=== PATIENT | male | born 1950 | race Caucasian/White ===

== ENCOUNTER 2018-08-24 10:39 | Emergency (ER) | payer MEDICARE, OTHER ==
[~2018-08-24] VITALS: Ht 167.6 cm; Wt 154.2 kg
[2018-08-24 11:14] LABS: BASOPHILS % (AUTO) 1 % (0-10); EOSINOPHILS % (AUTO) 5 % (0-10); HEMATOCRIT 42 % (40-54); HEMOGLOBIN 13.5 G/DL (13.3-17.7); LYMPHOCYTES % (AUTO) 20 % (12-44); MEAN CORPUSCULAR HEMOGLOBIN 27 PG (25-34); MEAN CORPUSCULAR HGB CONC 33 G/DL (32-36); MEAN CORPUSCULAR VOLUME 83 FL (80-99); MEAN PLATELET VOLUME 9.3 FL (7.4-10.4); MONOCYTES % (AUTO) 10 % (0-12); NEUTROPHILS % (AUTO) 64 % (42-75); PLATELET COUNT 176 10^3/uL (130-400); RED CELL DISTRIBUTION WIDTH 15.3 % (10.0-14.5); WHITE BLOOD COUNT 8.7 10^3/uL (4.3-11.0)
[2018-08-24 11:15] LABS: EOSINOPHILS # (AUTO) 0.4 10^3/uL (0.0-0.3); LYMPHOCYTES # (AUTO) 1.7 X 10^3 (1.0-4.0); MONOCYTES # (AUTO) 0.9 X 10^3 (0.0-1.0); NEUTROPHILS # (AUTO) 5.5 X 10^3 (1.8-7.8)
[2018-08-24] MEDS ORDERED: PROCHLORPERAZINE 10 MG/2ML INJ (COMPAZINE) IV ONE (11:15)
[2018-08-24] MEDS ORDERED: ONDANSETRON 4 MG/2 ML (SDV) Z0FRAN IVP ONE ×2 (11:15→12:45)
[2018-08-24] MEDS ORDERED: NS IV 1000 ML 1,000 ML IV SCH (11:15)
[2018-08-24] MEDS ORDERED: TRAM50TA2 (11:20)
[2018-08-24] MEDS ORDERED: FINA5TAB6 (11:20)
[2018-08-24] MEDS ORDERED: POTA20TA8 (11:20)
[2018-08-24] MEDS ORDERED: HYDR-3812 (11:20)
[2018-08-24] MEDS ORDERED: TAMS0.4C98 (11:20)
[2018-08-24] MEDS ORDERED: ALPR0.5T7 (11:20)
[2018-08-24] MEDS ORDERED: CARV3.122 (11:20)
[2018-08-24] MEDS ORDERED: LISI-552 (11:20)
[2018-08-24] MEDS ORDERED: ALLO300T2 (11:20)
[2018-08-24] MEDS ORDERED: MECLIZINE 25 MG (ANTIVERT) TAB PO ONE (11:30)
[2018-08-24 11:38] LABS: ALANINE AMINOTRANSFERASE 17 U/L (0-55); ALBUMIN 4.1 GM/DL (3.2-4.5); ALKALINE PHOSPHATASE 109 U/L (40-136); BILIRUBIN,TOTAL 0.6 MG/DL (0.1-1.0); BUN/CREATININE RATIO 19; CARBON DIOXIDE 20 MMOL/L (21-32); CHLORIDE 103 MMOL/L (98-107); CREATININE SERUM 0.85 MG/DL (0.60-1.30); GFR ESTIMATED > 60; GLUCOSE 116 MG/DL (70-105); POTASSIUM 4.1 MMOL/L (3.6-5.0); SODIUM 139 MMOL/L (135-145); TOTAL PROTEIN 7.6 GM/DL (6.4-8.2)
[2018-08-24 11:39] LABS: LIPASE 15 U/L (8-78)
--- NOTE | 2018-08-24 11:57 | NUR ---
PT RESTING WITH HIS EYES CLOSED. STATES HE IS FEELING BETTER.
--- NOTE | 2018-08-24 12:25 | NUR ---
PT UP TO BATHROOM. STATES HE STILL FEELS A LITTLE DIZZY BUT IS MUCH BETTER. AMBULATED TO BATHROOM WITHOUT DIFFICULTY.
--- NOTE | 2018-08-24 12:35 | NUR ---
DR NOTIFIED PT WAS FEELING BETTER.
[2018-08-24] MEDS ORDERED: MECL-106 PO (12:41)
[2018-08-24] MEDS ORDERED: ONDA4TAB11 PO (12:41)
--- NOTE | 2018-08-24 12:41 | ED Syncope ---
General Chief Complaint: Dizziness/Syncope Stated Complaint: VOMITING & NAUSEA; DIZZY Nursing Triage Note: TO ROOM VIA WC. STATES WHILE AT WORK TODAY AT 0930 HE BECAME DIZZY AND SICK TO HIS STOMACH. STATES THIS HAPPENED LAST WED ALSO BUT IT WENT AWAY. Source of Information: Patient History of Present Illness Date Seen by Provider: Aug 24, 2018 Time Seen by Provider: 10:45 Initial Comments 68-year-old male who presents with intermittent dizziness over the past week. Symptoms are abrupt onset and associated with room spinning, loss of pounds nausea vomiting. Today episode started while work. Symptoms are sweats position change and head movement and are relieved with rest. Denies headache, chest pain , shortness of breath, focal extremity weakness or loss of sensation. No recent respiratory tract illnesses. Denies neck pain, tinnitus or hearing loss. Patient took nausea medication at home last week with first episode and symptoms resolved. No other acute symptoms or complaints. Timing/Prior Episodes: Recent History Symptoms Prior to Episode: Lightheadedness, Pain Precipitating Factors: Other Loss of Consciousness: No Loss of Consciousness Current Symptoms: Dizziness Allergies and Home Medications Allergies Coded Allergies: No Known Drug Allergies (Unverified , 08/24/18) Patient Home Medication List Home Medication List Reviewed: Yes Review of Systems Constitutional: no symptoms reported EENTM: no symptoms reported Respiratory: no symptoms reported Cardiovascular: no symptoms reported Gastrointestinal: nausea, vomiting Genitourinary: no symptoms reported Musculoskeletal: no symptoms reported Skin: no symptoms reported Psychiatric/Neurological: No Symptoms Reported Past Tktlyfu-Csgvjs-Lfuani Hx Patient Social History Alcohol Use: Denies Use Recreational Drug Use: No Smoking Status: Never a Smoker Recent Foreign Travel: No Contact w/Someone Who Travel: No Recent Infectious Disease Expo: No Recent Hopitalizations: No Past Medical History Surgeries: Yes Appendectomy Respiratory: No Cardiac: Yes Hypertension Neurological: No Genitourinary: Yes Kidney Stones Gastrointestinal: No Musculoskeletal: Yes Arthritis Endocrine: No HEENT: No Cancer: No Psychosocial: Yes Anxiety Integumentary: No Physical Exam Vital Signs Vital Signs - First Documented 08/24/18 10:48 Temp 96.3 Pulse 65 Resp 21 B/P (MAP) 180/82 (114) Pulse Ox 96 O2 Delivery Room Air Capillary Refill : Less Than 3 Seconds Height, Weight, BMI Height: 5'6.00" Weight: 340lbs. oz. 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 Norm as Tested Cranial Nerves: Normal Hearing, Normal Speech, PERRL, Facial Droop, Facial Paresthesias Coordination/Gait: Abnormal Gait Focused Exam Sepsis Stage: Ruled Out Progress/Results/Core Measures Results/Orders Lab Results Laboratory Tests Test 08/24/18 10:55 Range/Units White Blood Count 8.7 4.3-11.0 10^3/uL Red Blood Count 5.00 4.35-5.85 10^6/uL Hemoglobin 13.5 13.3-17.7 G/DL Hematocrit 42 40-54 % Mean Corpuscular Volume 83 80-99 FL Mean Corpuscular Hemoglobin 27 25-34 PG Mean Corpuscular Hemoglobin Concent 33 32-36 G/DL Red Cell Distribution Width 15.3 H 10.0-14.5 % Platelet Count 176 130-400 10^3/uL Mean Platelet Volume 9.3 7.4-10.4 FL Neutrophils (%) (Auto) 64 42-75 % Lymphocytes (%) (Auto) 20 12-44 % Monocytes (%) (Auto) 10 0-12 % Eosinophils (%) (Auto) 5 0-10 % Basophils (%) (Auto) 1 0-10 % Neutrophils # (Auto) 5.5 1.8-7.8 X 10^3 Lymphocytes # (Auto) 1.7 1.0-4.0 X 10^3 Monocytes # (Auto) 0.9 0.0-1.0 X 10^3 Eosinophils # (Auto) 0.4 H 0.0-0.3 10^3/uL Basophils # (Auto) 0.0 0.0-0.1 10^3/uL Sodium Level 139 135-145 MMOL/L Potassium Level 4.1 3.6-5.0 MMOL/L Chloride Level 103 98-107 MMOL/L Carbon Dioxide Level 20 L 21-32 MMOL/L Anion Gap 16 H 5-14 MMOL/L Blood Urea Nitrogen 16 7-18 MG/DL Creatinine 0.85 0.60-1.30 MG/DL Estimat Glomerular Filtration Rate > 60 BUN/Creatinine Ratio 19 Glucose Level 116 H 70-105 MG/DL Calcium Level 9.0 8.5-10.1 MG/DL Corrected Calcium 8.9 8.5-10.1 MG/DL Total Bilirubin 0.6 0.1-1.0 MG/DL Aspartate Amino Transf (AST/SGOT) 18 5-34 U/L Alanine Aminotransferase (ALT/SGPT) 17 0-55 U/L Alkaline Phosphatase 109 40-136 U/L Troponin T 14 <=15 NG/L Total Protein 7.6 6.4-8.2 GM/DL Albumin 4.1 3.2-4.5 GM/DL Lipase 15 8-78 U/L My Orders Orders - LESTER SHIRLEY DO Cbc With Automated Diff (08/24/18 11:03) Comprehensive Metabolic Panel (08/24/18 11:03) Lipase (08/24/18 11:03) Troponin T (08/24/18 11:03) Ondansetron Injection (Zofran Injectio (08/24/18 11:15) Ns Iv 1000 Ml (Sodium Chloride 0.9%) (08/24/18 11:15) Prochlorperazine Injection (Compazine In (08/24/18 11:15) Meclizine Tablet (Antivert Tablet) (08/24/18 11:30) Ekg Tracing (08/24/18 12:34) Medications Given in ED Current Medications Medications Dose Ordered Sig/Joseph Route Start Time Stop Time Status Last Admin Dose Admin Meclizine HCl 25 mg ONCE ONCE PO 08/24/18 11:30 08/24/18 11:31 DC 08/24/18 11:28 25 MG Ondansetron HCl 4 mg ONCE ONCE IVP 08/24/18 11:15 08/24/18 11:16 DC 08/24/18 11:10 4 MG Prochlorperazine Edisylate 10 mg ONCE ONCE IV 08/24/18 11:15 08/24/18 11:16 DC 08/24/18 11:10 10 MG Vital Signs/I&O 08/24/18 10:48 Temp 96.3 Pulse 65 Resp 21 B/P (MAP) 180/82 (114) Pulse Ox 96 O2 Delivery Room Air Blood Pressure Mean: 114 Departure Communication (Admissions) Acute vertigo exacerbated by position change. No focal neurologic deficits. Fluids, antiemetics and meclizine given with near complete resolution of symptoms and emergency department. Patient is able to walk by himself with steady gait her to discharge. Recommend continued supportive care with PCP follow-up. Temperature instructions reviewed. Impression Primary Impression: Vertigo Disposition: HOME, SELF-CARE Condition: Improved Departure-Patient Inst. Decision time for Depature: 12:39 Referrals: CHRISTIANO VALENCIA MD (PCP/Family) Primary Care Physician Patient Instructions: Vertigo (a Type of Dizziness) (DC) Add. Discharge Instructions: Please take meclizine 3 times daily as needed for dizziness and nausea medication as directed. Avoid sudden position changes or head movement as this may cause vertigo episodes to return. Follow-up with your PCP in 2-3 days for reevaluation. Return immediately if new or worsening symptoms. All discharge instructions reviewed with patient and/or family. Voiced understanding. Scripts Ondansetron (Ondansetron Odt) 4 Mg Tab.rapdis 4 MG PO Q6H PRN for NAUSEA/VOMITING, #10 TAB Prov: LESTER SHIRLEY DO 08/24/18 Meclizine HCl (Meclizine HCl) 25 Mg Tablet 50 MG PO TID, #20 TAB Prov: LESTER SHIRLEY DO 08/24/18 LESTER SHIRLEY DO Aug 24, 2018 12:41
--- NOTE | 2018-08-24 12:45 | NUR ---
UPON GOING OVER DISCHARGE INSTRUCTIONS WITH PT, PT STATES HE IS NAUSEATED AND IS WEAK. DR TRAVIS ET WILL ORDER MEDICATIONS.
--- NOTE | 2018-08-24 12:55 | NUR ---
RX CALLED INTO [facility] PER REQUEST OF PT.
[2018-08-24 13:05] VITALS: BP 154/72
== END 2018-08-24 13:05 | disposition home or self-care (01) ==
LOC: ER FS 10:44
DX: R42 Dizziness and giddiness (principal); F41.9 Anxiety disorder, unspecified; I10 Essential (primary) hypertension; Z90.49 Acquired absence of other specified parts of digestive tract; Z87.442 Personal history of urinary calculi
CPT/HCPCS: 36415; 80053; 83690; 84484; 85025; 93005

== ENCOUNTER → 2019-06-21 | Outpatient (CLI) | payer MEDICARE ==
[~2019-06-21] MED LIST: ALLO300T2; ALPR0.5T7; CARV3.122; FINA5TAB6; HYDR-3812; LISI-552; MECL-106 PO; ONDA4TAB11 PO; POTA20TA8; TMSL.4C; TRM50T
[2019-06-21 10:16] LABS: BUN/CREATININE RATIO 24; CALCIUM 8.9 MG/DL (8.5-10.1); CARBON DIOXIDE 26 MMOL/L (21-32); CHLORIDE 102 MMOL/L (98-107); CREATININE SERUM 0.98 MG/DL (0.60-1.30); GFR ESTIMATED > 60; GLUCOSE 111 MG/DL (70-105); POTASSIUM 4.2 MMOL/L (3.6-5.0); SODIUM 140 MMOL/L (135-145)
== END ==
LOC: LAB FS 08:52
PROVIDERS: ATTEND Urology
DX: N40.1 Benign prostatic hyperplasia with lower urinary tract symptoms (principal); R39.9 Unspecified symptoms and signs involving the genitourinary system
CPT/HCPCS: 36415; 80048; 84153; 84403

== ENCOUNTER → 2019-09-07 | Outpatient (CLI) | payer MEDICARE ==
[~2019-09-07] MED LIST changes: +ACHD5005; -HYDR-3812; -MECL-106 PO; +MECL-149 PO
[2019-09-07 09:20] LABS: BUN/CREATININE RATIO 18; CARBON DIOXIDE 27 MMOL/L (21-32); CHLORIDE 102 MMOL/L (98-107); CREATININE SERUM 0.96 MG/DL (0.60-1.30); GFR ESTIMATED > 60; POTASSIUM 4.3 MMOL/L (3.6-5.0); SODIUM 140 MMOL/L (135-145)
[2019-09-07 09:21] LABS: ALANINE AMINOTRANSFERASE 13 U/L (0-55); ALBUMIN 4.1 GM/DL (3.2-4.5); ALKALINE PHOSPHATASE 108 U/L (40-136); BILIRUBIN,TOTAL 0.6 MG/DL (0.1-1.0); CALCIUM 9.1 MG/DL (8.5-10.1); GLUCOSE 105 MG/DL (70-105); TOTAL PROTEIN 7.8 GM/DL (6.4-8.2)
[2019-09-07 15:38] LABS: CHOLESTEROL 166 MG/DL (< 200); HDL CHOLESTEROL 44 MG/DL (40-60); TRIGLYCERIDES 100 MG/DL (<150); VLDL CHOLESTEROL 20 MG/DL (5-40)
== END ==
LOC: LAB FS 08:46
PROVIDERS: ATTEND Family Medicine
DX: E11.9 Type 2 diabetes mellitus without complications (principal)
CPT/HCPCS: 36415; 80053; 80061; 83036

== ENCOUNTER → 2019-10-26 | Outpatient (CLI) | payer MEDICARE ==
--- NOTE | 2019-10-26 10:30 | Diagnostic Imaging Report ---
PROCEDURE: CT head without contrast. TECHNIQUE: Multiple contiguous axial images were obtained through the brain without the use of intravenous contrast. Auto Exposure Controls were utilized during the CT exam to meet ALARA standards for radiation dose reduction. INDICATION: Dizziness. No prior studies are available for comparison. Ventricles and sulci are appropriate for the patient's age. No sulcal effacement or midline shift is identified. No acute intra-axial or extra-axial hemorrhage is detected. Cisterns are patent. Visualized paranasal sinuses are clear. IMPRESSION: No acute intracranial process is detected. Dictated by: Dictated on workstation # [id number]
--- NOTE | 2019-10-26 12:21 | Diagnostic Imaging Report ---
PROCEDURE: US carotid duplex, bilateral. TECHNIQUE: Multiple real-time grayscale images were obtained over the carotid arteries in various projections, bilaterally. Additional spectral analysis and color Doppler duplex images were also obtained. INDICATION: Dizziness. COMPARISON: None available. FINDINGS: Minimal scattered plaque is noted within the bilateral carotid arterial systems. Peak systolic velocities throughout the bilateral carotid arterial systems are within normal limits. Additionally, the bilateral internal carotid artery to common carotid artery ratios are within normal limits. Antegrade flow within the bilateral vertebral arteries. IMPRESSION: No evidence of hemodynamically significant stenosis. Parameters based on the consensus panel Ortega-Scale and Doppler ultrasound criteria published April 2003, Radiology, Volume 229. DOPPLER (peak systolic velocity M/S Right Left CCA .57 .76 ICA Proximal .48 .77 ICA Mid .48 .63 ICA Distal .45 .75 RATIO .8 1.0 ECA .81 .86 VERT .51 .37 Dictated by: Dictated on workstation # [id number]
== END ==
LOC: CARD 09:30
PROVIDERS: ATTEND Family Medicine
DX: R42 Dizziness and giddiness (principal)
CPT/HCPCS: 70450; 93306; 93880

== ENCOUNTER 2019-11-07 12:16 | Emergency (ER) | payer MEDICARE ==
[~2019-11-07] VITALS: Ht 162.5 cm; Wt 168.1 kg
[2019-11-07 12:35] VITALS: BP_SYST 183; BP_SYST 191; BP_SYST 196; BP_DIAS 105; BP_DIAS 85; BP_DIAS 86
--- NOTE | 2019-11-07 12:37 | ED Cardiac General ---
History of Present Illness General Chief Complaint: Cardiac/General Problems Stated Complaint: HYPERTENSION History of Present Illness Date Seen by Provider: Nov 07, 2019 Time Seen by Provider: 12:25 Initial Comments This patient is 69-year-old male presents to the emergency department complaining of chronic dizziness and hypertension. Patient has long history of dizziness and had a CT scan and carotid Dopplers and echocardiogram they're all nonconclusive. Patient does take of motion sickness medicine which I'm assuming is meclizine but the patient was not sure to help with dizziness. Patient states he does know dizziness upon arrival to the emergency department today. Patient states he was sent to the emergency department by primary care due to high blood pressures around 200 systolic. Patient apparently takes Coreg and lisinopril 20 mg for hypertension. We'll do medical evaluation treatment is needed. Timing/Duration: intermittent Severity: moderate Activities at Onset: none Prior CP/Workup: echocardiography Allergies and Home Medications Allergies Coded Allergies: No Known Drug Allergies (Unverified , 08/24/18) Home Medications Meclizine HCl 25 Mg Tablet, 50 MG PO TID Prescribed by: LESTER SHIRLEY on 08/24/18 1241 Ondansetron 4 Mg Tab.rapdis, 4 MG PO Q6H PRN for NAUSEA/VOMITING Prescribed by: LESTER SHIRLEY on 08/24/18 1241 Patient Home Medication List Home Medication List Reviewed: Yes Review of Systems Review of Systems Constitutional: No no symptoms reported; see HPI; No chills, No diaphoresis; dizziness; No fever, No malaise, No weakness, No weight gain, No weight loss, No other EENTM: No No Symptoms Reported, No See HPI, No Blurred Vision, No Double Vision, No Eye Pain, No Eye Tearing, No Ear Drainage, No Ear Pain, No Mouth Pain, No Mouth Swelling, No Nose Congestion, No Nose Pain, No Throat Pain, No Throat Swelling, No Other Respiratory: Denies No Symptoms Reported, Denies See HPI, Denies Cough, Denies Orthopnea, Denies Shortness of Air, Denies SOA With Exertion, Denies SOA at Rest, Denies Stridor, Denies Wheezing, Denies Other Cardiovascular: Denies No Symptoms Reported, Denies See HPI, Denies Chest Pain, Denies Edema, Denies Irregular Heart Rate, Denies Lightheadedness, Denies Palpitations, Denies Syncope, Denies Other Gastrointestinal: Denies No Symptoms Reported, Denies See HPI, Denies Abdomen Distended, Denies Abdominal Pain, Denies Blood Streaked Stools, Denies Const ipated, Denies Diarrhea, Denies Difficulty Swallowing, Denies Nausea, Denies Poor Appetite, Denies Poor Fluid Intake, Denies Rectal Bleeding, Denies Vomiting, Denies Other Genitourinary: Denies No Symptoms Reported, Denies See HPI, Denies Burning, Denies Discharge, Denies Drainage, Denies Frequency, Denies Flank Pain, Denies Hematuria, Denies Incontinence, Denies Pain, Denies Urgency, Denies Other Musculoskeletal: No no symptoms reported, No see HPI, No back pain, No gout, No joint pain, No joint swelling, No muscle pain, No muscle stiffness, No muscle cramps, No muscle twitching, No muscle weakness, No neck pain, No other Skin: No no symptoms reported, No see HPI, No change in color, No change in hair/nails, No dryness, No hx of skin cancer, No lesions, No lumps, No pruritus, No rash, No other All Other Systems Reviewed Negative Unless Noted: Yes Past Nqrknjq-Dpibsw-Blwbzr Hx Patient Social History Recent Foreign Travel: No Contact w/Someone Who Travel: No Recent Hopitalizations: No Past Medical History Surgeries: Yes Appendectomy Respiratory: No Cardiac: Yes Hypertension Neurological: No Genitourinary: Yes Kidney Stones Gastrointestinal: No Musculoskeletal: Yes Arthritis Endocrine: No HEENT: No Cancer: No Psychosocial: Yes Anxiety Integumentary: No Physical Exam Vital Signs Vital Signs - First Documented 11/07/19 12:22 Temp 36.7 Pulse 77 Resp 19 B/P (MAP) 196/101 (132) Pulse Ox 96 O2 Delivery Room Air Capillary Refill : Height, Weight, BMI Height: 5'6.00" Weight: 340lbs. oz. 154.846011jl; BMI Method:Stated General Appearance: No Apparent Distress, WD/WN HEENT: PERRL/EOMI, TMs Normal, Normal ENT Inspection, Pharynx Normal Neck: Full Range of Motion, Normal Inspection, Non Tender Respiratory: Chest Non Tender, Lungs Clear, Normal Breath Sounds, No Accessory Muscle Use, No Respiratory Distress Cardiovascular: Regular Rate, Rhythm, No Edema, No Gallop, No JVD, No Murmur, Normal Peripheral Pulses Gastrointestinal: Normal Bowel Sounds, No Organomegaly, No Pulsatile Mass, Non Tender Neurologic/Psychiatric: Alert, Oriented x3, No Motor/Sensory Deficits, Normal Mood/Affect Skin: Normal Color, Warm/Dry Progress/Results/Core Measures Results/Orders Lab Results Laboratory Tests Test 11/07/19 12:43 11/07/19 12:50 Range/Units Urine Color YELLOW Urine Clarity CLEAR Urine pH 7.5 5-9 Urine Specific Ethan 1.015 L 1.016-1.022 Urine Protein NEGATIVE NEGATIVE Urine Glucose (UA) NEGATIVE NEGATIVE Urine Ketones NEGATIVE NEGATIVE Urine Nitrite NEGATIVE NEGATIVE Urine Bilirubin NEGATIVE NEGATIVE Urine Urobilinogen 0.2 < = 1.0 MG/DL Urine Leukocyte Esterase NEGATIVE NEGATIVE Urine RBC (Auto) NEGATIVE NEGATIVE Urine RBC NONE /HPF Urine WBC 0-2 /HPF Urine Squamous Epithelial Cells 0-2 /HPF Urine Crystals NONE /LPF Urine Bacteria NEGATIVE /HPF Urine Casts NONE /LPF Urine Mucus NEGATIVE /LPF Urine Culture Indicated NO White Blood Count 10.0 4.3-11.0 10^3/uL Red Blood Count 4.97 4.35-5.85 10^6/uL Hemoglobin 13.3 13.3-17.7 G/DL Hematocrit 41 40-54 % Mean Corpuscular Volume 83 80-99 FL Mean Corpuscular Hemoglobin 27 25-34 PG Mean Corpuscular Hemoglobin Concent 32 32-36 G/DL Red Cell Distribution Width 15.8 H 10.0-14.5 % Platelet Count 158 130-400 10^3/uL Mean Platelet Volume 9.6 7.4-10.4 FL Neutrophils (%) (Auto) 70 42-75 % Lymphocytes (%) (Auto) 19 12-44 % Monocytes (%) (Auto) 7 0-12 % Eosinophils (%) (Auto) 3 0-10 % Basophils (%) (Auto) 1 0-10 % Neutrophils # (Auto) 7.0 1.8-7.8 X 10^3 Lymphocytes # (Auto) 1.9 1.0-4.0 X 10^3 Monocytes # (Auto) 0.7 0.0-1.0 X 10^3 Eosinophils # (Auto) 0.3 0.0-0.3 10^3/uL Basophils # (Auto) 0.1 0.0-0.1 10^3/uL Sodium Level 141 135-145 MMOL/L Potassium Level 4.1 3.6-5.0 MMOL/L Chloride Level 103 98-107 MMOL/L Carbon Dioxide Level 27 21-32 MMOL/L Anion Gap 11 5-14 MMOL/L Blood Urea Nitrogen 20 H 7-18 MG/DL Creatinine 0.96 0.60-1.30 MG/DL Estimat Glomerular Filtration Rate > 60 BUN/Creatinine Ratio 21 Glucose Level 117 H 70-105 MG/DL Calcium Level 9.3 8.5-10.1 MG/DL Corrected Calcium 9.4 8.5-10.1 MG/DL Total Bilirubin 0.5 0.1-1.0 MG/DL Aspartate Amino Transf (AST/SGOT) 16 5-34 U/L Alanine Aminotransferase (ALT/SGPT) 12 0-55 U/L Alkaline Phosphatase 100 40-136 U/L Troponin I < 0.30 <0.30 NG/ML Pro-B-Type Natriuretic Peptide 472.6 H <75.0 PG/ML Total Protein 7.2 6.4-8.2 GM/DL Albumin 3.9 3.2-4.5 GM/DL My Orders Orders - JAMES GILLIS MD Ed Iv/Invasive Line Start (11/07/19 12:32) Orthostatic Vital Signs (Adult (11/07/19 12:32) Cbc With Automated Diff (11/07/19 12:32) Comprehensive Metabolic Panel (11/07/19 12:32) Ekg Tracing (11/07/19 12:32) Urinalysis (11/07/19 12:32) Probnp Fs (11/07/19 12:32) Troponin I Fs (11/07/19 12:32) Chest 1 View Ap/Pa Only (11/07/19 12:32) Hydralazine Injection (Apresoline Inject (11/07/19 12:45) Medications Given in ED Current Medications Medications Dose Ordered Sig/Joseph Route Start Time Stop Time Status Last Admin Dose Admin Hydralazine HCl 10 mg ONCE ONCE IV 11/07/19 12:45 11/07/19 12:46 DC 11/07/19 12:54 10 MG Vital Signs/I&O 11/07/19 11/07/19 12:22 12:35 Temp 36.7 Pulse 77 71 71 75 Resp 19 B/P (MAP) 196/101 (132) 183/85 (117) 196/105 (135) 191/86 (121) Pulse Ox 96 O2 Delivery Room Air Progress Progress Note : Time: 13:44 Progress Note This patient is doing much improved after hydralazine. Patient still complains of no dizziness in the emergency department this is a chronic issue. Patient's blood pressure is 141/66 after hydralazine. Discussed length with patient about options. We will write the patient prescription for Norvasc 10 mg daily patient is to keep a blood pressure log and follow-up with his primary care physician to monitor blood pressures. Patient be discharged home Initial ECG Impression Date: Nov 07, 2019 Initial ECG Impression Time: 12:58 Initial ECG Rate: 66 Initial ECG Rhythm: Normal Sinus Initial ECG Impression: Nonspecific Changes Comment Sinus rhythm with a heart rate is 66 left anterior vesicular block and nonspecific EKG changes. Departure Impression Primary Impression: Hypertension Additional Impression: Dizziness Disposition: 01 HOME, SELF-CARE Condition: Stable Departure-Patient Inst. Decision time for Depature: 13:46 Referrals: CHRISTIANO AVLENCIA MD (PCP/Family) Primary Care Physician Patient Instructions: High Blood Pressure (DC) Add. Discharge Instructions: We will write the patient prescription for Norvasc 10 mg daily patient is to keep a blood pressure log and follow-up with his primary care physician to monitor blood pressures. Patient be discharged home All discharge instructions reviewed with patient and/or family. Voiced understanding. Scripts Amlodipine Besylate (Amlodipine Besylate) 10 Mg Tablet 10 MG PO DAILY for 30 Days, #30 TAB 0 Refills Prov: JAMSE GILLIS MD 11/07/19 JAMES GILLIS MD Nov 07, 2019 12:37
[2019-11-07] MEDS ORDERED: hydrALAZINE (APESOLINE) 20 MG/ML VIAL IV ONE (12:45)
--- NOTE | 2019-11-07 12:48 | Diagnostic Imaging Report ---
INDICATION: High blood pressure. TIME OF EXAM: 12:39 p.m. The heart size is normal. The pulmonary vascularity is unremarkable. The lungs are clear. No infiltrate, effusion or pneumothorax is detected. IMPRESSION: No acute cardiopulmonary process is detected. Dictated by: Dictated on workstation # [id number]
[2019-11-07 13:00] LABS: HEMATOCRIT 41 % (40-54); HEMOGLOBIN 13.3 G/DL (13.3-17.7); MEAN CORPUSCULAR HEMOGLOBIN 27 PG (25-34); MEAN CORPUSCULAR HGB CONC 32 G/DL (32-36); MEAN CORPUSCULAR VOLUME 83 FL (80-99)
[2019-11-07 13:01] LABS: BASOPHILS # (AUTO) 0.1 10^3/uL (0.0-0.1); BASOPHILS % (AUTO) 1 % (0-10); EOSINOPHILS # (AUTO) 0.3 10^3/uL (0.0-0.3); EOSINOPHILS % (AUTO) 3 % (0-10); LYMPHOCYTES # (AUTO) 1.9 X 10^3 (1.0-4.0); LYMPHOCYTES % (AUTO) 19 % (12-44); MEAN PLATELET VOLUME 9.6 FL (7.4-10.4); MONOCYTES # (AUTO) 0.7 X 10^3 (0.0-1.0); MONOCYTES % (AUTO) 7 % (0-12); NEUTROPHILS % (AUTO) 70 % (42-75); PLATELET COUNT 158 10^3/uL (130-400); RED CELL DISTRIBUTION WIDTH 15.8 % (10.0-14.5)
[2019-11-07 13:02] LABS: BACTERIA,URINE NEGATIVE /HPF; BILIRUBIN,URINE NEGATIVE (NEGATIVE); CLARITY,URINE CLEAR; COLOR,URINE YELLOW; GLUCOSE, URINE (UA) NEGATIVE (NEGATIVE); KETONES,URINE NEGATIVE (NEGATIVE); LEUKOCYTE ESTERASE ,URINE NEGATIVE (NEGATIVE); NITRITE,URINE NEGATIVE (NEGATIVE); PH,URINE 7.5 (5-9); PROTEIN,URINE NEGATIVE (NEGATIVE); SQUAMOUS EPITHELIAL CELL,UR 0-2 /HPF; WBC,URINE 0-2 /HPF
[2019-11-07 13:35] LABS: ALANINE AMINOTRANSFERASE 12 U/L (0-55); ALKALINE PHOSPHATASE 100 U/L (40-136); BILIRUBIN,TOTAL 0.5 MG/DL (0.1-1.0); BUN/CREATININE RATIO 21; CALCIUM 9.3 MG/DL (8.5-10.1); CARBON DIOXIDE 27 MMOL/L (21-32); CHLORIDE 103 MMOL/L (98-107); CREATININE SERUM 0.96 MG/DL (0.60-1.30); GFR ESTIMATED > 60; GLUCOSE 117 MG/DL (70-105); POTASSIUM 4.1 MMOL/L (3.6-5.0); SODIUM 141 MMOL/L (135-145); TOTAL PROTEIN 7.2 GM/DL (6.4-8.2)
[2019-11-07 13:36] LABS: ALBUMIN 3.9 GM/DL (3.2-4.5)
[2019-11-07] MEDS ORDERED: AMLO10TA7 PO (13:46)
[2019-11-07 14:10] VITALS: BP 152/57
--- OUTSIDE RECORDS SUMMARY | 2019-11-07 15:17 | XMS REPORT | Continuity of Care Document ---
Author Organization Unknown Address Unknown Phone Unavailable Allergies Active Description Code Type Severity Reaction Onset Reported/Identified Relationship to Patient Clinical Status Yes No Known Drug Allergies [id number] Drug Allergy Unknown N/A 08/24/2018 Medications There is no data. Problems Date Dx Coded Attending Type Code Diagnosis Diagnosed By 08/24/2018 LESTER SHIRLEY DO, Ot F41.9 ANXIETY DISORDER, UNSPECIFIED 08/24/2018 LESTER SHIRLEY DO Ot I10 ESSENTIAL (PRIMARY) HYPERTENSION 08/24/2018 LESTER SHIRLEY DO Ot R42 DIZZINESS AND GIDDINESS 08/24/2018 LESTER SHIRLEY DO Ot Z87.442 PERSONAL HISTORY OF URINARY CALCULI 08/24/2018 LESTER SHIRLEY DO Ot Z90.49 ACQUIRED ABSENCE OF OTHER SPECIFIED PART 08/30/2018 LESTER SHIRLEY DO, Ot F41.9 ANXIETY DISORDER, UNSPECIFIED 08/30/2018 LESTER SHIRLEY DO Ot I10 ESSENTIAL (PRIMARY) HYPERTENSION 08/30/2018 LESTER SHIRLEY DO Ot R42 DIZZINESS AND GIDDINESS 08/30/2018 LESTER SHIRLEY DO, Ot Z87.442 PERSONAL HISTORY OF URINARY CALCULI 08/30/2018 LESTER SHIRLEY DO, Ot Z90.49 ACQUIRED ABSENCE OF OTHER SPECIFIED PART 06/23/2019 MEMO BERRIOS MD Ot N40.1 BENIGN PROSTATIC HYPERPLASIA WITH LOWER 06/23/2019 MEMO BERRIOS MD Ot R39.9 UNSP SYMPTOMS AND SIGNS INVOLVING THE GE 09/07/2019 MEMO BERRIOS MD Ot N40.1 BENIGN PROSTATIC HYPERPLASIA WITH LOWER 09/07/2019 MEMO BERRIOS MD Ot R39.9 UNSP SYMPTOMS AND SIGNS INVOLVING THE GE 09/10/2019 CHRISTIANO VALENCIA MD Ot E11 .9 TYPE 2 DIABETES MELLITUS WITHOUT COMPLIC 09/10/2019 CHRISTIANO VALENCIA MD Ot E11 .9 TYPE 2 DIABETES MELLITUS WITHOUT COMPLIC 10/25/2019 CHRISTIANO VALENCIA MD Ot R42 DIZZINESS AND GIDDINESS 10/26/2019 CHRISTIANO VALENCIA MD Ot R42 DIZZINESS AND GIDDINESS 10/31/2019 ERIK MIRANDA, CHRISTIANO Napier Ot R42 DIZZINESS AND GIDDINESS Procedures There is no data. Results Test Result Range Complete blood count (CBC) with automate d white blood cell (WBC) differential - 08/24/18 10:55 Blood leukocytes automated count (number/volume) 8.7 10*3/uL 4.3-11.0 Blood erythrocytes automated count (number/volume) 5.00 10*6/uL 4.35-5.85 Venous blood hemoglobin measurement (mass/volume) 13.5 g/dL 13.3-17.7 Blood hematocrit (volume fraction) 42 % 40-54 Automated erythrocyte mean corpuscular volume 83 [ foz_us] 80-99 Automated erythrocyte mean corpuscular h emoglobin (mass per erythrocyte) 27 pg 25-34 Automated erythrocyte mean corpuscular h emoglobin concentration measurement (mass/volume) 33 g/dL 32-36 Automated erythrocyte distribution width ratio 15. 3 % 10.0- 14.5 Automated blood platelet count (count/volume) 176 10*3/uL 130-400 Automated blood platelet mean volume measurement 9.3 [foz_us] 7.4-10.4 Automated blood neutrophils/100 leukocytes 64 % 42-75 Automated blood lymphocytes/100 leukocytes 20 % 12-44 Blood monocytes/100 leukocytes 10 % 0-12 Automated blood eosinophils/100 leukocytes 5 % 0-10 Automated blood basophils/100 leukocytes 1 % 0-10 Blood neutrophils automated count (number/volume) 5.5 10*3 1.8-7.8 Blood lymphocytes automated count (number/volume) 1.7 10*3 1.0-4.0 Blood monocytes automated count (number/volume) 0. 9 10*3 0.0-1.0 Automated eosinophil count 0.4 10*3/uL 0 .0-0.3 Automated blood basophil count (count/volume) 0.0 10*3/uL 0.0-0.1 Comprehensive metabolic panel - 08/24/18 10:55 Serum or plasma sodium measurement (moles/volume) 139 mmol/L 135-145 Serum or plasma potassium measurement (moles/volume) 4.1 mmol/L 3.6-5.0 Serum or plasma chloride measurement (moles/volume) 103 mmol/L 98-107 Carbon dioxide 20 mmol/L 21-32 Serum or plasma anion gap determination (moles/volume) 16 mmol/L 5-14 Serum or plasma urea nitrogen measurement (mass/volume ) 16 mg/dL 7-18 Serum or plasma creatinine measurement (mass/volume) 0.85 mg/dL 0.60-1.30 Serum or plasma urea nitrogen/creatinine mass ratio 19 NRG Serum or plasma creatinine measurement w ith calculation of estimated glomerular filtration rate > NRG Serum or plasma glucose measurement (mass/volume) 116 mg/dL 70-105 Serum or plasma calcium measurement (mass/volume) 9.0 mg/dL 8.5-10.1 Serum or plasma total bilirubin measurement (mass/volu me) 0.6 mg/dL 0.1-1.0 Serum or plasma alkaline phosphatase geri surement (enzymatic activity/volume) 109 U/L 40-136 Serum or plasma aspartate aminotransfera se measurement (enzymatic activity/volume) 18 U/L 5-34 Serum or plasma alanine aminotransferase measurement (enzymatic activity/volume) 17 U/L 0-55 Serum or plasma protein measurement (mass/volume) 7.6 g/dL 6.4-8.2 Serum or plasma albumin measurement (mass/volume) 4.1 g/dL 3.2-4.5 CALCIUM CORRECTED 8.9 mg/dL 8.5-10.1 TROPONIN T - 08/24/18 10:55 TROPONIN T 14 % <=15 Lipase - 08/24/18 10:55 Lipase 15 U/L 8-78 Whole blood basic metabolic panel - 06/06 11/23 09:20 Serum or plasma sodium measurement (moles/volume) 140 mmol/L 135-145 Serum or plasma potassium measurement (moles/volume) 4.2 mmol/L 3.6-5.0 Serum or plasma chloride measurement (moles/volume) 102 mmol/L 98-107 Carbon dioxide 26 mmol/L 21-32 Serum or plasma anion gap determination (moles/volume) 12 mmol/L 5-14 Serum or plasma urea nitrogen measurement (mass/volume ) 24 mg/dL 7-18 Serum or plasma creatinine measurement (mass/volume) 0.98 mg/dL 0.60-1.30 Serum or plasma urea nitrogen/creatinine mass ratio 24 NRG Serum or plasma creatinine measurement w ith calculation of estimated glomerular filtration rate > NRG Serum or plasma glucose measurement (mass/volume) 111 mg/dL 70-105 Serum or plasma calcium measurement (mass/volume) 8.9 mg/dL 8.5-10.1 Serum or plasma testosterone measurement (mass/volume) - 06/21/19 09:20 TESTOSTERONE TOTAL SERUM C 120.74 % 22 0.91-715.81 Prostate specific ag [mass/volume] in se rum or plasma - 06/21/19 09:20 PSA EQUIMOLAR (JENN) 1.80 % 0.00-4.0 0 Comprehensive metabolic panel - 09/07/19 08:55 Serum or plasma sodium measurement (moles/volume) 140 mmol/L 135-145 Serum or plasma potassium measurement (moles/volume) 4.3 mmol/L 3.6-5.0 Serum or plasma chloride measurement (moles/volume) 102 mmol/L 98-107 Carbon dioxide 27 mmol/L 21-32 Serum or plasma anion gap determination (moles/volume) 11 mmol/L 5-14 Serum or plasma urea nitrogen measurement (mass/volume ) 17 mg/dL 7-18 Serum or plasma creatinine measurement (mass/volume) 0.96 mg/dL 0.60-1.30 Serum or plasma urea nitrogen/creatinine mass ratio 18 NRG Serum or plasma creatinine measurement w ith calculation of estimated glomerular filtration rate > NRG Serum or plasma glucose measurement (mass/volume) 105 mg/dL 70-105 Serum or plasma calcium measurement (mass/volume) 9.1 mg/dL 8.5-10.1 Serum or plasma total bilirubin measurement (mass/volu me) 0.6 mg/dL 0.1-1.0 Serum or plasma alkaline phosphatase geri surement (enzymatic activity/volume) 108 U/L 40-136 Serum or plasma aspartate aminotransfera se measurement (enzymatic activity/volume) 16 U/L 5-34 Serum or plasma alanine aminotransferase measurement (enzymatic activity/volume) 13 U/L 0-55 Serum or plasma protein measurement (mass/volume) 7.8 g/dL 6.4-8.2 Serum or plasma albumin measurement (mass/volume) 4.1 g/dL 3.2-4.5 CALCIUM CORRECTED 9.0 mg/dL 8.5-10.1 Lipid 1996 panel - 09/07/19 08:55 Serum or plasma triglyceride measurement (mass/volume) 100 mg/dL <150 Serum or plasma cholesterol measurement (mass/volume) 166 mg/dL < 200 Serum or plasma cholesterol in HDL measurement (mass/v olume) 44 mg/dL 40-60 Cholesterol in LDL [mass/volume] in serum or plasma by direct assay 119 mg/dL 1-129 Serum or plasma cholesterol in VLDL measurement (mass/ volume) 20 mg/dL 5-40 Hemoglobin A1c measurement - 09/07/19 08 :55 Blood hemoglobin A1C measurement (mass/volume) 5.2 % 4.0-5.6 MEAN BLOOD GLUCOSE 103 % <=126 Complete urinalysis with reflex to cultu re - 11/07/19 12:43 Urine color determination YELLOW NRG Urine clarity determination CLEAR NR G Urine pH measurement by test strip 7.5 5-9 Specific gravity of urine by test strip 1.015 1.016-1.022 Urine protein assay by test strip, semi-quantitative NEGATIVE NEGATIVE Urine glucose detection by automated test strip NE GATIVE NEGATIVE Erythrocytes detection in urine sediment by light micr oscopy NEGATIVE NEGATIVE Urine ketones detection by automated test strip NE GATIVE NEGATIVE Urine nitrite detection by test strip NEGATIVE NEGATIVE Urine total bilirubin detection by test strip NEGA TIVE NEGATIVE Urine urobilinogen measurement by automated test strip (mass/volume) 0.2 mg/dL < = 1.0 Urine leukocyte esterase detection by dipstick NEG ATIVE NEGATIVE Automated urine sediment erythrocyte cou nt by microscopy (number/high power field) NONE NRG Automated urine sediment leukocyte count by microscopy (number/high power field) [HPF] NRG Bacteria detection in urine sediment by light microsco py NEGATIVE NRG Squamous epithelial cells detection in u rine sediment by light microscopy 0-2 NRG Crystals detection in urine sediment by light microsco py NONE NRG Casts detection in urine sediment by light microscopy NONE NRG Mucus detection in urine sediment by light microscopy NEGATIVE NRG Complete urinalysis with reflex to culture NO NRG Complete blood count (CBC) with automate d white blood cell (WBC) differential - 11/07/19 12:50 Blood leukocytes automated count (number/volume) 10.0 10*3/uL 4.3-11.0 Blood erythrocytes automated count (number/volume) 4.97 10*6/uL 4.35-5.85 Venous blood hemoglobin measurement (mass/volume) 13.3 g/dL 13.3-17.7 Blood hematocrit (volume fraction) 41 % 40-54 Automated erythrocyte mean corpuscular volume 83 [ foz_us] 80-99 Automated erythrocyte mean corpuscular h emoglobin (mass per erythrocyte) 27 pg 25-34 Automated erythrocyte mean corpuscular h emoglobin concentration measurement (mass/volume) 32 g/dL 32-36 Automated erythrocyte distribution width ratio 15. 8 % 10.0- 14.5 Automated blood platelet count (count/volume) 158 10*3/uL 130-400 Automated blood platelet mean volume measurement 9.6 [foz_us] 7.4-10.4 Automated blood neutrophils/100 leukocytes 70 % 42-75 Automated blood lymphocytes/100 leukocytes 19 % 12-44 Blood monocytes/100 leukocytes 7 % 0-12 Automated blood eosinophils/100 leukocytes 3 % 0-10 Automated blood basophils/100 leukocytes 1 % 0-10 Blood neutrophils automated count (number/volume) 7.0 10*3 1.8-7.8 Blood lymphocytes automated count (number/volume) 1.9 10*3 1.0-4.0 Blood monocytes automated count (number/volume) 0. 7 10*3 0.0-1.0 Automated eosinophil count 0.3 10*3/uL 0 .0-0.3 Automated blood basophil count (count/volume) 0.1 10*3/uL 0.0-0.1 Comprehensive metabolic panel - 11/07/19 12:50 Serum or plasma sodium measurement (moles/volume) 141 mmol/L 135-145 Serum or plasma potassium measurement (moles/volume) 4.1 mmol/L 3.6-5.0 Serum or plasma chloride measurement (moles/volume) 103 mmol/L 98-107 Carbon dioxide 27 mmol/L 21-32 Serum or plasma anion gap determination (moles/volume) 11 mmol/L 5-14 Serum or plasma urea nitrogen measurement (mass/volume ) 20 mg/dL 7-18 Serum or plasma creatinine measurement (mass/volume) 0.96 mg/dL 0.60-1.30 Serum or plasma urea nitrogen/creatinine mass ratio 21 NRG Serum or plasma creatinine measurement w ith calculation of estimated glomerular filtration rate > NRG Serum or plasma glucose measurement (mass/volume) 117 mg/dL 70-105 Serum or plasma calcium measurement (mass/volume) 9.3 mg/dL 8.5-10.1 Serum or plasma total bilirubin measurement (mass/volu me) 0.5 mg/dL 0.1-1.0 Serum or plasma alkaline phosphatase geri surement (enzymatic activity/volume) 100 U/L 40-136 Serum or plasma aspartate aminotransfera se measurement (enzymatic activity/volume) 16 U/L 5-34 Serum or plasma alanine aminotransferase measurement (enzymatic activity/volume) 12 U/L 0-55 Serum or plasma protein measurement (mass/volume) 7.2 g/dL 6.4-8.2 Serum or plasma albumin measurement (mass/volume) 3.9 g/dL 3.2-4.5 CALCIUM CORRECTED 9.4 mg/dL 8.5-10.1 TROPONIN I FS - 11/07/19 12:50 TROPONIN I FS < 0.30 <0.30 PROBNP - 11/07/19 12:50 PROBNP FS 472.6 pg/mL <75.0 Encounters ACCT No. Visit Date/Time Discharge Status Pt. Type Provider Facility Loc./Unit Complaint [id number] 11/07/2019 12:18:00 14:10:00 DIS Emergency ELIS MIRANDA, JAMES Stone [facility] ER FS HYPERTENSION [id number] 10/26/2019 09:30:00 23:59:59 CLS Outpatient CHRISTIANO VALENCIA MD [facility] CARD DIZZY SPELLS [id number] 09/07/2019 08:46:00 23:59:59 CLS Outpatient CHRISTIANO VALENCIA MD [facility] LAB FS A1C CMP LIPID [id number] 06/21/2019 08:52:00 23:59:59 CLS Outpatient MEMO BERRIOS MD [facility] LAB FS N40.1 [id number] 08/24/2018 10:44:00 13:05:00 DIS Emergency LESTER SHIRLEY DO [facility] ER FS VOMITING NAUSEA; DIZZ Y
== END 2019-11-07 14:10 | disposition home or self-care (01) ==
LOC: EDUNIT# 12:16 → ER FS 12:18
DX: I10 Essential (primary) hypertension (principal); R42 Dizziness and giddiness
CPT/HCPCS: 36415; 71045; 80053; 81000; 83880; 84484; 85025; 93005

== ENCOUNTER → 2020-07-18 | Outpatient (CLI) | payer MEDICARE ==
[~2020-07-18] MED LIST changes: +AMLO-251 PO; -LISI-552; +LISI20TA26
[2020-07-18 11:52] LABS: POTASSIUM 4.3 MMOL/L (3.6-5.0); SODIUM 141 MMOL/L (135-145)
[2020-07-18 11:53] LABS: BUN/CREATININE RATIO 17; CALCIUM 9.2 MG/DL (8.5-10.1); CARBON DIOXIDE 27 MMOL/L (21-32); CHLORIDE 104 MMOL/L (98-107); CREATININE SERUM 1.03 MG/DL (0.60-1.30); GFR ESTIMATED > 60; GLUCOSE 100 MG/DL (70-105)
== END ==
LOC: LAB FS 10:58
PROVIDERS: ATTEND Urology
DX: N40.0 Benign prostatic hyperplasia without lower urinary tract symptoms (principal)
CPT/HCPCS: 36415; 80048; 84153; 84403

== ENCOUNTER → 2021-01-02 | Outpatient (CLI) | payer MEDICARE ==
[2021-01-02 12:31] LABS: POTASSIUM 4.7 MMOL/L (3.6-5.0)
[2021-01-02 12:32] LABS: ALBUMIN 3.9 GM/DL (3.2-4.5); BILIRUBIN,TOTAL 0.5 MG/DL (0.1-1.0); CALCIUM 8.9 MG/DL (8.5-10.1); CREATININE SERUM 0.86 MG/DL (0.60-1.30); TOTAL PROTEIN 7.4 GM/DL (6.4-8.2)
== END ==
LOC: LAB FS 09:42
PROVIDERS: ATTEND Family Medicine
DX: I10 Essential (primary) hypertension (principal)
CPT/HCPCS: 36415; 80053; 80061

== ENCOUNTER 2021-04-26 12:53 | Inpatient (IN) | payer MEDICARE ==
[~2021-04-26] VITALS: Ht 162 cm; Wt 174.6 kg
[~2021-04-26 12:53] MED LIST changes: -ALLO300T2; +ALLO300T2 PO; -ALPR0.5T7; +ALPR0.5T7 PO; -FINA5TAB6; +FINA5TAB6 PO; -LISI20TA26; +LISI20TA26 PO; +POTA-169; -POTA20TA8
[2021-04-26] MEDS ORDERED: RT-ALBUTEROL/IPRATROPIUM 3 ML (DUONEB) VIAL INH ONE (13:15)
[2021-04-26 13:17] LABS: WHITE BLOOD COUNT 16.8 10^3/uL (4.3-11.0)
[2021-04-26 13:18] LABS: BASOPHILS # (AUTO) 0.1 10^3/uL (0.0-0.1); BASOPHILS % (AUTO) 0 % (0-10); EOSINOPHILS # (AUTO) 0.2 10^3/uL (0.0-0.3); EOSINOPHILS % (AUTO) 1 % (0-10); HEMATOCRIT 42 % (40-54); LYMPHOCYTES # (AUTO) 2.1 X 10^3 (1.0-4.0); LYMPHOCYTES % (AUTO) 13 % (12-44); MEAN CORPUSCULAR HEMOGLOBIN 27 pg (25-34); MEAN CORPUSCULAR HGB CONC 31 g/dL (32-36); MEAN CORPUSCULAR VOLUME 88 fL (80-99); MEAN PLATELET VOLUME 8.7 fL (9.0-12.2); MONOCYTES # (AUTO) 1.4 X 10^3 (0.0-1.0); MONOCYTES % (AUTO) 9 % (0-12); NEUTROPHILS # (AUTO) 12.6 X 10^3 (1.8-7.8); NEUTROPHILS % (AUTO) 75 % (42-75); PLATELET COUNT 245 10^3/uL (130-400)
--- NOTE | 2021-04-26 13:18 | ED Respiratory ---
General Chief Complaint: Respiratory Problems Stated Complaint: COUGH; GEN WEAKNESS Source: patient Exam Limitations: no limitations History of Present Illness Date Seen by Provider: Apr 26, 2021 Time Seen by Provider: 12:59 Initial Comments 70-year-old male with past medical history of hypertension, hyperlipidemia, morbid obesity coming in from home due to cough and shortness of breath. He says he started having some congestion and cough 3 days ago. He is p rogressively been more short of breath and now has difficulty walking without having to stop to take several deep breaths. His is sick with the same thing he says. He does endorse having COVID over a year ago and has not been vaccinated. He denies any fever, chest pain, abdominal pain, nausea, vomiting, diarrhea, rash, focal weakness or numbness, or any other concerns. Allergies and Home Medications Allergies Coded Allergies: No Known Drug Allergies (Unverified , 08/24/18) Patient Home Medication List Home Medication List Reviewed: Yes Allopurinol (Allopurinol) 300 Mg Tablet, (Reported) Entered as Reported by: ANDRZEJ BENTLEY on 08/24/18 1120 Alprazolam (Alprazolam) 0.5 Mg Tablet, (Reported) Entered as Reported by: ANDRZEJ BENTLEY on 08/24/18 1120 Amlodipine Besylate (Amlodipine Besylate) 10 Mg Tablet, 10 MG PO DAILY Prescribed by: JAMES GILLIS on 11/07/19 1346 Carvedilol (Carvedilol) 3.125 Mg Tablet, (Reported) Entered as Reported by: ANDRZEJ BENTLEY on 08/24/18 1120 Finasteride (Finasteride) 5 Mg Tablet, (Reported) Entered as Reported by: ANDRZEJ BENTLEY on 08/24/18 1120 Hydrocodone Bit/Acetaminophen (Lortab 5 Mg Tablet) 1 Each Tablet, (Reported) Entered as Reported by: ANDRZEJ BENTLEY on 08/24/18 1120 Lisinopril (Lisinopril) 20 Mg Tablet, (Reported) Entered as Reported by: ANDRZEJ BENTLEY on 08/24/18 1120 Meclizine HCl (Meclizine HCl) 25 Mg Tablet, 50 MG PO TID Prescribed by: LESTER SHIRLEY on 08/24/18 1241 Ondansetron (Ondansetron Odt) 4 Mg Tab.rapdis, 4 MG PO Q6H PRN for NAUSEA/VOMITING Prescribed by: LESTER SHIRLEY on 08/24/18 1241 Potassium Chloride (Klor-Con M20) 20 Meq Tab.er.prt, (Reported) Entered as Reported by: ANDRZEJ BENTLEY on 08/24/18 1120 Tamsulosin HCl (Flomax) 0.4 Mg Cap, (Reported) Entered as Reported by: ANDRZEJ BENTLEY on 08/24/18 1120 Tramadol HCl (Tramadol HCl) 50 Mg Tablet, (Reported) Entered as Reported by: ANDRZEJ BENTLEY on 08/24/18 1120 Review of Systems Review of Systems Constitutional: No chills, No fever EENTM: No blurred vision Respiratory: cough, short of breath Cardiovascular: No chest pain Gastrointestinal: No abdominal pain, No nausea, No vomiting Genitourinary: no symptoms reported Musculoskeletal: no symptoms reported Skin: no symptoms reported Psychiatric/Neurological: No Symptoms Reported Hematologic/Lymphatic: No Symptoms Reported Immunological/Allergic: no symptoms reported All Other Systems Reviewed Negative Unless Noted: Yes Past Gdbbyap-Ggqlva-Cjedmo Hx Patient Social History Tobacco Use?: No Use of E-Cig and/or Vaping dev: No Substance use?: No Alcohol Use?: No Pt feels they are or have been: No Seasonal Allergies Seasonal Allergies: No Past Medical History Surgeries: Yes Appendectomy Respiratory: Yes Sleep Apnea Cardiac: Yes Hypertension Neurological: No Genitourinary: Yes Benign Prostatic Hyperpl, Kidney Stones Gastrointestinal: No Musculoskeletal: Yes Arthritis, Gout Endocrine: No HEENT: No Cancer: No Psychosocial: Yes Anxiety Integumentary: No Blood Disorders: No Physical Exam Vital Signs - First Documented 04/26/21 13:00 Temp 36.8 Pulse 116 Resp 21 B/P (MAP) 153/88 (109) Pulse Ox 94 O2 Delivery Nasal Cannula O2 Flow Rate 6.00 Capillary Refill : Height: 5'6.00" Weight: 340lbs. oz. 154.653083xx; 63.00 BMI Method:Stated General Appearance: WD/WN, no apparent distress Eyes: Bilateral Eye Normal Inspection, Bilateral Eye PERRL HEENT: PERRL/EOMI, normal ENT inspection, pharynx normal Neck: non-tender, full range of motion, supple, normal inspection Respiratory: chest non-tender, no accessory muscle use, crackles, wheezing Cardiovascular: no murmur, tachycardia, irregularly irregular Gastrointestinal: normal bowel sounds, non tender, soft; No guarding, No rebound Extremities: normal range of motion, non-tender, no calf tenderness, normal capillary refill, pedal edema Neurologic/Psychiatric: no motor/sensory deficits, alert, normal mood/affect Skin: normal color, warm/dry Lymphatic: no adenopathy Progress/Results/Core Measures Suspected Sepsis SIRS Temperature: Pulse: Respiratory Rate: Laboratory Tests 04/26/21 13:00: White Blood Count 16.8H Blood Pressure / Mean: Laboratory Tests 04/26/21 13:00: Creatinine 0.89, INR Comment 1.1, Platelet Count 245, Total Bilirubin 1.1H Results/Orders Lab Results Laboratory Tests Test 04/26/21 13:00 Range/Units White Blood Count 16.8 H 4.3-11.0 10^3/uL Red Blood Count 4.80 4.30-5.52 10^6/uL Hemoglobin 13.0 L 13.3-17.7 g/dL Hematocrit 42 40-54 % Mean Corpuscular Volume 88 80-99 fL Mean Corpuscular Hemoglobin 27 25-34 pg Mean Corpuscular Hemoglobin Concent 31 L 32-36 g/dL Red Cell Distribution Width 15.9 H 10.0-14.5 % Platelet Count 245 130-400 10^3/uL Mean Platelet Volume 8.7 L 9.0-12.2 fL Immature Granulocyte % (Auto) 2 % Neutrophils (%) (Auto) 75 42-75 % Lymphocytes (%) (Auto) 13 12-44 % Monocytes (%) (Auto) 9 0-12 % Eosinophils (%) (Auto) 1 0-10 % Basophils (%) (Auto) 0 0-10 % Neutrophils # (Auto) 12.6 H 1.8-7.8 X 10^3 Lymphocytes # (Auto) 2.1 1.0-4.0 X 10^3 Monocytes # (Auto) 1.4 H 0.0-1.0 X 10^3 Eosinophils # (Auto) 0.2 0.0-0.3 10^3/uL Basophils # (Auto) 0.1 0.0-0.1 10^3/uL Immature Granulocyte # (Auto) 0.3 H 0.0-0.1 10^3/uL Neutrophils % (Manual) 73 % Lymphocytes % (Manual) 17 % Monocytes % (Manual) 10 % Toxic Granulation 1+ Polychromasia SLIGHT Basophilic Stippling SLIGHT Prothrombin Time 14.3 12.2-14.7 SEC INR Comment 1.1 0.8-1.4 Activated Partial Thromboplast Time 30 24-35 SEC D-Dimer 1.07 H 0.00-0.49 UG/ML Sodium Level 138 135-145 MMOL/L Potassium Level 4.4 3.6-5.0 MMOL/L Chloride Level 99 98-107 MMOL/L Carbon Dioxide Level 30 21-32 MMOL/L Anion Gap 9 5-14 MMOL/L Blood Urea Nitrogen 19 H 7-18 MG/DL Creatinine 0.89 0.60-1.30 MG/DL Estimat Glomerular Filtration Rate 84 BUN/Creatinine Ratio 21 Glucose Level 107 H 70-105 MG/DL Calcium Level 8.9 8.5-10.1 MG/DL Corrected Calcium 9.1 8.5-10.1 MG/DL Magnesium Level 2.2 1.6-2.4 MG/DL Total Bilirubin 1.1 H 0.1-1.0 MG/DL Aspartate Amino Transf (AST/SGOT) 17 5-34 U/L Alanine Aminotransferase (ALT/SGPT) 15 0-55 U/L Alkaline Phosphatase 117 40-136 U/L Troponin I < 0.30 <0.30 NG/ML C-Reactive Protein 15.22 H <0.50 MG/DL Pro-B-Type Natriuretic Peptide 2264.0 H <75.0 PG/ML Total Protein 7.5 6.4-8.2 GM/DL Albumin 3.7 3.2-4.5 GM/DL Influenza Type A Antigen NEGATIVE NEGATIVE Influenza Type B Antigen NEGATIVE NEGATIVE My Orders Orders - MAGDALENA CASANOVA MD Chest 1 View Ap/Pa Only (04/26/21 13:13) Arterial Blood Gas (04/26/21 13:13) Cbc With Automated Diff (04/26/21 13:13) Comprehensive Metabolic Panel (04/26/21 13:13) Fibrin Degradation Products (04/26/21 13:13) Magnesium (04/26/21 13:13) Protime With Inr (04/26/21 13:13) Partial Thromboplastin Time (04/26/21 13:13) Probnp Fs (04/26/21 13:13) Crp Fs (04/26/21 13:13) Troponin I Fs (04/26/21 13:13) Influenza A & B Antigens (04/26/21 13:13) Ekg Tracing (04/26/21 13:13) O2 (04/26/21 13:13) Monitor-Rhythm Ecg Trace Only (04/26/21 13:13) Covid 19 Inhouse Test (04/26/21 13:13) Albuterol/Ipra Inhalation Soln (Duoneb I (04/26/21 13:15) Furosemide Injection (Lasix Injection) (04/26/21 13:30) Manual Differential (04/26/21 13:00) Dexamethasone Injection (Decadron Injec (04/26/21 14:00) Medications Given in ED Current Medications Medications Dose Ordered Sig/Joseph Route Start Time Stop Time Status Last Admin Dose Admin Albuterol/ Ipratropium 3 ml ONCE ONCE INH 04/26/21 13:15 04/26/21 13:16 DC 04/26/21 13:26 3 ML Dexamethasone Sodium Phosphate 10 mg ONCE ONCE IV 04/26/21 14:00 04/26/21 14:01 DC 04/26/21 14:05 10 MG Furosemide 40 mg ONCE ONCE IVP 04/26/21 13:30 04/26/21 13:31 DC 04/26/21 13:26 40 MG Vital Signs/I&O 04/26/21 04/26/21 13:00 13:02 Temp 36.8 Pulse 116 Resp 21 B/P (MAP) 153/88 (109) Pulse Ox 94 93 O2 Delivery Nasal Cannula Nasal Cannula O2 Flow Rate 6.00 6.00 Capillary Refill : Progress Note : Progress Note 70-year-old male with above history coming in feeling short of breath with cough for the past 3 days. His oxygen saturation was in the 70s on presentation with the monitor on his finger and around 80% with a monitor on his forehead. He was placed on 6 L with improvement to 93%. He is in A. fib with RVR with a rate between 110 to mid 120s. The majority of the time he is around 110. Blood pressure is actually hypertensive around 150s over 80s. He does have crackles and some wheezing on exam. He does have lower extremity edema as well. He does appear to at least be partially volume overloaded, but it is difficult to assess as he has significant adiposity. We will give him a DuoNeb as well as a trial of Lasix to see if we can improve his oxygenation. An IV was placed and basic labs were obtained including cardiac biomarkers, ABG, and inflammatory markers. COVID test and flu testing sent. Flu test is negative, Covid test pending, white blood cell count elevated, CRP elevated at 15, D-dimer slightly elevated at 1, but my suspicion with him likely having Covid as this is just related to that. BNP is elevated greater than 2000, troponin negative. Creatinine is within normal limits. Chest x-ray ordered and interpreted by me showing bilateral pulmonary infiltrates that to me are more concerning for an infection such as Covid. Pulmonary edema could also have a similar appearance. I contacted the hospitalist on-call, Dr. Nogueira, and the patient will be admitted to the intensive care unit as an inpatient for further evaluation and management. Just prior to leaving via ambulance to [place] his heart rate went from 110 to consistently around 150s afib with RVR. Blood pressure remains normal. This continued to be transient, and was higher when he was more active such as when going to the commode. Lowered appropriately when resting in bed. Will hold off on rate control at this time as this is likely physiologic compensation. ECG Initial ECG Impression Date: Apr 26, 2021 Initial ECG Impression Time: 13:03 Initial ECG Rate: 119 Initial ECG Rhythm: A Fib/Flutter Comment Narrow QRS, left axis deviation, no significant ST changes, T wave flattening in aVL, compared to prior EKG over a year ago he is now in afib Diagnostic Imaging Diagonstic Imaging: Xray Plain Films/CT/US/NM/MRI: chest Comments [facility]. [place], [place] NAME: ADAMA STARK [facility] REC#: [id number] PT STATUS: REG ER : 1950 PHYSICIAN: MAGDALENA CASANOVA MD ADMIT DATE: 04/26/21/ER FS Signed Date of Exam:04/26/21 CHEST 1 VIEW AP/PA ONLY INDICATION: Shortness of breath. COMPARISON: Comparison is made with a previous study from November 07, 2019. FINDINGS: There is enlargement of the cardiac silhouette, which appears similar to the prior examination and is likely accentuated by AP technique. The central pulmonary arteries also appear prominent which may reflect background pulmonary arterial hypertension. When compared to the prior examination, there do, however, appear to be some new subtle opacities within the mid and lower right lung as well as in a retrocardiac location on the left that suggest the possibility of developing infiltrates and pneumonia. IMPRESSION: 1. Subtle pulmonary opacities within the right lung and at the left lung base may reflect a developing pneumonia. 2. No significant change in enlarged cardiac silhouette and prominent pulmonary arteries. Dictated by: Dictated on workstation # [id number] Dict: 04/26/21 1333 Trans: 04/26/21 1354 [id number] Interpreted by: AURELIO PIMENTEL MD Electronically signed by: AURELIO PIMENTEL MD 04/26/21 1354 Critical Care Note Critical Care Start Time: 13:00 Stop Time: 13:40 Total Time (minutes) 40 Progress The patient is in acute respiratory failure and worsening. He is in A. fib with RVR and is at significant risk for hemodynamic compromise. All time spent that is being billed for critical care was at the bedside with the patient separate from any additional procedures as well as talking with different clinicians about the patient's case. Departure Impression Primary Impression: Respiratory failure Qualified Codes: J96.01 - Acute respiratory failure with hypoxia Additional Impressions: Atrial fibrillation with RVR Person under investigation for COVID-19 Disposition: 30 STILL A PATIENT Condition: Critical Admissions Decision to Admit Reason: Admit from ER (General) Decision to Admit/Date: Apr 26, 2021 Time/Decision to Admit Time: 13:50 Transfer Method of Transfer: EMS Departure-Patient Inst. Referrals: CHRISTIANO VALENCIA MD (PCP/Family) Primary Care Physician MAGDALENA CASANOVA MD Apr 26, 2021 13:18
[2021-04-26 13:24] LABS: INR 1.1 (0.8-1.4); PROTHROMBIN TIME PATIENT 14.3 SEC (12.2-14.7)
[2021-04-26] MEDS ORDERED: FUROSEMIDE 40 MG/4 ML INJ (LASIX) IVP ONE (13:30)
[2021-04-26 13:37] LABS: BUN/CREATININE RATIO 21; CALCIUM 8.9 MG/DL (8.5-10.1); CARBON DIOXIDE 30 MMOL/L (21-32); CHLORIDE 99 MMOL/L (98-107); CREATININE SERUM 0.89 MG/DL (0.60-1.30); GFR ESTIMATED 84; GLUCOSE 107 MG/DL (70-105); POTASSIUM 4.4 MMOL/L (3.6-5.0); SODIUM 138 MMOL/L (135-145)
[2021-04-26 13:38] LABS: ALANINE AMINOTRANSFERASE 15 U/L (0-55); ALBUMIN 3.7 GM/DL (3.2-4.5); ALKALINE PHOSPHATASE 117 U/L (40-136); BILIRUBIN,TOTAL 1.1 MG/DL (0.1-1.0); TOTAL PROTEIN 7.5 GM/DL (6.4-8.2)
[2021-04-26 13:39] LABS: FIBRIN DEGRADATION PRODUCTS 1.07 UG/ML (0.00-0.49)
--- NOTE | 2021-04-26 13:40 | Diagnostic Imaging Report ---
INDICATION: Shortness of breath. COMPARISON: Comparison is made with a previous study from November 07, 2019. FINDINGS: There is enlargement of the cardiac silhouette, which appears similar to the prior examination and is likely accentuated by AP technique. The central pulmonary arteries also appear prominent which may reflect background pulmonary arterial hypertension. When compared to the prior examination, there do, however, appear to be some new subtle opacities within the mid and lower right lung as well as in a retrocardiac location on the left that suggest the possibility of developing infiltrates and pneumonia. IMPRESSION: 1. Subtle pulmonary opacities within the right lung and at the left lung base may reflect a developing pneumonia. 2. No significant change in enlarged cardiac silhouette and prominent pulmonary arteries. Dictated by: Dictated on workstation # [id number]
[2021-04-26 13:44] LABS: LYMPHOCYTES % (MANUAL) 17 %; MONOCYTES % (MANUAL) 10 %; NEUTROPHILS % (MANUAL) 73 %
[2021-04-26 13:45] LABS: POLYCHROMASIA SLIGHT; TOXIC GRANULATION/VACUOLAZATIO 1+
[2021-04-26 13:52] LABS: MAGNESIUM 2.2 MG/DL (1.6-2.4)
[2021-04-26 14:20] VITALS: BP 143/85
[2021-04-26] MEDS ORDERED: LIDOCAINE UROJET 2% GEL 10 ML PKG ONE (15:19)
[2021-04-26] MEDS ORDERED: ONDANSETRON 4 MG/5 ML ORAL SOLN (ZOFRAN) 5 ML PO PRN (15:45)
[2021-04-26] MEDS ORDERED: ENOXAPARIN 40 MG/0.4 ML (LOVENOX) SYR SC SCH (15:45)
[2021-04-26] MEDS ORDERED: ONDANSETRON 4 MG/2 ML (SDV) Z0FRAN IV PRN ×2 (15:45→20:00)
[2021-04-26] MEDS ORDERED: guaiFENesin SYRUP 100 MG/5 ML 10 ML (ROBITUSSIN SF) PO PRN (15:45)
[2021-04-26] MEDS ORDERED: ACETAMINOPHEN 325 MG TABLET PO PRN (15:45)
[2021-04-26] MEDS ORDERED: ACETAMINOPHEN 650 MG SUPP (TYLENOL) PR PRN (15:45)
[2021-04-26] MEDS ORDERED: RT-ALBUTEROL HFA 8.5 GM INHALER IH PRN (16:00)
[2021-04-26] MEDS ORDERED: CATHETER FLUSH 10 ML SYR IV PRN (16:00)
--- NOTE | 2021-04-26 16:06 | Tele-ICU Consult ---
History of Present Illness History of Present Illness Date Seen by Provider: Apr 26, 2021 Time Seen by Provider: 15:05 Date of Admission This virtual visit was conducted using real time audio/video. Thank you for asking us to see this patient for respiratory insufficiency due to B infilts with Negative flu and Covis serologies. Also has afib with RVR. Recent events: Low sats in ER. PMH: morbid obesity, htn, hl, gout, BPH, NGOZI. SH: smoking history N FH: Non-contributory. ROS: as in HPI PE: Appears comfortable. Obese.VSS. HR 98 afib. O2 96% sat on 6 LPM NC. HEENT: No obvious masses, adenopathy or JVD. Chest: clear to auscultation. CV: Irreg HR S1 S2 No murmur or added sounds. Abd: Non-tender. Bowel sounds Y. : Unremarkable. Jiang N. [place] MASSEUSE/psychiatric: Grossly intact. No obvious focal findings. Extremities: 1+ edema. Capillary refill < 3 seconds. Skin: unremarkable. Results: Elevated WCC16.8, D-Dimer 1.07, BNP 2264, CRP 15.22. Decreased Hb 13.0. CXR B infiltrates with LLL air bronchograms: . Available chart/ vitals / labs / images reviewed. Video assessment done using teleICU camera, rest of exam as per RN. A/P: Respiratory insufficiency: Continue present management with O2, PRN BDs. find out if on nocturnal NIV for NGOZI. Monitor for increasing oxygenation needs and/or need for intubation. Critical Care: critically ill patient. Cont. Lovenox, PRN Lasix and KCl. Discussed with TERRY Lay. Asked RN to reach out to eICU if any questions or concerns later. Time spent with patient/coordination of care with other health professionals (mins): 35 Allergies and Home Medications Allergies Coded Allergies: No Known Drug Allergies (Unverified , 08/24/18) Home Medications Amlodipine Besylate 10 Mg Tablet, 10 MG PO DAILY Prescribed by: JAMES GILLIS on 11/07/19 1346 Meclizine HCl 25 Mg Tablet, 50 MG PO TID Prescribed by: LESTER SHIRLEY on 08/24/18 1241 Ondansetron 4 Mg Tab.rapdis, 4 MG PO Q6H PRN for NAUSEA/VOMITING Prescribed by: LESTER SHIRLEY on 08/24/18 1241 Past Medical/Social/Family Hx Patient Social History Tobacco Use?: No Use of E-Cig and/or Vaping dev: No Substance use?: No Alcohol Use?: No Pt stated abuse/neglect: No Current Status Advance Directives: No Communicates: Verbally Primary Language: Libyan Preferred Spoken Language: Libyan Is interpretation needed?: No Review of Systems Constitutional: see HPI EENTM: see HPI Respiratory: see HPI Cardiovascular: see HPI Gastrointestinal: see HPI Genitourinary: see HPI Musculoskeletal: see HPI Skin: see HPI Psychiatric/Neurological: See HPI (see free text.) All Other Systems Reviewed Negative Unless Noted: Yes Sepsis Event Evaluation Height, Weight, BMI Height: 5'6.00" Weight: 340lbs. oz. 154.135127he; 66.00 BMI Method:Stated Exam Exam Patient acknowledged, consented, and participated in this virtual visit which was conducted using real time audio/video Vital Signs Date Time Temp Pulse Resp B/P (MAP) Pulse Ox O2 Delivery O2 Flow Rate FiO2 04/26/21 14:20 36.2 135 22 143/85 95 Nasal Cannula 5.00 04/26/21 13:02 93 Nasal Cannula 6.00 04/26/21 13:00 36.8 116 21 153/88 (109) 94 Nasal Cannula 6.00 Height & Weight Height: 5'6.00" Weight: 340lbs. oz. 154.904440og; 66.00 BMI Method:Stated General Appearance: No Apparent Distress (see free text) Capillary Refill: Less Than 3 Seconds Peripheral Pulses: 1+ Dorsalis Pedis (R), 1+ Left Dors-Pedis (L) Gastrointestinal: normal bowel sounds, non tender, soft; No guarding, No rebound Results Lab Laboratory Tests 04/26/21 13:00 Assessment/Plan Assessment/Plan See free text. Critical Care: Critically Ill Patient JEY CARLSON MD Apr 26, 2021 16:06
[2021-04-26] MEDS ORDERED: meTOproloL SUCCINATE 50 MG (TOPROL XL) TAB PO NR (17:00)
[2021-04-26] MEDS ORDERED: ENOXAPARIN 60 MG/0.6 ML (LOVENOX) SYR SC SCH (17:00)
[2021-04-26] MEDS: inSUlin ASPART (NovoLOG) 1 UNIT/0.01 ML (CHARGE PER UNIT) SC SCH ×2 (17:17→21:47)
[2021-04-26] MEDS: KCL 20 MEQ TAB (K-DUR) PO SCH (17:17)
[2021-04-26] MEDS ORDERED: meTOprolol 5 MG/5 ML (LOPRESSOR) VIAL ONE ×2 (17:52→17:55)
[2021-04-26] MEDS ORDERED: RT-ALBUTEROL SULF 2.5 MG/3 ML PRE-MIX VIAL INH PRN (18:00)
--- NOTE | 2021-04-26 19:47 | History & Physical-Hospitalist ---
History of Present Illness HPI/Chief Complaint Byron Lin is a 70 year old male with PMH HTN, BPH, gout, super super obesity, who presented to the [facility] with cold symptoms. He reports having congestion and runny nose. He has had a cough with sputum production. He has felt short of breath. He denies fevers and chills. He denies abdominal pain, nausea, vomiting, and diarrhea. He has leg swelling and uses compression stockings. He denies orthopnea. He denies chest pain. He denies any history of coronary artery disease or heart failure. He has no history of atrial fibrillation. Source: patient Exam Limitations: no limitations Date Seen 04/26/21 Time Seen by a Provider: 18:00 Attending Physician Danna Chun MD PCP Ellen Sotelo MD Referring Physician Date of Admission Apr 26, 2021 at 15:04 Home Medications & Allergies Home Medications Reviewed patient Home Medication Reconciliation performed by pharmacy medication reconciliations machine tool technician instructor and/or nursing. Patients Allergies have been reviewed. Allergies Allergies Coded Allergies No Known Drug Allergies (Unverified08/24/18) Past Zubrbzk-Advbpg-Zhgdmk Hx Patient Social History Tobacco Use?: No Use of E-Cig and/or Vaping dev: No Substance use?: No Alcohol Use?: No Pt feels they are or have been: No Seasonal Allergies Seasonal Allergies: No Current Status Advance Directives: No Communicates: Verbally Primary Language: Peruvian Preferred Spoken Language: Peruvian Is interpretation needed?: No Sensory deficits: Hearing impairment Implanted or Applied Medical D: None Past Medical History Surgeries: Appendectomy Sleep Apnea Hypertension Benign Prostatic Hyperpl, Kidney Stones Arthritis, Gout Anxiety Blood Disorders: No Family Medical History No Pertinent Family Hx Review of Systems Constitutional: no symptoms reported EENTM: nose congestion Respiratory: cough, phlegm, short of breath Cardiovascular: no symptoms reported Gastrointestinal: no symptoms reported Genitourinary: no symptoms reported Musculoskeletal: no symptoms reported Skin: no symptoms reported Psychiatric/Neurological: No Symptoms Reported Physical Exam Physical Exam Vital Signs Vital Signs - First Documented 04/26/21 13:00 Temp 36.8 Pulse 116 Resp 21 B/P (MAP) 153/88 (109) Pulse Ox 94 O2 Delivery Nasal Cannula O2 Flow Rate 6.00 Capillary Refill : Less Than 3 Seconds Height, Weight, BMI Height: 5'6.00" Weight: 340lbs. oz. 154.556028rd; 66.30 BMI Method:Stated General Appearance: No Apparent Distress, Chronically ill, Obese HEENT: PERRL/EOMI, Pharynx Normal Neck: Normal Inspection, Supple Respiratory: Lungs Clear, Normal Breath Sounds, No Respiratory Distress Cardiovascular: No Murmur, Irregularly Irregular, Tachycardia Gastrointestinal: Normal Bowel Sounds, Non Tender, Soft, Distended Extremity: Non Tender, Pedal Edema, Swelling, Other (venous stasis dermatitis) Neurologic/Psychiatric: Alert, Oriented x3, No Motor/Sensory Deficits, Normal Mood/Affect Skin: Warm/Dry, Diaphoresis, Other (venous stasis dermatitis) Lymphatic: No Adenopathy Results Results/Procedures Labs Laboratory Tests 04/26/21 13:00 Patient resulted labs reviewed. Imaging: Reviewed Imaging Report Assessment/Plan Admission Diagnosis Sepsis due to pneumonia Admission Status: Inpatient Order (span 2 midnights) Reason for Inpatient Admission: IV antibiotics for PNA Heart failure New onset AFib Assessment and Plan Sepsis due to pneumonia SIRS+ with leukocytosis and tachycardia CXR concerning for pneumonia COVID and flu negative Procal within normal limits Started on Rocephin and Azithromycin New onset AFib with RVR New onset CHF Acute respiratory failure with hypoxia CXR with pulmonary edema BNP elevated Exam consistent with hypervolemia Started on IV Lasix Echo ordered Cardiology consulted Given dose of Metoprolol Continue Coreg Started on therapetic Lovenox HTN Continue Amlodipine Continue Coreg Given dose of Metoprolol Increase Lisinopril IV Hydralazine as needed BPH Gout Anxiety Continue home meds Super super obesity Clinically significant, no acute management needs DVT prophylaxis: already receiving therapeutic anticoagulation Diagnosis/Problems Diagnosis/Problems (1) Sepsis due to pneumonia Status: Acute (2) Atrial fibrillation with RVR Status: Acute (3) New onset atrial fibrillation Status: Acute (4) New onset of congestive heart failure Status: Acute (5) Fluid overload Status: Acute (6) Acute respiratory failure with hypoxia Status: Acute (7) HTN (hypertension) Status: Acute (8) BPH (benign prostatic hyperplasia) Status: Chronic (9) Anxiety Status: Chronic (10) Gout Status: Chronic (11) Super-super obese Status: Chronic DANNA CHUN MD Apr 26, 2021 19:47
[2021-04-26] MEDS ORDERED: BISACODYL 10 MG SUPP (DULCOLAX) PR PRN (20:00)
[2021-04-26] MEDS ORDERED: diphenhydrAMINE 25 MG TAB (BENADRYL) PO PRN (20:00)
[2021-04-26] MEDS ORDERED: hydrALAZINE (APESOLINE) 20 MG/ML VIAL IV PRN (20:00)
[2021-04-26] MEDS ORDERED: ANTACID SUSP 30 ML UDC (MYLANTA) PO PRN (20:00)
[2021-04-26] MEDS ORDERED: ALPRAZolam 0.5 MG (XANAX) TAB PO PRN (20:00)
[2021-04-26] MEDS ORDERED: MELATONIN 3 MG TABLET PO PRN (20:00)
[2021-04-26] MEDS ORDERED: polyethylene glycoL POWDER 17 GM (MIRALAX) PACK PO PRN (20:00)
[2021-04-26] MEDS ORDERED: MECLIZINE 25 MG (ANTIVERT) TAB PO PRN (20:00)
[2021-04-26] MEDS ORDERED: ONDANSETRON 4 MG (ZOFRAN) ORAL DISSOLVE TAB PO PRN (20:00)
[2021-04-26] MEDS ORDERED: AZITHROMYCIN INJECTION 500 MG in NS (IVPB) 250 ML IV ONE (20:30)
[2021-04-26] MEDS: cefTRIAXone 2,000 MG in NS (IVPB) 50 ML IV SCH (21:32)
[2021-04-26] MEDS: SENNOSIDES 8.6 MG (SENOKOT) TAB PO SCH (21:33)
[2021-04-26] MEDS: DOCUSATE SODIUM 100 MG (COLACE) CAP PO SCH (21:33)
[2021-04-26] MEDS: CATHETER FLUSH 10 ML SYR IV SCH (21:48)
[2021-04-27] MEDS ORDERED: ENOXAPARIN 100 MG/1 ML (LOVENOX) SYR SC SCH (01:00)
[2021-04-27 05:18] LABS: BASOPHILS # (AUTO) 0.1 10^3/uL (0.0-0.1); BASOPHILS % (AUTO) 0 % (0-10); EOSINOPHILS % (AUTO) 0 % (0-10); HEMATOCRIT 44 % (40-54); HEMOGLOBIN 12.7 g/dL (13.3-17.7); LYMPHOCYTES # (AUTO) 1.2 10^3/uL (1.0-4.0); LYMPHOCYTES % (AUTO) 8 % (12-44); MEAN CORPUSCULAR HEMOGLOBIN 26 pg (25-34); MEAN CORPUSCULAR HGB CONC 29 g/dL (32-36); MEAN CORPUSCULAR VOLUME 91 fL (80-99); MEAN PLATELET VOLUME 9.3 fL (9.0-12.2); MONOCYTES # (AUTO) 0.7 10^3/uL (0.0-1.0); MONOCYTES % (AUTO) 4 % (0-12); NEUTROPHILS % (AUTO) 83 % (42-75); PLATELET COUNT 231 10^3/uL (130-400); WHITE BLOOD COUNT 15.6 10^3/uL (4.3-11.0)
[2021-04-27] MEDS: CATHETER FLUSH 10 ML SYR IV SCH ×3 (05:24→21:24)
[2021-04-27 05:37] LABS: ALBUMIN 3.5 GM/DL (3.2-4.5)
[2021-04-27 05:38] LABS: POTASSIUM 5.5 MMOL/L (3.6-5.0)
[2021-04-27 05:39] LABS: CALCIUM 8.6 MG/DL (8.5-10.1)
[2021-04-27 05:40] LABS: TOTAL PROTEIN 7.4 GM/DL (6.4-8.2)
[2021-04-27 05:42] LABS: BILIRUBIN,TOTAL 0.7 MG/DL (0.1-1.0)
[2021-04-27 05:43] LABS: PHOSPHORUS 3.6 MG/DL (2.3-4.7)
[2021-04-27 05:44] LABS: CREATININE SERUM 0.98 MG/DL (0.60-1.30)
[2021-04-27 05:47] LABS: MAGNESIUM 2.4 MG/DL (1.6-2.4)
[2021-04-27] MEDS: MAGNESIUM 1 GM/100 ML IVPB 100 ML IV SCH (06:23)
[2021-04-27] MEDS: KCL 20 MEQ TAB (K-DUR) PO SCH ×2 (06:23→18:38)
[2021-04-27] MEDS: POTASSIUM CL 10MEQ/50ML IVPB 50 ML IV SCH (06:23)
[2021-04-27] MEDS: inSUlin ASPART (NovoLOG) 1 UNIT/0.01 ML (CHARGE PER UNIT) SC SCH ×4 (06:23→21:24)
--- NOTE | 2021-04-27 08:49 | Consultation-Cardiology ---
HPI-Cardiology Cardiology Consultation: Date of Consultation 04/27/2021 Date of Admission 04/26/2021 Attending Physician Niecy Cano DO Admitting Physician Ellen Sotelo MD Consulting Physician DAAMA QUEEN JR, MD HPI: Time Seen by a Provider: 08:47 Chief Complaint: Reason for consultation: Atrial fibrillation. I saw Adama in the intensive care unit at [facility] in [place], [place] this morning. He has no known history of coronary artery disease but does have hypertension. For the past 48 hours he has had a cough productive of yellowish sputum. This made him feel somewhat short of breath. He denies fever or chills. Yesterday the cough was getting worse so he went to the emergency room at [facility]. He was felt to have pneumonia and possibly heart failure and was transferred to our hospital for further evaluation. He was also found to have atrial fibrillation and a cardiology consultation was requested. He denies any palpitations. He denies any previous history of atrial fibrillation. He denies chest pain, paroxysmal nocturnal dyspnea, orthopnea, lightheadedness, or syncope. He has chronic lower extremity edema. He uses compression stockings daily. He has not been vaccinated. Certain portions of this document may have been dictated utilizing voice recognition technology. Inherent to this technology, typographical and grammatical errors may exist. As much as I am diligent to identify and correct these mistakes, some errors may remain in the document. Review of Systems-Cardiology Review of Systems Other comments Review of 10 organ systems is as per the history of present illness, otherwise negative. All Other Systems Reviewed Negative Unless Noted: Yes LFF-[id number]-Kussds Hx Patient Social History Marrital Status: Smoking Status: Former Smoker 2nd Hand Smoke Exposure: No Have you traveled recently?: No Alcohol Use?: No Pt feels they are or have been: No Past Medical History PMH As described under Assessment. Family Medical History Family Medical History: The patient does not know of any family history of premature coronary artery disease in first-degree relatives. Allergies and Home Medications Allergies Coded Allergies: No Known Drug Allergies (Unverified , 08/24/18) Patient Home Medication List Home Medication List Reviewed: Yes Allopurinol (Allopurinol) 300 Mg Tablet, 300 MG PO DAILY, (Reported) Entered as Reported by: ANDRZEJ BENTLEY on 08/24/18 1120 Last Action: Reviewed Alprazolam (Alprazolam) 0.5 Mg Tablet, 0.5 MG PO TID PRN for ANXIETY, (Reported) Entered as Reported by: ANDRZEJ BENTLEY on 08/24/181119 Last Action: Reviewed Amlodipine Besylate (Amlodipine Besylate) 10 Mg Tablet, 10 MG PO HS, (Reported) Entered as Reported by: GUERDA TAI on 04/27/211053 Last Action: Reviewed Carvedilol (Carvedilol) 12.5 Mg Tablet, 12.5 MG PO BID, (Reported) Entered as Reported by: GUERDA TAI on 04/27/211053 Last Action: Reviewed Finasteride (Finasteride) 5 Mg Tablet, 5 MG PO DAILY, (Reported) Entered as Reported by: ANDRZEJ BENTLEY on 08/24/181119 Last Action: Reviewed Furosemide (Furosemide) 40 Mg Tablet, 40 MG PO BID, (Reported) Entered as Reported by: GUERDA TAI on 04/27/211053 Last Action: Reviewed Lisinopril (Lisinopril) 20 Mg Tablet, 20 MG PO BID, (Reported) Entered as Reported by: ANDRZEJ BENTLEY on 08/24/181119 Last Action: Reviewed Meclizine HCl (Meclizine HCl) 25 Mg Tablet, 25 MG PO TID PRN for DIZZINESS, (Reported) Entered as Reported by: GUERDA TAI on 04/27/211053 Last Action: Reviewed Potassium Chloride (Potassium Chloride) 20 Meq Tab.er.prt, 20 MEQ PO BID, (Reported) Entered as Reported by: GUERDA TAI on 04/27/211053 Last Action: Reviewed Tamsulosin HCl (Flomax) 0.4 Mg Cap, 0.8 MG PO HS, (Reported) Entered as Reported by: GUERDA TAI on 04/27/211053 Last Action: Reviewed Tramadol HCl (Tramadol HCl) 50 Mg Tablet, 100 MG PO TID PRN for PAIN-MODERATE (5-7), (Reported) Entered as Reported by: GUERDA TAI on 04/27/211053 Last Action: Reviewed Discontinued Medications Amlodipine Besylate (Amlodipine Besylate) 10 Mg Tablet, 10 MG PO DAILY Discontinued Reason: Duplicate Order Prescribed by: JAMES GILLIS on 11/07/19 1346 Last Action: Discontinued Carvedilol (Carvedilol) 3.125 Mg Tablet, (Reported) Discontinued Reason: No Longer Taking Entered as Reported by: NADRZEJ BENTLEY on 08/24/181119 Last Action: Discontinued Hydrocodone Bit/Acetaminophen (Lortab 5 Mg Tablet) 1 Each Tablet, (Reported) Discontinued Reason: No Longer Taking Entered as Reported by: ANDRZEJ BENTLEY on 08/24/181119 Last Action: Discontinued Meclizine HCl (Meclizine HCl) 25 Mg Tablet, 50 MG PO TID Discontinued Reason: No Longer Taking Prescribed by: LESTER SHIRLEY on 08/24/18 124 Last Action: Discontinued Ondansetron (Ondansetron Odt) 4 Mg Tab.rapdis, 4 MG PO Q6H PRN for NAUSEA/VOMITING Discontinued Reason: No Longer Taking Prescribed by: LESTER SHIRLEY on 08/24/18 124 Last Action: Discontinued Potassium Chloride (Klor-Con M20) 20 Meq Tab.er.prt, (Reported) Discontinued Reason: No Longer Taking Entered as Reported by: ANDRZEJ BENTLEY on 08/24/181119 Last Action: Discontinued Tamsulosin HCl (Flomax) 0.4 Mg Cap, (Reported) Discontinued Reason: No Longer Taking Entered as Reported by: ANDRZEJ BENTLEY on 08/24/181119 Last Action: Discontinued Tramadol HCl (Tramadol HCl) 50 Mg Tablet, (Reported) Discontinued Reason: No Longer Taking Entered as Reported by: ANDRZEJ BENTLEY on 08/24/181119 Last Action: Discontinued Exam Vital Signs Vital Signs Date Time Temp Pulse Resp B/P (MAP) Pulse Ox O2 Delivery O2 Flow Rate FiO2 04/27/21 12:15 Nasal Cannula 2.00 04/27/21 12:00 90 20 137/82 95 04/27/21 11:25 36.0 Physical Exam General: Alert. No acute distress. Well nourished and appears stated age. He is morbidly obese. Eye: Extraocular movements are intact. Conjunctivae are clear. There are no xanthelasma. HENT: Normocephalic. Atraumatic. Carotid pulsations 2/2 without bruits. Neck: Jugular venous pressure does not appear elevated. No thyromegaly appreciated. Respiratory: Lungs are clear to auscultation but decreased at the bases bilaterally. Respirations are non-labored. Breath sounds are equal. Symmetrical chest wall expansion. Cardiovascular: Normal rate. Irregular rhythm. No murmur. No gallop. Point of maximal impulse is not appear displaced. Good pulses equal in all extremities. 2+ bilateral pretibial edema with chronic venous stasis and evidence of old healed ulcers. Gastrointestinal: Soft. Normal bowel sounds. Skin: Skin turgor is normal. There is no pallor. Musculoskeletal: No kyphosis or scoliosis appreciated. Neurologic: Alert and oriented to person, place, time. Cranial nerves 3-12 appear grossly intact. The patient has good motor tone strength in the upper and lower extremities bilaterally. Psychiatric: Cooperative. Appropriate mood & affect. Labs Laboratory Tests Test 04/26/21 17:16 04/26/21 18:19 04/26/21 21:46 04/27/21 04:35 Range/Units Glucometer 111 H 148 H 70-110 MG/DL Lactic Acid Level 0.77 0.50-2.00 MMOL/L Procalcitonin 0.11 H <0.10 NG/ML White Blood Count 15.6 H 4.3-11.0 10^3/uL Red Blood Count 4.83 4.30-5.52 10^6/uL Hemoglobin 12.7 L 13.3-17.7 g/dL Hematocrit 44 40-54 % Mean Corpuscular Volume 91 80-99 fL Mean Corpuscular Hemoglobin 26 25-34 pg Mean Corpuscular Hemoglobin Concent 29 L 32-36 g/dL Red Cell Distribution Width 15.5 H 10.0-14.5 % Platelet Count 231 130-400 10^3/uL Mean Platelet Volume 9.3 9.0-12.2 fL Immature Granulocyte % (Auto) 4 % Neutrophils (%) (Auto) 83 H 42-75 % Lymphocytes (%) (Auto) 8 L 12-44 % Monocytes (%) (Auto) 4 0-12 % Eosinophils (%) (Auto) 0 0-10 % Basophils (%) (Auto) 0 0-10 % Neutrophils # (Auto) 13.0 H 1.8-7.8 10^3/uL Lymphocytes # (Auto) 1.2 1.0-4.0 10^3/uL Monocytes # (Auto) 0.7 0.0-1.0 10^3/uL Eosinophils # (Auto) 0.0 0.0-0.3 10^3/uL Basophils # (Auto) 0.1 0.0-0.1 10^3/uL Immature Granulocyte # (Auto) 0.7 H 0.0-0.1 10^3/uL Sodium Level 138 135-145 MMOL/L Potassium Level 5.5 H 3.6-5.0 MMOL/L Chloride Level 99 98-107 MMOL/L Carbon Dioxide Level 27 21-32 MMOL/L Anion Gap 12 5-14 MMOL/L Blood Urea Nitrogen 25 H 7-18 MG/DL Creatinine 0.98 0.60-1.30 MG/DL Estimat Glomerular Filtration Rate 75 BUN/Creatinine Ratio 26 Glucose Level 122 H 70-105 MG/DL Calcium Level 8.6 8.5-10.1 MG/DL Corrected Calcium 9.0 8.5-10.1 MG/DL Phosphorus Level 3.6 2.3-4.7 MG/DL Magnesium Level 2.4 1.6-2.4 MG/DL Total Bilirubin 0.7 0.1-1.0 MG/DL Aspartate Amino Transf (AST/SGOT) 16 5-34 U/L Alanine Aminotransferase (ALT/SGPT) 12 0-55 U/L Alkaline Phosphatase 102 40-136 U/L Troponin I < 0.028 <0.028 NG/ML Total Protein 7.4 6.4-8.2 GM/DL Albumin 3.5 3.2-4.5 GM/DL Triglycerides Level 71 <150 MG/DL Cholesterol Level 133 < 200 MG/DL LDL Cholesterol Direct 83 1-129 MG/DL VLDL Cholesterol 14 5-40 MG/DL HDL Cholesterol 38 L 40-60 MG/DL Test 04/27/21 10:39 Range/Units Glucometer 196 H 70-110 MG/DL ECG Impression ECG Comment Atrial fibrillation with a ventricular rate of 101 bpm and left anterior hemiblock. Diagnosis/Problems Diagnosis/Problems (1) Paroxysmal atrial fibrillation Assessment & Plan: He has atrial fibrillation of unknown duration. I have briefly reviewed his echocardiogram but am waiting for some adjustments of the measurements before I make the final report. Nonetheless, by volume index, his left atrial size is normal but right atrium is severely dilated. This is suggestive of possible prolonged atrial fibrillation. He seems to be asymptomatic with this. I recommend starting him on oral anticoagulation. I would continue beta-prasanth for rate control which she was already taking at home. After 30 days of anticoagulation, I may consider cardioversion. As long as we can get his heart rate controlled in the hospital, there is no urgent need for cardioversion while he is here. (2) Elevated brain natriuretic peptide (BNP) level Assessment & Plan: He has an elevated BNP level as outlined above. Unclear whether or not this could represent some degree of heart failure or if the atrial fibrillation and/or possible pneumonia may be contributing to the elevated BNP level. His ejection fraction is normal on the echocardiogram without significant valvular disease. Some of the elevated BNP level could also be due to undiagnosed sleep apnea. Given his peripheral edema, it would not be unreasonable to treat him with intravenous diuretic temporarily. I am not entirely convinced he has left heart failure but this is difficult to determine clinically in somebody with his body habitus. (3) Primary hypertension Assessment & Plan: He has been taking amlodipine at home for his hypertension. This could make his chronic peripheral edema worse. I recommend stopping the amlodipine and adjusting his other medications to get his blood pressure under control. The hospitalist has already increased the patient's dose of beta- prasanth and MARÍA inhibitor and I agree with this. (4) Chronic venous stasis Assessment & Plan: Most likely related to his morbid obesity. Amlodipine could be making the edema worse. I recommend stopping this as outlined above. (5) Morbid obesity Assessment & Plan: He needs to work on weight loss for not only his general wellbeing but to help reduce the risk of complications from the atrial fib rillation and chronic venous stasis. ADAMA QUEEN JR, MD Apr 27, 2021 08:49
[2021-04-27] MEDS: ALLOPURINOL 300 MG (ZYLOPRIM) TAB PO SCH ×2 (08:59→18:37)
[2021-04-27] MEDS: AZITHROMYCIN 250 MG TAB (ZITHROMAX) PO SCH (08:59)
[2021-04-27] MEDS: FINASTERIDE (PROSCAR) 5 MG TAB PO SCH (08:59)
[2021-04-27] MEDS: lisINopril 40 MG (PRINIVIL) TABLET PO SCH (08:59)
[2021-04-27] MEDS ORDERED: amLODIPine 10 MG (NORVASC) TAB PO SCH (09:00)
[2021-04-27] MEDS: SENNOSIDES 8.6 MG (SENOKOT) TAB PO SCH ×2 (09:00→21:04)
[2021-04-27] MEDS: DOCUSATE SODIUM 100 MG (COLACE) CAP PO SCH ×2 (09:00→21:04)
[2021-04-27] MEDS: FUROSEMIDE 40 MG/4 ML INJ (LASIX) IVP SCH ×2 (09:00→18:37)
[2021-04-27 09:12] LABS: CHOLESTEROL 133 MG/DL (< 200); HDL CHOLESTEROL 38 MG/DL (40-60); TRIGLYCERIDES 71 MG/DL (<150); VLDL CHOLESTEROL 14 MG/DL (5-40)
[2021-04-27] MEDS ORDERED: AMLO-251 PO (10:54)
[2021-04-27] MEDS ORDERED: TRAM50TA3 PO (10:54)
[2021-04-27] MEDS ORDERED: FURO40TA4 PO (10:54)
[2021-04-27] MEDS ORDERED: POTA-179 PO (10:54)
[2021-04-27] MEDS ORDERED: CARV12.53 PO (10:54)
[2021-04-27] MEDS ORDERED: TMSL.4C PO (10:54)
[2021-04-27] MEDS ORDERED: MECL-149 PO (10:54)
--- NOTE | 2021-04-27 11:17 | Tele-ICU Progress Note ---
Subjective Date Seen by a Provider: Apr 27, 2021 Time Seen by a Provider: 11:17 Sepsis Event Evaluation Height, Weight, BMI Height: 5'6.00" Weight: 340lbs. oz. 154.764440si; 66.30 BMI Method:Stated Focused Exam Lactate Level 04/26/21 18:19: Lactic Acid Level 0.77 Exam Exam Patient acknowledged, consented, and participated in this virtual visit which was conducted using real time audio/video Vital Signs Date Time Temp Pulse Resp B/P (MAP) Pulse Ox O2 Delivery O2 Flow Rate FiO2 04/27/21 11:00 Nasal Cannula 3.00 04/27/21 09:05 Nasal Cannula 4.00 04/27/21 09:00 111 23 145/81 99 Nasal Cannula 6.00 04/27/21 08:45 Nasal Cannula 6.00 04/27/21 08:00 93 19 136/82 100 Nasal Cannula 6.00 04/27/21 07:25 36.5 04/27/21 07:00 125 04/27/21 07:00 90 16 141/79 91 Nasal Cannula 6.00 04/27/21 06:00 84 21 187/104 99 Nasal Cannula 6.00 04/27/21 06:00 97 Nasal Cannula 6.00 04/27/21 05:45 84 23 204/117 100 Nasal Cannula 6.00 04/27/21 05:30 90 17 196/107 100 Nasal Cannula 6.00 04/27/21 05:15 75 19 189/125 100 Nasal Cannula 6.00 04/27/21 05:00 90 17 191/128 100 Nasal Cannula 6.00 04/27/21 04:00 83 17 150/91 100 Nasal Cannula 6.00 04/27/21 04:00 97 Nasal Cannula 6.00 04/27/21 03:00 73 16 103/52 99 Nasal Cannula 6.00 04/27/21 02:00 76 21 112/54 98 Nasal Cannula 6.00 04/27/21 01:00 97 17 156/98 95 Nasal Cannula 6.00 04/27/21 01:00 97 04/27/21 00:00 89 11 131/91 95 Nasal Cannula 6.00 04/27/21 00:00 97 Nasal Cannula 6.00 04/26/21 23:00 95 19 157/95 96 Nasal Cannula 6.00 04/26/21 22:00 80 20 184/119 97 Nasal Cannula 6.00 04/26/21 21:00 78 22 159/102 96 Nasal Cannula 6.00 04/26/21 20:15 95 22 175/111 99 Nasal Cannula 6.00 04/26/21 20:00 97 Nasal Cannula 6.00 04/26/21 19:33 105 16 175/148 98 Nasal Cannula 6.00 04/26/21 19:01 101 04/26/21 18:09 86 18 225/154 97 Nasal Cannula 6.00 04/26/21 17:26 126 18 174/102 97 Nasal Cannula 6.00 04/26/21 16:00 94 Nasal Cannula 6.00 04/26/21 16:00 101 17 172/97 95 Nasal Cannula 6.00 04/26/21 15:45 90 17 165/96 95 Nasal Cannula 6.00 04/26/21 15:30 134 9 184/101 97 Nasal Cannula 6.00 04/26/21 14:20 36.2 135 22 143/85 95 Nasal Cannula 5.00 04/26/21 13:02 93 Nasal Cannula 6.00 04/26/21 13:00 36.8 116 21 153/88 (109) 94 Nasal Cannula 6.00 I & O 04/27/21 07:00 Intake Total 800 ml Output Total 1275 ml Balance -475 ml Height & Weight Height: 5'6.00" Weight: 340lbs. oz. [id number]; 66.30 BMI Method:Stated General Appearance: No Apparent Distress, Chronically ill, Obese HEENT: PERRL/EOMI, Pharynx Normal Neck: Normal Inspection, Supple Respiratory: Lungs Clear, Normal Breath Sounds, No Respiratory Distress Cardiovascular: No Murmur, Irregularly Irregular, Tachycardia Capillary Refill: Less Than 3 Seconds Peripheral Pulses: 1+ Dorsalis Pedis (R), 1+ Left Dors-Pedis (L) Gastrointestinal: normal bowel sounds, non tender, soft Extremity: Non Tender, Pedal Edema, Swelling, Other (venous stasis dermatitis) Neurologic/Psychiatric: Alert, Oriented x3, No Motor/Sensory Deficits, Normal Mood/Affect Skin: Warm/Dry, Diaphoresis, Other (venous stasis dermatitis) Lymphatic: No Adenopathy Results Lab Laboratory Tests 04/26/21 13:00 04/27/21 04:35 Assessment/Plan Assessment/Plan (Tele-ICU Physician , Progress Note ) Available chart/ vitals / labs / Images reviewed Video assessment done using teleICU camera, rest of exam as per RN Discussed with RN , EXAM PER RN Events overnight : Afebrile FiO2 - 6L I/O = Drips: Pressors: , hemodynamically stable Boat Hoist Operator: abdoulaye Hospital course: 04/26- CHF , A fib RVR A/P A fob . RVR -rate conrol as per crds lovenox full dose CHF - diuresis as per cards Hypoxia - dus to above - follow - on 6 L leukocytosis - borderline PCT , ceftricaxon. z-max started 04/26 for posible bronchitis / PNA obesity , h/o NGOZI - non compliant with CPAP Lines : (Central Line Necessity Reviewed) Jiang: + OG: Nutrition: Analgesia: Anxiety/ delirium VTE Prophylaxis: lovenox Stress Ulcer Prophylaxis: po Glycemic Control: Plans in collaboration with bedside consultants and IM MDs. Discussed with RN to reach out if any questions or concerns A total of31 minutes of critical care time was devoted to this patient today, required to treat and/or prevent further deterioration of critical care condition ( as above) . XENIA DAO MD Apr 27, 2021 11:17
--- NOTE | 2021-04-27 14:02 | Progress Note - Hospitalist ---
BYRON BARRY 04/27/21 1402: Subjective HPI/CC On Admission Date Seen by Provider: Apr 27, 2021 Time Seen by Provider: 08:51 Byron Lin is a 70 year old male with PMH HTN, BPH, gout, super super obesity, who presented to the [place] ER with cold symptoms. He reports having congestion and runny nose. He has had a cough with sputum production. He has felt short of breath. He denies fevers and chills. He denies abdominal pain, nausea, vomiting, and diarrhea. He has leg swelling and uses compression stockings. He denies orthopnea. He denies chest pain. He denies any history of coronary artery disease or heart failure. He has no history of atrial fibrillation. Subjective/Events-last exam Today when I visited the pt he was sitting up in bed and transfering to the chair at bedside. He states that he has greater difficulty breathing when lying down which is why he was moving to the chair, he also finds coughing to be more productive when sitting up. He denies and urinary or GI complaints, and states that he is feeling a little better today. Review of Systems General: No Chills, No Night Sweats, No Fatigue; Appetite HEENT: No Head Aches, No Visual Changes, No Dysphasia, No Sore Throat Pulmonary: No Dyspnea; Cough; No Pleuritic Chest Pain Cardiovascular: Orthopnea; No: Chest Pain, Palpitations, Lt Headedness Gastrointestinal: No: Nausea, Vomiting, Abdominal Pain, Diarrhea, Constipation Genitourinary: No Dysuria, No Frequency, No Incontinence Musculoskeletal: No: neck pain, shoulder pain, back pain Neurological: No: Weakness, Numbness, Confusion Focused Exam Lactate Level 04/26/21 18:19: Lactic Acid Level 0.77 Objective Exam Vital Signs Vital Signs Date Time Temp Pulse Resp B/P (MAP) Pulse Ox O2 Delivery O2 Flow Rate FiO2 04/27/21 12:15 Nasal Cannula 2.00 04/27/21 12:00 90 20 137/82 95 04/27/21 11:25 36.0 Capillary Refill : Less Than 3 Seconds General Appearance: No Apparent Distress, WD/WN, Obese HEENT: PERRL/EOMI, Pharynx Normal Neck: Full Range of Motion, Non Tender, Supple Respiratory: Chest Non Tender, No Accessory Muscle Use, No Respiratory Distress, Crackles ( Left base), Decreased Breath Sounds ( both sides), Inspiration Cardiovascular: Regular Rate, Rhythm, No Gallop, No Murmur, Normal Peripheral Pulses Gastrointestinal: Normal Bowel Sounds, No Organomegaly, No Pulsatile Mass, Non Tender, Soft Rectal: Deferred Back: No CVA Tenderness, No Vertebral Tenderness Extremity: Normal Capillary Refill, Normal Range of Motion, Calf Tenderness, Pedal Edema Neurologic/Psychiatric: Alert, Oriented x3, No Motor/Sensory Deficits, Normal Mood/Affect, branch operations coordinator II-XII Norm as Tested Reflexes: 2+ Bicep (R), 2+ Bicep (L) Skin: Normal Color, Warm/Dry Lymphatic: No Adenopathy (cervical and axillary) Results/Procedures Lab Laboratory Tests 04/27/21 04:35 Patient resulted labs reviewed. Imaging: Reviewed Imaging Report Assessment/Plan Assessment and Plan Assess & Plan/Chief Complaint Sepsis due to pneumonia - CXR concerning for pneumonia - Acute respiratory failure AFib with RVR CHF - BNP elevated HTN BPH Gout Morbid obesity Plan: abx, F/U CXR to follow PNA progression aggressing supportive therapy - high risk Cardiology consult Bariatric consult NIECY ORELLANA DO 04/28/21 0550: Subjective Subjective/Events-last exam Patient breathing better Prefer sitting in chair Has worked for the [employer] in [place] for 52 years No pain is reported BMI 67 Review of Systems General: Fatigue Pulmonary: Dyspnea Cardiovascular: Edema Objective Exam General Appearance: No Apparent Distress, WD/WN, Chronically ill, Obese Respiratory: Crackles ( Left base), Decreased Breath Sounds ( both sides) Cardiovascular: Regular Rate, Rhythm Neurologic/Psychiatric: Alert, Oriented x3 Assessment/Plan Assessment and Plan Assess & Plan/Chief Complaint Pneumonia Congestive heart failure A. fib with RVR Hypertension Gout Super morbid obesity BMI 67 Plan: Cardiology appreciated IV antibiotics Oral anticoagulation Supervisory-Addendum Brief Verification & Attestation Participated in pt care: history, MDM, physical Personally performed: exam, history, MDM, supervision of care Care discussed with: Medical Student Procedures: n/a Results interpretation: Verified all documentation Verification and Attestation of Medical Student E/M Service A medical student performed and documented this service in my presence. I reviewed and verified all information documented by the medical student and made modifications to such information, when appropriate. I personally performed the physical exam and medical decision making. Niecy Orellana, Apr 28, 2021,05:49 BYRON BARRY Apr 27, 2021 14:02 NIECY ORELLANA DO Apr 28, 2021 05:50
[2021-04-27] MEDS ORDERED: TAMSULOSIN 0.4 MG (FLOMAX) CAP PO SCH (18:00)
[2021-04-27] MEDS: ENOXAPARIN 300 MG/3 ML (LOVENOX) MULTI-DOSE VIAL SQ SCH (18:37)
[2021-04-27] MEDS: cefTRIAXone 2,000 MG in NS (IVPB) 50 ML IV SCH (21:24)
[2021-04-28 05:24] LABS: BASOPHILS # (AUTO) 0.1 10^3/uL (0.0-0.1); BASOPHILS % (AUTO) 1 % (0-10); EOSINOPHILS # (AUTO) 0.1 10^3/uL (0.0-0.3); EOSINOPHILS % (AUTO) 1 % (0-10); HEMATOCRIT 45 % (40-54); HEMOGLOBIN 13.5 g/dL (13.3-17.7); LYMPHOCYTES % (AUTO) 14 % (12-44); MEAN CORPUSCULAR HEMOGLOBIN 27 pg (25-34); MEAN CORPUSCULAR HGB CONC 30 g/dL (32-36); MEAN CORPUSCULAR VOLUME 89 fL (80-99); MEAN PLATELET VOLUME 9.4 fL (9.0-12.2); MONOCYTES # (AUTO) 1.2 10^3/uL (0.0-1.0); MONOCYTES % (AUTO) 8 % (0-12); NEUTROPHILS # (AUTO) 10.5 10^3/uL (1.8-7.8); NEUTROPHILS % (AUTO) 73 % (42-75); PLATELET COUNT 226 10^3/uL (130-400); WHITE BLOOD COUNT 14.4 10^3/uL (4.3-11.0)
[2021-04-28 05:42] LABS: ALBUMIN 3.5 GM/DL (3.2-4.5); POTASSIUM 4.6 MMOL/L (3.6-5.0)
[2021-04-28 05:43] LABS: CALCIUM 8.9 MG/DL (8.5-10.1)
[2021-04-28 05:45] LABS: TOTAL PROTEIN 7.3 GM/DL (6.4-8.2)
[2021-04-28 05:47] LABS: BILIRUBIN,TOTAL 0.7 MG/DL (0.1-1.0)
[2021-04-28 05:48] LABS: PHOSPHORUS 2.9 MG/DL (2.3-4.7)
[2021-04-28 05:49] LABS: CREATININE SERUM 0.94 MG/DL (0.60-1.30)
[2021-04-28 05:51] LABS: MAGNESIUM 2.3 MG/DL (1.6-2.4)
[2021-04-28] MEDS: MAGNESIUM 1 GM/100 ML IVPB 100 ML IV SCH (06:10)
[2021-04-28] MEDS: POTASSIUM CL 10MEQ/50ML IVPB 50 ML IV SCH (06:10)
[2021-04-28] MEDS: KCL 20 MEQ TAB (K-DUR) PO SCH ×3 (06:10→20:54)
[2021-04-28] MEDS: inSUlin ASPART (NovoLOG) 1 UNIT/0.01 ML (CHARGE PER UNIT) SC SCH (06:11)
[2021-04-28] MEDS: CATHETER FLUSH 10 ML SYR IV SCH ×3 (06:16→21:44)
[2021-04-28] MEDS: ENOXAPARIN 300 MG/3 ML (LOVENOX) MULTI-DOSE VIAL SQ SCH (06:16)
[2021-04-28] MEDS: FUROSEMIDE 40 MG/4 ML INJ (LASIX) IVP SCH ×2 (06:16→17:51)
[2021-04-28] MEDS: FINASTERIDE (PROSCAR) 5 MG TAB PO SCH (08:18)
[2021-04-28] MEDS: ALLOPURINOL 300 MG (ZYLOPRIM) TAB PO SCH (08:18)
[2021-04-28] MEDS: AZITHROMYCIN 250 MG TAB (ZITHROMAX) PO SCH (08:19)
[2021-04-28] MEDS: lisINopril 40 MG (PRINIVIL) TABLET PO SCH (08:19)
[2021-04-28] MEDS: DOCUSATE SODIUM 100 MG (COLACE) CAP PO SCH ×2 (08:19→20:55)
[2021-04-28] MEDS: SENNOSIDES 8.6 MG (SENOKOT) TAB PO SCH ×2 (08:19→20:55)
[2021-04-28] MEDS ORDERED: MECLIZINE 25 MG (ANTIVERT) TAB PO PRN (10:00)
[2021-04-28] MEDS ORDERED: ALPRAZolam 0.5 MG (XANAX) TAB PO PRN (10:00)
--- NOTE | 2021-04-28 10:10 | Cardiology Progress Note ---
Progress Note-Cardiology Events since last exam Date Seen by Provider: Apr 28, 2021 Time Seen by Provider: 10:07 Events since last exam I am following him due to atrial fibrillation of unknown duration. He was s itting up in a chair in the intensive care unit. He wants to go home because he says he cannot sleep ER. He just cannot get comfortable in bed. He states his breathing is improved. He cannot see his feet so he does not know if his edema is any different. He denies chest discomfort, palpitations, or syncope. Certain portions of this document may have been dictated utilizing voice recognition technology. Inherent to this technology, typographical and grammatical errors may exist. As much as I am diligent to identify and correct these mistakes, some errors may remain in the document. Vitals Last set of Vitals Signs Vital Signs 04/27/21 04/28/21 04/28/21 04/28/21 04/28/21 20:00 10:30 10:41 11:26 13:00 Temp 36.5 Pulse 88 Resp 29 B/P (MAP) 134/98 Pulse Ox 94 O2 Delivery Nasal Cannula O2 Flow Rate 1.50 Labs Labs Laboratory Tests 04/28/21 04:25 Exam Vital Signs Vital Signs Date Time Temp Pulse Resp B/P (MAP) Pulse Ox O2 Delivery O2 Flow Rate FiO2 04/28/21 13:00 Nasal Cannula 1.50 04/28/21 11:26 88 94 04/28/21 10:41 29 04/28/21 10:30 134/98 04/27/21 20:00 36.5 Physical Exam General: Alert. No acute distress. He is morbidly obese. Sitting up in a chair with nasal cannula oxygen. Eye: No xanthelasma. HENT: Normocephalic. Neck: Jugular venous pressure does not appear elevated. Respiratory: Lungs are clear to auscultation but decreased at the bases bilaterally. Respirations are non-labored. Breath sounds are equal. Symmetrical chest wall expansion. Cardiovascular: Normal rate. Irregular rhythm. No murmur. No gallop. 3+ bilateral pretibial edema with chronic venous stasis changes and evidence of old healed ulcers. Gastrointestinal: Soft. Normal bowel sounds. Skin: Warm. Dry. Neurologic: Alert and oriented to person, place, time. Cranial nerves 3-11 grossly intact. Psychiatric: Cooperative. Appropriate mood & affect. Labs Laboratory Tests Test 04/27/21 15:48 04/27/21 21:02 04/28/21 04:25 04/28/21 11:20 Range/Units Glucometer 152 H 98 115 H 70-110 MG/DL White Blood Count 14.4 H 4.3-11.0 10^3/uL Red Blood Count 5.06 4.30-5.52 10^6/uL Hemoglobin 13.5 13.3-17.7 g/dL Hematocrit 45 40-54 % Mean Corpuscular Volume 89 80-99 fL Mean Corpuscular Hemoglobin 27 25-34 pg Mean Corpuscular Hemoglobin Concent 30 L 32-36 g/dL Red Cell Distribution Width 15.7 H 10.0-14.5 % Platelet Count 226 130-400 10^3/uL Mean Platelet Volume 9.4 9.0-12.2 fL Immature Granulocyte % (Auto) 4 % Neutrophils (%) (Auto) 73 42-75 % Lymphocytes (%) (Auto) 14 12-44 % Monocytes (%) (Auto) 8 0-12 % Eosinophils (%) (Auto) 1 0-10 % Basophils (%) (Auto) 1 0-10 % Neutrophils # (Auto) 10.5 H 1.8-7.8 10^3/uL Lymphocytes # (Auto) 2.0 1.0-4.0 10^3/uL Monocytes # (Auto) 1.2 H 0.0-1.0 10^3/uL Eosinophils # (Auto) 0.1 0.0-0.3 10^3/uL Basophils # (Auto) 0.1 0.0-0.1 10^3/uL Immature Granulocyte # (Auto) 0.6 H 0.0-0.1 10^3/uL Sodium Level 140 135-145 MMOL/L Potassium Level 4.6 3.6-5.0 MMOL/L Chloride Level 99 98-107 MMOL/L Carbon Dioxide Level 27 21-32 MMOL/L Anion Gap 14 5-14 MMOL/L Blood Urea Nitrogen 33 H 7-18 MG/DL Creatinine 0.94 0.60-1.30 MG/DL Estimat Glomerular Filtration Rate 79 BUN/Creatinine Ratio 35 Glucose Level 95 70-105 MG/DL Calcium Level 8.9 8.5-10.1 MG/DL Corrected Calcium 9.3 8.5-10.1 MG/DL Phosphorus Level 2.9 2.3-4.7 MG/DL Magnesium Level 2.3 1.6-2.4 MG/DL Total Bilirubin 0.7 0.1-1.0 MG/DL Aspartate Amino Transf (AST/SGOT) 23 5-34 U/L Alanine Aminotransferase (ALT/SGPT) 18 0-55 U/L Alkaline Phosphatase 104 40-136 U/L Total Protein 7.3 6.4-8.2 GM/DL Albumin 3.5 3.2-4.5 GM/DL Diagnosis/Problems Diagnosis/Problems (1) Paroxysmal atrial fibrillation Assessment & Plan: He has atrial fibrillation of unknown duration. By volume index, his left atrial size is normal but right atrium is severely dilated. This is suggestive of possible prolonged atrial fibrillation. He seems to be asymptomatic with this. I recommend starting him on oral anticoagulation. I w ould continue beta-prasanth for rate control which she was already taking at home. His blood pressure was elevated this morning so I have taken the liberty of increasing the dose of carvedilol. After 30 days of anticoagulation, I may consider cardioversion. As long as we can get his heart rate controlled in the hospital, there is no urgent need for cardioversion while he is here. He was initially getting enoxaparin for anticoagulation and this was changed over to Eliquis. I would suggest changing the Eliquis over to Xarelto since patients can get this at a reduced cost through our hospital. I am also concerned about compliance with a twice daily medication in this patient. He does not really seem to understand his medical problems. (2) Elevated brain natriuretic peptide (BNP) level Assessment & Plan: He has an elevated BNP level as outlined above. Unclear whether or not this could represent some degree of heart failure or if the atrial fibrillation and/or possible pneumonia may be contributing to the elevated BNP level. His ejection fraction is normal on the echocardiogram without significant valvular disease. Some of the elevated BNP level could also be due to undiagnosed sleep apnea. Given his peripheral edema, it would not be unreasonable to continue to treat him with intravenous diuretic temporarily. I am not entirely convinced he has left heart failure but this is difficult to determine clinically in somebody with his body habitus. I have ordered a follow- up chest x-ray. (3) Primary hypertension Assessment & Plan: He has been taking amlodipine at home for his hypertension. This could make his chronic peripheral edema worse. I stopped the amlodipine. I have been adjusting his other medications to get his blood pressure under control. The hospitalist has already increased the patient's dose of beta- prasanth and MARÍA inhibitor and I agree with this. As above, I will further increase the dose of carvedilol this morning due to elevated blood pressures. (4) Chronic venous stasis Assessment & Plan: Most likely related to his morbid obesity. Amlodipine could be making the edema worse. I have stopped the amlodipine and I would make sure he knows not to take this when he goes home. (5) Morbid obesity Assessment & Plan: He needs to work on weight loss for not only his general w ellbeing but to help reduce the risk of complications from the atrial fibrillation and chronic venous stasis. ADAMA QUEEN JR, MD Apr 28, 2021 10:10
--- NOTE | 2021-04-28 10:35 | Tele-ICU Progress Note ---
Subjective Date Seen by a Provider: Apr 28, 2021 Time Seen by a Provider: 10:35 Sepsis Event Evaluation Height, Weight, BMI Height: 5'6.00" Weight: 340lbs. oz. 154.032634tn; 66.30 BMI Method:Stated Focused Exam Lactate Level 04/26/21 18:19: Lactic Acid Level 0.77 Exam Exam Patient acknowledged, consented, and participated in this virtual visit which was conducted using real time audio/video Vital Signs Date Time Temp Pulse Resp B/P (MAP) Pulse Ox O2 Delivery O2 Flow Rate FiO2 04/28/21 08:00 131 43 153/92 93 04/28/21 07:45 153/92 Nasal Cannula 3.00 04/28/21 07:30 93 Nasal Cannula 1.50 04/28/21 07:30 112 32 153/82 92 Nasal Cannula 3.00 04/28/21 07:15 20 91 Nasal Cannula 3.00 04/28/21 07:00 79 18 170/81 92 Nasal Cannula 3.00 04/28/21 07:00 84 04/28/21 06:00 108 16 171/87 92 Nasal Cannula 3.00 04/28/21 05:00 97 23 148/97 95 Nasal Cannula 3.00 04/28/21 04:00 Nasal Cannula 3.00 04/28/21 04:00 96 21 139/74 97 Nasal Cannula 3.00 04/28/21 03:00 107 13 161/75 92 Nasal Cannula 3.00 04/28/21 02:00 94 13 147/92 96 Nasal Cannula 3.00 04/28/21 01:00 102 139/75 93 Nasal Cannula 3.00 04/28/21 01:00 102 04/28/21 00:00 99 123/67 95 Nasal Cannula 3.00 04/28/21 00:00 Nasal Cannula 3.00 04/27/21 23:00 79 16 124/75 89 Nasal Cannula 3.00 04/27/21 22:05 Nasal Cannula 3.00 04/27/21 22:00 98 23 119/81 94 Nasal Cannula 2.00 04/27/21 21:00 97 24 156/88 92 Nasal Cannula 2.00 04/27/21 20:00 97 Nasal Cannula 1.00 04/27/21 20:00 110 119/84 93 Nasal Cannula 2.00 04/27/21 20:00 36.5 04/27/21 19:00 100 04/27/21 19:00 100 28 146/86 91 Nasal Cannula 2.00 04/27/21 18:00 94 34 141/82 89 Nasal Cannula 2.00 04/27/21 17:00 93 17 148/81 94 Nasal Cannula 2.00 04/27/21 16:00 118 43 146/78 91 Nasal Cannula 2.00 04/27/21 16:00 36.6 04/27/21 15:33 Nasal Cannula 2.00 04/27/21 15:00 99 21 117/77 94 Nasal Cannula 2.00 04/27/21 14:00 86 22 130/78 93 Nasal Cannula 2.00 04/27/21 13:00 103 04/27/21 13:00 114 38 129/87 92 Nasal Cannula 2.00 04/27/21 12:15 Nasal Cannula 2.00 04/27/21 12:00 90 20 137/82 95 Nasal Cannula 3.00 04/27/21 11:55 Nasal Cannula 2.00 04/27/21 11:25 36.0 04/27/21 11:00 87 16 134/82 95 Nasal Cannula 3.00 04/27/21 11:00 Nasal Cannula 3.00 I & O 04/28/21 07:00 Intake Total 2100 ml Output Total 3100 ml Balance -1000 ml Height & Weight Height: 5'6.00" Weight: 340lbs. oz. 154.568164gz; 66.30 BMI Method:Stated General Appearance: No Apparent Distress, WD/WN, Chronically ill, Obese HEENT: PERRL/EOMI, Pharynx Normal Neck: Full Range of Motion, Non Tender, Supple Respiratory: Crackles ( Left base), Decreased Breath Sounds ( both sides) Cardiovascular: Regular Rate, Rhythm Capillary Refill: Less Than 3 Seconds Peripheral Pulses: 1+ Dorsalis Pedis (R), 1+ Left Dors-Pedis (L) Gastrointestinal: normal bowel sounds, non tender, soft Extremity: Normal Capillary Refill, Normal Range of Motion, Calf Tenderness, Pedal Edema Neurologic/Psychiatric: Alert, Oriented x3 Skin: Normal Color, Warm/Dry Lymphatic: No Adenopathy (cervical and axillary) Results Lab Laboratory Tests 04/26/21 13:00 04/27/21 04:35 04/28/21 04:25 Assessment/Plan Assessment/Plan (Tele-ICU Physician , Progress Note ) Available chart/ vitals / labs / Images reviewed Video assessment done using teleICU camera, rest of exam as per RN Discussed with RN , EXAM PER RN Events overnight : Afebrile FiO2 - 3L I/O = neg 700 Drips: Pressors: , hemodynamically stable Trolley Car Operator: abdoulaye Hospital course: 04/26- CHF , A fib RVR A/P A fib . RVR -rate conrol as per crds lovenox full dose - > to eliquis today CHF - diuresis as per [facility] - ECHO 04/27 - EF 55% Pulm HTN RVSP - 57 mmHg bu ECHO ( in VO state) - also untreated NGOZI Hypoxia - dus to above - follow - on 1 L leukocytosis - borderline PCT , ceftricaxon. z-max started 04/26 for posible bronchitis / PNA obesity , h/o NGOZI - non compliant with CPAP Lines : (Central Line Necessity Reviewed) Jiang: + OG: Nutrition: Analgesia: Anxiety/ delirium VTE Prophylaxis: lovenox Stress Ulcer Prophylaxis: po Glycemic Control: Plans in collaboration with bedside consultants and IM MDs. Discussed with RN to reach out if any questions or concerns A total of31 minutes of critical care time was devoted to this patient today, required to treat and/or prevent further deterioration of critical care condition ( as above) . XENIA DAO MD Apr 28, 2021 10:35
--- NOTE | 2021-04-28 10:59 | Physical Therapy Evaluation ---
PT Evaluation-General Medical Diagnosis Admission Date Apr 26, 2021 at 15:04 Medical Diagnosis: respiratory failure/hypoxia Onset Date: Apr 26, 2021 Therapy Diagnosis Therapy Diagnosis: debility Height/Weight Height (Feet): 5 Height (Inches): 6.00 Weight (Pounds): 340 Precautions Precautions/Isolations: Fall Prevention, Standard Precautions Referral Physician: Rachael Reason for Referral: Evaluation/Treatment Medical History Pertinent Medical History: HTN Additional Medical History morbid obesity Current History ER secondary to SOA Reviewed History: Yes Social History Home: Single Level Current Living Status: Spouse Entry Into Home: Level Entry Prior Prior Level of Function SCALE: Activities may be completed with or without assistive devices. 3-Wspvrigbtq-rtuszzp completes the activity by him/herself with no assistance from a helper. 5-Set-up or Clean-up Assistance-helper sets up or cleans up; patient completes activity. [place] assists only prior to or following the activity. 4-Supervision or Touching Assistance-helper provides verbal cues and/or touching/steadying and/or contact guard assistance as patient completes activity. Assistance may be provided throughout the activity or intermittently. 3-Partial/Moderate Assistance-helper does LESS THAN HALF the effort. [place] lifts, holds or supports trunk or limbs, but provides less than half the effort. 2-Substantial/Maximal Assistance-helper does MORE THAN HALF the effort. [place] lifts or holds trunk or limbs and provides more than half the effort. 1-Ybixfkcaj-xdngmc does ALL the effort. Patient does none of the effort to complete the activity. Or, the assistance of 2 or more helpers is required for the patient to complete the activity. If activity was not attempted, code reason: 7-Patient Refused. 9-Not Applicable-not attempted and the patient did not perform the activity before the current illness, exacerbation or injury. 10-Not Attempted due to Environmental Limitations-(lack of equipment, weather restraints, etc.). 88-Not Attempted due to Medical Conditions or Safety Concerns. Bed Mobility: 6 Transfers (B,C,W/C): 6 Gait: 6 Indoor Mobility (Ambulation): Independent Prior Devices Use: None PT Evaluation-Current Subjective Patient states,"Just get this catheter out and let me go home." Agrees to PT. Objective Patient Orientation: Normal For Age Attachments: Oxygen, Jiang Catheter ROM/Strength ROM Lower Extremities bilateral LE WFL Strength Lower Extremities 4/5 grossly bilateral LE Integumentary/Posture Bladder Incontinence: Jiang Cath Posture trunk flexed posture Neuromuscular (Tone, Coordination, Reflexes) grossly intact Sensory Vision: Functional Hearing: Impaired Transfers Sit to Lying (QC): 6 Lying to Sitting/Side of Bed(Q: 6 Sit to Stand (QC): 4 Chair/Jts-bb-Kdxco Xfer(QC): 4 Gait Mode of Locomotion: Walk Anticipated Mode of Locomotion: Walk Walk 10 feet (QC): 4 (SBA) Distance: 10' x 2 Gait Assistive Device: FWW Comments/Gait Description WBOS due to obesity Balance Sitting Static: Normal Sitting Dynamic: Normal Standing Static: Normal Standing Dynamic: Normal Treatment Noted decrease SAO2 to 83% on O2 with quick recovery to 96% Assessment/Needs 70 y.o. male, will benefit from skilled PT to address functional mobility to improve pulmonary function to return to home with spouse safely. Rehab Potential: Fair PT Senior Living Goals Senior Living Goals PT Senior Living Goals Time Frame: May 09, 2021 Roll Left & Right (QC): 6 Sit to Lying (QC): 6 Lying-Sitting on Side/Bed(QC): 6 Sit to Stand (QC): 6 Chair/Gpw-kj-Vomwp Xfer(QC): 6 Toilet Transfer (QC): 6 Walk 10 feet (QC): 6 Walk 50ft with 2 Turns (QC): 6 PT Plan Problem List Problem List: Activity Tolerance Treatment/Plan Treatment Plan: Continue Plan of Care Treatment Plan: Bed Mobility, Education, Functional Activity Luis Antonio, Functional Strength, Gait, Safety, Therapeutic Exercise, Transfers Treatment Duration: May 09, 2021 Frequency: 6 times per week Estimated Hrs Per Day: .25 hour per day Patient and/or Family Agrees t: Yes Time/GCodes Time In: 1030 Time Out: 1043 Total Billed Treatment Time: 13 Total Billed Treatment 1 visit EVModC 13 min CIPRIANO REYNOSO PT Apr 28, 2021 10:59
--- NOTE | 2021-04-28 11:25 | Progress Note - Hospitalist ---
BYRON BARRY 04/28/21 1125: Subjective HPI/CC On Admission Date Seen by Provider: Apr 28, 2021 Time Seen by Provider: 08:23 Byron Lin is a 70 year old male with PMH HTN, BPH, gout, super super obesity, who presented to the [facility] with cold symptoms. He reports having congestion and runny nose. He has had a cough with sputum production. He has felt short of breath. He denies fevers and chills. He denies abdominal pain, nausea, vomiting, and diarrhea. He has leg swelling and uses compression stockings. He denies orthopnea. He denies chest pain. He denies any history of coronary artery disease or heart failure. He has no history of atrial fibrillation. Subjective/Events-last exam Today when I visited the pt he is resting comfortably in the bedside chair. He states that he is breathing without difficulty, but continues to have a sputum productive cough. (no blood) He complains that he has not been able to sleep due to constant noise and interruptions from staff. Also his catheter and monitoring leads limit his movement which he finds disagreeable. Pt asked about going home today so that he can rest, however he was informed that his clinical condition is such that at least one more day in the hospital would be best for him. Pt agrees to this plan and will be moved to 4th floor and urinary catheter will be removed and pt will be placed on tele to facilitate him to walk and/or rest at his choosing. Review of Systems General: No Chills, No Night Sweats; Fatigue, Appetite HEENT: No Head Aches, No Visual Changes, No Dysphasia, No Sore Throat Pulmonary: No Dyspnea; Cough; No Pleuritic Chest Pain Cardiovascular: Orthopnea, Edema; No: Chest Pain, Palpitations, Lt Headedness Gastrointestinal: No: Nausea, Vomiting, Abdominal Pain, Diarrhea, Constipation Genitourinary: No Dysuria, No Frequency, No Incontinence Musculoskeletal: No: neck pain, shoulder pain, back pain Neurological: No: Weakness, Numbness, Change in speech, Confusion Focused Exam Lactate Level 04/26/21 18:19: Lactic Acid Level 0.77 Objective Exam Vital Signs Vital Signs Date Time Temp Pulse Resp B/P (MAP) Pulse Ox O2 Delivery O2 Flow Rate FiO2 04/28/21 08:00 131 43 153/92 93 04/28/21 08:00 Nasal Cannula 3.00 04/27/21 20:00 36.5 Capillary Refill : Less Than 3 Seconds General Appearance: No Apparent Distress, WD/WN, Obese HEENT: PERRL/EOMI, Pharynx Normal Neck: Full Range of Motion, Non Tender, Supple Respiratory: Chest Non Tender, No Accessory Muscle Use, No Respiratory Distress, Decreased Breath Sounds (bases of both sides) Cardiovascular: Regular Rate, Rhythm, No Gallop, No Murmur, Normal Peripheral Pulses Gastrointestinal: Normal Bowel Sounds, No Organomegaly, No Pulsatile Mass, Non Tender, Soft Rectal: Deferred Back: No CVA Tenderness, No Vertebral Tenderness Extremity: Normal Capillary Refill, Normal Range of Motion, Calf Tenderness, Pedal Edema Neurologic/Psychiatric: Alert, Oriented x3, No Motor/Sensory Deficits, Normal Mood/Affect, director toxicology II-XII Norm as Tested Reflexes: 2+ Bicep (R), 2+ Bicep (L) Skin: Normal Color, Warm/Dry Lymphatic: No Adenopathy (cervical and axillary) Results/Procedures Lab Laboratory Tests 04/28/21 04:25 Patient resulted labs reviewed. Imaging: Reviewed Imaging Report Assessment/Plan Assessment and Plan Assess & Plan/Chief Complaint Sepsis due to pneumonia - CXR concerning for pneumonia - Acute respiratory failure AFib with RVR CHF - BNP elevated HTN BPH Gout Morbid obesity Plan: abx, F/U CXR to follow PNA progression aggressing supportive therapy - high risk Cardiology consult Bariatric consult 04/28/2021 Move to [facility], [place] urinary cath, telemetry abx, F/U CXR to follow PNA progression ICS Cardiology will also follow NIECY ORELLANA DO 04/29/21 0522: Subjective Subjective/Events-last exam Patient doing much better Asking to go home but I do not feel his acute issues are resolved yet Reluctant but agrees to go to fourth floor We will discontinue all lines as he is requesting PT and OT will be ordered Discontinue the catheter Check meds and labs Review of Systems General: Fatigue Pulmonary: Dyspnea Objective Exam General Appearance: No Apparent Distress, WD/WN, Chronically ill, Obese Respiratory: Crackles, Decreased Breath Sounds (bases of both sides), Wheezing Cardiovascular: Regular Rate, Rhythm Neurologic/Psychiatric: Alert, Oriented x3, No Motor/Sensory Deficits, Normal Mood/Affect Assessment/Plan Assessment and Plan Assess & Plan/Chief Complaint Transfer to [facility] floor Supportive care PT OT Discontinue catheter Supervisory-Addendum Brief Verification & Attestation Participated in pt care: history, MDM, physical Personally performed: exam, history, MDM, supervision of care Care discussed with: Medical Student Procedures: n/a Results interpretation: Verified all documentation Verification and Attestation of Medical Student E/M Service A medical student performed and documented this service in my presence. I reviewed and verified all information documented by the medical student and made modifications to such information, when appropriate. I personally performed the physical exam and medical decision making. Niecy Orellana Apr 29, 2021,05:21 BYRON BARRY Apr 28, 2021 11:25 NIECY ORELLANA DO Apr 29, 2021 05:22
--- NOTE | 2021-04-28 13:58 | Occupational Therapy Eval ---
OT Evaluation-General/PLF Medical Diagnosis Admission Date Apr 26, 2021 at 15:04 Medical Diagnosis: respiratory failure/hypoxia Onset Date: Apr 26, 2021 Therapy Diagnosis Therapy Diagnosis: decreased ADL status Height/Weight Height (Feet): 5 Height (Inches): 6.00 Weight (Pounds): 340 Precautions Precautions/Isolations: Fall Prevention, Standard Precautions Referral Physician: Rachael Referral Reason: Evaluation/Treatment Medical History Pertinent Medical History: HTN Additional Medical History Sleep Apnea Hypertension Benign Prostatic Hyperpl, Kidney Stones Arthritis, Gout Anxiety Current History ED due to cold like symptoms Social History Home: Single Level Current Living Status: Spouse Entry Into Home: Level Entry ADL-Prior Level of Function SCALE: Activities may be completed with or without assistive devices. 8-Uditgniwjz-bgnxtgj completes the activity by him/herself with no assistance from a helper. 5-Set-up or Clean-up Assistance-helper sets up or cleans up; patient completes activity. [place] assists only prior to or following the activity. 4-Supervision or Touching Assistance-helper provides verbal cues and/or touching/steadying and/or contact guard assistance as patient completes activity. Assistance may be provided throughout the activity or intermittently. 3-Partial/Moderate Assistance-helper does LESS THAN HALF the effort. [place] lifts, holds or supports trunk or limbs, but provides less than half the effort. 2-Substantial/Maximal Assistance-helper does MORE THAN HALF the effort. [place] lifts or holds trunk or limbs and provides more than half the effort. 0-Trtxymktl-xwqauu does ALL the effort. Patient does none of the effort to complete the activity. Or, the assistance of 2 or more helpers is required for the patient to complete the activity. If activity was not attempted, code reason: 7-Patient Refused. 9-Not Applicable-not attempted and the patient did not perform the activity before the current illness, exacerbation or injury. 10-Not Attempted due to Environmental Limitations-(lack of equipment, weather restraints, etc.). 88-Not Attempted due to Medical Conditions or Safety Concerns. ADL PLOF Comments Pt reports being independent with ADLs and functional mobility at OF. Upon further discussion, pt revealed he needs assistance with footwear, cooking and cleaning. Pt has AE for managing hygiene post BM, and he holds onto furniture and other objects as he walks. Self Care: Needed Some Help Functional Cognition: Independent OT Current Status Subjective Pt up in recliner, agreeable to OT Tx. Pt states he feels ready to discharge home. Mental Status/Objective Patient Orientation: Person, Place, Situation Attachments: Oxygen Current Upper Extremity ROM WFL, BUE shoulder flexion to approx 160 degrees Upper Extremity Coordination WFL Upper Extremity Sensation WFL Upper Extremity Strength grossly 3+/5 ADL-Treatment Eating (QC): 6 (IND with lunch.) Oral Hygiene (QC): 7 On/Off Footwear (QC): 9 Toileting Hygiene (QC): 7 Other Treatments Pt up in recliner, agreeable to OT Tx. OT educated pt on purpose and benefit of OT, he verbalized understanding. Pt then provided information about PLOF and home set up. Pt declined oral care and toileting at this time. He did not at tempt footwear as he has assistance with this at [facility]. In order to increase BUE Strength and activity tolerance as well as increase pulmonary function, pt completed the following BUE exercises, x10 reps each: shoulder flexion, elbow flexion, and front punch. Pt took rest breaks as needed between exercises. Pt's lunch arrived, he was able to eat independently, cutting up meatloaf with a fork. Post tx, pt up in recliner, call light in reach and all needs met, eating lunch. Education OT Patient Education: Correct positioning, Energy conservation, Exercise program, Modified ADL techniques, Progress toward Goal/Update tx plan, Purpose of tx/functional activities, Rehab process Teaching Recipient: Patient Teaching Methods: Discussion Response to Teaching: Verbalize Understanding OT Haulage Boss Goals Haulage Boss Goals Time Frame: May 08, 2021 Eating (QC): 6 Oral Hygiene (QC): 6 Toileting Hygiene (QC): 3 Shower/Bathe Self (QC): 4 Upper Body Dressing (QC): 5 Lower Body Dressing (QC): 4 Additional Goals: 1-Demonstrate ADL Tasks, 2-Verbalize Understanding, 3- ImproveStrength/Luis Antonio 1=Demonstrate adherence to instructed precautions during ADL tasks. 2=Patient will verbalize/demonstrate understanding of assistive devices/modifications for ADL. 3=Patient will improve strength/tolerance for activity to enable patient to perform ADL's. OT Education/Plan Problem List/Assessment Assessment: Decreased Activ Tolerance, Decreased UE Strength, Impaired Funct Balance, Impaired I ADL's, Impaired Self-Care Skills Discharge Recommendations Plan/Recommendations: Continue POC Treatment Plan/Plan of Care Patient would benefit from OT for education, treatment and training to promote independence in ADL's, mobility, safety and/or upper extremity function for ADL's. Plan of Care: ADL Retraining, Functional Mobility, UE Funct Exercise/Act Treatment Duration: May 08, 2021 Frequency: 3 times per week (3-5 times per week) Rehab Potential: Fair Time/GCodes Start Time: 13:34 Stop Time: 13:46 Total Time Billed (hr/min): 12 Billed Treatment Time 1, REINA VYAS OT Apr 28, 2021 13:58
--- NOTE | 2021-04-28 15:13 | Diagnostic Imaging Report ---
INDICATION: Shortness of air. COMPARISON: 04/26/2021. FINDINGS: Frontal and lateral views of the chest demonstrate stable mild enlargement of the cardiac silhouette. Pulmonary vasculature is borderline prominent as well. The lungs are clear. There are no signs of infiltrate, pleural effusions or pneumothoraces. The visualized osseous structures show no acute abnormalities. IMPRESSION: 1. Borderline enlargement of the cardiac silhouette and probable mild pulmonary vascular congestion. Dictated by: Dictated on workstation # [id number]
[2021-04-28] MEDS ORDERED: RIVAROXABAN 20 MG TABLET (XARELTO) PO SCH (17:00)
[2021-04-28] MEDS: lisINopril 20 MG (PRINIVIL) TABLET PO SCH (20:54)
[2021-04-28] MEDS ORDERED: APIXABAN 5 MG (ELIQUIS) TABLET PO SCH (21:00)
[2021-04-28] MEDS ORDERED: amLODIPine 10 MG (NORVASC) TAB PO SCH (21:00)
[2021-04-28] MEDS ORDERED: TAMSULOSIN 0.4 MG (FLOMAX) CAP PO SCH (21:00)
[2021-04-28] MEDS: cefTRIAXone 2,000 MG in NS (IVPB) 50 ML IV SCH (21:45)
[2021-04-29] MEDS: CATHETER FLUSH 10 ML SYR IV SCH (06:50)
[2021-04-29] MEDS: FUROSEMIDE 40 MG/4 ML INJ (LASIX) IVP SCH (06:50)
[2021-04-29 07:00] LABS: BASOPHILS # (AUTO) 0.1 10^3/uL (0.0-0.1); BASOPHILS % (AUTO) 0 % (0-10); EOSINOPHILS # (AUTO) 0.2 10^3/uL (0.0-0.3); EOSINOPHILS % (AUTO) 2 % (0-10); HEMATOCRIT 39 % (40-54); HEMOGLOBIN 12.1 g/dL (13.3-17.7); LYMPHOCYTES # (AUTO) 1.8 10^3/uL (1.0-4.0); LYMPHOCYTES % (AUTO) 16 % (12-44); MEAN CORPUSCULAR HEMOGLOBIN 27 pg (25-34); MEAN CORPUSCULAR HGB CONC 31 g/dL (32-36); MEAN CORPUSCULAR VOLUME 87 fL (80-99); MEAN PLATELET VOLUME 8.6 fL (9.0-12.2); MONOCYTES # (AUTO) 1.2 10^3/uL (0.0-1.0); MONOCYTES % (AUTO) 11 % (0-12); NEUTROPHILS # (AUTO) 7.8 10^3/uL (1.8-7.8); NEUTROPHILS % (AUTO) 67 % (42-75); PLATELET COUNT 204 10^3/uL (130-400); WHITE BLOOD COUNT 11.6 10^3/uL (4.3-11.0)
[2021-04-29 07:08] LABS: ALBUMIN 3.1 GM/DL (3.2-4.5)
[2021-04-29 07:09] LABS: POTASSIUM 4.3 MMOL/L (3.6-5.0)
[2021-04-29 07:10] LABS: CALCIUM 8.5 MG/DL (8.5-10.1)
[2021-04-29 07:11] LABS: TOTAL PROTEIN 6.4 GM/DL (6.4-8.2)
[2021-04-29 07:13] LABS: BILIRUBIN,TOTAL 0.6 MG/DL (0.1-1.0)
[2021-04-29 07:15] LABS: CREATININE SERUM 0.74 MG/DL (0.60-1.30)
[2021-04-29] MEDS: KCL 20 MEQ TAB (K-DUR) PO SCH (08:49)
[2021-04-29] MEDS: lisINopril 20 MG (PRINIVIL) TABLET PO SCH (08:50)
[2021-04-29] MEDS: AZITHROMYCIN 250 MG TAB (ZITHROMAX) PO SCH (08:50)
[2021-04-29] MEDS ORDERED: FINASTERIDE (PROSCAR) 5 MG TAB PO SCH (09:00)
[2021-04-29] MEDS ORDERED: ALLOPURINOL 300 MG (ZYLOPRIM) TAB PO SCH (09:00)
--- NOTE | 2021-04-29 10:19 | Occupational Ther Daily Note ---
OT Current Status-Daily Note Subjective Pt alert, sitting at EOB when OT entered. Pt agreed to therapy. No c/o pain reported at this time. Mental Status/Objective Patient Orientation: Person, Place, Time, Situation Attachments: IV, Oxygen ADL-Treatment Therapy Code Descriptions/Definitions Functional [place] Measure: 0=Not Assessed/NA 4=Minimal Assistance 1=Total Assistance 5=Supervision or Setup 2=Maximal Assistance 6=Modified [place] 3=Moderate Assistance 7=Complete IndependenceSCALE: Activities may be completed with or without assistive devices. 3-Lceqnskxsj-vrjvwrv completes the activity by him/herself with no assistance from a helper. 5-Set-up or Clean-up Assistance-helper sets up or cleans up; patient completes activity. [place] assists only prior to or following the activity. 4-Supervision or Touching Assistance-helper provides verbal cues and/or touching/steadying and/or contact guard assistance as patient completes activity. Assistance may be provided throughout the activity or intermittently. 3-Partial/Moderate Assistance-helper does LESS THAN HALF the effort. [place] lifts, holds or supports trunk or limbs, but provides less than half the effort. 2-Substantial/Maximal Assistance-helper does MORE THAN HALF the effort. [place] lifts or holds trunk or limbs and provides more than half the effort. 5-Qjezhqffs-jsqwji does ALL the effort. Patient does none of the effort to complete the activity. Or, the assistance of 2 or more helpers is required for the patient to complete the activity. If activity was not attempted, code reason: 7-Patient Refused. 9-Not Applicable-not attempted and the patient did not perform the activity before the current illness, exacerbation or injury. 10-Not Attempted due to Environmental Limitations-(lack of equipment, weather restraints, etc.). 88-Not Attempted due to Medical Conditions or Safety Concerns. Other Treatment Skilled instruction provided of green theraband exercises. Pt completed x2 sets of 10 reps of BUE green theraband exercises while seated at EOB to increase BUE strength for improved independence with ADLs and activity tolerance. Pt tolerated exercises well and required resting break in between set due to fatigue. Pt required demonstration of exercises for functional completion. After session, pt sitting at EOB. Call light in reach and all needs met. Education OT Patient Education: Energy conservation, Exercise program, Home exercise program Teaching Recipient: Patient Teaching Methods: Demonstration, Handout, Discussion Response to Teaching: Verbalize Understanding, Return Demonstration OT [facility] Goals [facility] Goals Time Frame: May 08, 2021 Eating (QC): 6 Oral Hygiene (QC): 6 Toileting Hygiene (QC): 3 Shower/Bathe Self (QC): 4 Upper Body Dressing (QC): 5 Lower Body Dressing (QC): 4 Additional Goals: 1-Demonstrate ADL Tasks, 2-Verbalize Understanding, 3- ImproveStrength/Luis Antonio 1=Demonstrate adherence to instructed precautions during ADL tasks. 2=Patient will verbalize/demonstrate understanding of assistive devices/modifications for ADL. 3=Patient will improve strength/tolerance for activity to enable patient to perform ADL's. OT Education/Plan Problem List/Assessment Assessment: Decreased Activ Tolerance, Decreased UE Strength, Impaired I ADL's, Impaired Self-Care Skills Discharge Recommendations Plan/Recommendations: Continue POC Treatment Plan/Plan of Care Patient would benefit from OT for education, treatment and training to promote independence in ADL's, mobility, safety and/or upper extremity function for ADL's. Plan of Care: ADL Retraining, Functional Mobility, UE Funct Exercise/Act Treatment Duration: May 08, 2021 Frequency: 3 times per week (3-5 times per week) Rehab Potential: Fair Time/GCodes Start Time: 09:46 Stop Time: 09:57 Total Time Billed (hr/min): 11 Billed Treatment Time 1 visit- EX 1 (11 mins) PANCHO ACOSTA Apr 29, 2021 10:19
--- NOTE | 2021-04-29 10:24 | Physical Therapy Daily Note ---
PT Daily Note-Current Subjective Pt sitting EOB upon arrival and agrees to PT. Says he is "ready to get out of here". Reports he isn't having any pain. Mental Status Patient Orientation: Person, Place, Time, Situation Attachments: Oxygen Transfers SCALE: Activities may be completed with or without assistive devices. 8-Gusyhbxxwk-wqifzjz completes the activity by him/herself with no assistance from a helper. 5-Set-up or Clean-up Assistance-helper sets up or cleans up; patient completes activity. [place] assists only prior to or following the activity. 4-Supervision or Touching Assistance-helper provides verbal cues and/or touching/steadying and/or contact guard assistance as patient completes activity. Assistance may be provided throughout the activity or intermittently. 3-Partial/Moderate Assistance-helper does LESS THAN HALF the effort. [place] lifts, holds or supports trunk or limbs, but provides less than half the effort. 2-Substantial/Maximal Assistance-helper does MORE THAN HALF the effort. [place] lifts or holds trunk or limbs and provides more than half the effort. 5-Fmmhbgrrk-osuqyl does ALL the effort. Patient does none of the effort to complete the activity. Or, the assistance of 2 or more helpers is required for the patient to complete the activity. If activity was not attempted, code reason: 7-Patient Refused. 9-Not Applicable-not attempted and the patient did not perform the activity before the current illness, exacerbation or injury. 10-Not Attempted due to Environmental Limitations-(lack of equipment, weather restraints, etc.). 88-Not Attempted due to Medical Conditions or Safety Concerns. Sit to Stand (QC): 4 Gait Training Does the Patient Walk?: Yes Distance: 100' Walk 10 feet (QC): 4 Walk 50 ft with 2 Turns(QC): 4 Gait Persons Needed: 1 Gait Assistive Device: FWW Flexed posture Exercises Standing: Sit to Stand Standing Reps: 2 Treatments Pt sitting EOB upon arrival and agrees to PT. Pt then performs sit to stand w/ CGA/SBA. Then ambulates out into [place] and then ambulates back to room and sits EOB. Pt requires SBA/CGA during ambulation. Pt sitting EOB upon departure of PT all needs met and call light nearby. Nursing present. Assessment Current Status: Good Progress Pt ambulates w/ flexed posture and requires SBA/CGA during ambulation. Requires skilled verbal cues about hand placement during TFs. PT Custodial Goals Streetcar Repairer Helper Goals PT Streetcar Repairer Helper Goals Time Frame: May 09, 2021 Roll Left & Right (QC): 6 Sit to Lying (QC): 6 Lying-Sitting on Side/Bed(QC): 6 Sit to Stand (QC): 6 Chair/Npa-ip-Qwdro Xfer(QC): 6 Toilet Transfer (QC): 6 Walk 10 feet (QC): 6 Walk 50ft with 2 Turns (QC): 6 PT Plan Problem List Problem List: Activity Tolerance, Functional Strength Treatment/Plan Treatment Plan: Continue Plan of Care Treatment Plan: Bed Mobility, Education, Functional Activity Luis Antonio, Functional Strength, Gait, Safety, Therapeutic Exercise, Transfers Treatment Duration: May 09, 2021 Frequency: 6 times per week Estimated Hrs Per Day: .25 hour per day Patient and/or Family Agrees t: Yes Safety Risks/Education Patient Education: Transfer Techniques Teaching Recipient: Patient Teaching Methods: Discussion Response to Teaching: Return Demonstration Time/GCodes Time In: 837 Time Out: 850 Total Billed Treatment Time: 13 Total Billed Treatment 1 visit, GT (13') NORBEROT LIANG SERVICE MECHANIC Apr 29, 2021 10:24
[2021-04-29] MEDS: SENNOSIDES 8.6 MG (SENOKOT) TAB PO SCH (10:37)
[2021-04-29] MEDS ORDERED: CEFD300C3 PO (10:38)
[2021-04-29] MEDS ORDERED: CARV12.53 PO (10:38)
[2021-04-29] MEDS: DOCUSATE SODIUM 100 MG (COLACE) CAP PO SCH (10:38)
[2021-04-29] MEDS ORDERED: RIVA20TA2 PO ×2 (10:38→13:58)
--- NOTE | 2021-04-29 10:39 | Discharge Summary ---
Discharge Summary Hospital Course Was the Problem List Reviewed?: Yes Problems/Dx: (1) Paroxysmal atrial fibrillation (2) Elevated brain natriuretic peptide (BNP) level (3) Primary hypertension (4) Chronic venous stasis (5) Morbid obesity Hospital Course Date of Admission: Apr 26, 2021 at 15:04 Admission Diagnosis : Family Physician/Provider: Ellen Sotelo MD Date of Discharge: 04/29/21 Discharge Diagnosis: Acute hypoxic respiratory failure, atrial fibrillation with rapid ventricular response new onset, super morbid obesity BMI 66 Hospital Course: 04/26/2021 - Adama Lin is a 70 year old male with PMH HTN, BPH, gout, super super obesity, who presented to the [facility] with cold symptoms. He reports having congestion and runny nose. He has had a cough with sputum production. He has felt short of breath. He denies fevers and chills. He denies abdominal pain, nausea, vomiting, and diarrhea. He has leg swelling and uses compression stockings. He denies orthopnea. He denies chest pain. He denies any history of coronary artery disease or heart failure. He has no history of atrial fibrillation. CXR is suggestive of PNA. Pt was admitted to ICU floor for intensive care, abx and cardiac consult. He was found to have atrial fibrillation and a cardiology consultation was requested. 04/27/2021 - Pt has greater difficulty breathing when lying down so he moved to the chair, he also finds coughing to be more productive when sitting up. Denies and urinary or GI complaints, and states that he is feeling a little better today. Cardiology -> has no known history of coronary artery disease but does have hyp ertension. He has atrial fibrillation of unknown duration. By volume index, his left atrial size is normal but right atrium is severely dilated. This is suggestive of possible prolonged atrial fibrillation. He seems to be asymptomatic with this. I recommend starting him on oral anticoagulation. I would continue beta-prasanth for rate control which she was already taking at home. His blood pressure was elevated this morning so I have taken the liberty of increasing the dose of carvedilol. After 30 days of anticoagulation, I may consider cardioversion. As long as we can get his heart rate controlled in the hospital, there is no urgent need for cardioversion while he is here. He was initially getting enoxaparin for anticoagulation and this was changed over to Eliquis. I would suggest changing the Eliquis over to Xarelto since patients can get this at a reduced cost through our hospital. I am also concerned about compliance with a twice daily medication in this patient. He does not really seem to understand his medical problems. 04/28/2021 Pt continues to improve, moved to medical floor for continued recovery and rest. 04/29/2021 Pt continues to do much better. Breathing is unlabored but remains on 2L O2, breath sounds also improved. Pt is ambulating to the bathroom. Will DC today following eval for home O2 with continued abx and zarelto. Pt will follow-up with cardiology in 30 days. ADAMA BARRY Labs and Pending Lab Test: Laboratory Tests 04/28/21 11:20: Glucometer 115H 04/28/21 16:53: Glucometer 158H 04/28/21 20:03: Glucometer 191H 04/29/21 05:30: Glucometer 110 04/29/21 06:44: White Blood Count 11.6H, Red Blood Count 4.49, Hemoglobin 12.1L, Hematocrit 39L, Mean Corpuscular Volume 87, Mean Corpuscular Hemoglobin 27, Mean Corpuscular Hemoglobin Concent 31L, Red Cell Distribution Width 15.5H, Platelet Count 204, Mean Platelet Volume 8.6L, Immature Granulocyte % (Auto) 4, Neutrophils (%) (Auto) 67, Lymphocytes (%) (Auto) 16, Monocytes (%) (Auto) 11, Eosinophils (%) (Auto) 2, Basophils (%) (Auto) 0, Neutrophils # (Auto) 7.8, Lymphocytes # (Auto) 1.8, Monocytes # (Auto) 1.2H, Eosinophils # (Auto) 0.2, Basophils # (Auto) 0.1, Immature Granulocyte # (Auto) 0.5H, Sodium Level 138, Potassium Level 4.3, Chloride Level 100, Carbon Dioxide Level 30, Anion Gap 8, Blood Urea Nitrogen 26H, Creatinine 0.74, Estimat Glomerular Filtration Rate 104, BUN/Creatinine Ratio 35, Glucose Level 110H, Calcium Level 8.5, Corrected Calcium 9.2, Total Bilirubin 0.6, Aspartate Amino Transf (AST/SGOT) 19, Alanine Aminotransferase (ALT/SGPT) 16, Alkaline Phosphatase 82, Total Protein 6.4, Albumin 3.1L 04/29/21 10:20: Glucometer 142H Microbiology 04/27/21 Gram Stain - Final, Resulted 04/27/21 Sputum Culture - Preliminary, Resulted Usual upper respiratory adam Home Meds Active Cefdinir 300 Mg Capsule 300 Mg PO BID Carvedilol 12.5 Mg Tablet 25 Mg PO BID Xarelto Tablet (Rivaroxaban) 20 Mg Tablet 20 Mg PO DAILY@1700 Reported Furosemide 40 Mg Tablet 40 Mg PO BID Flomax (Tamsulosin HCl) 0.4 Mg Cap 0.8 Mg PO HS TAKES 2 (0.4MG) CAPS Tramadol HCl 50 Mg Tablet 100 Mg PO TID PRN TAKES 2 (50MG) TABS Carvedilol 12.5 Mg Tablet 12.5 Mg PO BID Amlodipine Besylate 10 Mg Tablet 10 Mg PO HS Potassium Chloride 20 Meq Tab.er.prt 20 Meq PO BID Meclizine HCl 25 Mg Tablet 25 Mg PO TID PRN Lisinopril 20 Mg Tablet 20 Mg PO BID Finasteride 5 Mg Tablet 5 Mg PO DAILY Alprazolam 0.5 Mg Tablet 0.5 Mg PO TID PRN Allopurinol 300 Mg Tablet 300 Mg PO DAILY Assessment/Pt Instructions PCP in 1 week Discharge Planning: <30 minutes discharge planning Discharge Instructions Discharge Diet: No Restrictions Activity as Tolerated: Yes Discharge Physical Examination Vital Signs Vital Signs Date Time Temp Pulse Resp B/P (MAP) Pulse Ox O2 Delivery O2 Flow Rate FiO2 04/29/21 09:00 Nasal Cannula 04/29/21 07:15 35.5 90 20 148/86 92 1.00 General Appearance: No Apparent Distress, WD/WN, Chronically ill, Obese Respiratory: Lungs Clear, Normal Breath Sounds Cardiovascular: Irregularly Irregular Allergies: Coded Allergies: No Known Drug Allergies (Unverified , 08/24/18) Discharge Summary Date of Admission Apr 26, 2021 at 15:04 Date of Discharge Discharge Date: Apr 29, 2021 Admission Diagnosis Sepsis due to pneumonia Discharge Diagnosis Transfer to fourth floor Supportive care PT OT Discontinue catheter (1) Paroxysmal atrial fibrillation Assessment & Plan: He has atrial fibrillation of unknown duration. By volume index, his left atrial size is normal but right atrium is severely dilated. This is suggestive of possible prolonged atrial fibrillation. He seems to be asymptomatic with this. I recommend starting him on oral anticoagulation. I would continue beta-prasanth for rate control which she was already taking at home. His blood pressure was elevated this morning so I have taken the liberty of increasing the dose of carvedilol. After 30 days of anticoagulation, I may consider cardioversion. As long as we can get his heart rate controlled in the hospital, there is no urgent need for cardioversion while he is here. He was initially getting enoxaparin for anticoagulation and this was changed over to Eliquis. I would suggest changing the Eliquis over to Xarelto since patients can get this at a reduced cost through our hospital. I am also concerned about compliance with a twice daily medication in this patient. He does not really seem to understand his medical problems. (2) Elevated brain natriuretic peptide (BNP) level Assessment & Plan: He has an elevated BNP level as outlined above. Unclear whether or not this could represent some degree of heart failure or if the atrial fibrillation and/or possible pneumonia may be contributing to the elevated BNP level. His ejection fraction is normal on the echocardiogram without significant valvular disease. Some of the elevated BNP level could also be due to undiagnosed sleep apnea. Given his peripheral edema, it would not be unreasonable to continue to treat him with intravenous diuretic temporarily. I am not entirely convinced he has left heart failure but this is difficult to determine clinically in somebody with his body habitus. I have ordered a follow- up chest x-ray. (3) Primary hypertension Assessment & Plan: He has been taking amlodipine at home for his hypertension. This could make his chronic peripheral edema worse. I stopped the amlodipine. I have been adjusting his other medications to get his blood pressure under control. The hospitalist has already increased the patient's dose of beta- prasanth and MARÍA inhibitor and I agree with this. As above, I will further increase the dose of carvedilol this morning due to elevated blood pressures. (4) Chronic venous stasis Assessment & Plan: Most likely related to his morbid obesity. Amlodipine could be making the edema worse. I have stopped the amlodipine and I would make sure he knows not to take this when he goes home. (5) Morbid obesity Assessment & Plan: He needs to work on weight loss for not only his general wellbeing but to help reduce the risk of complications from the atrial fibrillation and chronic venous stasis. LONNY ORELLANA DO Apr 29, 2021 10:39
--- NOTE | 2021-04-29 11:30 | Progress Note ---
ADAMA BARRY 04/29/21 1130: Progress Note 04/26/2021 - Adama Lin is a 70 year old male with PMH HTN, BPH, gout, super super obesity, who presented to the [place] [facility] with cold symptoms. He reports having congestion and runny nose. He has had a cough with sputum production. He has felt short of breath. He denies fevers and chills. He denies abdominal pain, nausea, vomiting, and diarrhea. He has leg swelling and uses compression stockings. He denies orthopnea. He denies chest pain. He denies any history of coronary artery disease or heart failure. He has no history of atrial fibrillation. CXR is suggestive of PNA. Pt was admitted to ICU floor for intensive care, abx and cardiac consult. He was found to have atrial fibrillation and a cardiology consultation was requested. 04/27/2021 - Pt has greater difficulty breathing when lying down so he moved to the chair, he also finds coughing to be more productive when sitting up. Denies and urinary or GI complaints, and states that he is feeling a little better today. Cardiology -> has no known history of coronary artery disease but does have hy pertension. He has atrial fibrillation of unknown duration. By volume index, his left atrial size is normal but right atrium is severely dilated. This is suggestive of possible prolonged atrial fibrillation. He seems to be asymptomatic with this. I recommend starting him on oral anticoagulation. I would continue beta-prasanth for rate control which she was already taking at [facility]. His blood pressure was elevated this morning so I have taken the liberty of increasing the dose of carvedilol. After 30 days of anticoagulation, I may consider cardioversion. As long as we can get his heart rate controlled in the hospital, there is no urgent need for cardioversion while he is here. He was initially getting enoxaparin for anticoagulation and this was changed over to Eliquis. I would suggest changing the Eliquis over to Xarelto since patients can get this at a reduced cost through our hospital. I am also concerned about compliance with a twice daily medication in this patient. He does not really seem to understand his medical problems. 04/28/2021 Pt continues to improve, moved to medical floor for continued recovery and rest. 04/29/2021 Pt continues to do much better. Breathing is unlabored but remains on 2L O2, breath sounds also improved. Pt is ambulating to the bathroom. Will DC today following eval for home O2 with continued abx and zarelto. Pt will follow-up with cardiology in 30 days. NIECY ORELLANA DO 04/30/21 0608: Supervisory-Addendum Brief Verification & Attestation Participated in pt care: history, MDM, physical Personally performed: exam, history, MDM, supervision of care Care discussed with: Medical Student Procedures: n/a Results interpretation: Verified all documentation Verification and Attestation of Medical Student E/M Service A medical student performed and documented this service in my presence. I reviewed and verified all information documented by the medical student and made modifications to such information, when appropriate. I personally performed the physical exam and medical decision making. Niecy Orellana, Apr 30, 2021,06:08 ADAMA BARRY Apr 29, 2021 11:30 NIECY ORELLANA DO Apr 30, 2021 06:08
== END 2021-04-29 14:50 | disposition home or self-care (01) | DRG 871 ==
LOC: EDUNIT# 12:53 → ER FS 12:55 → ICU 15:04 → 4TH 04-28 11:50
PROVIDERS: ADMIT Internal Medicine; ATTEND Internal Medicine
DX: A41.9 Sepsis, unspecified organism (principal); J18.9 Pneumonia, unspecified organism; J96.01 Acute respiratory failure with hypoxia; Z68.44 Body mass index [BMI] 60.0-69.9, adult; E66.01 Morbid (severe) obesity due to excess calories; I48.0 Paroxysmal atrial fibrillation; N40.0 Benign prostatic hyperplasia without lower urinary tract symptoms; I11.0 Hypertensive heart disease with heart failure; Z20.822 Contact with and (suspected) exposure to COVID-19; I87.8 Other specified disorders of veins; M10.9 Gout, unspecified; I27.20 Pulmonary hypertension, unspecified; D72.829 Elevated white blood cell count, unspecified; Z91.19 Patient's noncompliance with other medical treatment and regimen; M19.90 Unspecified osteoarthritis, unspecified site; F41.9 Anxiety disorder, unspecified
CPT/HCPCS: 36415; 71045; 71046; 80053; 80061; 82947; 83036; 83605; 83735; 83880; 84100; 84145; 84484; 85007; 85025; 85027; 85379; 85610; 85730; 86141; 87070; 87205; 87636; 87804; 93005; 93041; 93306; 94760; 94761; 99291

== ENCOUNTER → 2021-06-03 | Outpatient (CLI) | payer MEDICARE ==
[~2021-06-03] MED LIST changes: +CARV12.53 PO; +CEFD300C3 PO; +FURO40TA4 PO; +POTA-179 PO; +RIVA20TA2 PO; +TMSL.4C PO; +TRAM50TA3 PO
--- NOTE | 2021-06-03 16:22 | Diagnostic Imaging Report ---
EXAMINATION: Chest 2 view. HISTORY: Acute cough. COMPARISON: 04/28/2021. FINDINGS: Stable enlargement of the cardiac silhouette. Mild interstitial opacities in the lung bases. Prominence of the pulmonary vessels. No pleural effusion or pneumothorax. Degenerative changes of the thoracic spine. Osseous structures are otherwise intact. IMPRESSION: Cardiomegaly with mild pulmonary edema or atypical infection. Dictated by: Dictated on workstation # [id number]
[2021-06-03 16:26] LABS: HEMATOCRIT 39 % (40-54); HEMOGLOBIN 11.6 g/dL (13.3-17.7); MEAN CORPUSCULAR HEMOGLOBIN 26 pg (25-34); MEAN CORPUSCULAR HGB CONC 30 g/dL (32-36); MEAN CORPUSCULAR VOLUME 89 fL (80-99); MEAN PLATELET VOLUME 9.5 fL (9.0-12.2); PLATELET COUNT 144 10^3/uL (130-400); WHITE BLOOD COUNT 9.9 10^3/uL (4.3-11.0)
[2021-06-03 16:27] LABS: BASOPHILS % (AUTO) 0 % (0-10); EOSINOPHILS # (AUTO) 0.4 10^3/uL (0.0-0.3); EOSINOPHILS % (AUTO) 4 % (0-10); LYMPHOCYTES # (AUTO) 1.9 X 10^3 (1.0-4.0); LYMPHOCYTES % (AUTO) 19 % (12-44); MONOCYTES # (AUTO) 0.8 X 10^3 (0.0-1.0); MONOCYTES % (AUTO) 8 % (0-12); NEUTROPHILS # (AUTO) 6.7 X 10^3 (1.8-7.8); NEUTROPHILS % (AUTO) 68 % (42-75)
[2021-06-03 16:37] LABS: BILIRUBIN,TOTAL 0.6 MG/DL (0.1-1.0); CALCIUM 8.8 MG/DL (8.5-10.1); CREATININE SERUM 0.98 MG/DL (0.60-1.30)
[2021-06-03 16:38] LABS: TOTAL PROTEIN 7.3 GM/DL (6.4-8.2)
== END ==
LOC: LAB FS 15:42
PROVIDERS: ATTEND Family Medicine
DX: R06.09 Other forms of dyspnea (principal); R05.1 Acute cough
CPT/HCPCS: 36415; 71046; 80053; 85025

== ENCOUNTER → 2021-06-04 | Outpatient (CLI) | payer MEDICARE | LOC: LABNPT 15:16 | PROVIDERS: ATTEND Internal Medicine Cardiovascular Disease | DX: R05.1 Acute cough (principal); I10 Essential (primary) hypertension; R06.00 Dyspnea, unspecified; R42 Dizziness and giddiness; E66.01 Morbid (severe) obesity due to excess calories; Z20.822 Contact with and (suspected) exposure to COVID-19 | CPT/HCPCS: 87636 ==

== ENCOUNTER → 2021-08-27 | Outpatient (CLI) | payer MEDICARE ==
[2021-08-27 11:06] LABS: BASOPHILS # (AUTO) 0.1 10^3/uL (0.0-0.1); BASOPHILS % (AUTO) 1 % (0-10); EOSINOPHILS # (AUTO) 0.5 10^3/uL (0.0-0.3); EOSINOPHILS % (AUTO) 5 % (0-10); HEMATOCRIT 38 % (40-54); LYMPHOCYTES # (AUTO) 2.3 10^3/uL (1.0-4.0); LYMPHOCYTES % (AUTO) 21 % (12-44); MEAN CORPUSCULAR HEMOGLOBIN 27 pg (25-34); MEAN CORPUSCULAR HGB CONC 32 g/dL (32-36); MEAN CORPUSCULAR VOLUME 84 fL (80-99); MEAN PLATELET VOLUME 9.1 fL (9.0-12.2); MONOCYTES % (AUTO) 9 % (0-12); NEUTROPHILS % (AUTO) 64 % (42-75); PLATELET COUNT 186 10^3/uL (130-400)
[2021-08-27 11:54] LABS: POTASSIUM 4.4 MMOL/L (3.6-5.0)
[2021-08-27 11:55] LABS: BILIRUBIN,TOTAL 0.6 MG/DL (0.1-1.0); CREATININE SERUM 0.93 MG/DL (0.60-1.30)
[2021-08-27 11:56] LABS: TOTAL PROTEIN 7.4 GM/DL (6.4-8.2)
== END ==
LOC: LAB FS 10:29
PROVIDERS: ATTEND Family Medicine
DX: Z51.81 Encounter for therapeutic drug level monitoring (principal)
CPT/HCPCS: 36415; 80053; 85025

== ENCOUNTER → 2021-09-23 | Outpatient (CLI) | payer MEDICARE ==
[2021-09-23 14:07] LABS: POTASSIUM 3.8 MMOL/L (3.6-5.0)
[2021-09-23 14:08] LABS: CALCIUM 9.6 MG/DL (8.5-10.1); CREATININE SERUM 1.12 MG/DL (0.60-1.30)
== END ==
LOC: LAB FS 13:22
PROVIDERS: ATTEND Urology
DX: N40.1 Benign prostatic hyperplasia with lower urinary tract symptoms (principal); E29.1 Testicular hypofunction
CPT/HCPCS: 36415; 80048; 84153; 84403

== ENCOUNTER → 2021-09-23 | Outpatient (CLI) | payer MEDICARE ==
--- NOTE | 2021-09-23 17:00 | Diagnostic Imaging Report ---
INDICATION: Bilateral knee pain. Time of Exam: 1:48 PM Left knee shows severe medial compartmental degenerative change with complete loss of the joint space. A moderate patellofemoral degenerative change on the left is also noted. No fracture, dislocation or effusion is seen. Right knee demonstrates similar findings with complete loss of the medial joint space and marginal osteophyte formation. There is moderate patellofemoral degenerative change. No effusion or fracture seen. IMPRESSION: Severe medial and moderate patellofemoral compartmental degenerative change bilaterally. No acute bony abnormality is detected. Dictated by: Dictated on workstation # [id number]
== END ==
LOC: RAD FS 13:27
PROVIDERS: ATTEND Orthopaedic Surgery
DX: M17.0 Bilateral primary osteoarthritis of knee (principal)

== ENCOUNTER → 2021-09-24 | Outpatient (CLI) | payer MEDICARE | LOC: ORTHO 16:38 | PROVIDERS: ATTEND Orthopaedic Surgery | DX: M17.0 Bilateral primary osteoarthritis of knee (principal) ==

== ENCOUNTER → 2021-10-22 | Outpatient (CLI) | payer MEDICARE | LOC: ORTHO 16:08 | PROVIDERS: ATTEND Orthopaedic Surgery | DX: M17.0 Bilateral primary osteoarthritis of knee (principal); I10 Essential (primary) hypertension; E66.01 Morbid (severe) obesity due to excess calories; I48.20 Chronic atrial fibrillation, unspecified; F41.1 Generalized anxiety disorder ==

== ENCOUNTER → 2021-10-23 | Outpatient (CLI) | payer MEDICARE ==
[2021-10-23 10:50] LABS: POTASSIUM 4.3 MMOL/L (3.6-5.0)
[2021-10-23 10:51] LABS: CREATININE SERUM 1.4 MG/DL (0.60-1.30)
== END ==
LOC: LAB FS 09:39
PROVIDERS: ATTEND Family Medicine
DX: I48.20 Chronic atrial fibrillation, unspecified (principal); I10 Essential (primary) hypertension; F41.1 Generalized anxiety disorder
CPT/HCPCS: 36415; 80048

== ENCOUNTER → 2021-11-27 | Outpatient (CLI) | payer MEDICARE ==
[2021-11-27 09:25] LABS: CALCIUM 9.2 MG/DL (8.5-10.1); CREATININE SERUM 1.5 MG/DL (0.60-1.30)
== END ==
LOC: LAB FS 08:44
PROVIDERS: ATTEND Family Medicine
DX: I48.91 Unspecified atrial fibrillation (principal); H81.10 Benign paroxysmal vertigo, unspecified ear; I10 Essential (primary) hypertension; R60.0 Localized edema
CPT/HCPCS: 36415; 80048

== ENCOUNTER → 2021-12-10 | Outpatient (CLI) | payer MEDICARE | LOC: CARDFS 11:48 | PROVIDERS: ATTEND Family Medicine | DX: I51.7 Cardiomegaly (principal); I48.0 Paroxysmal atrial fibrillation | CPT/HCPCS: 93306 ==

== ENCOUNTER 2021-12-29 13:32 | Inpatient (IN) | payer MEDICARE ==
[~2021-12-29] VITALS: Ht 160 cm; Wt 191.0 kg
[2021-12-29 13:56] LABS: BASOPHILS # (AUTO) 0.1 10^3/uL (0.0-0.1); BASOPHILS % (AUTO) 1 % (0-10); EOSINOPHILS # (AUTO) 0.5 10^3/uL (0.0-0.3); EOSINOPHILS % (AUTO) 3 % (0-10); HEMATOCRIT 31 % (40-54); HEMOGLOBIN 9.6 g/dL (13.3-17.7); LYMPHOCYTES # (AUTO) 2.2 10^3/uL (1.0-4.0); LYMPHOCYTES % (AUTO) 15 % (12-44); MEAN CORPUSCULAR HEMOGLOBIN 28 pg (25-34); MEAN CORPUSCULAR HGB CONC 31 g/dL (32-36); MEAN CORPUSCULAR VOLUME 91 fL (80-99); MEAN PLATELET VOLUME 9.3 fL (9.0-12.2); MONOCYTES # (AUTO) 0.9 10^3/uL (0.0-1.0); MONOCYTES % (AUTO) 6 % (0-12); NEUTROPHILS # (AUTO) 10.2 10^3/uL (1.8-7.8); NEUTROPHILS % (AUTO) 71 % (42-75); PLATELET COUNT 174 10^3/uL (130-400); WHITE BLOOD COUNT 14.4 10^3/uL (4.3-11.0)
--- NOTE | 2021-12-29 13:57 | ED Dyspnea ---
General Chief Complaint: Respiratory Problems Stated Complaint: LOW O2; EDEMA NIVIA LWR EXT/ABD Source of Information: Patient, Old Records History of Present Illness Date Seen by Provider: Dec 29, 2021 Time Seen by Provider: 13:35 Initial Comments 71-year-old male presenting with complaints of increasing shortness of breath and weight gain over the last month. He states that since Tuesday he has had worsening swelling and breathing difficulties. He was not evaluated at work on Tuesday or Tuesday due to being short of breath and not able to walk more than a few steps without being winded. He made an appointment to see his primary care provider, Dr. Valencia, today and when he went to the clinic they told him that his oxygen saturation was low and he needed to go to the emergency department. He drove to the emergency department with his and states he has increased swelling to his legs. He reports that this is happened to him previously and he decided to be admitted to get fluid off of his legs and lungs. He has recently had an echocardiogram done on December 12. This had shown estimated EF of 55 to 60% with grade 2 diastolic dysfunction. He denies having fever, cough, ill contacts, chills. He has difficulty holding his urine and is on medications from Dr. Kruger to try and help with this. He does take 2 "water pills" daily but still has been getting increased swelling. Timing/Duration: Other (over a month but worse in last 4 days) Severity: Severe Prior Episodes/Possible Cause: Chronic Episodes Modifying Factors: Worse With Lying Down; Improves With Oxygen Associated Symptoms: Edema Allergies and Home Medications Allergies Coded Allergies: No Known Drug Allergies (Unverified , 08/24/18) Patient Home Medication List Home Medication List Reviewed: Yes Allopurinol (Allopurinol) 300 Mg Tablet, 300 MG PO DAILY, (Reported) Entered as Reported by: ANDRZEJ BENTLEY on 08/24/18 1120 Alprazolam (Alprazolam) 0.5 Mg Tablet, 0.5 MG PO TID PRN for ANXIETY, (Reported) Entered as Reported by: ANDRZEJ BENTLEY on 08/24/18 1120 Amlodipine Besylate (Amlodipine Besylate) 10 Mg Tablet, 10 MG PO HS, (Reported) Entered as Reported by: GUERDA TAI on 04/27/21 1054 Carvedilol (Carvedilol) 12.5 Mg Tablet, 25 MG PO BID Prescribed by: LONNY ORELLANA on 04/29/21 1038 Cefdinir (Cefdinir) 300 Mg Capsule, 300 MG PO BID Prescribed by: LONNY ORELLANA on 04/29/21 1038 Finasteride (Finasteride) 5 Mg Tablet, 5 MG PO DAILY, (Reported) Entered as Reported by: ANDRZEJ BENTLEY on 08/24/18 1120 Furosemide (Furosemide) 40 Mg Tablet, 40 MG PO BID, (Reported) Entered as Reported by: GUERDA TAI on 04/27/21 1054 Lisinopril (Lisinopril) 20 Mg Tablet, 20 MG PO BID, (Reported) Entered as Reported by: ANDRZEJ BENTLEY on 08/24/18 1120 Meclizine HCl (Meclizine HCl) 25 Mg Tablet, 25 MG PO TID PRN for DIZZINESS, (Reported) Entered as Reported by: GUERDA TAI on 04/27/21 1054 Potassium Chloride (Potassium Chloride) 20 Meq Tab.er.prt, 20 MEQ PO BID, (Reported) Entered as Reported by: GUERDA TAI on 04/27/21 1054 Rivaroxaban (Xarelto Tablet) 20 Mg Tablet, 20 MG PO DAILY@1700 Prescribed by: ADAMA TORO JR, MD on 04/29/21 1358 Tamsulosin HCl (Flomax) 0.4 Mg Cap, 0.8 MG PO HS, (Reported) Entered as Reported by: GUERDA TAI on 04/27/21 1054 Tramadol HCl (Tramadol HCl) 50 Mg Tablet, 100 MG PO TID PRN for PAIN-MODERATE (5-7), (Reported) Entered as Reported by: GUERDA TAI on 04/27/21 1054 Review of Systems Review of Systems Constitutional: No chills, No diaphoresis, No fever EENTM: no symptoms reported Respiratory: No cough; dyspnea on exertion; No phlegm; short of breath; No stridor, No wheezing Cardiovascular: No chest pain; edema Gastrointestinal: No abdominal pain, No nausea, No vomiting Genitourinary: frequency Musculoskeletal: no symptoms reported Skin: change in color (redness with scaling to BLE that is chronic) Psychiatric/Neurological: No Symptoms Reported Endocrine: No Symptoms Reported Hematologic/Lymphatic: Denies Blood Clots Past Boegvtx-Zffpnl-Vvzrnf Hx Seasonal Allergies Seasonal Allergies: No Past Medical History Surgeries: Yes Appendectomy Respiratory: Yes Sleep Apnea Cardiac: Yes Hypertension Neurological: No Genitourinary: Yes Benign Prostatic Hyperpl, Kidney Stones Gastrointestinal: No Musculoskeletal: Yes Arthritis, Gout Endocrine: No HEENT: No Cancer: No Psychosocial: Yes Anxiety Integumentary: No Blood Disorders: No Family Medical History No Pertinent Family Hx Physical Exam Vital Signs Vital Signs - First Documented 12/29/21 12/29/21 13:35 13:43 Temp 37.2 Pulse 87 Resp 24 B/P (MAP) 191/75 (113) Pulse Ox 96 O2 Delivery Nasal Cannula O2 Flow Rate 2.00 Capillary Refill : Height, Weight, BMI Height: 5'6.00" Weight: 340lbs. oz. 154.177609qj; 66.30 BMI Method:Stated General Appearance: Mild Distress (increased work of breathing, speaking in complete sentences), Obese HEENT: PERRL/EOMI, Pharynx Normal Neck: Full Range of Motion, Normal Inspection, Non Tender, Supple Respiratory: Chest Non Tender, Accessory Muscle Use, Decreased Breath Sounds, Respiratory Distress (increased work of breathing) Cardiovascular: Regular Rate, Rhythm, Normal Peripheral Pulses Gastrointestinal: Normal Bowel Sounds, No Pulsatile Mass, Non Tender, Soft Rectal: Deferred Extremity: Pedal Edema (3+ pitting edema to BLE with edema up to level of waist and abdomen that is still 1 + at that level), Other (wearing compression stockings bilaterally) Neurologic/Psychiatric: Alert, Oriented x3 Skin: Warm/Dry Progress/Results/Core Measures Results/Orders Lab Results Laboratory Tests Test 12/29/21 13:48 12/29/21 13:54 12/29/21 14:31 Range/Units White Blood Count 14.4 H 4.3-11.0 10^3/uL Red Blood Count 3.43 L 4.30-5.52 10^6/uL Hemoglobin 9.6 L 13.3-17.7 g/dL Hematocrit 31 L 40-54 % Mean Corpuscular Volume 91 80-99 fL Mean Corpuscular Hemoglobin 28 25-34 pg Mean Corpuscular Hemoglobin Concent 31 L 32-36 g/dL Red Cell Distribution Width 17.7 H 10.0-14.5 % Platelet Count 174 130-400 10^3/uL Mean Platelet Volume 9.3 9.0-12.2 fL Immature Granulocyte % (Auto) 4 % Neutrophils (%) (Auto) 71 42-75 % Lymphocytes (%) (Auto) 15 12-44 % Monocytes (%) (Auto) 6 0-12 % Eosinophils (%) (Auto) 3 0-10 % Basophils (%) (Auto) 1 0-10 % Neutrophils # (Auto) 10.2 H 1.8-7.8 10^3/uL Lymphocytes # (Auto) 2.2 1.0-4.0 10^3/uL Monocytes # (Auto) 0.9 0.0-1.0 10^3/uL Eosinophils # (Auto) 0.5 H 0.0-0.3 10^3/uL Basophils # (Auto) 0.1 0.0-0.1 10^3/uL Immature Granulocyte # (Auto) 0.6 H 0.0-0.1 10^3/uL Neutrophils % (Manual) 66 % Lymphocytes % (Manual) 16 % Monocytes % (Manual) 6 % Eosinophils % (Manual) 3 % Basophils % (Manual) 0 % Band Neutrophils 6 % Atypical Lymphocytes 3 % Platelet Estimate NORMAL Hypochromasia 1+ Microcytosis 1+ Macrocytosis 1+ Prothrombin Time 12.9 12.2-14.7 SEC INR Comment 0.9 0.8-1.4 Activated Partial Thromboplast Time 27 24-35 SEC Sodium Level 137 135-145 MMOL/L Potassium Level 4.3 3.6-5.0 MMOL/L Chloride Level 95 L 98-107 MMOL/L Carbon Dioxide Level 34 H 21-32 MMOL/L Anion Gap 8 5-14 MMOL/L Blood Urea Nitrogen 35 H 7-18 MG/DL Creatinine 1.81 H 0.60-1.30 MG/DL Estimat Glomerular Filtration Rate 39 BUN/Creatinine Ratio 19 Glucose Level 98 70-105 MG/DL Calcium Level 9.3 8.5-10.1 MG/DL Corrected Calcium 9.1 8.5-10.1 MG/DL Magnesium Level 2.5 H 1.6-2.4 MG/DL Total Bilirubin 0.6 0.1-1.0 MG/DL Aspartate Amino Transf (AST/SGOT) 15 5-34 U/L Alanine Aminotransferase (ALT/SGPT) 13 0-55 U/L Alkaline Phosphatase 110 40-136 U/L Troponin I < 0.30 <0.30 NG/ML Pro-B-Type Natriuretic Peptide 1301.0 H <125.0 PG/ML Total Protein 7.5 6.4-8.2 GM/DL Albumin 4.2 3.2-4.5 GM/DL Influenza Type A (RT-PCR) Not Detected Not Detecte Influenza Type B (RT-PCR) Not Detected Not Detecte SARS-CoV-2 RNA (RT-PCR) Not Detected Not Detecte Urine Color YELLOW Urine Clarity CLEAR Urine pH 7.0 5-9 Urine Specific Peterson 1.010 L 1.016-1.022 Urine Protein NEGATIVE NEGATIVE Urine Glucose (UA) NEGATIVE NEGATIVE Urine Ketones NEGATIVE NEGATIVE Urine Nitrite NEGATIVE NEGATIVE Urine Bilirubin NEGATIVE NEGATIVE Urine Urobilinogen 0.2 < = 1.0 MG/DL Urine Leukocyte Esterase NEGATIVE NEGATIVE Urine RBC (Auto) NEGATIVE NEGATIVE Urine RBC NONE /HPF Urine WBC NONE /HPF Urine Squamous Epithelial Cells RARE /HPF Urine Crystals NONE /LPF Urine Bacteria NEGATIVE /HPF Urine Casts NONE /LPF Urine Mucus NEGATIVE /LPF Urine Culture Indicated NO My Orders Orders - STEPHON LAN MD Cbc With Automated Diff (12/29/21 13:40) Magnesium (12/29/21 13:40) Chest 1 View Ap/Pa Only (12/29/21 13:40) Ekg Tracing (12/29/21 13:40) Comprehensive Metabolic Panel (12/29/21 13:40) Protime With Inr (12/29/21 13:40) Partial Thromboplastin Time (12/29/21 13:40) O2 (12/29/21 13:40) Monitor-Rhythm Ecg Trace Only (12/29/21 13:40) Ed Iv/Invasive Line Start (12/29/21 13:40) Troponin I Fs (12/29/21 13:40) Probnp Fs (12/29/21 13:40) Covid 19 Inhouse Test (12/29/21 13:40) Influenza A And B By Pcr (12/29/21 13:40) Furosemide Injection (Lasix Injection) (12/29/21 14:03) Furosemide Injection (Lasix Injection) (12/29/21 14:15) Manual Differential (12/29/21 13:48) Ua Culture If Indicated (12/29/21 14:34) Ed Admission (Communication) (12/29/21 14:41) Vital Signs/I&O 12/29/21 12/29/21 12/29/21 12/29/21 13:35 13:43 13:43 15:23 Temp 37.2 35.2 Pulse 87 73 Resp 24 18 B/P (MAP) 191/75 (113) 140/51 Pulse Ox 96 86 97 O2 Delivery Nasal Cannula Nasal Cannula Room Air Nasal Cannula O2 Flow Rate 2.00 2.00 2.00 12/29/21 12/29/21 16:30 16:38 Temp 36.8 Pulse 67 Resp 12 B/P (MAP) 139/71 (93) Pulse Ox 93 93 O2 Delivery High Flow N/C High Flow N/C O2 Flow Rate 4.00 4.00 Progress Progress Note #1: Progress Note When he initially got to the room and listening down his O2 sat came up to 92% as he was sitting resting on the bed. With change in position he did desat to 87 to 88% on room air. We will check electrocardiogram, chest x-ray, labs including cardiac enzymes. Administer Lasix 80 mg IV just start trying to help with diuresis. Placed on supplemental oxygen to help keep sats above 91% Progress Note #2: Progress Note CXR was poor inspiration and limited also by body habitus but no definite infiltrate. Possible effusion right base. Pt appears more comfortable on supplemental oxygen and saturation is up to 96% on 2 Lpm. Awaiting lab results. Progress Note #3: Progress Note He has elevated WBC of 14.4 with anemia of Hgb 9.6. Previously he had Hgb 11-12. He denies black tarry stools or blood in stool. He has Chemistry showing stable electrolytes and mild increase to his BUN and Cr. Usually his Cr is 1.4-1.5 but today he is 1.8. Troponin is <0.3 and ProBNP is 1301. Covid and Flu are negative. 1439 d/w Dr. Beltran for hospitalist service and she accepted pt for Cardiac step down unit. Will continue with diuresis and supplemental oxygen. She requested I notify Dr. Toro with cardiology of the consult on patient as well. 1443 d/w Dr. Toro to let him know of consult for admit with hypoxia and heart failure and fluid overload. Initial ECG Impression Date: Dec 29, 2021 Initial ECG Impression Time: 13:58 Initial ECG Rate: 72 Initial ECG Rhythm: Normal Sinus Comment Normal sinus rhythm with heart rate of 72 bpm. TN interval 193 ms. Moderate intraventricular conduction delay. No acute ST elevation. QT interval 382 ms with a QTc interval of 407 ms. Overall appears similar to prior tracings in the system. Diagnostic Imaging Diagonstic Imaging: Xray Plain Films/CT/US/NM/MRI: chest Comments NAME: ADAMA STARK [facility] REC#: [id number] PT STATUS: REG ER : 1950 PHYSICIAN: STEPHON LAN MD ADMIT DATE: 12/29/21/ER FS Draft Date of Exam:12/29/21 CHEST 1 VIEW AP/PA ONLY Indication: Hypoxia and dyspnea Portable AP view of chest is obtained with comparison made study of 04/26/2021 Study is limited by portable technique, patient body habitus and suboptimal inspiration. There is probable mild perihilar atelectasis. There may be blunting of right costophrenic sulcus although this is not fully included. No pneumothorax is seen. IMPRESSION: Limited study with probable mild perihilar atelectasis and possible mild right pleural fluid and/or thickening. Dictated on workstation # [id number] Dict: 12/29/21 1401 Trans: 12/29/21 1405 [facility] [id number] Interpreted by: PIOTR ESPARZA MD Electronically signed by: Reviewed: Reviewed by Me Departure Communication (Admissions) Time/Spoke to Admitting Phy: 14:39 d/w Dr. Beltran and she will admit pt to Cardiac stepdown unit for diuresis and will consult Dr. Toro with cardiology. She will placed Queued orders for the patient. Time/Spoke to Consulting Phy: 14:43 d/w Dr. Toro to let him know about consult of pt being admitted for heart failure and fluid overload with hypoxia. Impression Primary Impression: Hypoxia Additional Impressions: Fluid overload Qualified Codes: E87.70 - Fluid overload, unspecified Diastolic heart failure of unknown etiology Disposition: 30 STILL A PATIENT Condition: Stable Admissions Decision to Admit Reason: Admit from ER (General) Decision to Admit/Date: Dec 29, 2021 Time/Decision to Admit Time: 14:39 Departure-Patient Inst. Referrals: CHRISTIANO VALENCIA MD (PCP) Primary Care Physician STEPHON LAN MD Dec 29, 2021 13:57
[2021-12-29] MEDS ORDERED: FUROSEMIDE 40 MG/4 ML INJ (LASIX) IVP STA (14:03)
--- NOTE | 2021-12-29 14:05 | Diagnostic Imaging Report ---
Indication: Hypoxia and dyspnea Portable AP view of chest is obtained with comparison made study of 04/26/2021 Study is limited by portable technique, patient body habitus and suboptimal inspiration. There is probable mild perihilar atelectasis. There may be blunting of right costophrenic sulcus although this is not fully included. No pneumothorax is seen. IMPRESSION: Limited study with probable mild perihilar atelectasis and possible mild right pleural fluid and/or thickening. Dictated by: Dictated on workstation # [id number]
[2021-12-29] MEDS ORDERED: FUROSEMIDE 40 MG/4 ML INJ (LASIX) ONE (14:15)
[2021-12-29 14:30] LABS: INR 0.9 (0.8-1.4); PROTHROMBIN TIME PATIENT 12.9 SEC (12.2-14.7)
[2021-12-29 14:33] LABS: ALBUMIN 4.2 GM/DL (3.2-4.5); BILIRUBIN,TOTAL 0.6 MG/DL (0.1-1.0); CALCIUM 9.3 MG/DL (8.5-10.1); CREATININE SERUM 1.81 MG/DL (0.60-1.30); MAGNESIUM 2.5 MG/DL (1.6-2.4); POTASSIUM 4.3 MMOL/L (3.6-5.0); TOTAL PROTEIN 7.5 GM/DL (6.4-8.2)
[2021-12-29 14:45] LABS: ATYPICAL LYMPHOCYTES 3 %; BAND NEUTROPHILS 6 %; BASOPHILS % (MANUAL) 0 %; EOSINOPHILS % (MANUAL) 3 %; LYMPHOCYTES % (MANUAL) 16 %; MONOCYTES % (MANUAL) 6 %; NEUTROPHILS % (MANUAL) 66 %; PLATELET ESTIMATE NORMAL
[2021-12-29 14:46] LABS: HYPOCHROMASIA 1+; MICROCYTOSIS 1+
[2021-12-29 14:54] LABS: BILIRUBIN,URINE NEGATIVE (NEGATIVE); CLARITY,URINE CLEAR; COLOR,URINE YELLOW; GLUCOSE, URINE (UA) NEGATIVE (NEGATIVE); KETONES,URINE NEGATIVE (NEGATIVE); LEUKOCYTE ESTERASE ,URINE NEGATIVE (NEGATIVE); NITRITE,URINE NEGATIVE (NEGATIVE); PROTEIN,URINE NEGATIVE (NEGATIVE)
[2021-12-29 14:59] LABS: BACTERIA,URINE NEGATIVE /HPF; SQUAMOUS EPITHELIAL CELL,UR RARE /HPF
[2021-12-29 16:38] VITALS: BP 139/71
[2021-12-29] MEDS ORDERED: PATIENT MAY USE OWN MEDS, ALL PO SCH (16:45)
[2021-12-29] MEDS ORDERED: MELATONIN 3 MG TABLET PO PRN (16:45)
[2021-12-29] MEDS ORDERED: ONDANSETRON 4 MG/2 ML (SDV) Z0FRAN IV PRN (16:45)
[2021-12-29] MEDS ORDERED: ANTACID SUSP 30 ML UDC (MYLANTA) PO PRN (16:45)
[2021-12-29 17:12] VITALS: BP 121/59
[2021-12-29 19:46] VITALS: BP 134/63
[2021-12-29] MEDS: FUROSEMIDE 40 MG/4 ML INJ (LASIX) IV SCH (19:51)
[2021-12-29 23:43] VITALS: BP 113/77
[2021-12-30] VITALS (9 sets, daily range): BP systolic 110–157; BP diastolic 58–94
[2021-12-30 05:43] LABS: HEMATOCRIT 31 % (40-54); HEMOGLOBIN 9.3 g/dL (13.3-17.7); MEAN CORPUSCULAR HEMOGLOBIN 28 pg (25-34); MEAN CORPUSCULAR HGB CONC 30 g/dL (32-36); MEAN CORPUSCULAR VOLUME 93 fL (80-99); MEAN PLATELET VOLUME 9.8 fL (9.0-12.2); PLATELET COUNT 175 10^3/uL (130-400); WHITE BLOOD COUNT 12.2 10^3/uL (4.3-11.0)
[2021-12-30 06:01] LABS: POTASSIUM 3.9 MMOL/L (3.6-5.0)
[2021-12-30 06:02] LABS: CALCIUM 9.2 MG/DL (8.5-10.1)
[2021-12-30 06:07] LABS: CREATININE SERUM 1.62 MG/DL (0.60-1.30)
[2021-12-30] MEDS: FUROSEMIDE 40 MG/4 ML INJ (LASIX) IV SCH ×2 (06:14→16:21)
--- NOTE | 2021-12-30 09:07 | History & Physical-Hospitalist ---
History of Present Illness HPI/Chief Complaint Patient is 71-year-old male with past medical history of heart failure who presented to the emergency department due to shortness of breath. He reports that he been going on for a few days but he been gaining weight over the past month. He states he was unable to get up and walk as he normally does due to being winded. He denies any orthopnea. He has had previous episodes like this where he needed diuresis so he made an appointment with his primary care physician, Dr. Sotelo. When he arrived there he was hypoxic in the 80s and referred to the emergency department. He was found to be in heart failure and was admitted here for further management. He reports compliance with his Lasix but has not been strict with his low-sodium diet. Source: patient Date Seen 12/30/21 Time Seen by a Provider: 07:50 Attending Physician Ellen Sotelo MD PCP Admitting Physician: Juan C Beltran MD Attending Physician: Juan C Beltran MD Referring Physician Date of Admission Dec 29, 2021 at 16:38 Home Medications & Allergies Home Medications Reviewed patient Home Medication Reconciliation performed by pharmacy medication reconciliations weatherization field technician and/or nursing. Patients Allergies have been reviewed. Allergies Allergies Coded Allergies No Known Drug Allergies (Unverified08/24/18) Past Wpwidtz-Vmfhdk-Onfdtw Hx Patient Social History Marrital Status: Employed/Student: retired Tobacco Use?: No Use of E-Cig and/or Vaping dev: No Substance use?: No Alcohol Use?: No Pt feels they are or have been: No Seasonal Allergies Seasonal Allergies: No Current Status Advance Directives: No Communicates: Verbally Primary Language: Greenlandic Preferred Spoken Language: Greenlandic Is interpretation needed?: No Sensory deficits: Vision impairment Implanted or Applied Medical D: None Past Medical History Surgeries: Appendectomy Sleep Apnea Hypertension Benign Prostatic Hyperpl, Kidney Stones Arthritis, Gout Anxiety Blood Disorders: No Family Medical History Reviewed Nursing Family Hx No Pertinent Family Hx No none heart of premature cardiac disease or Review of Systems Constitutional: No chills, No diaphoresis, No malaise; weakness EENTM: no symptoms reported Respiratory: cough, dyspnea on exertion, short of breath; No stridor, No wheezing Cardiovascular: No chest pain; edema; No palpitations, No syncope Gastrointestinal: no symptoms reported Genitourinary: incontinence Musculoskeletal: no symptoms reported Skin: no symptoms reported Psychiatric/Neurological: No Symptoms Reported Physical Exam Physical Exam Vital Signs Vital Signs - First Documented 12/29/21 12/29/21 13:35 13:43 Temp 37.2 Pulse 87 Resp 24 B/P (MAP) 191/75 (113) Pulse Ox 96 O2 Delivery Nasal Cannula O2 Flow Rate 2.00 Capillary Refill : Less Than 3 Seconds Height, Weight, BMI Height: 5'6.00" Weight: 340lbs. oz. 154.657701hm; 74.60 BMI Method:Stated General Appearance: No Apparent Distress, Chronically ill, Obese HEENT: PERRL/EOMI, Moist Mucous Membranes; No Scleral Icterus (L), No Scleral Icterus (R) Neck: Normal Inspection, Supple Respiratory: No Accessory Muscle Use, No Respiratory Distress, Decreased Breath Sounds (limited by body habitus) Cardiovascular: Regular Rate, Rhythm, No JVD, No Murmur Gastrointestinal: Normal Bowel Sounds, Non Tender, Soft Extremity: No Calf Tenderness, Pedal Edema, Swelling Neurologic/Psychiatric: Alert, Oriented x3, Normal Mood/Affect Skin: Normal Color, Warm/Dry Results Results/Procedures Labs Laboratory Tests 12/29/21 13:48 12/30/21 04:47 Patient resulted labs reviewed. Imaging: Reviewed Imaging Report Imaging [facility] [place] NAME: ADAMA STARK [facility] REC#: [id number] PT STATUS: REG ER : 1950 PHYSICIAN: STEPHON LAN MD ADMIT DATE: 12/29/21/ER FS Signed Date of Exam:12/29/21 CHEST 1 VIEW AP/PA ONLY Indication: Hypoxia and dyspnea Portable AP view of chest is obtained with comparison made study of 04/26/2021 Study is limited by portable technique, patient body habitus and suboptimal inspiration. There is probable mild perihilar atelectasis. There may be blunting of right costophrenic sulcus although this is not fully included. No pneumothorax is seen. IMPRESSION: Limited study with probable mild perihilar atelectasis and possible mild right pleural fluid and/or thickening. Dictated by: Dictated on workstation # [id number] Dict: 12/29/21 1401 Trans: 12/29/21 1503 [facility] [id number] Interpreted by: PIOTR ESPARZA MD Electronically signed by: PIOTR ESPARZA MD 12/29/21 1503 Assessment/Plan Admission Diagnosis CHF Exacerbation Admission Status: Inpatient Order (span 2 midnights) Reason for Inpatient Admission: see below Assessment and Plan CHF Exacerbation Acute hypoxic respiratory failure Continue Lasix Cardiology consulted, appreciate recs Echo from 12/12 shows grade 2 diastolic dysfunction Encouraged leg elevation I titrated oxygen down to 2lpm while at bedside CKD Stage 3a Creatinine up slightly from baseline but better with diuresis Trend with lasix HTN Continue home meds as BP well controlled BPH Gout Anxiety Continue home meds Super super obesity Clinically significant, no acute management needs DVT prophylaxis: already receiving therapeutic anticoagulation Diagnosis/Problems Diagnosis/Problems (1) CHF exacerbation (2) Stage 3a chronic kidney disease (3) Acute on chronic heart failure with preserved ejection fraction (HFpEF) (4) Primary hypertension (5) Morbid obesity (6) Paroxysmal atrial fibrillation (7) Gout Status: Chronic (8) Anxiety Status: Chronic (9) Super-super obese Status: Chronic JUAN C BELTRAN MD Dec 30, 2021 09:07
--- NOTE | 2021-12-30 09:19 | Consultation-Cardiology ---
HPI-Cardiology Cardiology Consultation: Date of Consultation 12/30/21 Date of Admission 12/29/21 Attending Physician Ellen Sotelo MD Admitting Physician Admitting Physician: Mikala Beltran MD Attending Physician: Mikala Beltran MD Consulting Physician ADAMA QUEEN JR, MD HPI: Time Seen by a Provider: 09:14 Chief Complaint: REASON FOR CONSULTATION: Heart failure. I had the pleasure of seeing Adama in the cardiac stepdown unit at [facility] in [place], [place] today. He is known to me from a previous hospitalization. He has a history of chronic heart failure with preserved ejection fraction with chronic peripheral edema. He had been doing reasonably well until the past week when he started having increasing dyspnea on exertion. Just walking around in his house was making him feel short of breath. Despite this, he had still been going to work at an [employer]. However, over the weekend his breathing became worse. Yesterday he went to see his primary provider and he was found to have a hypoxia and was sent to the emergency room in [place]. He was felt to be in heart failure and was transferred to our hospital for further treatment and evaluation. This morning, his breathing is better but not quite back to his baseline. Is chronic peripheral edema is unchanged. He does admit to dietary indiscretion in regards to sodium intake. He denies chest discomfort, paroxysmal nocturnal dyspnea, orthopnea, palpitations, lightheadedness, or syncope. Because of the heart failure, a cardiology consultation was requested. Certain portions of this document may have been dictated utilizing voice recognition technology. Inherent to this technology, typographical and grammatical errors may exist. As much as I am diligent to identify and correct these mistakes, some errors may remain in the document. Review of Systems-Cardiology Review of Systems Other comments Review of 10 organ systems is as per the history of present illness, otherwise negative. QYB-Yzgeuu-Trbnkf Hx Patient Social History Marrital Status: Employed/Student: retired [employer] Smoke Exposure: No Have you traveled recently?: No Alcohol Use?: No Pt feels they are or have been: No Past Medical History PMH As described under Assessment. Family Medical History Family Medical History: The patient does not know of any family history of premature coronary artery disease in first-degree relatives. Allergies and Home Medications Allergies Coded Allergies: No Known Drug Allergies (Unverified , 08/24/18) Patient Home Medication List Home Medication List Reviewed: Yes Allopurinol (Allopurinol) 300 Mg Tablet, 300 MG PO DAILY, (Reported) Entered as Reported by: ANDRZEJ BENTLEY on 08/24/181119 Last Action: Continued Alprazolam (Alprazolam) 0.5 Mg Tablet, 0.5 MG PO TID, (Reported) Entered as Reported by: ANDRZEJ BENTLEY on 08/24/181119 Last Action: Continued Amlodipine Besylate (Amlodipine Besylate) 10 Mg Tablet, 10 MG PO HS, (Reported) Entered as Reported by: GUERDA TAI on 04/27/211053 Last Action: Reviewed Carvedilol (Carvedilol) 25 Mg Tablet, 25 MG PO BID, (Reported) Entered as Reported by: GUERDA TAI on 12/30/211057 Last Action: Held Finasteride (Finasteride) 5 Mg Tablet, 5 MG PO DAILY, (Reported) Entered as Reported by: ANDRZEJ BENTLEY on 08/24/181119 Last Action: Continued Furosemide (Furosemide) 40 Mg Tablet, 40 MG PO BID, (Reported) Entered as Reported by: GUERDA TAI on 04/27/211053 Last Action: Reviewed Hydrocodone/Acetaminophen (Hydrocodone-Acetamin 5-300 mg) 5 Mg-300 Mg Tablet, 1 EA PO BID PRN for PAIN-MODERATE (5-7), (Reported) Entered as Reported by: GUERDA TAI on 12/30/211057 Last Action: Converted Ibuprofen (Ibuprofen) 200 Mg Tablet, 400-600 MG PO Q8H PRN for PAIN-MILD (1-4), (Reported) Entered as Reported by: GUERDA TAI on 12/30/211057 Last Action: Reviewed Lisinopril (Lisinopril) 20 Mg Tablet, 20 MG PO BID, (Reported) Entered as Reported by: ANDRZEJ BENTLEY on 08/24/181119 Last Action: Reviewed Meclizine HCl (Meclizine HCl) 25 Mg Tablet, 25 MG PO TID PRN for DIZZINESS, (Reported) Entered as Reported by: GUERDA TAI on 04/27/211053 Last Action: Continued Metolazone (Metolazone) 2.5 Mg Tablet, 2.5 MG PO Q48H, (Reported) Entered as Reported by: GUERDA TAI on 12/30/21 1058 Last Action: Reviewed Potassium Chloride (Potassium Chloride) 20 Meq Tab.er.prt, 20 MEQ PO BID, (Reported) Entered as Reported by: GUERDA TAI on 04/27/21 1054 Last Action: Reviewed Rivaroxaban (Xarelto) 20 Mg Tablet, 20 MG PO HS, (Reported) Entered as Reported by: GUERDA TAI on 12/30/21 105 Last Action: Reviewed Tamsulosin HCl (Flomax) 0.4 Mg Cap, 0.8 MG PO HS, (Reported) Entered as Reported by: GUERDA TAI on 04/27/21 105 Last Action: Continued Tramadol HCl (Tramadol HCl) 50 Mg Tablet, 100 MG PO TID PRN for PAIN-MODERATE (5-7), (Reported) Entered as Reported by: GUERDA TAI on 04/27/21 105 Last Action: Continued Discontinued Medications Carvedilol (Carvedilol) 12.5 Mg Tablet, 25 MG PO BID Discontinued Reason: Duplicate Order Prescribed by: LONNY ORELLANA on 04/29/21 1038 Last Action: Discontinued Cefdinir (Cefdinir) 300 Mg Capsule, 300 MG PO BID Discontinued Reason: No Longer Taking Prescribed by: LONNY ORELLANA on 04/29/21 1038 Last Action: Discontinued Rivaroxaban (Xarelto Tablet) 20 Mg Tablet, 20 MG PO DAILY@1700 Discontinued Reason: Duplicate Order Prescribed by: ADAMA QUEEN JR, MD on 04/29/21 1358 Last Action: Discontinued Exam Vital Signs Vital Signs Date Time Temp Pulse Resp B/P (MAP) Pulse Ox O2 Delivery O2 Flow Rate FiO2 12/30/21 19:49 36.1 57 20 146/84 (104) 99 High Flow N/C 4.00 Physical Exam General: Alert. No acute distress. Well nourished and appears stated age. He is wearing oxygen by nasal cannula. He is morbidly obese. Eye: Extraocular movements are intact. Conjunctivae are clear. There are no xanthelasma. HENT: Normocephalic. Atraumatic. Carotid pulsations 2/2 without bruits. Neck: Jugular venous pressure does not appear elevated. No thyromegaly appreciated. Respiratory: Lungs are clear to auscultation but decreased at the bases bilaterally. Respirations are non-labored. Breath sounds are equal. Symmetrical chest wall expansion. Cardiovascular: Normal rate. Regular rhythm. Distant S1/S2. No murmur. No gallop. Point of maximal impulse is not appear displaced. Good pulses equal in all extremities. 2+ bilateral pretibial edema with chronic venous stasis changes. Gastrointestinal: Soft. Normal bowel sounds. Skin: Skin turgor is normal. There is no pallor. Musculoskeletal: No kyphosis or scoliosis appreciated. Neurologic: Alert and oriented to person, place, time. Cranial nerves 3-12 appea r grossly intact. The patient has good motor tone strength in the upper and lower extremities bilaterally. Psychiatric: Cooperative. Appropriate mood & affect. Labs Laboratory Tests Test 12/30/21 04:47 Range/Units White Blood Count 12.2 H 4.3-11.0 10^3/uL Red Blood Count 3.30 L 4.30-5.52 10^6/uL Hemoglobin 9.3 L 13.3-17.7 g/dL Hematocrit 31 L 40-54 % Mean Corpuscular Volume 93 80-99 fL Mean Corpuscular Hemoglobin 28 25-34 pg Mean Corpuscular Hemoglobin Concent 30 L 32-36 g/dL Red Cell Distribution Width 17.5 H 10.0-14.5 % Platelet Count 175 130-400 10^3/uL Mean Platelet Volume 9.8 9.0-12.2 fL Sodium Level 140 135-145 MMOL/L Potassium Level 3.9 3.6-5.0 MMOL/L Chloride Level 96 L 98-107 MMOL/L Carbon Dioxide Level 32 21-32 MMOL/L Anion Gap 12 5-14 MMOL/L Blood Urea Nitrogen 33 H 7-18 MG/DL Creatinine 1.62 H 0.60-1.30 MG/DL Estimat Glomerular Filtration Rate 45 BUN/Creatinine Ratio 20 Glucose Level 97 70-105 MG/DL Calcium Level 9.2 8.5-10.1 MG/DL Radiology Echocardiogram from 12/10/2021 showed normal left ventricular function with an ejection fraction of 55-60% with grade 2 diastolic dysfunction. There was bi atrial dilatation. The pulmonary pressure could not be estimated. ECG Impression ECG Comment Electrocardiogram from the emergency room showed sinus rhythm with low voltage in the precordial leads and nonspecific intraventricular conduction delay. Diagnosis/Problems Diagnosis/Problems (1) Acute on chronic heart failure with preserved ejection fraction (HFpEF) Assessment & Plan: He has decompensation of his heart failure possibly due to dietary indiscretion. He reports he is not careful with his sodium intake. He has received IV Lasix but this now appears to have been discontinued. If his renal function stabilizes, I will consider adding spironolactone to his regimen. We may want to change his amlodipine to a different agent since this could be causing his peripheral edema to be worse. (2) Paroxysmal atrial fibrillation Assessment & Plan: He has been in sinus rhythm during this admission. Continue beta prasanth for rate control in the event he has recurrent atrial fibrillation and Xarelto for stroke prophylaxis. (3) Primary hypertension Assessment & Plan: Continue beta prasanth. As above, consider changing amlodipine to a different agent since this medication can cause peripheral edema. (4) Stage 3a chronic kidney disease Assessment & Plan: We need to watch his renal function closely. (5) Acute on chronic respiratory failure with hypoxemia Assessment & Plan: Most likely multifactorial due to heart failure and his morbid obesity with hypoventilation syndrome. (6) Morbid obesity Status: Chronic Assessment & Plan: He needs to work on weight loss. He has been counseled on this multiple times in the past. ADAMA QUEEN JR, MD Dec 30, 2021 09:19
[2021-12-30] MEDS ORDERED: RIVA20TA PO (10:58)
[2021-12-30] MEDS ORDERED: IBUP-2473 PO (10:58)
[2021-12-30] MEDS ORDERED: METO2.5T PO (10:58)
[2021-12-30] MEDS ORDERED: CARV25TA PO (10:58)
[2021-12-30] MEDS ORDERED: HYDR-4132 PO (10:58)
--- NOTE | 2021-12-30 11:03 | Physical Therapy Evaluation ---
PT Evaluation-General Medical Diagnosis Admission Date Dec 29, 2021 at 16:38 Medical Diagnosis: CHF exacerbation Onset Date: Dec 29, 2021 Therapy Diagnosis Therapy Diagnosis: impaired mobility Height/Weight Height (Feet): 5 Height (Inches): 6.00 Weight (Pounds): 340 Precautions Precautions/Isolations: Fall Prevention, Standard Precautions Referral Physician: Devin Reason for Referral: Evaluation/Treatment Medical History Pertinent Medical History: HTN Additional Medical History Past Medical History Surgeries: Appendectomy Sleep Apnea Hypertension Benign Prostatic Hyperpl, Kidney Stones Arthritis, Gout Anxiety Blood Disorders: No Reviewed History: Yes Social History Current Living Status: Spouse Entry Into Home: Level Entry Prior Prior Level of Function SCALE: Activities may be completed with or without assistive devices. 9-Vcdwpirsqn-ndvjono completes the activity by him/herself with no assistance from a helper. 5-Set-up or Clean-up Assistance-helper sets up or cleans up; patient completes activity. [place] assists only prior to or following the activity. 4-Supervision or Touching Assistance-helper provides verbal cues and/or to uching/steadying and/or contact guard assistance as patient completes activity. Assistance may be provided throughout the activity or intermittently. 3-Partial/Moderate Assistance-helper does LESS THAN HALF the effort. [place] lifts, holds or supports trunk or limbs, but provides less than half the effort. 2-Substantial/Maximal Assistance-helper does MORE THAN HALF the effort. [place] lifts or holds trunk or limbs and provides more than half the effort. 2-Kwajnocfw-jpabob does ALL the effort. Patient does none of the effort to complete the activity. Or, the assistance of 2 or more helpers is required for the patient to complete the activity. If activity was not attempted, code reason: 7-Patient Refused. 9-Not Applicable-not attempted and the patient did not perform the activity before the current illness, exacerbation or injury. 10-Not Attempted due to Environmental Limitations-(lack of equipment, weather restraints, etc.). 88-Not Attempted due to Medical Conditions or Safety Concerns. Bed Mobility: 6 Transfers (B,C,W/C): 6 Gait: 6 Indoor Mobility (Ambulation): Independent PT Evaluation-Current Subjective Patient in recliner pre tx, agrees to PT, has no complaints of pain. Pt/Family Goals to be independent at home Objective Patient Orientation: Person, Place, Situation Attachments: Oxygen ROM/Strength ROM Lower Extremities limited due to LE edema Strength Lower Extremities grossly 4/5 BLE, except for hip flexion 2/5 Sensory Vision: Functional Hearing: Functional Sensation Right Lower Extremit: Intact Sensation Left Lower Extremity: Intact Transfers Sit to Stand (QC): 4 Chair/Gqr-ha-Dwanj Xfer(QC): 4 SBA Gait Does the Patient Walk?: Yes Mode of Locomotion: Walk Anticipated Mode of Locomotion: Walk Walk 10 feet (QC): 4 Distance: 40' Gait Assistive Device: None Comments/Gait Description none, SBA, steady ambulation but has a lateral lean to each side due to hip weakness Balance Sitting Static: Normal Sitting Dynamic: Normal Standing Static: Good Standing Dynamic: Good Treatment BLE seated exercises x20 (AP, LAQ) Assessment/Needs Patient in recliner post tx with nurse call, phone, tray, all needs met. Patient has impaired mobility, strength, endurance. SBA for transfers and am bulation. Rehab Potential: Fair PT Malted Milk Mixer Goals Mcc Goals PT Malted Milk Mixer Goals Time Frame: Jan 06, 2022 Roll Left & Right (QC): 6 Sit to Lying (QC): 6 Lying-Sitting on Side/Bed(QC): 6 Sit to Stand (QC): 6 Chair/Hcn-sw-Bdsqp Xfer(QC): 6 Walk 10 feet (QC): 6 Walk 50ft with 2 Turns (QC): 6 Walk 150 ft (QC): 6 PT Plan Problem List Problem List: Activity Tolerance, Functional Strength, Safety, Balance, Gait, Transfer, Bed Mobility, ROM Treatment/Plan Treatment Plan: Continue Plan of Care Treatment Plan: Bed Mobility, Education, Functional Activity Luis Antonio, Functional Strength, Gait, Safety, Therapeutic Exercise, Transfers Treatment Duration: Jan 06, 2022 Frequency: 6 times per week Estimated Hrs Per Day: .25 hour per day Patient and/or Family Agrees t: Yes Safety Risks/Education Patient Education: Gait Training, Transfer Techniques, Correct Positioning, Safety Issues Teaching Recipient: Patient Teaching Methods: Demonstration, Discussion Response to Teaching: Reinforcement Needed Discharge Recommendations Plan Patient will perform bed mobility and transfer training, balance and endurance training, functional strengthening, stair training, gait training, and education, to improve functional mobility and independence at home. Therapy Discharge Recommendati: Home & Family, Post Acute PT Time/GCodes Time In: 1035 Time Out: 1045 Total Billed Treatment Time: 10 Total Billed Treatment 1 visit EVM 10' BAILEY VALDEZ PT Dec 30, 2021 11:03
[2021-12-30] MEDS ORDERED: [UNRECOGNIZED DRUG - OTHER] PO PRN (11:30)
[2021-12-30] MEDS ORDERED: HYDROCODONE PO PRN (11:30)
[2021-12-30] MEDS ORDERED: ACETAMINOPHEN PO PRN (11:30)
[2021-12-30] MEDS ORDERED: MECLIZINE 25 MG (ANTIVERT) TAB PO PRN (11:30)
--- NOTE | 2021-12-30 11:34 | Occupational Therapy Eval ---
OT Evaluation-General/PLF Medical Diagnosis Admission Date Dec 29, 2021 at 16:38 Medical Diagnosis: CHF exacerbation Onset Date: Dec 29, 2021 Therapy Diagnosis Therapy Diagnosis: reduced adl status Height/Weight Height (Feet): 5 Height (Inches): 6.00 Weight (Pounds): 340 Precautions Precautions/Isolations: Fall Prevention, Standard Precautions Referral Physician: Devin Referral Reason: Evaluation/Treatment Medical History Pertinent Medical History: Arthritis, HTN Current History Pt lives in a trailer with his and son who is handicap. Ramp entrance. He reports that he receives assistance with donning socks/shoes but he is able to complete all other adls without assist. He shares IADL responsibilities with his and does not use any AD at baseline. 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 Reviewed History: Yes Social History Home: Single Level (trailer) Current Living Status: Spouse Entry Into Home: Ramp, Level Entry ADL-Prior Level of Function SCALE: Activities may be completed with or without assistive devices. 4-Kwgcuirtkp-kpxtvid completes the activity by him/herself with no assistance from a helper. 5-Set-up or Clean-up Assistance-helper sets up or cleans up; patient completes activity. [place] assists only prior to or following the activity. 4-Supervision or Touching Assistance-helper provides verbal cues and/or touching/steadying and/or contact guard assistance as patient completes activity. Assistance may be provided throughout the activity or intermittently. 3-Partial/Moderate Assistance-helper does LESS THAN HALF the effort. [place] lifts, holds or supports trunk or limbs, but provides less than half the effort. 2-Substantial/Maximal Assistance-helper does MORE THAN HALF the effort. [place] lifts or holds trunk or limbs and provides more than half the effort. 9-Capnktsdq-ujfffk does ALL the effort. Patient does none of the effort to complete the activity. Or, the assistance of 2 or more helpers is required for the patient to complete the activity. If activity was not attempted, code reason: 7-Patient Refused. 9-Not Applicable-not attempted and the patient did not perform the activity before the current illness, exacerbation or injury. 10-Not Attempted due to Environmental Limitations-(lack of equipment, weather restraints, etc.). 88-Not Attempted due to Medical Conditions or Safety Concerns. Self Care: Needed Some Help Functional Cognition: Needed Some Help DME/Equipment: Bath Chair, Grab Bars, Tub/Shower Drive Self: Yes OT Current Status Subjective Pt denies pain, reports he is ready to go home today. Appearance Pt returned to sitting in recliner, all needs within reach. Mental Status/Objective Patient Orientation: Person, Place, Situation Attachments: IV, Oxygen, Telemetry Current Hand Dominance: Right Upper Extremity ROM WNL Upper Extremity Strength 4/5 grossly ADL-Treatment On/Off Footwear (QC): 9 Toileting Hygiene (QC): 3 Pt sitting in recliner at OT arrival. Dependent to don socks but reports this is baseline. No appropriate size (LB) clothing available at time of evaluation. He stood with SBA and ambulated to/from toilet with SBA, no AD. Waddle type gait. He was able to lower/stand from toilet with SBA and use of grab bar. He reports that he is unable to reach backside secondary to body habitus. Discussion on toilet hygiene/cleanliness and different types of adaptive equipment such as toilet aids, tongs, and bidets. Pt denies having assistance with task at home and is unable to clarify how he cleans self post task. Education OT Patient Education: Correct positioning, Energy conservation, Purpose of tx/functional activities, Safety issues, Use of adapted equipment Teaching Recipient: Patient Teaching Methods: Discussion Response to Teaching: Verbalize Understanding, Reinforcement Needed OT Longterm Goals Longterm Goals Time Frame: Jan 08, 2022 Oral Hygiene (QC): 5 Toileting Hygiene (QC): 4 Shower/Bathe Self (QC): 4 Upper Body Dressing (QC): 5 Lower Body Dressing (QC): 4 1=Demonstrate adherence to instructed precautions during ADL tasks. 2=Patient will verbalize/demonstrate understanding of assistive devices/modifications for ADL. 3=Patient will improve strength/tolerance for activity to enable patient to perform ADL's. OT Education/Plan Problem List/Assessment Assessment: Decreased Activ Tolerance, Edema, Impaired Funct Balance, Impaired I ADL's, Impaired Self-Care Skills Discharge Recommendations Plan/Recommendations: Continue POC Target Placement home health vs home with family support Treatment Plan/Plan of Care Treatment,Training & Education: Yes Patient would benefit from OT for education, treatment and training to promote independence in ADL's, mobility, safety and/or upper extremity function for ADL's. Plan of Care: ADL Retraining, Functional Mobility, Group Exercise/Act as Ind, UE Funct Exercise/Act Treatment Duration: Jan 08, 2022 Frequency: 3 times per week (3-5x/week) Estimated Hrs Per Day: .25 hour per day Agreement: Yes Rehab Potential: Fair Time/GCodes Start Time: 11:11 Stop Time: 11:23 Total Time Billed (hr/min): 12 Billed Treatment Time 1 visit Barbie Murillo OT Dec 30, 2021 11:34
[2021-12-30] MEDS: ALPRAZolam 0.5 MG (XANAX) TAB PO SCH ×2 (12:10→20:19)
[2021-12-30] MEDS ORDERED: HYDROcodone/APAP 5 MG/325 MG (LORTAB) TAB PO PRN (12:15)
[2021-12-30] MEDS ORDERED: RIVAROXABAN 20 MG TABLET (XARELTO) PO SCH (17:00)
[2021-12-30] MEDS ORDERED: DOCUSATE SODIUM 100 MG (COLACE) CAP PO PRN (18:30)
[2021-12-30] MEDS ORDERED: SENNA W/DOCUSATE (SENOKOT S) TABLET PO PRN (18:30)
[2021-12-30] MEDS ORDERED: amLODIPine 10 MG (NORVASC) TAB PO SCH (21:00)
[2021-12-30] MEDS ORDERED: TAMSULOSIN 0.4 MG (FLOMAX) CAP PO SCH (21:00)
[2021-12-31 00:55] VITALS: BP 131/63
[2021-12-31 04:14] VITALS: BP 104/65
[2021-12-31 06:05] LABS: HEMATOCRIT 30 % (40-54); HEMOGLOBIN 9.2 g/dL (13.3-17.7); MEAN CORPUSCULAR HEMOGLOBIN 28 pg (25-34); MEAN CORPUSCULAR HGB CONC 31 g/dL (32-36); MEAN CORPUSCULAR VOLUME 92 fL (80-99); MEAN PLATELET VOLUME 9.5 fL (9.0-12.2); PLATELET COUNT 169 10^3/uL (130-400)
[2021-12-31 06:13] LABS: POTASSIUM 3.9 MMOL/L (3.6-5.0)
[2021-12-31 06:18] LABS: CREATININE SERUM 1.35 MG/DL (0.60-1.30)
[2021-12-31] MEDS: FUROSEMIDE 40 MG/4 ML INJ (LASIX) IV SCH (06:46)
[2021-12-31 07:32] VITALS: BP 129/62
--- NOTE | 2021-12-31 08:02 | Occupational Ther Daily Note ---
OT Current Status-Daily Note Subjective Pt alert, sitting in recliner. Pt wants to ask physician about getting a catheter due to not being able to "hold" urine long enough to make it to the bathroom. No c/o pain. Mental Status/Objective Patient Orientation: Person, Place, Time, Situation Attachments: IV, Oxygen (3L) ADL-Treatment Independent with eating. Independent with sit to stand and ambulating to bathroom without AD, waddling gait. Independent with voiding. Pt still has not elaborated on cleansing self after BM, just states that HH is at his home for son and eludes to the fact they may assist with this. Educated pt on benefits of B UE exercises and how to breath during exercises to strengthen lungs. Pt continued to eat breakfast throughout session and did not appear interested in participating in OT session. After session, pt sitting in recliner with call light/phone in reach. All needs met in room. Therapy Code Descriptions/Definitions Functional [place] Measure: 0=Not Assessed/NA 4=Minimal Assistance 1=Total Assistance 5=Supervision or Setup 2=Maximal Assistance 6=Modified [place] 3=Moderate Assistance 7=Complete IndependenceSCALE: Activities may be completed with or without assistive devices. 8-Onftqcxrev-tdeaeyb completes the activity by him/herself with no assistance from a helper. 5-Set-up or Clean-up Assistance-helper sets up or cleans up; patient completes activity. [place] assists only prior to or following the activity. 4-Supervision or Touching Assistance-helper provides verbal cues and/or touching/steadying and/or contact guard assistance as patient completes activity. Assistance may be provided throughout the activity or intermittently. 3-Partial/Moderate Assistance-helper does LESS THAN HALF the effort. [place] lifts, holds or supports trunk or limbs, but provides less than half the effort. 2-Substantial/Maximal Assistance-helper does MORE THAN HALF the effort. [place] lifts or holds trunk or limbs and provides more than half the effort. 5-Wjshmzzfp-ysbfhx does ALL the effort. Patient does none of the effort to complete the activity. Or, the assistance of 2 or more helpers is required for the patient to complete the activity. If activity was not attempted, code reason: 7-Patient Refused. 9-Not Applicable-not attempted and the patient did not perform the activity before the current illness, exacerbation or injury. 10-Not Attempted due to Environmental Limitations-(lack of equipment, weather restraints, etc.). 88-Not Attempted due to Medical Conditions or Safety Concerns. Eating (QC): 6 Toileting Hygiene (QC): 6 (voiding) Toilet Transfer (QC): 6 OT Snf Goals Snf Goals Time Frame: Jan 08, 2022 Oral Hygiene (QC): 5 Toileting Hygiene (QC): 4 Shower/Bathe Self (QC): 4 Upper Body Dressing (QC): 5 Lower Body Dressing (QC): 4 1=Demonstrate adherence to instructed precautions during ADL tasks. 2=Patient will verbalize/demonstrate understanding of assistive devices/modifications for ADL. 3=Patient will improve strength/tolerance for activity to enable patient to perform ADL's. OT Education/Plan Problem List/Assessment Assessment: Decreased Activ Tolerance, Impaired Self-Care Skills Discharge Recommendations Plan/Recommendations: Continue POC Treatment Plan/Plan of Care Patient would benefit from OT for education, treatment and training to promote independence in ADL's, mobility, safety and/or upper extremity function for ADL's. Plan of Care: ADL Retraining, Functional Mobility, Group Exercise/Act as Ind, UE Funct Exercise/Act Treatment Duration: Jan 08, 2022 Frequency: 3 times per week (3-5x/week) Estimated Hrs Per Day: .25 hour per day Agreement: Yes Rehab Potential: Fair Time/GCodes Start Time: 07:40 Stop Time: 08:03 Total Time Billed (hr/min): 23 Billed Treatment Time 1 visit-ADL 1 (13 min) FA 1 (10 min) ZACKERY STAPLES Dec 31, 2021 08:02
[2021-12-31] MEDS: ALPRAZolam 0.5 MG (XANAX) TAB PO SCH ×2 (09:00→12:47)
[2021-12-31] MEDS ORDERED: ALLOPURINOL 300 MG (ZYLOPRIM) TAB PO SCH (09:00)
[2021-12-31] MEDS ORDERED: FINASTERIDE (PROSCAR) 5 MG TAB PO SCH (09:00)
--- NOTE | 2021-12-31 09:35 | Physical Therapy Daily Note ---
PT Daily Note-Current Subjective Patient reports he is up independently in room. Agrees to PT. Mental Status Patient Orientation: Normal For Age Attachments: Oxygen Transfers SCALE: Activities may be completed with or without assistive devices. 3-Jagswudjlc-awntelc completes the activity by him/herself with no assistance from a helper. 5-Set-up or Clean-up Assistance-helper sets up or cleans up; patient completes activity. [place] assists only prior to or following the activity. 4-Supervision or Touching Assistance-helper provides verbal cues and/or touching/steadying and/or contact guard assistance as patient completes activity. Assistance may be provided throughout the activity or intermittently. 3-Partial/Moderate Assistance-helper does LESS THAN HALF the effort. [place] lifts, holds or supports trunk or limbs, but provides less than half the effort. 2-Substantial/Maximal Assistance-helper does MORE THAN HALF the effort. [place] lifts or holds trunk or limbs and provides more than half the effort. 1-Gzokuhjyq-ehxisp does ALL the effort. Patient does none of the effort to complete the activity. Or, the assistance of 2 or more helpers is required for the patient to complete the activity. If activity was not attempted, code reason: 7-Patient Refused. 9-Not Applicable-not attempted and the patient did not perform the activity before the current illness, exacerbation or injury. 10-Not Attempted due to Environmental Limitations-(lack of equipment, weather restraints, etc.). 88-Not Attempted due to Medical Conditions or Safety Concerns. Sit to Stand (QC): 6 Gait Training Distance: 175' Walk 10 feet (QC): 6 Walk 50 ft with 2 Turns(QC): 6 Walk 150 ft (QC): 6 Gait Assistive Device: None WBOS due to super obesity Assessment Patient is currently at independent PLOF with all gross motor skills. Patient is up ad david in room. PT to dismiss patient from services at this time. PT Play Writer Goals [facility] Goals PT Play Writer Goals Time Frame: Jan 06, 2022 Roll Left & Right (QC): 6 Sit to Lying (QC): 6 Lying-Sitting on Side/Bed(QC): 6 Sit to Stand (QC): 6 Chair/Hou-kr-Jwcln Xfer(QC): 6 Walk 10 feet (QC): 6 Walk 50ft with 2 Turns (QC): 6 Walk 150 ft (QC): 6 PT Plan Treatment/Plan Treatment Plan: Continue Plan of Care Treatment Plan: Bed Mobility, Education, Functional Activity Luis Antonio, Functional Strength, Gait, Safety, Therapeutic Exercise, Transfers Treatment Duration: Jan 06, 2022 Frequency: 6 times per week Estimated Hrs Per Day: .25 hour per day Patient and/or Family Agrees t: Yes Time/GCodes Time In: 859 Time Out: 910 Total Billed Treatment Time: 11 Total Billed Treatment 1 visit FA 11 min CIPRIANO REYNOSO PT Dec 31, 2021 09:35
--- NOTE | 2021-12-31 10:39 | Discharge Summary ---
Diagnosis/Chief Complaint Date of Admission Dec 29, 2021 at 16:38 Date of Discharge Admission Diagnosis CHF Exacerbation Primary Care Ellen Sotelo MD Discharge Diagnosis (1) Acute on chronic heart failure with preserved ejection fraction (HFpEF) Assessment & Plan: He has decompensation of his heart failure possibly due to dietary indiscretion. He reports he is not careful with his sodium intake. He has received IV Lasix but this now appears to have been discontinued. If his renal function stabilizes, I will consider adding spironolactone to his regimen. We may want to change his amlodipine to a different agent since this could be causing his peripheral edema to be worse. (2) Paroxysmal atrial fibrillation Assessment & Plan: He has been in sinus rhythm during this admission. Continue beta prasanth for rate control in the event he has recurrent atrial fibrillation and Xarelto for stroke prophylaxis. (3) Primary hypertension Assessment & Plan: Continue beta prasanth. As above, consider changing amlodipine to a different agent since this medication can cause peripheral edema. (4) Stage 3a chronic kidney disease Assessment & Plan: We need to watch his renal function closely. (5) Acute on chronic respiratory failure with hypoxemia Assessment & Plan: Most likely multifactorial due to heart failure and his morbid obesity with hypoventilation syndrome. (6) Morbid obesity Status: Chronic Assessment & Plan: He needs to work on weight loss. He has been counseled on this multiple times in the past. Discharge Summary Discharge Physical Exam Allergies: Coded Allergies: No Known Drug Allergies (Unverified , 08/24/18) Vitals & I&Os Vital Signs Date Time Temp Pulse Resp B/P (MAP) Pulse Ox O2 Delivery O2 Flow Rate FiO2 12/31/21 07:32 37.0 63 20 129/62 (84) 95 High Flow N/C 3.00 Hospital Course Labs (last 24 hrs) Laboratory Tests 12/31/21 05:55: White Blood Count 12.0H, Red Blood Count 3.25L, Hemoglobin 9.2L, Hematocrit 30L, Mean Corpuscular Volume 92, Mean Corpuscular Hemoglobin 28, Mean Corpuscular Hemoglobin Concent 31L, Red Cell Distribution Width 17.2H, Platelet Count 169, Mean Platelet Volume 9.5, Sodium Level 140, Potassium Level 3.9, Chloride Level 94L, Carbon Dioxide Level 34H, Anion Gap 12, Blood Urea Nitrogen 31H, Creatinine 1.35H, Estimat Glomerular Filtration Rate 55, BUN/Creatinine Ratio 23, Glucose Level 108H, Calcium Level 9.0 Patient resulted labs reviewed. Pending Labs Laboratory Tests 12/31/21 05:55: White Blood Count 12.0, Red Blood Count 3.25, Hemoglobin 9.2, Hematocrit 30, Mean Corpuscular Volume 92, Mean Corpuscular Hemoglobin 28, Mean Corpuscular Hemoglobin Concent 31, Red Cell Distribution Width 17.2, Platelet Count 169, Mean Platelet Volume 9.5, Sodium Level 140, Potassium Level 3.9, Chloride Level 94, Carbon Dioxide Level 34, Anion Gap 12, Blood Urea Nitrogen 31, Creatinine 1.35, Estimat Glomerular Filtration Rate 55, BUN/Creatinine Ratio 23, Glucose Level 108, Calcium Level 9.0 Imaging: Reviewed Imaging Report Discharge Home Medications: Active Scripts Active Reported Ibuprofen 200 Mg Tablet 400-600 Mg PO Q8H PRN Carvedilol 25 Mg Tablet 25 Mg PO BID Metolazone 2.5 Mg Tablet 2.5 Mg PO Q48H Hydrocodone-Acetamin 5-300 mg (Hydrocodone/Acetaminophen) 5 Mg-300 Mg Tablet 1 Ea PO BID PRN Xarelto (Rivaroxaban) 20 Mg Tablet 20 Mg PO HS Furosemide 40 Mg Tablet 40 Mg PO BID Flomax (Tamsulosin HCl) 0.4 Mg Cap 0.8 Mg PO HS TAKES 2 (0.4MG) CAPS Tramadol HCl 50 Mg Tablet 100 Mg PO TID PRN TAKES 2 (50MG) TABS Amlodipine Besylate 10 Mg Tablet 10 Mg PO HS Potassium Chloride 20 Meq Tab.er.prt 20 Meq PO BID Meclizine HCl 25 Mg Tablet 25 Mg PO TID PRN Lisinopril 20 Mg Tablet 20 Mg PO BID Finasteride 5 Mg Tablet 5 Mg PO DAILY LAST FILLED 08-18-2021 #90/90 DAY SUPPLY Alprazolam 0.5 Mg Tablet 0.5 Mg PO TID Allopurinol 300 Mg Tablet 300 Mg PO DAILY Instructions to patient/family Please see electronic discharge instructions given to patient. JUAN C BULL MD Dec 31, 2021 10:39
[2021-12-31 11:30] VITALS: BP 113/56
--- NOTE | 2021-12-31 13:36 | Discharge Inst-Simple/Standard ---
Discharge Inst-Standard Patient Instructions/Follow Up Plan of Care/Instructions/FU: Please continue to take your medications as written. Please follow up with your primary care doctor to follow up this hospital stay. Activity as Tolerated: Yes Discharge Diet: Low Sodium Diet Return to The Hospital For: Chest pain, shortness of breath, fever, weakness, if you feel you are getting worse. JUAN C BULL MD Dec 31, 2021 13:36
== END 2021-12-31 16:43 | disposition home or self-care (01) | DRG 291 ==
LOC: EDUNIT# 13:32 → ER FS 13:34 → CSD 16:38 → 4TH 12-30 15:15
PROVIDERS: ADMIT Family Medicine; ATTEND Family Medicine
PROC: 5A0935A Assistance with Respiratory Ventilation, Less than 24 Consecutive Hours, High Flow/Velocity Cannula (ICD-10-PCS; principal; 2021-12-29)
DX: I13.0 Hypertensive heart and chronic kidney disease with heart failure and stage 1 through stage 4 chronic kidney disease, or unspecified chronic kidney disease (principal); I50.33 Acute on chronic diastolic (congestive) heart failure; J96.21 Acute and chronic respiratory failure with hypoxia; E66.2 Morbid (severe) obesity with alveolar hypoventilation; Z68.45 Body mass index [BMI] 70 or greater, adult; N18.31 Chronic kidney disease, stage 3a; I48.0 Paroxysmal atrial fibrillation; H54.7 Unspecified visual loss; M19.90 Unspecified osteoarthritis, unspecified site; N40.0 Benign prostatic hyperplasia without lower urinary tract symptoms; M10.9 Gout, unspecified; G47.30 Sleep apnea, unspecified; F41.9 Anxiety disorder, unspecified; Z79.899 Other long term (current) drug therapy; Z79.01 Long term (current) use of anticoagulants; Z28.310 Unvaccinated for COVID-19; Z20.822 Contact with and (suspected) exposure to COVID-19
CPT/HCPCS: 36415; 71045; 80048; 80053; 81000; 83735; 83880; 84484; 85007; 85027; 85610; 85730; 87636; 93005; 93041; 94761

== ENCOUNTER → 2022-01-21 | Outpatient (CLI) | payer MEDICARE ==
[~2022-01-21] MED LIST changes: +CARV25TA PO; +HYDR-4132 PO; +IBUP-2473 PO; +METO2.5T PO; +RIVA20TA PO
== END ==
LOC: ORTHO 15:49
PROVIDERS: ATTEND Orthopaedic Surgery
DX: M17.0 Bilateral primary osteoarthritis of knee (principal)

== ENCOUNTER → 2022-02-04 | Outpatient (CLI) | payer MEDICARE | LOC: ORTHO 13:28 | PROVIDERS: ATTEND Orthopaedic Surgery | DX: M17.0 Bilateral primary osteoarthritis of knee (principal); I10 Essential (primary) hypertension; E66.01 Morbid (severe) obesity due to excess calories ==

== ENCOUNTER → 2022-02-27 | Outpatient (CLI) | payer MEDICARE ==
[2022-02-27 12:09] LABS: BASOPHILS # (AUTO) 0.1 10^3/uL (0.0-0.1); BASOPHILS % (AUTO) 1 % (0-10); EOSINOPHILS # (AUTO) 0.6 10^3/uL (0.0-0.3); EOSINOPHILS % (AUTO) 5 % (0-10); HEMATOCRIT 32 % (40-54); HEMOGLOBIN 9.9 g/dL (13.3-17.7); LYMPHOCYTES # (AUTO) 2.4 10^3/uL (1.0-4.0); LYMPHOCYTES % (AUTO) 21 % (12-44); MEAN CORPUSCULAR HEMOGLOBIN 27 pg (25-34); MEAN CORPUSCULAR HGB CONC 31 g/dL (32-36); MEAN CORPUSCULAR VOLUME 89 fL (80-99); MONOCYTES # (AUTO) 0.8 10^3/uL (0.0-1.0); MONOCYTES % (AUTO) 7 % (0-12); NEUTROPHILS # (AUTO) 7.6 10^3/uL (1.8-7.8); NEUTROPHILS % (AUTO) 66 % (42-75); PLATELET COUNT 158 10^3/uL (130-400); WHITE BLOOD COUNT 11.6 10^3/uL (4.3-11.0)
[2022-02-27 12:26] LABS: ALBUMIN 3.7 GM/DL (3.2-4.5); BILIRUBIN,TOTAL 0.4 MG/DL (0.1-1.0); CALCIUM 8.7 MG/DL (8.5-10.1); CREATININE SERUM 1.49 MG/DL (0.60-1.30); POTASSIUM 4.3 MMOL/L (3.6-5.0); TOTAL PROTEIN 6.8 GM/DL (6.4-8.2)
[2022-02-28 11:52] LABS: CHOLESTEROL 141 MG/DL (< 200); HDL CHOLESTEROL 43 MG/DL (40-60); TRIGLYCERIDES 110 MG/DL (<150); VLDL CHOLESTEROL 22 MG/DL (5-40)
== END ==
LOC: LAB FS 11:49
PROVIDERS: ATTEND Family Medicine
DX: D64.9 Anemia, unspecified (principal); I10 Essential (primary) hypertension
CPT/HCPCS: 36415; 80053; 80061; 85025

== ENCOUNTER 2022-03-15 12:06 | Emergency (ER) | payer MEDICARE ==
[~2022-03-15] VITALS: Ht 167.7 cm; Wt 183.7 kg
--- NOTE | 2022-03-15 12:24 | ED Respiratory ---
General Chief Complaint: Respiratory Problems Stated Complaint: SOB/CONFUSION Source: patient Exam Limitations: no limitations History of Present Illness Date Seen by Provider: Mar 15, 2022 Time Seen by Provider: 12:11 Initial Comments 71-year-old male with past medical history of afib on Xarelto, CHF, and chronic hypoxic respiratory failure on home oxygen intermittently around 2 L coming in due to shortness of breath. He says he has felt this way for over a week. He says its not really worsening, and it is just that he. He does say he has been taking his Lasix and his every other day metolazone. He says on the days he takes metolazone he holds the Lasix, and he is unsure if he is supposed to do that or not. He does say he has not been urinating as much as usual. He says he drinks "a lot of fluids" and the output does not seem to match the input. Otherwise denying any chest pain, fever, cough, nausea, vomiting, diarrhea, chest pain, abdominal pain, weakness, numbness, or any other concerns. Also states he has been on an antibiotic for 2 weeks for an ear infection, amoxicillin Allergies and Home Medications Allergies Coded Allergies: No Known Drug Allergies (Unverified , 08/24/18) Patient Home Medication List Home Medication List Reviewed: Yes Allopurinol (Allopurinol) 300 Mg Tablet, 300 MG PO DAILY, (Reported) Entered as Reported by: ANDRZEJ BENTLEY on 08/24/18 1120 Alprazolam (Alprazolam) 0.5 Mg Tablet, 0.5 MG PO TID, (Reported) Entered as Reported by: ANDRZEJ BENTLEY on 08/24/18 1120 Amlodipine Besylate (Amlodipine Besylate) 10 Mg Tablet, 10 MG PO HS, (Reported) Entered as Reported by: GUERDA TAI on 04/27/21 1054 Carvedilol (Carvedilol) 25 Mg Tablet, 25 MG PO BID, (Reported) Entered as Reported by: GUERDA TAI on 12/30/21 1058 Finasteride (Finasteride) 5 Mg Tablet, 5 MG PO DAILY, (Reported) Entered as Reported by: ANDRZEJ BENTLEY on 08/24/18 1120 Furosemide (Furosemide) 40 Mg Tablet, 40 MG PO BID, (Reported) Entered as Reported by: GUERDA TAI on 04/27/21 1054 Hydrocodone/Acetaminophen (Hydrocodone-Acetamin 5-300 mg) 5 Mg-300 Mg Tablet, 1 EA PO BID PRN for PAIN-MODERATE (5-7), (Reported) Entered as Reported by: GUERDA TAI on 12/30/21 105 Ibuprofen (Ibuprofen) 200 Mg Tablet, 400-600 MG PO Q8H PRN for PAIN-MILD (1-4), (Reported) Entered as Reported by: GUERDA TAI on 12/30/21 105 Lisinopril (Lisinopril) 20 Mg Tablet, 20 MG PO BID, (Reported) Entered as Reported by: ANDRZEJ BENTLEY on 08/24/18 1120 Meclizine HCl (Meclizine HCl) 25 Mg Tablet, 25 MG PO TID PRN for DIZZINESS, (Reported) Entered as Reported by: GUERDA TAI on 04/27/21 105 Metolazone (Metolazone) 2.5 Mg Tablet, 2.5 MG PO Q48H, (Reported) Entered as Reported by: GUERDA TAI on 12/30/21 105 Potassium Chloride (Potassium Chloride) 20 Meq Tab.er.prt, 20 MEQ PO BID, (Reported) Entered as Reported by: GUERDA TAI on 04/27/21 105 Rivaroxaban (Xarelto) 20 Mg Tablet, 20 MG PO HS, (Reported) Entered as Reported by: GUERDA TAI on 12/30/21 105 Tamsulosin HCl (Flomax) 0.4 Mg Cap, 0.8 MG PO HS, (Reported) Entered as Reported by: GUERDA TAI on 04/27/21 105 Tramadol HCl (Tramadol HCl) 50 Mg Tablet, 100 MG PO TID PRN for PAIN-MODERATE (5-7), (Reported) Entered as Reported by: GUERDA TAI on 04/27/21 105 Review of Systems Review of Systems Constitutional: No fever EENTM: No blurred vision Respiratory: No cough; short of breath Cardiovascular: No chest pain Gastrointestinal: no symptoms reported Genitourinary: no symptoms reported Musculoskeletal: no symptoms reported Skin: no symptoms reported Psychiatric/Neurological: No Symptoms Reported Hematologic/Lymphatic: No Symptoms Reported Immunological/Allergic: no symptoms reported All Other Systems Reviewed Negative Unless Noted: Yes Past Amzclzc-Vzjrbj-Qtcunh Hx Patient Social History Substance use?: No Seasonal Allergies Seasonal Allergies: No Past Medical History Surgery/Hospitalization HX: APPENDIX Surgeries: Yes Appendectomy Respiratory: Yes Sleep Apnea Cardiac: Yes Hypertension Neurological: No Genitourinary: Yes Benign Prostatic Hyperpl, Kidney Stones Gastrointestinal: No Musculoskeletal: Yes Arthritis, Gout Endocrine: No HEENT: No Cancer: No Psychosocial: Yes Anxiety Integumentary: No Blood Disorders: No Family Medical History No Pertinent Family Hx No none heart of premature cardiac disease or Physical Exam Vital Signs - First Documented Capillary Refill : Height: 5'6.00" Weight: 340lbs. oz. 154.214855ag; 74.60 BMI Method:Stated General Appearance: WD/WN, no apparent distress, obese Eyes: Bilateral Eye Normal Inspection HEENT: PERRL/EOMI, normal ENT inspection, pharynx normal Neck: non-tender, full range of motion, supple, normal inspection Respiratory: chest non-tender, no respiratory distress, no accessory muscle use, crackles Cardiovascular: regular rate, rhythm, no murmur Gastrointestinal: normal bowel sounds, non tender, soft; No distended, No guarding, No rebound Extremities: normal range of motion, non-tender, no calf tenderness, normal capillary refill, pedal edema Neurologic/Psychiatric: no motor/sensory deficits, alert, normal mood/affect Skin: normal color, warm/dry Lymphatic: no adenopathy Progress/Results/Core Measures Suspected Sepsis SIRS Temperature: Pulse: Respiratory Rate: Laboratory Tests 03/15/22 12:13: White Blood Count 9.9 Blood Pressure / Mean: Laboratory Tests 03/15/22 12:13: Creatinine 1.78H, INR Comment 1.0, Platelet Count 186, Total Bilirubin 0.4 Results/Orders Lab Results Laboratory Tests Test 03/15/22 12:13 Range/Units White Blood Count 9.9 4.3-11.0 10^3/uL Red Blood Count 3.43 L 4.30-5.52 10^6/uL Hemoglobin 9.3 L 13.3-17.7 g/dL Hematocrit 29 L 40-54 % Mean Corpuscular Volume 86 80-99 fL Mean Corpuscular Hemoglobin 27 25-34 pg Mean Corpuscular Hemoglobin Concent 32 32-36 g/dL Red Cell Distribution Width 15.9 H 10.0-14.5 % Platelet Count 186 130-400 10^3/uL Mean Platelet Volume 9.5 9.0-12.2 fL Immature Granulocyte % (Auto) 2 % Neutrophils (%) (Auto) 71 42-75 % Lymphocytes (%) (Auto) 17 12-44 % Monocytes (%) (Auto) 7 0-12 % Eosinophils (%) (Auto) 3 0-10 % Basophils (%) (Auto) 0 0-10 % Neutrophils # (Auto) 7.0 1.8-7.8 10^3/uL Lymphocytes # (Auto) 1.7 1.0-4.0 10^3/uL Monocytes # (Auto) 0.7 0.0-1.0 10^3/uL Eosinophils # (Auto) 0.3 0.0-0.3 10^3/uL Basophils # (Auto) 0.0 0.0-0.1 10^3/uL Immature Granulocyte # (Auto) 0.2 H 0.0-0.1 10^3/uL Prothrombin Time 13.9 12.2-14.7 SEC INR Comment 1.0 0.8-1.4 Activated Partial Thromboplast Time 30 24-35 SEC Sodium Level 136 135-145 MMOL/L Potassium Level 4.3 3.6-5.0 MMOL/L Chloride Level 96 L 98-107 MMOL/L Carbon Dioxide Level 31 21-32 MMOL/L Anion Gap 9 5-14 MMOL/L Blood Urea Nitrogen 47 H 7-18 MG/DL Creatinine 1.78 H 0.60-1.30 MG/DL Estimat Glomerular Filtration Rate 40 BUN/Creatinine Ratio 26 Glucose Level 80 70-105 MG/DL Calcium Level 8.9 8.5-10.1 MG/DL Corrected Calcium 9.3 8.5-10.1 MG/DL Magnesium Level 2.6 H 1.6-2.4 MG/DL Total Bilirubin 0.4 0.1-1.0 MG/DL Aspartate Amino Transf (AST/SGOT) 15 5-34 U/L Alanine Aminotransferase (ALT/SGPT) 10 0-55 U/L Alkaline Phosphatase 103 40-136 U/L Troponin I < 0.30 <0.30 NG/ML Pro-B-Type Natriuretic Peptide 1387.0 H <125.0 PG/ML Total Protein 6.9 6.4-8.2 GM/DL Albumin 3.5 3.2-4.5 GM/DL My Orders Orders - MAGDALENA CASANOVA MD Cbc With Automated Diff (03/15/22 12:19) Comprehensive Metabolic Panel (03/15/22 12:19) Magnesium (03/15/22 12:19) Protime With Inr (03/15/22 12:19) Partial Thromboplastin Time (03/15/22 12:19) Probnp Fs (03/15/22 12:19) Troponin I Fs (03/15/22 12:19) Chest Pa/Lat (2 View) (03/15/22 12:19) Ekg Tracing (03/15/22 12:19) Ed Iv/Invasive Line Start (03/15/22 12:19) Furosemide Injection (Lasix Injection) (03/15/22 12:30) Furosemide Injection (Lasix Injection) (03/15/22 12:30) Medications Given in ED Current Medications Medications Dose Ordered Sig/Joseph Route Start Time Stop Time Status Last Admin Dose Admin Furosemide 80 mg ONCE ONCE IVP 03/15/22 12:30 03/15/22 12:31 DC 03/15/22 12:29 80 MG Vital Signs/I&O 03/15/22 03/15/22 12:23 12:23 Temp 37.0 Pulse 58 Resp 18 B/P (MAP) 126/49 (74) O2 Delivery Room Air Room Air Capillary Refill : Progress Note : Progress Note 71-year-old male with above history coming in due to concerns for dyspnea. ABCs were intact and vitals were stable on presentation. Physical exam with peripheral edema and crackles on exam that are all consistent with volume overload. BNP over thousand and also consistent with this. EKG with no acute i schemic changes and appears similar to prior EKG. Chest x-ray with what appears to be pulmonary vascular congestion from heart failure as well as possible infection. Patient was given IV Lasix 80 mg while in the emergency department had good output. Symptoms have already improved somewhat. I will have him double up on his Lasix for the next 3 days and follow-up as an outpatient. He is to come back if things worsen in that time. ECG Initial ECG Impression Date: Mar 15, 2022 Initial ECG Impression Time: 12:44 Initial ECG Rate: 53 Initial ECG Rhythm: S.Aydin Comment Narrow QRS, normal axis, no significant ST changes, T wave inversions in the precordial leads and inferior leads Diagnostic Imaging Diagonstic Imaging: Xray (chest) Comments NAME: [facility] REC#: [id number] PT STATUS: REG ER : 1950 PHYSICIAN: MAGDALENA CASANOVA MD ADMIT DATE: 03/15/22/ER FS Draft Date of Exam:03/15/22 CHEST PA/LAT (2 VIEW) EXAMINATION: Chest, 2 views. HISTORY: Shortness of breath. COMPARISON: 06/03/2021. FINDINGS: The heart size is mildly enlarged with prominence of the pulmonary vessels. There are diffuse interstitial opacities within the lungs. No pleural effusion or pneumothorax. Degenerative changes of the thoracic spine. Osseous structures are otherwise intact. IMPRESSION: 1. Findings suggestive of cardiomegaly and pulmonary vascular congestion. 2. Diffuse interstitial opacities within the lungs which can be seen with pulmonary edema or atypical infection. Dictated on workstation # [id number] Dict: 03/15/22 1246 Trans: 03/15/22 1247 [id number] Interpreted by: LINK SANDERS DO Electronically signed by: Departure Impression Primary Impression: Acute on chronic heart failure with preserved ejection fraction (HFpEF) Additional Impression: Shortness of breath Disposition: 01 HOME, SELF-CARE Condition: Stable Departure-Patient Inst. Decision time for Depature: 13:22 Referrals: CHRISTIANO VALENCIA MD (PCP/Family) Primary Care Physician Patient Instructions: Heart Failure ED Add. Discharge Instructions: It does appear like you have too much fluid on your lungs from heart failure. Double up your Lasix for 2 of the doses where you are taking 2 of the pills in the morning, 2 in the afternoon, and your normal 1 pill at night. Continue to take your metolazone every other day as prescribed. If you have a good amount of urine output from this and I want you to double the dose of your potassium for the next 3 days as well. He will also be on an antibiotic for what appears to be a developing infection on your chest x-ray. Follow-up with your regular doctor if things are not improving. Wear your oxygen as needed at home during the day for your symptoms. Scripts Cefdinir (Cefdinir) 300 Mg Capsule 300 MG PO BID for 7 Days, #14 CAP 0 Refills Prov: MAGDALENA CASANOVA MD 03/15/22 Work/School Note: Work Release Form Date Seen in the Emergency Department: Mar 15, 2022 Return to Work: Mar 22, 2022 Restrictions: No Restrictions MAGDALENA CASANOVA MD Mar 15, 2022 12:24
[2022-03-15] MEDS ORDERED: FUROSEMIDE 40 MG/4 ML INJ (LASIX) IVP ONE (12:30)
[2022-03-15] MEDS ORDERED: FUROSEMIDE 40 MG/4 ML INJ (LASIX) ONE (12:30)
[2022-03-15 12:44] LABS: BASOPHILS % (AUTO) 0 % (0-10); EOSINOPHILS # (AUTO) 0.3 10^3/uL (0.0-0.3); EOSINOPHILS % (AUTO) 3 % (0-10); HEMATOCRIT 29 % (40-54); HEMOGLOBIN 9.3 g/dL (13.3-17.7); LYMPHOCYTES # (AUTO) 1.7 10^3/uL (1.0-4.0); LYMPHOCYTES % (AUTO) 17 % (12-44); MEAN CORPUSCULAR HEMOGLOBIN 27 pg (25-34); MEAN CORPUSCULAR HGB CONC 32 g/dL (32-36); MEAN CORPUSCULAR VOLUME 86 fL (80-99); MEAN PLATELET VOLUME 9.5 fL (9.0-12.2); MONOCYTES # (AUTO) 0.7 10^3/uL (0.0-1.0); MONOCYTES % (AUTO) 7 % (0-12); NEUTROPHILS % (AUTO) 71 % (42-75); PLATELET COUNT 186 10^3/uL (130-400); WHITE BLOOD COUNT 9.9 10^3/uL (4.3-11.0)
--- NOTE | 2022-03-15 12:47 | Diagnostic Imaging Report ---
EXAMINATION: Chest, 2 views. HISTORY: Shortness of breath. COMPARISON: 06/03/2021. FINDINGS: The heart size is mildly enlarged with prominence of the pulmonary vessels. There are diffuse interstitial opacities within the lungs. No pleural effusion or pneumothorax. Degenerative changes of the thoracic spine. Osseous structures are otherwise intact. IMPRESSION: 1. Findings suggestive of cardiomegaly and pulmonary vascular congestion. 2. Diffuse interstitial opacities within the lungs which can be seen with pulmonary edema or atypical infection. Dictated by: Dictated on workstation # [id number]
[2022-03-15 13:02] LABS: PROTHROMBIN TIME PATIENT 13.9 SEC (12.2-14.7)
[2022-03-15 13:11] LABS: CHLORIDE 96 MMOL/L (98-107); POTASSIUM 4.3 MMOL/L (3.6-5.0); SODIUM 136 MMOL/L (135-145)
[2022-03-15 13:12] LABS: ALANINE AMINOTRANSFERASE 10 U/L (0-55); ALKALINE PHOSPHATASE 103 U/L (40-136); BILIRUBIN,TOTAL 0.4 MG/DL (0.1-1.0); BUN/CREATININE RATIO 26; CALCIUM 8.9 MG/DL (8.5-10.1); CARBON DIOXIDE 31 MMOL/L (21-32); CREATININE SERUM 1.78 MG/DL (0.60-1.30); GFR ESTIMATED 40; GLUCOSE 80 MG/DL (70-105); MAGNESIUM 2.6 MG/DL (1.6-2.4); TOTAL PROTEIN 6.9 GM/DL (6.4-8.2)
[2022-03-15 13:13] LABS: ALBUMIN 3.5 GM/DL (3.2-4.5)
[2022-03-15] MEDS ORDERED: CEFD300C3 PO (13:25)
[2022-03-15 13:31] VITALS: BP 143/77
== END 2022-03-15 13:34 | disposition home or self-care (01) ==
LOC: EDUNIT# 12:06 → ER FS 12:09
DX: I50.33 Acute on chronic diastolic (congestive) heart failure (principal); R60.0 Localized edema; I48.91 Unspecified atrial fibrillation; E66.9 Obesity, unspecified; Z68.45 Body mass index [BMI] 70 or greater, adult; Z79.01 Long term (current) use of anticoagulants
CPT/HCPCS: 36415; 71046; 80053; 83735; 83880; 84484; 85025; 85610; 85730; 93005

== ENCOUNTER 2022-06-01 10:50 | Emergency (ER) | payer MEDICARE ==
[2022-06-01] MEDS ORDERED: RT-ALBUTEROL/IPRATROPIUM 3 ML (DUONEB) VIAL INH ONE (11:00)
[2022-06-01 11:08] LABS: BASOPHILS # (AUTO) 0.1 10^3/uL (0.0-0.1); BASOPHILS % (AUTO) 0 % (0-10); EOSINOPHILS # (AUTO) 0.4 10^3/uL (0.0-0.3); EOSINOPHILS % (AUTO) 3 % (0-10); HEMATOCRIT 27 % (40-54); LYMPHOCYTES # (AUTO) 1.6 10^3/uL (1.0-4.0); LYMPHOCYTES % (AUTO) 12 % (12-44); MEAN CORPUSCULAR HEMOGLOBIN 26 pg (25-34); MEAN CORPUSCULAR HGB CONC 30 g/dL (32-36); MEAN CORPUSCULAR VOLUME 87 fL (80-99); MEAN PLATELET VOLUME 9.7 fL (9.0-12.2); MONOCYTES # (AUTO) 0.9 10^3/uL (0.0-1.0); MONOCYTES % (AUTO) 7 % (0-12); NEUTROPHILS # (AUTO) 9.6 10^3/uL (1.8-7.8); NEUTROPHILS % (AUTO) 75 % (42-75); PLATELET COUNT 169 10^3/uL (130-400); WHITE BLOOD COUNT 12.8 10^3/uL (4.3-11.0)
--- NOTE | 2022-06-01 11:08 | ED Dyspnea ---
General Stated Complaint: SOB Source of Information: Patient, EMS, Old Records History of Present Illness Date Seen by Provider: Jun 01, 2022 Time Seen by Provider: 10:50 Initial Comments 71-year-old male presenting with complaints of 4 days of increasing weakness. He has had nasal drainage and sinus drainage with sneezing. He does not feel like he is coughing any more than usual. He reports that the swelling in his legs is better than usual. He continues to take diuretics for heart failure. He was having no complaints of pain. She has not been using his oxygen all the time at home. He states that last night he had his oxygen off and his family checked his oxygen level and it was low in the 60s. He wore his oxygen for a few hours and that seemed to help give him the strength to be able to walk back to bed. He states this morning that again he felt too weak to get up and walk without feeling like he might fall. Severity: Moderate Activities at Onset: None Prior Episodes/Possible Cause: Chronic Episodes Modifying Factors: Worse With Activity; Improves With Oxygen Associated Symptoms: Cough, Edema, Weakness (generalized) Allergies and Home Medications Allergies Coded Allergies: No Known Drug Allergies (Unverified , 08/24/18) Patient Home Medication List Home Medication List Reviewed: Yes Allopurinol (Allopurinol) 300 Mg Tablet, 300 MG PO DAILY, (Reported) Entered as Reported by: ANDRZEJ BENTLEY on 08/24/18 1120 Alprazolam (Alprazolam) 0.5 Mg Tablet, 0.5 MG PO TID, (Reported) Entered as Reported by: ANDRZEJ BENTLEY on 08/24/18 1120 Amlodipine Besylate (Amlodipine Besylate) 10 Mg Tablet, 10 MG PO HS, (Reported) Entered as Reported by: GUERDA TAI on 04/27/21 1054 Carvedilol (Carvedilol) 25 Mg Tablet, 25 MG PO BID, (Reported) Entered as Reported by: GUERDA TAI on 12/30/21 1058 Cefdinir (Cefdinir) 300 Mg Capsule, 300 MG PO BID Prescribed by: MAGDALENA CASANOVA on 03/15/22 1325 Finasteride (Finasteride) 5 Mg Tablet, 5 MG PO DAILY, (Reported) Entered as Reported by: ANDRZEJ BENTLEY on 08/24/18 1120 Furosemide (Furosemide) 40 Mg Tablet, 40 MG PO BID, (Reported) Entered as Reported by: GUERDA TAI on 04/27/21 1054 Furosemide (Furosemide) 80 Mg Tablet, 80 MG PO BID Prescribed by: STEPHON LAN on 06/01/22 1354 Hydrocodone/Acetaminophen (Hydrocodone-Acetamin 5-300 mg) 5 Mg-300 Mg Tablet, 1 EA PO BID PRN for PAIN-MODERATE (5-7), (Reported) Entered as Reported by: GUERDA TAI on 12/30/21 1058 Ibuprofen (Ibuprofen) 200 Mg Tablet, 400-600 MG PO Q8H PRN for PAIN-MILD (1-4), (Reported) Entered as Reported by: GUERDA TAI on 12/30/21 1058 Lisinopril (Lisinopril) 20 Mg Tablet, 20 MG PO BID, (Reported) Entered as Reported by: ANDRZEJ BENTLEY on 08/24/18 1120 Meclizine HCl (Meclizine HCl) 25 Mg Tablet, 25 MG PO TID PRN for DIZZINESS, (Reported) Entered as Reported by: GUERDA TAI on 04/27/21 1054 Metolazone (Metolazone) 2.5 Mg Tablet, 2.5 MG PO Q48H, (Reported) Entered as Reported by: GUERDA TAI on 12/30/21 1058 Potassium Chloride (Potassium Chloride) 20 Meq Tab.er.prt, 20 MEQ PO BID, (Reported) Entered as Reported by: GUERDA TAI on 04/27/21 1054 Potassium Chloride (Potassium Chloride) 20 Meq Tablet.er, 40 MEQ PO BID Prescribed by: STEPHON LAN on 06/01/22 1354 Rivaroxaban (Xarelto) 20 Mg Tablet, 20 MG PO HS, (Reported) Entered as Reported by: GUERDA TAI on 12/30/21 1058 Tamsulosin HCl (Flomax) 0.4 Mg Cap, 0.8 MG PO HS, (Reported) Entered as Reported by: GUERDA TAI on 04/27/21 1054 Tramadol HCl (Tramadol HCl) 50 Mg Tablet, 100 MG PO TID PRN for PAIN-MODERATE (5-7), (Reported) Entered as Reported by: GUERDA TAI on 04/27/21 1054 Review of Systems Review of Systems Constitutional: No chills, No fever EENTM: nose congestion (sinus drainage and nasal congestion, sneezing) Respiratory: cough (chronic and no worse than usual per patient) Cardiovascular: No chest pain; edema (chronic and better than usual per patient report) Gastrointestinal: No nausea, No vomiting Genitourinary: No dysuria Musculoskeletal: no symptoms reported Skin: other (edema to BLE with erythema from chronic venous stasis) Psychiatric/Neurological: Denies Headache; Weakness (general) Past Xfkppan-Kceltc-Duwcah Hx Seasonal Allergies Seasonal Allergies: No Past Medical History Surgery/Hospitalization HX: APPENDIX, COPD, CHF, Home O2 Surgeries: Yes Appendectomy Respiratory: Yes Sleep Apnea Cardiac: Yes Hypertension Neurological: No Genitourinary: Yes Benign Prostatic Hyperpl, Kidney Stones Gastrointestinal: No Musculoskeletal: Yes Arthritis, Gout Endocrine: No HEENT: No Cancer: No Psychosocial: Yes Anxiety Integumentary: No Blood Disorders: No Family Medical History No Pertinent Family Hx No none heart of premature cardiac disease or Physical Exam Vital Signs Vital Signs - First Documented Capillary Refill : Height, Weight, BMI Height: 5'6.00" Weight: 340lbs. oz. 154.330103wx; 65.00 BMI Method:Stated General Appearance: No Apparent Distress, Chronically ill (disheveled and poor hygiene), Obese (morbid obesity) HEENT: PERRL/EOMI, Pharynx Normal, Moist Mucous Membranes, Other (nasal congestion and drainage) Neck: Full Range of Motion, Normal Inspection, Non Tender, Supple Respiratory: Chest Non Tender, No Accessory Muscle Use, No Respiratory Distress, Decreased Breath Sounds Cardiovascular: Normal Peripheral Pulses, Bradycardia Gastrointestinal: Normal Bowel Sounds, No Pulsatile Mass, Non Tender, Soft Extremity: Normal Capillary Refill, Pedal Edema (2+ pitting edema to BLE up above his knees) Neurologic/Psychiatric: Alert, Oriented x3, bag patcher II-XII Norm as Tested Skin: Warm/Dry, Erythema (BLE with mild erythema that appears consistent with chronic venous stasis changes) Focused Exam Lactate Level 06/01/22 10:54: Lactic Acid Level 0.67 Lactic Acid Level Laboratory Tests Test 06/01/22 10:54 Lactic Acid Level 0.67 MMOL/L (0.50-2.00) Progress/Results/Core Measures Results/Orders Lab Results Laboratory Tests Test 06/01/22 10:54 06/01/22 11:02 Range/Units White Blood Count 12.8 H 4.3-11.0 10^3/uL Red Blood Count 3.11 L 4.30-5.52 10^6/uL Hemoglobin 8.0 L 13.3-17.7 g/dL Hematocrit 27 L 40-54 % Mean Corpuscular Volume 87 80-99 fL Mean Corpuscular Hemoglobin 26 25-34 pg Mean Corpuscular Hemoglobin Concent 30 L 32-36 g/dL Red Cell Distribution Width 18.1 H 10.0-14.5 % Platelet Count 169 130-400 10^3/uL Mean Platelet Volume 9.7 9.0-12.2 fL Immature Granulocyte % (Auto) 2 % Neutrophils (%) (Auto) 75 42-75 % Lymphocytes (%) (Auto) 12 12-44 % Monocytes (%) (Auto) 7 0-12 % Eosinophils (%) (Auto) 3 0-10 % Basophils (%) (Auto) 0 0-10 % Neutrophils # (Auto) 9.6 H 1.8-7.8 10^3/uL Lymphocytes # (Auto) 1.6 1.0-4.0 10^3/uL Monocytes # (Auto) 0.9 0.0-1.0 10^3/uL Eosinophils # (Auto) 0.4 H 0.0-0.3 10^3/uL Basophils # (Auto) 0.1 0.0-0.1 10^3/uL Immature Granulocyte # (Auto) 0.3 H 0.0-0.1 10^3/uL Sodium Level 137 135-145 MMOL/L Potassium Level 5.1 H 3.6-5.0 MMOL/L Chloride Level 99 98-107 MMOL/L Carbon Dioxide Level 29 21-32 MMOL/L Anion Gap 9 5-14 MMOL/L Blood Urea Nitrogen 39 H 7-18 MG/DL Creatinine 2.01 H 0.60-1.30 MG/DL Estimat Glomerular Filtration Rate 34 BUN/Creatinine Ratio 19 Glucose Level 102 70-105 MG/DL Lactic Acid Level 0.67 0.50-2.00 MMOL/L Calcium Level 8.7 8.5-10.1 MG/DL Corrected Calcium 9.2 8.5-10.1 MG/DL Magnesium Level 2.5 H 1.6-2.4 MG/DL Total Bilirubin 0.6 0.1-1.0 MG/DL Aspartate Amino Transf (AST/SGOT) 15 5-34 U/L Alanine Aminotransferase (ALT/SGPT) 12 0-55 U/L Alkaline Phosphatase 97 40-136 U/L Troponin I < 0.30 <0.30 NG/ML C-Reactive Protein 6.53 H <0.50 MG/DL Pro-B-Type Natriuretic Peptide 1866.0 H <125.0 PG/ML Total Protein 6.7 6.4-8.2 GM/DL Albumin 3.4 3.2-4.5 GM/DL Influenza Type A (RT-PCR) Not Detected Not Detecte Influenza Type B (RT-PCR) Not Detected Not Detecte SARS-CoV-2 RNA (RT-PCR) Not Detected Not Detecte My Orders Orders - STEPHON LAN MD Cbc With Automated Diff (06/01/22 10:59) Comprehensive Metabolic Panel (06/01/22 10:59) Blood Culture (06/01/22 10:59) Chest 1 View Ap/Pa Only (06/01/22 10:59) Albuterol/Ipra Inhalation Soln (Duoneb I (06/01/22 11:00) Magnesium (06/01/22 10:59) Ekg Tracing (06/01/22 10:59) O2 (06/01/22 10:59) Ed Iv/Invasive Line Start (06/01/22 10:59) Monitor-Rhythm Ecg Trace Only (06/01/22 10:59) Crp Fs (06/01/22 10:59) Lactic Acid Analyzer (06/01/22 10:59) Svn Small Volume Nebulizer (06/01/22 10:59) Covid 19 Inhouse Test (06/01/22 10:59) Troponin I Fs (06/01/22 10:59) Probnp Fs (06/01/22 10:59) Influenza A And B By Pcr (06/01/22 10:59) Isolation Central Supply Req (06/01/22 10:59) Furosemide Injection (Lasix Injection) (06/01/22 13:38) Medications Given in ED Current Medications Medications Dose Ordered Sig/Joseph Route Start Time Stop Time Status Last Admin Dose Admin Albuterol/ Ipratropium 3 ml ONCE ONCE INH 06/01/22 11:00 06/01/22 11:02 DC 06/01/22 11:09 3 ML Vital Signs/I&O 06/01/22 06/01/22 06/01/22 10:54 10:54 14:57 Temp 37.1 37.1 Pulse 71 75 Resp 19 19 B/P (MAP) 109/90 (96) 137/82 Pulse Ox 93 98 O2 Delivery Nasal Cannula Nasal Cannula Nasal Cannula O2 Flow Rate 4.00 4.00 4.00 4.00 Progress Progress Note #1: Progress Note Check basic labs, blood cultures, lactic acid, covid and influenza, CXR and ECG. Look for elevated white blood cells for infection, anemia, electrolyte imbalance, elevated proBNP, elevated troponin, ischemic changes on EKG, pneumonia or fluid buildup on chest x-ray, signs of sepsis with elevated lactic acid, nasal swab to evaluate for influenza and COVID. Continue on home oxygen at 3 L/min by nasal cannula, repeat DuoNeb as given by EMS. Progress Note #2: Time: 11:34 Progress Note CXR similar to December 2021 when he had cardiomegaly with increased pulmonary vascular congestion. No effusion or infiltrate. CBC with mild elevation of WBC count to 12.8 and chronic anemia with Hgb 8, down from his usual 9 Hgb. This could be from chronic disease or hemodilution for increased pulmonary vascular congestion. Progress Note #3: Progress Note Chemistry shows chronic renal insufficiency with Cr 2. Troponin negative for acute myocardial injury as it is <0.3. proBNP is elevated to 1866 from previous test of 1387 in March. He has been able to get up here in the ED and use Walker to help with ambulation. As long as he is wearing the oxygen he is doing well here in the ED. It sounds like the episodes at home were related to him not wearing his O2. He has negative Flu and Covid swab. Reassured pt and advised that he should wear oxygen at all times and take increased dose of lasix and potassium for next [address] Valencia for follow up at end of this week or early next week. Off work until next week so he can diurese at home and wear his oxygen. 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 Advised that he did not have signs of pneumonia or effusions on CXR and at this point I did not have an indication to admit him to the hospital as he can increase his lasix and oxygen at home to help with his symptoms. Give IV lasix 40 mg to help with diuresis. His called and I spoke with her about the patient. She stated that she is also O2 dependent with Parkinsons, COPD and not feeling well so she felt that with Adama's low oxygen last night he needed to be admitted at least overnight. I told her if he had been seen with the low O2 it might have warranted admit but his O2 has been stable here on his home levels of oxygen. He has been able to get up and move around here in the ED. He wants to go home and again I did not have testing to indicate he needed acute admit. She asked if EMS would transport him as she was too sick to come herself. I advised that since he is not bed bound they would likely not transport without a charge or fee. She said she would try to get her son or someone to come and bring his portable O2 to help with his breathing on trip home. Initial ECG Impression Date: Jun 01, 2022 Initial ECG Impression Time: 11:01 Initial ECG Rate: 69 Initial ECG Rhythm: Normal Sinus Initial ECG Comparisson: Changed (03/15/2022 he had bradycardia with 1st deg AVB and low voltage) Comment Based on my personal interpretation and review of his electrocardiogram shows sinus rhythm with a heart rate of 69 bpm. AZ interval [address] elevation. There is artifact on the tracing. Has low voltage QRS complex. QT interval 409 ms with a QTc interval 429 ms. Since last electrocardiogram on March 15, 2022 his heart rate has improved and AZ interval has decreased. Overall appears otherwise similar to prior tracing. Diagnostic Imaging Diagonstic Imaging: Xray Plain Films/CT/US/NM/MRI: chest Comments NAME: ADAMA STARK MED REC#: [id number] PT STATUS: REG ER : 1950 PHYSICIAN: STEPHON LAN MD ADMIT DATE: 06/01/22/ER FS Signed Date of Exam:06/01/22 CHEST 1 VIEW AP/PA ONLY Indication: Shortness of breath Portable chest 11:05 AM There is cardiomegaly. Pulmonary vascularity is mildly increased. There are no infiltrates, effusions or pneumothoraces. IMPRESSION: Cardiomegaly with pulmonary venous hypertension. This appears similar to previous exam dated 12/29/2021. Dictated by: Dictated on workstation # [id number] Dict: 06/01/221116 Trans: 06/01/221116 TCB [id number] Interpreted by: ALESSIO SANDERS MD Electronically signed by: ALESSIO SANDERS MD 06/01/22 111 Departure Impression Primary Impression: Acute on chronic heart failure with preserved ejection fraction (HFpEF) Additional Impressions: Shortness of breath Generalized weakness Upper respiratory infection, viral Disposition: 01 HOME, SELF-CARE Condition: Stable Departure-Patient Inst. Decision time for Depature: 13:51 Referrals: CHRISTIANO VALENCIA MD (PCP) Primary Care Physician Patient Instructions: Heart Failure ED, Upper Respiratory Infection ED, Shortness of Breath, Adult ED Add. Discharge Instructions: Use your oxygen at home at all times for the next 3 days to help with your shortness of breath and weakness. Along with using your oxygen all the time for the next 3 days increase your Lasix to 80 mg twice a day and potassium to 40 mEq twice a day. Call Dr. Valencia to arrange follow up at end of this week or early next week about your shortness of breath. Scripts Potassium Chloride (Potassium Chloride) 20 Meq Tablet.er 40 MEQ PO BID for 3 Days, #12 TAB 0 Refills Prov: STEPHON LAN MD 06/01/22 Furosemide (Furosemide) 80 Mg Tablet 80 MG PO BID for Heart Failure for 3 Days, #6 TAB 0 Refills Prov: STEPHON LAN MD 06/01/22 Work/School Note: Work Release Form Date Seen in the Emergency Department: Jun 01, 2022 Return to Work: Jun 07, 2022 Restrictions: No Restrictions STEPHON LAN MD Jun 01, 2022 11:08
--- NOTE | 2022-06-01 11:19 | Diagnostic Imaging Report ---
Indication: Shortness of breath Portable chest 11:05 AM There is cardiomegaly. Pulmonary vascularity is mildly increased. There are no infiltrates, effusions or pneumothoraces. IMPRESSION: Cardiomegaly with pulmonary venous hypertension. This appears similar to previous exam dated 12/29/2021. Dictated by: Dictated on workstation # [id number]
[2022-06-01 11:47] LABS: BUN/CREATININE RATIO 19; CALCIUM 8.7 MG/DL (8.5-10.1); CARBON DIOXIDE 29 MMOL/L (21-32); CHLORIDE 99 MMOL/L (98-107); CREATININE SERUM 2.01 MG/DL (0.60-1.30); GFR ESTIMATED 34; GLUCOSE 102 MG/DL (70-105); POTASSIUM 5.1 MMOL/L (3.6-5.0); SODIUM 137 MMOL/L (135-145)
[2022-06-01 11:48] LABS: ALANINE AMINOTRANSFERASE 12 U/L (0-55); ALBUMIN 3.4 GM/DL (3.2-4.5); ALKALINE PHOSPHATASE 97 U/L (40-136); BILIRUBIN,TOTAL 0.6 MG/DL (0.1-1.0); MAGNESIUM 2.5 MG/DL (1.6-2.4); TOTAL PROTEIN 6.7 GM/DL (6.4-8.2)
[2022-06-01] MEDS ORDERED: FUROSEMIDE 40 MG/4 ML INJ (LASIX) IVP STA (13:38)
[2022-06-01] MEDS ORDERED: FURO80TA3 PO (13:54)
[2022-06-01] MEDS ORDERED: POTA-51 PO (13:54)
[2022-06-01 14:57] VITALS: BP 137/82
== END 2022-06-01 14:57 | disposition home or self-care (01) ==
LOC: ER FS 10:50 → EDUNIT# 10:50 → ER FS 14:57
DX: I13.0 Hypertensive heart and chronic kidney disease with heart failure and stage 1 through stage 4 chronic kidney disease, or unspecified chronic kidney disease (principal); I50.33 Acute on chronic diastolic (congestive) heart failure; N18.9 Chronic kidney disease, unspecified; J06.9 Acute upper respiratory infection, unspecified; D64.9 Anemia, unspecified; J44.9 Chronic obstructive pulmonary disease, unspecified; D72.829 Elevated white blood cell count, unspecified; E66.01 Morbid (severe) obesity due to excess calories; Z68.44 Body mass index [BMI] 60.0-69.9, adult; Z20.822 Contact with and (suspected) exposure to COVID-19; Z99.81 Dependence on supplemental oxygen
CPT/HCPCS: 36415; 71045; 80053; 83605; 83735; 83880; 84484; 85025; 86141; 87040; 87636; 93005; 93041; 94640

== ENCOUNTER 2022-06-04 08:06 | Inpatient (IN) | payer MEDICARE ==
[~2022-06-04] VITALS: Ht 170 cm; Wt 180.8 kg
[~2022-06-04 08:06] MED LIST changes: +FURO80TA3 PO; +POTA-51 PO
[2022-06-04] MEDS ORDERED: CALCIUM CARBONATE 500 MG (TUMS) TAB.CHEW PO PRN (08:45)
[2022-06-04] MEDS ORDERED: diphenhydrAMINE 25 MG TAB (BENADRYL) PO PRN (08:45)
[2022-06-04] MEDS ORDERED: ONDANSETRON 4 MG (ZOFRAN) ORAL DISSOLVE TAB PO PRN (08:45)
[2022-06-04] MEDS ORDERED: LIDOCAINE UROJET 2% GEL 10 ML PKG TOP ONE (08:45)
[2022-06-04] MEDS ORDERED: ANTACID SUSP 30 ML UDC (MYLANTA) PO PRN (08:45)
[2022-06-04] MEDS ORDERED: ACETAMINOPHEN 325 MG TABLET PO PRN (08:45)
[2022-06-04] MEDS ORDERED: BISACODYL 10 MG SUPP (DULCOLAX) PR PRN (08:45)
[2022-06-04] MEDS ORDERED: diphenhydrAMINE 50 MG/ML INJ (BENADRYL) IVP PRN (08:45)
[2022-06-04] MEDS ORDERED: MELATONIN 3 MG TABLET PO PRN (08:45)
[2022-06-04] MEDS ORDERED: NS IV 1000 ML 1,000 ML IV SCH (08:45)
[2022-06-04] MEDS ORDERED: ONDANSETRON 4 MG/2 ML (SDV) Z0FRAN IV PRN (08:45)
[2022-06-04] MEDS ORDERED: LACTULOSE SYRUP 10GM/15ML (ENULOSE) 30ML UDC PO PRN (08:45)
[2022-06-04] MEDS ORDERED: polyethylene glycoL POWDER 17 GM (MIRALAX) PACK PO PRN (08:45)
[2022-06-04] MEDS ORDERED: MILK OF MAGNESIA 400 MG/5 ML 30 ML UDC PO PRN (08:45)
[2022-06-04] MEDS ORDERED: NS IV 500 ML 500 ML IV PRN (08:45)
[2022-06-04] MEDS ORDERED: HYDROmorphone 2 MG/ML VIAL (DILAUDID) IV PRN (08:45)
[2022-06-04] MEDS ORDERED: CEFEPIME INJECTION 2,000 MG in NS (IVPB) 50 ML IV SCH (09:00)
[2022-06-04] MEDS: SENNOSIDES 8.6 MG (SENOKOT) TAB PO SCH ×2 (11:45→18:25)
[2022-06-04] MEDS: DOCUSATE SODIUM 100 MG (COLACE) CAP PO SCH ×2 (11:45→18:25)
--- NOTE | 2022-06-04 11:56 | History & Physical ---
History of Present Illness HPI/Chief Complaint Chief complaint: Acute respiratory failure with hypercapnia HPI: This is a 71-year-old male who presented to [place] after transferred to higher level care from [facility] due to no ICU bed available last n ight he was admitted on BiPAP with antibiotics empirically placed and IV steroids. No other details are obtainable. Patient remains on BiPAP currently. Updated son. High risk for intubation. Super morbid obesity of 64. Source: RN/MD, old records Exam Limitations: clinical condition Date Seen 06/04/22 Time Seen by a Provider: 10:00 Attending Physician Ellen Sotelo MD PCP Admitting Physician: Niecy Cano DO Attending Physician: Niecy Cano DO Referring Physician Date of Admission Jun 04, 2022 at 11:22 Home Medications & Allergies Home Medications Reviewed patient Home Medication Reconciliation performed by pharmacy medication reconciliations arcade game technician and/or nursing. Patients Allergies have been reviewed. Allergies Allergies Coded Allergies No Known Drug Allergies (Unverified08/24/18) Past Cuurohj-Uomdjl-Xmrdpk Hx Past Med/Social Hx: Reviewed Nursing Past Med/Soc Hx, Reviewed and Corrections made Patient Social History Marrital Status: single Employed/Student: retired [employer] Smoke Exposure: No Recent Hopitalizations: No Seasonal Allergies Seasonal Allergies: No Past Medical History Surgeries: Appendectomy Respiratory: Pneumonia, Sleep Apnea Cardiac: Atrial Fibrillation, Chronic Edema/Swelling, Hypertension Genitourinary: Benign Prostatic Hyperpl, Kidney Stones Gastrointestinal: Gastroesophageal Reflux Musculoskeletal: Arthritis, Gout Psychosocial: Anxiety History of Blood Disorders: No Family History No Pertinent Family Hx No none heart of premature cardiac disease or Review of Systems ROS-Unable to Obtain: On BiPAP critically ill Constitutional: see HPI Physical Exam Physical Exam Vital Signs Vital Signs - First Documented 06/04/22 06/04/22 11:25 11:30 Temp 36.1 Pulse 67 Resp 20 B/P (MAP) 107/59 (75) Pulse Ox 100 O2 Delivery NIV Bilevel O2 Flow Rate 35.00 FiO2 35 Capillary Refill : Height, Weight, BMI Height: 5'6.00" Weight: 340lbs. oz. 154.366528ta; 65.00 BMI Method:Stated General Appearance: WD/WN, Anxious, Chronically ill, Moderate Distress, Obese Respiratory: No Respiratory Distress, Accessory Muscle Use, Decreased Breath Sounds Cardiovascular: Regular Rate, Rhythm Neurologic/Psychiatric: Alert, Depressed Affect, Disoriented Results Results/Procedures Labs Laboratory Tests 06/04/22 11:55 Patient resulted labs reviewed. Assessment/Plan Admission Diagnosis Assessment: Acute hypoxic and hypercapnic respiratory failure Pneumonia Congestive heart failure Obesity hypoventilation syndrome Presumed NGOZI Hypertension Super morbid obesity Gout Hyperlipidemia Chronic kidney disease Diabetes Plan: BiPAP ICU Dr. Fried consult Echo IV antibiotics Admission Status: Inpatient Order (span 2 midnights) Reason for Inpatient Admission: Respiratory failure Diagnosis/Problems Diagnosis/Problems (1) RESPIRATORY FAILURE, UNSP, UNSP W HYPOXIA OR HYPERCAPNIA (2) Acute on chronic heart failure with preserved ejection fraction (HFpEF) (3) Hypoxia Status: Acute (4) Acute kidney injury superimposed on chronic kidney disease (5) CHF exacerbation (6) Diastolic heart failure of unknown etiology Status: Acute (7) Stage 3a chronic kidney disease NIECY CANO DO Jun 04, 2022 11:56
--- NOTE | 2022-06-04 12:01 | Diagnostic Imaging Report ---
INDICATION: Shortness of air. COMPARISON: 06/01/2022. FINDINGS: Enlargement of the heart is similar to the prior. No overt failure pattern. There is limited inspiratory volume crowding the lung markings. No focal consolidation, effusion, or pneumothorax. IMPRESSION: Prominence of the heart is stable. No consolidation or acute pleural pathology. Dictated by: Dictated on workstation # [id number]
[2022-06-04 12:16] LABS: BASOPHILS % (AUTO) 0 % (0-10); EOSINOPHILS % (AUTO) 0 % (0-10); HEMATOCRIT 28 % (40-54); HEMOGLOBIN 8.5 g/dL (13.3-17.7); LYMPHOCYTES # (AUTO) 0.8 10^3/uL (1.0-4.0); LYMPHOCYTES % (AUTO) 7 % (12-44); MEAN CORPUSCULAR HEMOGLOBIN 26 pg (25-34); MEAN CORPUSCULAR HGB CONC 30 g/dL (32-36); MEAN CORPUSCULAR VOLUME 86 fL (80-99); MEAN PLATELET VOLUME 9.4 fL (9.0-12.2); MONOCYTES # (AUTO) 0.1 10^3/uL (0.0-1.0); MONOCYTES % (AUTO) 1 % (0-12); NEUTROPHILS # (AUTO) 9.4 10^3/uL (1.8-7.8); NEUTROPHILS % (AUTO) 89 % (42-75); PLATELET COUNT 211 10^3/uL (130-400); WHITE BLOOD COUNT 10.6 10^3/uL (4.3-11.0)
[2022-06-04 12:17] LABS: ALBUMIN 3.6 GM/DL (3.2-4.5)
[2022-06-04 12:18] LABS: POTASSIUM 4.7 MMOL/L (3.6-5.0)
[2022-06-04 12:19] LABS: CALCIUM 9.1 MG/DL (8.5-10.1)
[2022-06-04 12:20] LABS: TOTAL PROTEIN 7.1 GM/DL (6.4-8.2)
[2022-06-04 12:22] LABS: BILIRUBIN,TOTAL 0.5 MG/DL (0.1-1.0)
[2022-06-04 12:24] LABS: CREATININE SERUM 1.84 MG/DL (0.60-1.30)
[2022-06-04] MEDS: methylPREDNISolone 40 MG/ML (Solu-MEDROL) VIAL IV SCH ×2 (12:26→17:57)
[2022-06-04] MEDS: inSUlin ASPART (NovoLOG) 1 UNIT/0.01 ML (CHARGE PER UNIT) SC SCH ×3 (12:26→21:04)
[2022-06-04] MEDS: PANTOPRAZOLE 40 MG (PROTONIX) TAB PO SCH (12:26)
[2022-06-04 12:46] LABS: BAND NEUTROPHILS 3 %; BASOPHILS % (MANUAL) 0 %; EOSINOPHILS % (MANUAL) 0 %; LYMPHOCYTES % (MANUAL) 6 %; MONOCYTES % (MANUAL) 1 %; NEUTROPHILS % (MANUAL) 90 %
[2022-06-04 12:47] LABS: ANISOCYTOSIS SLIGHT
--- NOTE | 2022-06-04 13:37 | Tele-ICU Consult ---
History of Present Illness History of Present Illness Date Seen by Provider: Jun 04, 2022 Time Seen by Provider: 15:45 History of Present Illness (Tele-ICU Physician , consultation) Available chart/ vitals / labs / Images reviewed H&P is from ER notes Patient's information available about PMH, allergy reviewed in EMR. ROS as per chart and RN report Video assessment done using teleICU camera, rest of exam as per RN Discussed with RN. He is a 71-year-old male with past medical history of super morbid obesity with a BMI of 64 admitted at the [facility] emergency room where he is found to have respiratory distress and hypercarbic respiratory failure requiring BiPAP ventilation. He needed an ICU bed but in that hospital there were no ICU beds available hence he is transferred to via [facility] in [place]. I am seeing this patient in the intensive care unit via video visit. He is unable to give any detailed history. I have a limited history available through the EMR. Upon review of few labs that is available from [facility] he does have a chronic anemia as well as elevated BUN and creatinine which are 57 and a 1.84 however it is not clear whether it is a chronic or acute. His blood gas revealed a pH of 7.29 PCO2 72 PO2 85 oxygen saturation is 95 on 40% FiO2. Impression 1. Acute on chronic hypercarbic respiratory failure due to possibly contributed by his obstructive sleep apnea and possibly an upper respiratory tract infection versus pneumonia. 2. Super morbid obesity 3. Bibasilar subsegmental atelectasis with low lung volumes. 4. Anemia chronic with a hemoglobin of 8.2 5. Acute on chronic kidney disease possibly. Recommendations 1. Continue BiPAP ventilation and monitor blood gases. 2. I will order a procalcitonin 3. We will give him empirically IV antibiotics 4. We will bronchodilators. 5. Hydrate patient with normal saline 6. DVT prophylaxis and ulcer prophylaxis 7. Monitor BUN/creatinine and hemoglobin. Plans incoordination with bedside consultants and IM MDs Allergies and Home Medications Allergies Coded Allergies: No Known Drug Allergies (Unverified , 08/24/18) Home Medications Albuterol Sulfate 90 Mcg Hfa.aer.ad, 2 PUFF INH Q4H PRN for SHORTNESS OF BREATH, (Reported) Allopurinol 300 Mg Tablet, 300 MG PO DAILY, (Reported) Alprazolam 0.5 Mg Tablet, 0.5 MG PO BID PRN for ANXIETY, (Reported) Amlodipine Besylate 10 Mg Tablet, 10 MG PO HS, (Reported) Finasteride 5 Mg Tablet, 5 MG PO DAILY, (Reported) Furosemide 40 Mg Tablet, 40 MG PO BID, (Reported) Furosemide 80 Mg Tablet, 80 MG PO BID Prescribed by: STEPHON LAN on 06/01/22 1354 Ibuprofen 200 Mg Tablet, 400-600 MG PO Q8H PRN for PAIN-MILD (1-4), (Reported) Lisinopril 20 Mg Tablet, 20 MG PO BID, (Reported) Meclizine HCl 25 Mg Tablet, 25 MG PO TID PRN for DIZZINESS, (Reported) Metolazone 2.5 Mg Tablet, 2.5 MG PO Q48H, (Reported) Ondansetron 4 Mg Tab.rapdis, 4 MG SL Q8H PRN for NAUSEA/VOMITING, (Reported) Potassium Chloride 20 Meq Tab.er.prt, 20 MEQ PO BID, (Reported) Potassium Chloride 20 Meq Tablet.er, 40 MEQ PO BID Prescribed by: STEPHON LAN on 06/01/22 1354 Tamsulosin HCl 0.4 Mg Cap, 0.8 MG PO HS, (Reported) TAKES 2 (0.4MG) CAPS Tramadol HCl 50 Mg Tablet, 100 MG PO TID PRN for PAIN-MODERATE (5-7), (Reported) TAKES 2 (50MG) TABS Triamcinolone Acet 0.1 % Cr, 1 APPLIC TP BID, (Reported) Past Medical/Social/Family Hx Immunizations Up To Date First/Initial COVID19 Vaccinat: YES Current Status Primary Language: German Family Medical History Family Hx: No none heart of premature cardiac disease or Review of Systems Constitutional: see HPI Focused Exam Height, Weight, BMI Height: 5'6.00" Weight: 340lbs. oz. 154.574097pq; 65.00 BMI Method:Stated Exam Exam Patient acknowledged, consented, and participated in this virtual visit which was conducted using real time audio/video Vital Signs Date Time Temp Pulse Resp B/P (MAP) Pulse Ox O2 Delivery O2 Flow Rate FiO2 06/04/22 12:58 68 06/04/22 11:44 67 06/04/22 11:34 66 20 96 35.00 Height & Weight Height: 5'6.00" Weight: 340lbs. oz. 154.104442tu; 65.00 BMI Method:Stated General Appearance: Moderate Distress Other comments PE PER RN Results Lab Laboratory Tests 06/04/22 11:55 Assessment/Plan Assessment/Plan as above Critical Care: Critically Ill Patient Time spent with patient (mins): 40 TOMASZ ALEGRIA MD Jun 04, 2022 13:37
[2022-06-04 13:56] VITALS: BP 107/59
[2022-06-04] MEDS ORDERED: RT-ALBUTEROL/IPRATROPIUM 3 ML (DUONEB) VIAL INH PRN (14:15)
[2022-06-04 14:44] VITALS: BP 121/51
[2022-06-04 14:51] VITALS: BP 121/51
[2022-06-04] MEDS ORDERED: ONDA4TAB11 SL (16:14)
[2022-06-04] MEDS ORDERED: TR1C15 TP (16:14)
[2022-06-04] MEDS ORDERED: ALBU6.7H13 INH (16:32)
[2022-06-04] MEDS ORDERED: RIVAROXABAN 20 MG TABLET (XARELTO) PO SCH (17:00)
[2022-06-04] MEDS: CEFEPIME 1,000 MG/NS 50 ML IVPB IV SCH ×2 (17:58)
[2022-06-04 19:28] VITALS: BP 121/51
[2022-06-04] MEDS: RT-ALBUTEROL/IPRATROPIUM 3 ML (DUONEB) VIAL INH SCH ×2 (19:55→22:47)
[2022-06-04 22:52] VITALS: BP 137/87
[2022-06-04] MEDS ORDERED: LIDOCAINE UROJET 2% GEL 10 ML PKG ONE (23:56)
[2022-06-05] MEDS: CEFEPIME 1,000 MG/NS 50 ML IVPB IV SCH ×8 (00:41→18:37)
[2022-06-05] MEDS: methylPREDNISolone 40 MG/ML (Solu-MEDROL) VIAL IV SCH ×4 (00:41→18:37)
[2022-06-05 02:37] VITALS: BP 139/61
--- NOTE | 2022-06-05 05:01 | Progress Note ---
Subjective Date Seen by a Provider: Jun 05, 2022 Time Seen by a Provider: 05:00 Subjective/Events-last exam Patient up in a chair sleeping with BiPAP on Held oral anticoagulation due to hematuria Jiang catheter removed due to uncomfortable feeling and now he is voiding well Dr. Fried consult appreciated Checked meds and labs Echo done No other concerns Objective Exam Last Set of Vital Signs Vital Signs Date Time Temp Pulse Resp B/P (MAP) Pulse Ox O2 Delivery O2 Flow Rate FiO2 06/05/22 04:13 NIV Bilevel 35 06/05/22 04:00 68 11 147/68 (94) 92 35.00 06/05/22 00:00 36.8 Capillary Refill : NONE I&O Intake and Output 06/04/22 23:59 Intake Total 120 ml Output Total 665 ml Balance -545 ml Intake Oral 120 ml Output Urine Total 665 ml Daily Weight Change No General: Other (Asleep in a chair with BiPAP) Lungs: Clear to Auscultation Heart: Regular Rate Results Lab Laboratory Tests 06/04/22 11:55: White Blood Count 10.6, Red Blood Count 3.28L, Hemoglobin 8.5L, Hematocrit 28L, Mean Corpuscular Volume 86, Mean Corpuscular Hemoglobin 26, Mean Corpuscular Hemoglobin Concent 30L, Red Cell Distribution Width 17.4H, Platelet Count 211, Mean Platelet Volume 9.4, Immature Granulocyte % (Auto) 3, Neutrophils (%) (Au to) 89H, Lymphocytes (%) (Auto) 7L, Monocytes (%) (Auto) 1, Eosinophils (%) (Auto) 0, Basophils (%) (Auto) 0, Neutrophils # (Auto) 9.4H, Lymphocytes # (Auto) 0.8L, Monocytes # (Auto) 0.1, Eosinophils # (Auto) 0.0, Basophils # (Auto) 0.0, Immature Granulocyte # (Auto) 0.3H, Neutrophils % (Manual) 90, Lymphocytes % (Manual) 6, Monocytes % (Manual) 1, Eosinophils % (Manual) 0, Basophils % (Manual) 0, Band Neutrophils 3, Anisocytosis SLIGHT, Sodium Level 139, Potassium Level 4.7, Chloride Level 98, Carbon Dioxide Level 26, Anion Gap 15H, Blood Urea Nitrogen 55H, Creatinine 1.84H, Estimat Glomerular Filtration Rate 38, BUN/Creatinine Ratio 30, Glucose Level 143H, Calcium Level 9.1, Corrected Calcium 9.4, Total Bilirubin 0.5, Aspartate Amino Transf (AST/SGOT) 16, Alanine Aminotransferase (ALT/SGPT) 16, Alkaline Phosphatase 85, Total Protein 7.1, Albumin 3.6 06/04/22 12:24: Glucometer 130H 06/04/22 15:46: Glucometer 129H Assessment/Plan Assessment/Plan Assess & Plan/Chief Complaint Assessment: Acute hypoxic and hypercapnic respiratory failure Pneumonia Congestive heart failure Obesity hypoventilation syndrome Presumed NGOZI Hypertension Super morbid obesity Gout Hyperlipidemia Chronic kidney disease Diabetes Hematuria holding oral anticoagulation Plan: BiPAP ICU Dr. Fried consult Echo IV antibiotics empirically Hold anticoagulation due to hematuria Diagnosis/Problems Diagnosis/Problems (1) RESPIRATORY FAILURE, UNSP, UNSP W HYPOXIA OR HYPERCAPNIA (2) Acute on chronic heart failure with preserved ejection fraction (HFpEF) (3) Hypoxia Status: Acute (4) Acute kidney injury superimposed on chronic kidney disease (5) CHF exacerbation (6) Diastolic heart failure of unknown etiology Status: Acute (7) Stage 3a chronic kidney disease LONNY ORELLANA DO Jun 05, 2022 05:01
[2022-06-05] MEDS ORDERED: KCL 20 MEQ TAB (K-DUR) PO SCH (06:00)
[2022-06-05] MEDS ORDERED: POTASSIUM CL 10MEQ/50ML IVPB 50 ML IV SCH (06:00)
[2022-06-05] MEDS ORDERED: MAGNESIUM 1 GM/100 ML IVPB 100 ML IV SCH (06:00)
--- NOTE | 2022-06-05 06:22 | Diagnostic Imaging Report ---
INDICATION: Dyspnea. Comparison is made with prior examination of 06/04/2022. FINDINGS: There is generalized cardiomegaly and mild central pulmonary venous congestion. The mediastinal configuration is unremarkable. There is no pleural effusion, pneumothorax, or pneumonia. The visualized osseous structures are unremarkable. IMPRESSION: Cardiomegaly and mild central pulmonary venous congestion. Dictated by: Dictated on workstation # [id number]
[2022-06-05 06:31] LABS: BASOPHILS % (AUTO) 0 % (0-10); EOSINOPHILS % (AUTO) 0 % (0-10); HEMATOCRIT 26 % (40-54); LYMPHOCYTES # (AUTO) 0.9 10^3/uL (1.0-4.0); LYMPHOCYTES % (AUTO) 8 % (12-44); MEAN CORPUSCULAR HEMOGLOBIN 26 pg (25-34); MEAN CORPUSCULAR HGB CONC 30 g/dL (32-36); MEAN CORPUSCULAR VOLUME 85 fL (80-99); MEAN PLATELET VOLUME 9.2 fL (9.0-12.2); MONOCYTES # (AUTO) 0.2 10^3/uL (0.0-1.0); MONOCYTES % (AUTO) 2 % (0-12); NEUTROPHILS % (AUTO) 88 % (42-75); PLATELET COUNT 206 10^3/uL (130-400); WHITE BLOOD COUNT 11.3 10^3/uL (4.3-11.0)
[2022-06-05 06:53] LABS: ALBUMIN 3.3 GM/DL (3.2-4.5); POTASSIUM 4.6 MMOL/L (3.6-5.0)
[2022-06-05 06:54] LABS: CALCIUM 8.8 MG/DL (8.5-10.1)
[2022-06-05 06:56] LABS: TOTAL PROTEIN 6.6 GM/DL (6.4-8.2)
[2022-06-05 06:57] LABS: BILIRUBIN,TOTAL 0.5 MG/DL (0.1-1.0)
[2022-06-05 06:59] LABS: CREATININE SERUM 1.95 MG/DL (0.60-1.30); PHOSPHORUS 4.4 MG/DL (2.3-4.7)
[2022-06-05 07:02] LABS: MAGNESIUM 2.9 MG/DL (1.6-2.4)
[2022-06-05] MEDS: inSUlin ASPART (NovoLOG) 1 UNIT/0.01 ML (CHARGE PER UNIT) SC SCH ×4 (07:03→21:15)
[2022-06-05 07:12] VITALS: BP 134/78
[2022-06-05] MEDS: RT-ALBUTEROL/IPRATROPIUM 3 ML (DUONEB) VIAL INH SCH ×5 (07:12→21:56)
--- NOTE | 2022-06-05 08:27 | Tele-ICU Progress Note ---
Subjective Date Seen by a Provider: Jun 05, 2022 Time Seen by a Provider: 10:22 Subjective/Events-last exam (Tele-ICU Physician , Progress note) Available chart/ vitals / labs / Images reviewed H&P is from ER notes Patient's information available about PMH, allergy reviewed in EMR. ROS as per chart and RN report Video assessment done using teleICU camera, rest of exam as per RN Discussed with RN. He is a 71-year-old male with past medical history of super morbid obesity with a BMI of 64 admitted at the [facility] emergency room where he is found to have respiratory distress and hypercarbic respiratory failure requiring BiPAP ventilation. He needed an ICU bed but in that hospital there were no ICU beds available hence he is transferred to via [facility] in [place]. I am seeing this patient in the intensive care unit via video visit. He is unable to give any detailed history. I have a limited history available through the EMR. Upon review of few labs that is available from [facility] he does have a chronic anemia as well as elevated BUN and creatinine which are 57 and a 1.84 however it is not clear whether it is a chronic or acute. His blood gas revealed a pH of 7.29 PCO2 72 PO2 85 oxygen saturation is 95 on 40% FiO2. 06/05/22 today he is breathing better, but bun creatinine increased. Procal slightly increased Impression 1. Acute on chronic hypercarbic respiratory failure due to possibly contributed by his obstructive sleep apnea and possibly an upper respiratory tract infection versus pneumonia. 2. Super morbid obesity 3. Bibasilar subsegmental atelectasis with low lung volumes. 4. Anemia chronic with a hemoglobin of 8.2 5. Acute on chronic kidney disease possibly. Recommendations 1. Continue BiPAP ventilation and wean as tolerated 2. Continue antibiotics per Primary MD 3. We will give fluid bolus 1 litre NS 4. We will continue steroids and bronchodilators. 5. Hydrate patient with normal saline 6. DVT prophylaxis and ulcer prophylaxis 7. Monitor BUN/creatinine and hemoglobin. Plans incoordination with bedside consultants and IM MDs Sepsis Event Evaluation Height, Weight, BMI Height: 5'6.00" Weight: 340lbs. oz. 154.920069uk; 63.97 BMI Method:Stated Exam Exam Patient acknowledged, consented, and participated in this virtual visit which was conducted using real time audio/video Vital Signs Date Time Temp Pulse Resp B/P (MAP) Pulse Ox O2 Delivery O2 Flow Rate FiO2 06/05/22 08:05 36.8 06/05/22 08:00 93 NIV Bilevel 35 06/05/22 08:00 77 10 130/112 (118) 94 NIV Bilevel 35.00 06/05/22 07:12 65 16 94 35.00 06/05/22 07:00 66 06/05/22 07:00 70 11 134/78 (96) 96 NIV Bilevel 35.00 06/05/22 06:00 75 36 139/65 (89) 94 NIV Bilevel 35.00 06/05/22 05:00 67 16 140/65 (90) 93 NIV Bilevel 35.00 06/05/22 04:13 NIV Bilevel 35 06/05/22 04:00 68 11 147/68 (94) 92 NIV Bilevel 35.00 06/05/22 03:00 69 17 139/97 (111) 94 NIV Bilevel 35.00 06/05/22 02:37 73 17 96 35.00 06/05/22 02:00 66 12 139/61 (87) 93 NIV Bilevel 35.00 06/05/22 01:14 NIV Bilevel 35 06/05/22 01:00 67 9 132/55 (80) 93 NIV Bilevel 35.00 06/05/22 01:00 67 06/05/22 00:00 73 17 153/57 (89) 97 NIV Bilevel 35.00 06/05/22 00:00 36.8 06/04/22 23:11 71 19 138/104 (115) 98 NIV Bilevel 35.00 06/04/22 22:52 68 28 96 35.00 06/04/22 22:00 70 13 137/87 (104) 95 NIV Bilevel 35.00 06/04/22 21:00 68 11 146/92 (110) 95 NIV Bilevel 35.00 06/04/22 20:10 36.7 06/04/22 20:00 85 121/97 (105) 98 NIV Bilevel 35.00 06/04/22 19:28 73 16 98 35.00 06/04/22 19:00 68 06/04/22 19:00 68 132/106 (115) NIV Bilevel 35.00 06/04/22 18:00 83 98 NIV Bilevel 35.00 06/04/22 17:00 70 140/89 (106) 98 NIV Bilevel 35.00 06/04/22 16:00 96 NIV Bilevel 35 06/04/22 16:00 66 164/98 (120) 96 NIV Bilevel 35.00 06/04/22 16:00 37.0 06/04/22 15:00 68 154/77 (102) 97 NIV Bilevel 35.00 06/04/22 14:51 70 16 98 35.00 06/04/22 14:44 65 21 97 35.00 06/04/22 14:00 60 121/51 (74) 92 NIV Bilevel 35.00 06/04/22 13:56 36.1 66 96 35 06/04/22 13:00 79 139/68 (91) 99 NIV Bilevel 35.00 06/04/22 12:58 68 06/04/22 12:00 64 129/66 (87) 98 NIV Bilevel 35.00 06/04/22 11:44 67 06/04/22 11:34 66 20 96 35.00 06/04/22 11:30 NIV CPAP 35 06/04/22 11:25 36.1 67 20 107/59 (75) 100 NIV Bilevel 35.00 I & O 06/05/22 07:00 Intake Total 220 ml Output Total 665 ml Balance -445 ml Height & Weight Height: 5'6.00" Weight: 340lbs. oz. 154.412705pk; 63.97 BMI Method:Stated General Appearance: WD/WN, Anxious, Chronically ill, Moderate Distress, Obese Respiratory: No Respiratory Distress, Accessory Muscle Use, Decreased Breath Sounds Cardiovascular: Regular Rate, Rhythm Capillary Refill: NONE Neurologic/Psychiatric: Alert, Depressed Affect, Disoriented Results Lab Laboratory Tests 06/04/22 11:55 06/05/22 06:15 Assessment/Plan Assessment/Plan as above Critical Care: Critically Ill Patient Time spent with patient (mins): 20 TOMASZ ALEGRIA MD Jun 05, 2022 08:27
[2022-06-05] MEDS ORDERED: NS IV 1000 ML 1,000 ML IV SCH (08:30)
[2022-06-05 09:33] LABS: ABG BASE EXCESS 8.1 MMOL/L (-2.5-2.5); ABG OXYGEN SATURATION 96 % (94-100); ABG PCO2 51 MMHG (35-45); ABG PH 7.42 (7.37-7.43); ABG PO2 88 MMHG (79-93); ABG TCO2 34.3 MMOL/L (21.0-31.0); ALLENS TEST YES-POS
[2022-06-05 09:34] LABS: INSPIRED O2 35%; PATIENT TEMP 36.8; VENTILATOR NO
[2022-06-05] MEDS: PANTOPRAZOLE 40 MG (PROTONIX) TAB PO SCH (09:43)
[2022-06-05] MEDS: SENNOSIDES 8.6 MG (SENOKOT) TAB PO SCH ×2 (09:43→21:14)
[2022-06-05] MEDS: DOCUSATE SODIUM 100 MG (COLACE) CAP PO SCH ×2 (09:43→21:14)
[2022-06-05] MEDS: NS IV 1000 ML 1,000 ML IV SCH ×2 (09:58→17:29)
--- NOTE | 2022-06-05 10:10 | Consultation-Cardiology ---
HPI-Cardiology Cardiology Consultation Date of Consultation 06/05/22 Date of Admission Time Seen by Provider: 10:05 Indication: Acute respiratory failure HPI 71-year-old gentleman with acute respiratory failure, maintained on BiPAP. He presented to [facility] and he was transferred to [facility]. He was having increasing dyspnea, diagnosed with pneumonia and started on empiric antibiotic and IV steroid. On my evaluation he was sitting in a chair, maintained on BiPAP. Still having dyspnea. No palpitation. No syncope. Home Medications & Allergies Allergies: Coded Allergies: No Known Drug Allergies (Unverified , 08/24/18) Home Medication List Reviewed: Yes IBZ-Mpamig-Zakowj Hx Patient Social History Marital Status: single Employed/Student: retired [employer] Smoke Exposure: No Recent Hopitalizations: No Have you traveled recently?: No Past Medical History Discussed below Family Medical History Significant Family History: No Pertinent Family Hx Review of Systems-General Review of Systems Constitutional: see HPI, malaise, weakness EENTM: see HPI Respiratory: see HPI, orthopnea, short of breath Cardiovascular: see HPI; No chest pain; edema; No Hx of Intervention, No palpitations, No syncope, No vascular heart diseas, No other Gastrointestinal: see HPI Musculoskeletal: see HPI Skin: see HPI Psychiatric/Neurological: See HPI Reviewed Test Results Reviewed Test Results Lab Laboratory Tests Test 06/04/22 11:55 06/04/22 12:24 06/04/22 15:46 06/05/22 06:15 Range/Units White Blood Count 10.6 11.3 H 4.3-11.0 10^3/uL Red Blood Count 3.28 L 3.10 L 4.30-5.52 10^6/uL Hemoglobin 8.5 L 8.0 L 13.3-17.7 g/dL Hematocrit 28 L 26 L 40-54 % Mean Corpuscular Volume 86 85 80-99 fL Mean Corpuscular Hemoglobin 26 26 25-34 pg Mean Corpuscular Hemoglobin Concent 30 L 30 L 32-36 g/dL Red Cell Distribution Width 17.4 H 17.8 H 10.0-14.5 % Platelet Count 211 206 130-400 10^3/uL Mean Platelet Volume 9.4 9.2 9.0-12.2 fL Immature Granulocyte % (Auto) 3 2 % Neutrophils (%) (Auto) 89 H 88 H 42-75 % Lymphocytes (%) (Auto) 7 L 8 L 12-44 % Monocytes (%) (Auto) 1 2 0-12 % Eosinophils (%) (Auto) 0 0 0-10 % Basophils (%) (Auto) 0 0 0-10 % Neutrophils # (Auto) 9.4 H 10.0 H 1.8-7.8 10^3/uL Lymphocytes # (Auto) 0.8 L 0.9 L 1.0-4.0 10^3/uL Monocytes # (Auto) 0.1 0.2 0.0-1.0 10^3/uL Eosinophils # (Auto) 0.0 0.0 0.0-0.3 10^3/uL Basophils # (Auto) 0.0 0.0 0.0-0.1 10^3/uL Immature Granulocyte # (Auto) 0.3 H 0.2 H 0.0-0.1 10^3/uL Neutrophils % (Manual) 90 % Lymphocytes % (Manual) 6 % Monocytes % (Manual) 1 % Eosinophils % (Manual) 0 % Basophils % (Manual) 0 % Band Neutrophils 3 % Anisocytosis SLIGHT Sodium Level 139 138 135-145 MMOL/L Potassium Level 4.7 4.6 3.6-5.0 MMOL/L Chloride Level 98 100 98-107 MMOL/L Carbon Dioxide Level 26 26 21-32 MMOL/L Anion Gap 15 H 12 5-14 MMOL/L Blood Urea Nitrogen 55 H 61 H 7-18 MG/DL Creatinine 1.84 H 1.95 H 0.60-1.30 MG/DL Estimat Glomerular Filtration Rate 38 36 BUN/Creatinine Ratio 30 31 Glucose Level 143 H 138 H 70-105 MG/DL Calcium Level 9.1 8.8 8.5-10.1 MG/DL Corrected Calcium 9.4 9.4 8.5-10.1 MG/DL Total Bilirubin 0.5 0.5 0.1-1.0 MG/DL Aspartate Amino Transf (AST/SGOT) 16 17 5-34 U/L Alanine Aminotransferase (ALT/SGPT) 16 14 0-55 U/L Alkaline Phosphatase 85 75 40-136 U/L Total Protein 7.1 6.6 6.4-8.2 GM/DL Albumin 3.6 3.3 3.2-4.5 GM/DL Glucometer 130 H 129 H 70-110 MG/DL Phosphorus Level 4.4 2.3-4.7 MG/DL Magnesium Level 2.9 H 1.6-2.4 MG/DL Procalcitonin 0.11 H <0.10 NG/ML Test 06/05/22 09:23 Range/Units Blood Gas Puncture Site R BRACHIAL Blood Gas Patient Temperature 36.8 Arterial Blood pH 7.42 7.37-7.43 Arterial Blood Partial Pressure CO2 51 H 35-45 MMHG Arterial Blood Partial Pressure O2 88 79-93 MMHG Arterial Blood HCO3 33 H 23-27 MMOL/L Arterial Blood Total CO2 34.3 H 21.0-31.0 MMOL/L Arterial Blood Oxygen Saturation 96 94-100 % Arterial Blood Base Excess 8.1 H -2.5-2.5 MMOL/L Miguel Angel Test YES-POS Blood Gas Ventilator Setting NO Blood Gas Inspired Oxygen 35% Physical Exam Physical Exam Vital Signs Vital Signs - First Documented 06/04/22 06/04/22 11:25 11:30 Temp 36.1 Pulse 67 Resp 20 B/P (MAP) 107/59 (75) Pulse Ox 100 O2 Delivery NIV Bilevel O2 Flow Rate 35.00 FiO2 35 Capillary Refill : NONE Height, Weight, BMI Height: 5'6.00" Weight: 340lbs. oz. 154.350111lr; 63.97 BMI Method:Stated General Appearance: WD/WN, Anxious, Chronically ill, Moderate Distress, Obese Eyes: Bilateral Eye Normal Inspection, Bilateral Eye PERRL, Bilateral Eye EOMI HEENT: PERRL/EOMI, TMs Normal, Normal ENT Inspection, Pharynx Normal, Moist Mucous Membranes Neck: Full Range of Motion, Normal Inspection, Non Tender, Supple, Carotid Bruit Respiratory: No Respiratory Distress, Accessory Muscle Use, Decreased Breath Sounds Cardiovascular: Regular Rate, Rhythm Gastrointestinal: Normal Bowel Sounds, No Organomegaly, No Pulsatile Mass, Non Tender, Soft Back: Normal Inspection, No CVA Tenderness, No Vertebral Tenderness Extremity: Normal Capillary Refill, Normal Inspection, Normal Range of Motion, Non Tender, No Calf Tenderness, Pedal Edema Neurologic/Psychiatric: Alert, Depressed Affect, Disoriented Skin: Normal Color, Warm/Dry Lymphatic: No Adenopathy A/P-Cardiology Admission Diagnosis Acute respiratory failure Acute exacerbation of COPD Acute on chronic left ventricular diastolic dysfunction Hypertension Assessment/Plan Acute hypercapnic respiratory failure, obesity hypoventilation syndrome Acute exacerbation of COPD, started on BiPAP, receiving antibiotics and steroids Continue to monitor Congestive heart failure, acute on chronic left ventricular diastolic dysfun ction, normal systolic function with ejection fraction 50 to 60% Still having significant peripheral edema, chronic venous stasis changes. Restart Lasix and monitor closely Paroxysmal atrial fibrillation. Currently in sinus rhythm. Patient was on Xarelto in the past, currently not taking it. I will restart Xarelto and monitor closely Anemia, monitor H&H Hypertension, continue to monitor blood pressure, restart home medication Chronic kidney disease stage III. Continue on diuretics and monitor closely Morbid obesity, BMI 64. YANG AGUILAR MD Jun 05, 2022 10:10
[2022-06-05] MEDS: FUROSEMIDE 40 MG/4 ML INJ (LASIX) IVP SCH ×2 (10:28→17:12)
[2022-06-05] MEDS: meTOprolol TARTRATE 25 MG (LOPRESSOR) TABLET PO SCH ×2 (10:28→21:14)
[2022-06-05 11:57] LABS: BILIRUBIN,URINE NEGATIVE (NEGATIVE); CLARITY,URINE CLEAR; COLOR,URINE YELLOW; GLUCOSE, URINE (UA) NEGATIVE (NEGATIVE); KETONES,URINE NEGATIVE (NEGATIVE); LEUKOCYTE ESTERASE ,URINE NEGATIVE (NEGATIVE); NITRITE,URINE NEGATIVE (NEGATIVE); PH,URINE 5.5 (5-9); PROTEIN,URINE TRACE (NEGATIVE)
[2022-06-05 12:10] LABS: BACTERIA,URINE TRACE /HPF; WBC,URINE 0-2 /HPF
[2022-06-05] MEDS: RIVAROXABAN 20 MG TABLET (XARELTO) PO SCH (17:12)
[2022-06-05 21:56] VITALS: BP 134/64
[2022-06-06] MEDS: methylPREDNISolone 40 MG/ML (Solu-MEDROL) VIAL IV SCH ×5 (00:01→23:25)
[2022-06-06] MEDS: CEFEPIME 1,000 MG/NS 50 ML IVPB IV SCH ×10 (00:01→23:26)
[2022-06-06 02:12] VITALS: BP 116/55
[2022-06-06] MEDS: RT-ALBUTEROL/IPRATROPIUM 3 ML (DUONEB) VIAL INH SCH ×6 (02:12→22:36)
[2022-06-06] MEDS: NS IV 1000 ML 1,000 ML IV SCH (04:50)
[2022-06-06 05:00] LABS: BASOPHILS % (AUTO) 0 % (0-10); EOSINOPHILS % (AUTO) 0 % (0-10); HEMATOCRIT 25 % (40-54); HEMOGLOBIN 7.6 g/dL (13.3-17.7); LYMPHOCYTES # (AUTO) 0.7 10^3/uL (1.0-4.0); LYMPHOCYTES % (AUTO) 8 % (12-44); MEAN CORPUSCULAR HEMOGLOBIN 25 pg (25-34); MEAN CORPUSCULAR HGB CONC 30 g/dL (32-36); MEAN CORPUSCULAR VOLUME 84 fL (80-99); MEAN PLATELET VOLUME 9.5 fL (9.0-12.2); MONOCYTES # (AUTO) 0.1 10^3/uL (0.0-1.0); MONOCYTES % (AUTO) 1 % (0-12); NEUTROPHILS # (AUTO) 8.9 10^3/uL (1.8-7.8); NEUTROPHILS % (AUTO) 90 % (42-75); PLATELET COUNT 189 10^3/uL (130-400); WHITE BLOOD COUNT 9.9 10^3/uL (4.3-11.0)
--- NOTE | 2022-06-06 05:09 | Progress Note ---
Subjective Date Seen by a Provider: Jun 06, 2022 Time Seen by a Provider: 05:00 Subjective/Events-last exam Patient doing a lot better More alert today Voiding well BiPAP at night helpful Creatinine 2.0 near baseline Reviewed meds and labs Review of Systems General: Fatigue, Malaise Pulmonary: Dyspnea Objective Exam Last Set of Vital Signs Vital Signs Date Time Temp Pulse Resp B/P (MAP) Pulse Ox O2 Delivery O2 Flow Rate FiO2 06/06/22 04:13 NIV Bilevel 35 06/06/22 04:00 36.6 71 18 125/67 (86) 93 06/06/22 02:12 35.00 Capillary Refill : NONE I&O Intake and Output 06/06/22 00:00 Intake Total 1800 ml Output Total 1425 ml Balance 375 ml Intake Oral 1650 ml IV Total 150 ml Output Urine Total 1425 ml # Voids 5 General: Alert, Oriented X3, Cooperative, No Acute Distress Lungs: Clear to Auscultation, Normal Air Movement Heart: Regular Rate, Normal S1, Normal S2, No Murmurs Neuro: Normal Gait, Normal Speech, Strength at 5/5 X4 Ext, Normal Tone Psych/Mental Status: Mental Status NL, Mood NL Results Lab Laboratory Tests 06/05/22 06:15: White Blood Count 11.3H, Red Blood Count 3.10L, Hemoglobin 8.0L, Hematocrit 26L, Mean Corpuscular Volume 85, Mean Corpuscular Hemoglobin 26, Mean Corpuscular Hemoglobin Concent 30L, Red Cell Distribution Width 17.8H, Platelet Count 206, Mean Platelet Volume 9.2, Immature Granulocyte % (Auto) 2, Neutrophils (%) (Auto) 88H, Lymphocytes (%) (Auto) 8L, Monocytes (%) (Auto) 2, Eosinophils (%) (Auto) 0, Basophils (%) (Auto) 0, Neutrophils # (Auto) 10.0H, Lymphocytes # (Auto) 0.9L, Monocytes # (Auto) 0.2, Eosinophils # (Auto) 0.0, Basophils # (Auto) 0.0, Immature Granulocyte # (Auto) 0.2H, Sodium Level 138, Potassium Level 4.6, Chloride Level 100, Carbon Dioxide Level 26, Anion Gap 12, Blood Urea Nitrogen 61H, Creatinine 1.95H, Estimat Glomerular Filtration Rate 36, BUN/Creatinine Ratio 31, Glucose Level 138H, Calcium Level 8.8, Corrected Calcium 9.4, Phosphorus Level 4.4, Magnesium Level 2.9H, Total Bilirubin 0.5, Aspartate Amino Transf (AST/SGOT) 17, Alanine Aminotransferase (ALT/SGPT) 14, Alkaline Phosphatase 75, Total Protein 6.6, Albumin 3.3, Procalcitonin 0.11H 06/05/22 09:23: Blood Gas Puncture Site R BRACHIAL, Blood Gas Patient Temperature 36.8, Arterial Blood pH 7.42, Arterial Blood Partial Pressure CO2 51H, Arterial Blood Partial Pressure O2 88, Arterial Blood HCO3 33H, Arterial Blood Total CO2 34.3H, Arterial Blood Oxygen Saturation 96, Arterial Blood Base Excess 8.1H, Miguel Angel Test YES-POS, Blood Gas Ventilator Setting NO, Blood Gas Inspired Oxygen 35% 06/05/22 10:55: Glucometer 141H 06/05/22 11:52: Urine Color YELLOW, Urine Clarity CLEAR, Urine pH 5.5, Urine Specific [place] 1.025H, Urine Protein TRACEH, Urine Glucose (UA) NEGATIVE, Urine Ketones NEGATIVE, Urine Nitrite NEGATIVE, Urine Bilirubin NEGATIVE, Urine Urobilinogen 0.2, Urine Leukocyte Esterase NEGATIVE, Urine RBC (Auto) 3+H, Urine RBC 10-25H, Urine WBC 0-2, Urine Squamous Epithelial Cells 2-5, Urine Crystals NONE, Urine Bacteria TRACE, Urine Casts NONE, Urine Mucus NEGATIVE, Urine Culture Indicated NO 06/05/22 15:50: Glucometer 140H 06/05/22 20:19: Glucometer 156H 06/06/22 04:10: Assessment/Plan Assessment/Plan Assess & Plan/Chief Complaint Assessment: Acute hypoxic and hypercapnic respiratory failure-resolved back to baseline requires BiPAP at night Pneumonia continue antibiotics until completion Congestive heart failure managed by cardiology Obesity hypoventilation syndrome will need Ventimask at discharge Presumed NGOZI Hypertension Super morbid obesity Gout Hyperlipidemia Chronic kidney disease Diabetes Hematuria previously holding oral anticoagulation Plan: BiPAP at night Transfer to fourth floor Dr. Fried consult appreciated Echo IV antibiotics Increase activity Diagnosis/Problems Diagnosis/Problems (1) RESPIRATORY FAILURE, UNSP, UNSP W HYPOXIA OR HYPERCAPNIA (2) Acute on chronic heart failure with preserved ejection fraction (HFpEF) (3) Hypoxia Status: Acute (4) Acute kidney injury superimposed on chronic kidney disease (5) CHF exacerbation (6) Diastolic heart failure of unknown etiology Status: Acute (7) Stage 3a chronic kidney disease LONNY ORELLANA DO Jun 06, 2022 05:09
[2022-06-06] MEDS ORDERED: MECLIZINE 25 MG (ANTIVERT) TAB PO PRN (05:15)
[2022-06-06 05:24] LABS: ALBUMIN 3.1 GM/DL (3.2-4.5); BILIRUBIN,TOTAL 0.4 MG/DL (0.1-1.0); CALCIUM 8.6 MG/DL (8.5-10.1); CREATININE SERUM 2.04 MG/DL (0.60-1.30); MAGNESIUM 2.6 MG/DL (1.6-2.4); POTASSIUM 3.7 MMOL/L (3.6-5.0); TOTAL PROTEIN 6.1 GM/DL (6.4-8.2)
[2022-06-06] MEDS: inSUlin ASPART (NovoLOG) 1 UNIT/0.01 ML (CHARGE PER UNIT) SC SCH ×4 (06:06→20:26)
[2022-06-06] MEDS: FUROSEMIDE 40 MG/4 ML INJ (LASIX) IVP SCH (06:39)
--- NOTE | 2022-06-06 08:05 | Tele-ICU Progress Note ---
Subjective Date Seen by a Provider: Jun 06, 2022 Time Seen by a Provider: 08:00 Subjective/Events-last exam He is a 71-year-old male with past medical history of super morbid obesity with a BMI of 64 admitted at the [facility] emergency room where he is found to have respiratory distress and hypercarbic respiratory failure requiring BiPAP ventilation. He needed an ICU bed but in that hospital there were no ICU beds available hence he is transferred to via [facility] in [place]. I am seeing this patient in the intensive care unit via video visit. He is unable to give any detailed history. I have a limited history available through the EMR. Upon review of few labs that is available from [facility] he does have a chronic anemia as well as elevated BUN and creatinine which are 57 and a 1.84 however it is not clear whether it is a chronic or acute. His blood gas revealed a pH of 7.29 PCO2 72 PO2 85 oxygen saturation is 95 on 40% FiO2. Currently on 2 lpm NC, not in resp dstress, last ABG 06/05 7.42/51/88 On IV Medrol, Lasix, IV Cefepime CXR shows no infiltrate but elevated diaphragms from obesity Sepsis Event Evaluation Height, Weight, BMI Height: 5'6.00" Weight: 340lbs. oz. 154.966126bk; 63.97 BMI Method:Stated Exam Exam Patient acknowledged, consented, and participated in this virtual visit which was conducted using real time audio/video Vital Signs Date Time Temp Pulse Resp B/P (MAP) Pulse Ox O2 Delivery O2 Flow Rate FiO2 06/06/22 06:10 95 Nasal Cannula 2.00 06/06/22 06:00 66 20 157/72 (100) 92 06/06/22 06:00 74 13 137/72 (93) 92 Nasal Cannula 3.00 06/06/22 05:10 Nasal Cannula 3.00 06/06/22 05:00 63 20 132/80 (97) 96 06/06/22 04:13 NIV Bilevel 35 06/06/22 04:00 36.6 71 18 125/67 (86) 93 06/06/22 03:00 67 20 116/48 (70) 98 06/06/22 02:12 60 17 95 35.00 06/06/22 02:00 61 18 116/55 (75) 96 06/06/22 01:00 61 06/06/22 01:00 61 18 126/67 (86) 93 06/06/22 00:00 NIV Bilevel 35 06/06/22 00:00 60 18 133/66 (88) 96 06/06/22 00:00 36.4 06/05/22 23:00 62 18 114/62 (79) 95 06/05/22 21:56 71 16 95 35.00 06/05/22 21:00 71 16 134/65 (88) 97 Nasal Cannula 3.00 06/05/22 20:35 NIV Bilevel 35 06/05/22 20:00 73 7 129/63 (85) 97 Nasal Cannula 3.00 06/05/22 19:46 36.9 06/05/22 19:37 90 Nasal Cannula 2.50 06/05/22 19:20 36.3 06/05/22 19:00 77 06/05/22 19:00 77 8 130/60 (83) 97 Nasal Cannula 3.00 06/05/22 18:00 79 22 92 Nasal Cannula 3.00 06/05/22 17:00 71 15 114/51 (72) 92 Nasal Cannula 3.00 06/05/22 16:06 36.5 06/05/22 16:00 95 Nasal Cannula 3.00 06/05/22 16:00 70 26 136/59 (84) 96 Nasal Cannula 3.00 06/05/22 15:00 72 18 100/62 (75) 92 Nasal Cannula 3.00 06/05/22 14:26 90 Nasal Cannula 2.50 06/05/22 14:00 86 20 102/60 (74) 91 Nasal Cannula 3.00 06/05/22 13:00 66 16 98/59 (72) 93 Nasal Cannula 3.00 06/05/22 12:35 66 06/05/22 12:14 37.2 06/05/22 12:00 67 23 132/70 (90) 92 Nasal Cannula 3.00 06/05/22 12:00 97 Nasal Cannula 3.00 06/05/22 12:00 95 Nasal Cannula 3.00 06/05/22 11:00 93 19 125/69 (87) 93 Nasal Cannula 3.00 06/05/22 10:00 Nasal Cannula 3.00 06/05/22 10:00 85 28 94 06/05/22 09:00 73 15 144/67 (92) 96 NIV Bilevel 35.00 06/05/22 08:05 36.8 I & O 06/06/22 07:00 Intake Total 2350 ml Output Total 2200 ml Balance 150 ml Height & Weight Height: 5'6.00" Weight: 340lbs. oz. 154.890489dr; 63.97 BMI Method:Stated General Appearance: WD/WN, Anxious, Chronically ill, Moderate Distress, Obese HEENT: PERRL/EOMI, TMs Normal, Normal ENT Inspection, Pharynx Normal, Moist Mucous Membranes Neck: Full Range of Motion, Normal Inspection, Non Tender, Supple, Carotid Bruit Respiratory: No Respiratory Distress, Accessory Muscle Use, Decreased Breath Sounds Cardiovascular: Regular Rate, Rhythm Capillary Refill: NONE Gastrointestinal: normal bowel sounds, non tender Extremity: Normal Capillary Refill, Normal Inspection, Normal Range of Motion, Non Tender, No Calf Tenderness, Pedal Edema Neurologic/Psychiatric: Alert, Depressed Affect, Disoriented Skin: Normal Color, Warm/Dry Lymphatic: No Adenopathy Results Lab Laboratory Tests 06/04/22 11:55 06/05/22 06:15 06/06/22 04:10 Assessment/Plan Assessment/Plan Hypercarbic resp failure form obesity, will continue on 2 lpm NC CKD Cr 2, Critical Care: Critically Ill Patient Time spent with patient (mins): 25 GILBERT WILDER MD Jun 06, 2022 08:05
[2022-06-06] MEDS: ALLOPURINOL 300 MG (ZYLOPRIM) TAB PO SCH (08:10)
[2022-06-06] MEDS: meTOprolol TARTRATE 25 MG (LOPRESSOR) TABLET PO SCH ×2 (08:10→20:25)
[2022-06-06] MEDS: PANTOPRAZOLE 40 MG (PROTONIX) TAB PO SCH (08:10)
[2022-06-06] MEDS: SENNOSIDES 8.6 MG (SENOKOT) TAB PO SCH ×2 (08:10→20:25)
[2022-06-06] MEDS: DOCUSATE SODIUM 100 MG (COLACE) CAP PO SCH ×2 (08:10→20:25)
[2022-06-06] MEDS: FINASTERIDE (PROSCAR) 5 MG TAB PO SCH (08:11)
[2022-06-06] MEDS: ALPRAZolam 0.5 MG (XANAX) TAB PO PRN ×2 (08:12→23:35)
--- NOTE | 2022-06-06 11:42 | Cardiology Progress Note ---
Subjective Date Seen by Provider: Jun 06, 2022 Time Seen by Provider: 11:41 Subjective/Events-last exam Patient was seen at bedside, sitting comfortably, feeling better. No new complain Review of Systems General: No Chills, No Night Sweats, No Fatigue, No Malaise, No Appetite, No Other HEENT: No Head Aches, No Visual Changes, No Eye Pain, No Ear Pain, No Dysphasia, No Sinus Congestion, No Post Nasal Drip, No Sore Throat, No Other Pulmonary: No Dyspnea, No Cough, No Pleuritic Chest Pain, No Other Cardiovascular: Edema; No: Chest Pain, Palpitations, Orthopnea, Paroxysmal Noc. Dyspnea, Lt Headedness, Other Objective-Cardiology Exam Last Set of Vital Signs Vital Signs 06/06/22 06/06/22 04:13 11:24 Temp 37.0 Pulse 63 Resp 20 B/P (MAP) 119/65 (83) Pulse Ox 97 O2 Delivery Nasal Cannula O2 Flow Rate 3.00 FiO2 35 I&O Intake and Output 06/06/22 00:00 Intake Total 1800 ml Output Total 1425 ml Balance 375 ml Intake Oral 1650 ml IV Total 150 ml Output Urine Total 1425 ml # Voids 5 General: Alert, Oriented X3, Cooperative, No Acute Distress HEENT: Atraumatic Neck: Supple Lungs: Clear to Auscultation, Normal Air Movement Heart: Regular Rate, Normal S1, Normal S2, No Murmurs Extremities: No Clubbing Skin: No Rashes Neuro: Normal Gait, Normal Speech, Strength at 5/5 X4 Ext, Normal Tone Psych/Mental Status: Mental Status NL, Mood NL Results Lab Laboratory Tests 06/06/22 04:10 A/P-Cardiology Admission Diagnosis Acute respiratory failure Acute exacerbation of COPD Acute on chronic left ventricular diastolic dysfunction Hypertension Assessment/Plan Acute hypercapnic respiratory failure, obesity hypoventilation syndrome Acute exacerbation of COPD, started on BiPAP, receiving antibiotics and steroids Continue to monitor Congestive heart failure, acute on chronic left ventricular diastolic dysfunction, normal systolic function with ejection fraction 50 to 60% Still having significant peripheral edema, chronic venous stasis changes. I will change Lasix to 40 mg IV daily and monitor tolerance and response Acute on chronic renal insufficiency, chronic kidney disease stage III. Continue to monitor renal function closely Paroxysmal atrial fibrillation. Currently in sinus rhythm. Patient was on Xarelto in the past, currently not taking it. I will restart Xarelto and monitor closely Anemia, monitor H&H Morbid obesity, BMI 64. YANG AGUILAR MD Jun 06, 2022 11:42
[2022-06-06] MEDS: RIVAROXABAN 20 MG TABLET (XARELTO) PO SCH (17:31)
[2022-06-06] MEDS: TAMSULOSIN 0.4 MG (FLOMAX) CAP PO SCH (20:25)
[2022-06-07] VITALS (9 sets, daily range): BP systolic 83–166; BP diastolic 59–79
[2022-06-07] MEDS: RT-ALBUTEROL/IPRATROPIUM 3 ML (DUONEB) VIAL INH SCH ×5 (02:25→21:46)
[2022-06-07] MEDS: inSUlin ASPART (NovoLOG) 1 UNIT/0.01 ML (CHARGE PER UNIT) SC SCH ×4 (05:01→20:43)
[2022-06-07] MEDS: methylPREDNISolone 40 MG/ML (Solu-MEDROL) VIAL IV SCH ×4 (05:16→23:25)
[2022-06-07] MEDS: CEFEPIME 1,000 MG/NS 50 ML IVPB IV SCH ×8 (05:16→23:26)
[2022-06-07 07:09] LABS: BASOPHILS % (AUTO) 0 % (0-10); EOSINOPHILS % (AUTO) 0 % (0-10); HEMATOCRIT 27 % (40-54); HEMOGLOBIN 8.2 g/dL (13.3-17.7); LYMPHOCYTES # (AUTO) 0.7 10^3/uL (1.0-4.0); LYMPHOCYTES % (AUTO) 7 % (12-44); MEAN CORPUSCULAR HEMOGLOBIN 26 pg (25-34); MEAN CORPUSCULAR HGB CONC 30 g/dL (32-36); MEAN CORPUSCULAR VOLUME 84 fL (80-99); MEAN PLATELET VOLUME 8.9 fL (9.0-12.2); MONOCYTES # (AUTO) 0.2 10^3/uL (0.0-1.0); MONOCYTES % (AUTO) 2 % (0-12); NEUTROPHILS # (AUTO) 8.5 10^3/uL (1.8-7.8); NEUTROPHILS % (AUTO) 89 % (42-75); PLATELET COUNT 180 10^3/uL (130-400); WHITE BLOOD COUNT 9.6 10^3/uL (4.3-11.0)
--- NOTE | 2022-06-07 07:20 | Progress Note ---
Subjective Date Seen by a Provider: Jun 07, 2022 Time Seen by a Provider: 10:00 Subjective/Events-last exam Much improved Alert and sitting in chair visiting with family Updated patient and family on the plan and results No pain reported BiPAP at night Review of Systems General: Fatigue, Malaise Objective Exam Last Set of Vital Signs Vital Signs Date Time Temp Pulse Resp B/P (MAP) Pulse Ox O2 Delivery O2 Flow Rate FiO2 06/07/22 07:06 Nasal Cannula 3.00 06/07/22 03:33 36.5 76 16 135/67 (89) 95 06/06/22 04:13 35 Capillary Refill : NONE I&O Intake and Output 06/07/22 00:00 Intake Total 1850 ml Output Total 1850 ml Balance 0 ml Intake Oral 1750 ml IV Total 100 ml Output Urine Total 1850 ml # Voids 1 General: Alert, Oriented X3, Cooperative, No Acute Distress Lungs: Clear to Auscultation, Normal Air Movement Heart: Regular Rate, Normal S1, Normal S2, No Murmurs Psych/Mental Status: Mental Status NL, Mood NL Results Lab Laboratory Tests 06/06/22 11:26: Glucometer 164H 06/06/22 15:51: Glucometer 135H 06/06/22 20:17: Glucometer 136H 06/07/22 04:56: Glucometer 146H 06/07/22 07:04: White Blood Count 9.6, Red Blood Count 3.22L, Hemoglobin 8.2L, Hematocrit 27L, Mean Corpuscular Volume 84, Mean Corpuscular Hemoglobin 26, Mean Corpuscular Hemoglobin Concent 30L, Red Cell Distribution Width 17.5H, Platelet Count 180, Mean Platelet Volume 8.9L, Immature Granulocyte % (Auto) 2, Neutrophils (%) (Auto) 89H, Lymphocytes (%) (Auto) 7L, Monocytes (%) (Auto) 2, Eosinophils (%) (Auto) 0, Basophils (%) (Auto) 0, Neutrophils # (Auto) 8.5H, Lymphocytes # (Auto) 0.7L, Monocytes # (Auto) 0.2, Eosinophils # (Auto) 0.0, Basophils # (Auto) 0.0, Immature Granulocyte # (Auto) 0.2H Assessment/Plan Assessment/Plan Assess & Plan/Chief Complaint Assessment: Acute hypoxic and hypercapnic respiratory failure-resolved back to baseline requires BiPAP at night Pneumonia continue antibiotics until completion Congestive heart failure managed by cardiology Obesity hypoventilation syndrome will need Ventimask at discharge Presumed NGOZI Hypertension Super morbid obesity Gout Hyperlipidemia Chronic kidney disease Diabetes Hematuria previously holding oral anticoagulation Plan: BiPAP at night Transfer to fourth floor Dr. Fried consult appreciated Echo IV antibiotics Increase activity Diagnosis/Problems Diagnosis/Problems (1) RESPIRATORY FAILURE, UNSP, UNSP W HYPOXIA OR HYPERCAPNIA (2) Acute on chronic heart failure with preserved ejection fraction (HFpEF) (3) Hypoxia Status: Acute (4) Acute kidney injury superimposed on chronic kidney disease (5) CHF exacerbation (6) Diastolic heart failure of unknown etiology Status: Acute (7) Stage 3a chronic kidney disease LONNY ORELLANA DO Jun 07, 2022 07:20
[2022-06-07 07:30] LABS: ALBUMIN 3.4 GM/DL (3.2-4.5); BILIRUBIN,TOTAL 0.5 MG/DL (0.1-1.0); CALCIUM 8.7 MG/DL (8.5-10.1); CREATININE SERUM 1.91 MG/DL (0.60-1.30); MAGNESIUM 2.7 MG/DL (1.6-2.4); POTASSIUM 3.7 MMOL/L (3.6-5.0); TOTAL PROTEIN 6.4 GM/DL (6.4-8.2)
[2022-06-07] MEDS: FINASTERIDE (PROSCAR) 5 MG TAB PO SCH (10:17)
[2022-06-07] MEDS: meTOprolol TARTRATE 25 MG (LOPRESSOR) TABLET PO SCH ×2 (10:17→20:43)
[2022-06-07] MEDS: PANTOPRAZOLE 40 MG (PROTONIX) TAB PO SCH (10:17)
[2022-06-07] MEDS: ALLOPURINOL 300 MG (ZYLOPRIM) TAB PO SCH (10:20)
[2022-06-07] MEDS: FUROSEMIDE 40 MG/4 ML INJ (LASIX) IVP SCH (10:20)
--- NOTE | 2022-06-07 10:48 | Physical Therapy Evaluation ---
PT Evaluation-General Medical Diagnosis Admission Date Jun 04, 2022 at 11:22 Medical Diagnosis: respiratory failure Onset Date: Jun 04, 2022 Therapy Diagnosis Therapy Diagnosis: debility/weakness Height/Weight Height (Feet): 5 Height (Inches): 6.00 Weight (Pounds): 340 Precautions Precautions/Isolations: Standard Precautions Referral Physician: Rachael Reason for Referral: Evaluation/Treatment Medical History Pertinent Medical History: Atrial Fib, Arthritis, DM, HTN Additional Medical History super morbid obese Current History transfer from [facility] due to respiratory failure Reviewed History: Yes Social History Home: Single Level Current Living Status: Spouse Entry Into Home: Ramp Prior Prior Level of Function SCALE: Activities may be completed with or without assistive devices. 3-Npmyfgtfyq-nqzlkdp completes the activity by him/herself with no assistance from a helper. 5-Set-up or Clean-up Assistance-helper sets up or cleans up; patient completes activity. [place] assists only prior to or following the activity. 4-Supervision or Touching Assistance-helper provides verbal cues and/or touching/steadying and/or contact guard assistance as patient completes activity. Assistance may be provided throughout the activity or intermittently. 3-Partial/Moderate Assistance-helper does LESS THAN HALF the effort. [place] lifts, holds or supports trunk or limbs, but provides less than half the effort. 2-Substantial/Maximal Assistance-helper does MORE THAN HALF the effort. [place] lifts or holds trunk or limbs and provides more than half the effort. 1-Hrknsocmw-pfuucx does ALL the effort. Patient does none of the effort to complete the activity. Or, the assistance of 2 or more helpers is required for the patient to complete the activity. If activity was not attempted, code reason: 7-Patient Refused. 9-Not Applicable-not attempted and the patient did not perform the activity before the current illness, exacerbation or injury. 10-Not Attempted due to Environmental Limitations-(lack of equipment, weather restraints, etc.). 88-Not Attempted due to Medical Conditions or Safety Concerns. Bed Mobility: 6 Transfers (B,C,W/C): 6 Gait: 6 Indoor Mobility (Ambulation): Independent Prior Devices Use: None PT Evaluation-Current Subjective Patient agrees to PT. No c/o. Objective Patient Orientation: Normal For Age Attachments: Oxygen (3.5L ) ROM/Strength ROM Lower Extremities bilateral LE WFL (noted edema bilateral LE) Strength Lower Extremities 4/5 grossly bilateral LE all planes Integumentary/Posture Bowel Incontinence: No Bladder Incontinence: No Posture WFL Neuromuscular (Tone, Coordination, Reflexes) grossly intact Sensory Vision: Wears Glasses Hearing: Functional Transfers Sit to Stand (QC): 6 Gait Mode of Locomotion: Walk Anticipated Mode of Locomotion: Walk Walk 10 feet (QC): 6 Walk 50 ft with 2 Turns(QC): 6 Walk 150 ft (QC): 6 Distance: 150' Gait Assistive Device: None Comments/Gait Description waddle gait due to super obesity Balance Sitting Static: Normal Sitting Dynamic: Normal Standing Static: Good Standing Dynamic: Good Assessment/Needs Patient is currently at independent PLOF with all gross motor skills safely and does not require skilled PT intervention. Rehab Potential: Fair PT Plan Treatment/Plan Treatment Plan: Discontinue PT, goals met Treatment Duration: Jun 07, 2022 Frequency: 1 time per week Estimated Hrs Per Day: .25 hour per day Patient and/or Family Agrees t: Yes Time Time In: 845 Time Out: 900 DATE: Jun 07, 2022 Total Billed Treatment Time: 15 Total Billed Treatment 1 visit [facility] 15 min CIPRIANO REYNOSO PT Jun 07, 2022 10:48
--- NOTE | 2022-06-07 11:33 | Occupational Therapy Eval ---
OT Evaluation-General/PLF Medical Diagnosis Admission Date Jun 04, 2022 at 11:22 Medical Diagnosis: respiratory failure/pneumonia Onset Date: Jun 04, 2022 Therapy Diagnosis Therapy Diagnosis: Weakness, Decreased ADL skills Height/Weight Height (Feet): 5 Height (Inches): 6.00 Weight (Pounds): 340 Precautions Precautions/Isolations: Standard Precautions Weight Bear Status Weight Bearing Restriction: Weight Bearing/Tolerated Referral Physician: Rachael Referral Reason: Activity Tolerance, Self Care, Evaluation/Treatment, Strengthening/ROM Medical History Pertinent Medical History: Atrial Fib, Arthritis, DM, HTN Additional Medical History Gout, chronic kidney disease Current History Pt. came from [facility] for ICU care. Reviewed History: Yes Social History Home: Single Level Current Living Status: Spouse Entry Into Home: Ramp ADL-Prior Level of Function SCALE: Activities may be completed with or without assistive devices. 0-Fqlwmkdtlf-cddhbou completes the activity by him/herself with no assistance from a helper. 5-Set-up or Clean-up Assistance-helper sets up or cleans up; patient completes activity. [place] assists only prior to or following the activity. 4-Supervision or Touching Assistance-helper provides verbal cues and/or touch ing/steadying and/or contact guard assistance as patient completes activity. Assistance may be provided throughout the activity or intermittently. 3-Partial/Moderate Assistance-helper does LESS THAN HALF the effort. [place] lifts, holds or supports trunk or limbs, but provides less than half the effort. 2-Substantial/Maximal Assistance-helper does MORE THAN HALF the effort. [place] lifts or holds trunk or limbs and provides more than half the effort. 0-Udkdyisnk-wmywdv does ALL the effort. Patient does none of the effort to complete the activity. Or, the assistance of 2 or more helpers is required for the patient to complete the activity. If activity was not attempted, code reason: 7-Patient Refused. 9-Not Applicable-not attempted and the patient did not perform the activity before the current illness, exacerbation or injury. 10-Not Attempted due to Environmental Limitations-(lack of equipment, weather restraints, etc.). 88-Not Attempted due to Medical Conditions or Safety Concerns. ADL PLOF Comments Pt. states that he was fully independent. 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 Pt. lives with spouse and son. His grown son is in a wheelchair, as he has had a stroke. Pt's spouse uses oxygen. Self Care: Needed Some Help (Pt. reports that his spouse puts on his BLAKE hose at home and his shoes/socks. He states that they have a system. He uses a LH sponge at home for feet.) Functional Cognition: Independent DME/Equipment: Bath Bench, Tub/Shower DME/Equipment Comments Pt. does not use assistive device. He does wear oxygen at night at home but only "if I need it." Occupation: Pt. works at [employer] in [employer] Self: Yes OT Current Status Subjective Pt. does not report pain. Appearance Pt. sitting on EOB when therapy comes in. Agrees to treatment. Mental Status/Objective Patient Orientation: Person, Place, Time, Situation Attachments: Oxygen Current Upper Extremity ROM WFL ADL-Treatment Eating (QC): 6 (per pt.) Shower/Bathe Self (QC): 3 (Min assist to wash his feet in shower. States that he uses a LH sponge at home. Pt. able to wash all other parts.) On/Off Footwear (QC): 2 (Max assist to don fresh slipper socks.) Toileting Hygiene (QC): 6 (Independent to stand at toilet to urinate.) Other Treatments Pt. seen for partial co-treatment with PT due to poor endurance and fatigue. PT focused on transfers while OT assisted with needed ADLs. Pt. stood from bed with independence. However, he becomes very SOA. Pt. on oxygen in room. Able to ambulate to door and back independently with extended cord. PT finishes evaluation. OT asks if pt. would like to shower. He would. OT assisted pt. as needed in shower. He states that at home, him and spouse do have a system that they perform together. Pt. would benefit from OT for endurance training only with UE exercises as needed. Education OT Patient Education: Correct positioning, Exercise program, Modified ADL techniques, Progress toward Goal/Update tx plan, Purpose of tx/functional activities, Reviewed precautions, Rehab process, Transfer techniques Teaching Recipient: Patient Teaching Methods: Demonstration, Discussion Response to Teaching: Verbalize Understanding, Return Demonstration OT Correction Goals Correction Goals Time Frame: Jun 14, 2022 Additional Goals: 1-Demonstrate ADL Tasks, 2-Verbalize Understanding, 3- ImproveStrength/Luis Antonio 1=Demonstrate adherence to instructed precautions during ADL tasks. 2=Patient will verbalize/demonstrate understanding of assistive devices/modifications for ADL. 3=Patient will improve strength/tolerance for activity to enable patient to perform ADL's. OT goals will only consist of ADL skills when needed. Otherwise, goals will focus on overall endurance through UE exercise and modified movement in room. P t. will demonstrate ability to ambulate in room as needed or perform ADL skill with no reported SOA. OT Education/Plan Problem List/Assessment Assessment: Decreased Activ Tolerance, Decreased UE Strength Discharge Recommendations Plan/Recommendations: Continue POC Treatment Plan/Plan of Care Treatment,Training & Education: Yes Patient would benefit from OT for education, treatment and training to promote independence in ADL's, mobility, safety and/or upper extremity function for ADL's. Plan of Care: Functional Mobility, UE Funct Exercise/Act Treatment Duration: Jun 14, 2022 Frequency: 3 times per week (3-5x/week) Estimated Hrs Per Day: .25 hour per day Agreement: Yes Rehab Potential: Good Time Start Time: 08:45 Stop Time: 09:20 DATE: Jun 07, 2022 Total Time Billed (hr/min): 35 Billed Treatment Time 4031-0957 1, EVM x 15minutes co-treatment with PT. Please see above for designated roles. [id number] ADL x 20minutes. ROBERT DUNN OT Jun 07, 2022 11:33
[2022-06-07] MEDS: DOCUSATE SODIUM 100 MG (COLACE) CAP PO SCH ×2 (12:48→20:43)
[2022-06-07] MEDS: SENNOSIDES 8.6 MG (SENOKOT) TAB PO SCH ×2 (12:48→20:43)
--- NOTE | 2022-06-07 13:48 | Cardiology Progress Note ---
Subjective Date Seen by Provider: Jun 07, 2022 Time Seen by Provider: 13:47 Subjective/Events-last exam Patient was seen at bedside, sitting comfortably, still having pedal edema. Review of Systems General: No Chills, No Night Sweats; Fatigue; No Malaise, No Appetite, No Other HEENT: No Head Aches, No Visual Changes, No Eye Pain, No Ear Pain, No Dysphasia, No Sinus Congestion, No Post Nasal Drip, No Sore Throat, No Other Pulmonary: Dyspnea; No Cough, No Pleuritic Chest Pain, No Other Cardiovascular: No: Chest Pain, Palpitations, Orthopnea, Paroxysmal Noc. Dyspnea, Edema, Lt Headedness, Other Objective-Cardiology Exam Last Set of Vital Signs Vital Signs 06/06/22 06/07/22 04:13 11:51 Temp 37.0 Pulse 66 Resp 18 B/P (MAP) 142/66 (91) Pulse Ox 97 O2 Delivery Nasal Cannula O2 Flow Rate 3.00 FiO2 35 I&O Intake and Output 06/07/22 00:00 Intake Total 1850 ml Output Total 1850 ml Balance 0 ml Intake Oral 1750 ml IV Total 100 ml Output Urine Total 1850 ml # Voids 1 General: Alert, Oriented X3, Cooperative, No Acute Distress HEENT: Atraumatic Neck: Supple Lungs: Clear to Auscultation, Normal Air Movement Heart: Regular Rate, Normal S1, Normal S2, No Murmurs Extremities: No Clubbing Skin: No Rashes Neuro: Normal Gait, Normal Speech, Strength at 5/5 X4 Ext, Normal Tone Psych/Mental Status: Mental Status NL, Mood NL Results Lab Laboratory Tests 06/07/22 07:04 A/P-Cardiology Admission Diagnosis Acute respiratory failure Acute exacerbation of COPD Acute on chronic left ventricular diastolic dysfunction Hypertension Assessment/Plan Acute hypercapnic respiratory failure, obesity hypoventilation syndrome Acute exacerbation of COPD, started on BiPAP, receiving antibiotics and steroids Continue to monitor Congestive heart failure, acute on chronic left ventricular diastolic dysfunction, normal systolic function with ejection fraction 50 to 60% Still having significant peripheral edema, chronic venous stasis changes. Receiving IV Lasix and tolerating it well. Continue to monitor Acute on chronic renal insufficiency, chronic kidney disease stage III. Con tinue to monitor renal function closely Paroxysmal atrial fibrillation. Currently in sinus rhythm. Patient was on Xarelto in the past, currently not taking it. I will restart Xarelto and monitor closely Anemia, monitor H&H Morbid obesity, BMI 64. YANG AGUILAR MD Jun 07, 2022 13:48
[2022-06-07] MEDS: RIVAROXABAN 20 MG TABLET (XARELTO) PO SCH (17:15)
[2022-06-07] MEDS: ALPRAZolam 0.5 MG (XANAX) TAB PO PRN (20:43)
[2022-06-07] MEDS: TAMSULOSIN 0.4 MG (FLOMAX) CAP PO SCH (20:43)
[2022-06-08] VITALS (7 sets, daily range): BP systolic 103–142; BP diastolic 54–72
[2022-06-08] MEDS: RT-ALBUTEROL/IPRATROPIUM 3 ML (DUONEB) VIAL INH SCH ×4 (02:43→21:24)
[2022-06-08] MEDS: inSUlin ASPART (NovoLOG) 1 UNIT/0.01 ML (CHARGE PER UNIT) SC SCH ×4 (05:13→20:44)
[2022-06-08] MEDS: methylPREDNISolone 40 MG/ML (Solu-MEDROL) VIAL IV SCH (05:13)
[2022-06-08] MEDS: CEFEPIME 1,000 MG/NS 50 ML IVPB IV SCH ×8 (05:13→23:58)
[2022-06-08 05:51] LABS: BASOPHILS % (AUTO) 0 % (0-10); EOSINOPHILS % (AUTO) 0 % (0-10); HEMATOCRIT 30 % (40-54); HEMOGLOBIN 8.9 g/dL (13.3-17.7); LYMPHOCYTES # (AUTO) 0.6 10^3/uL (1.0-4.0); LYMPHOCYTES % (AUTO) 6 % (12-44); MEAN CORPUSCULAR HEMOGLOBIN 25 pg (25-34); MEAN CORPUSCULAR HGB CONC 30 g/dL (32-36); MEAN CORPUSCULAR VOLUME 85 fL (80-99); MEAN PLATELET VOLUME 9.1 fL (9.0-12.2); MONOCYTES # (AUTO) 0.2 10^3/uL (0.0-1.0); MONOCYTES % (AUTO) 3 % (0-12); NEUTROPHILS # (AUTO) 8.1 10^3/uL (1.8-7.8); NEUTROPHILS % (AUTO) 88 % (42-75); PLATELET COUNT 185 10^3/uL (130-400); WHITE BLOOD COUNT 9.2 10^3/uL (4.3-11.0)
[2022-06-08 06:12] LABS: ALBUMIN 3.5 GM/DL (3.2-4.5); BILIRUBIN,TOTAL 0.5 MG/DL (0.1-1.0); CALCIUM 8.9 MG/DL (8.5-10.1); CREATININE SERUM 1.76 MG/DL (0.60-1.30); MAGNESIUM 2.8 MG/DL (1.6-2.4); POTASSIUM 3.6 MMOL/L (3.6-5.0); TOTAL PROTEIN 6.8 GM/DL (6.4-8.2)
--- NOTE | 2022-06-08 07:46 | Occupational Ther Daily Note ---
OT Current Status-Daily Note Subjective Pt alert, sitting EOB independently. Pt agrees to therapy. No c/o pain. Mental Status/Objective Patient Orientation: Person, Place, Time, Situation Attachments: IV, Oxygen (3L) ADL-Treatment Independent eating. Therapy Code Descriptions/Definitions Functional Tow Measure: 0=Not Assessed/NA 4=Minimal Assistance 1=Total Assistance 5=Supervision or Setup 2=Maximal Assistance 6=Modified Tow 3=Moderate Assistance 7=Complete IndependenceSCALE: Activities may be completed with or without assistive devices. 1-Lokdxedpit-cstudbk completes the activity by him/herself with no assistance from a helper. 5-Set-up or Clean-up Assistance-helper sets up or cleans up; patient completes activity. [place] assists only prior to or following the activity. 4-Supervision or Touching Assistance-helper provides verbal cues and/or touching/steadying and/or contact guard assistance as patient completes activity. Assistance may be provided throughout the activity or intermittently. 3-Partial/Moderate Assistance-helper does LESS THAN HALF the effort. [place] lifts, holds or supports trunk or limbs, but provides less than half the effort. 2-Substantial/Maximal Assistance-helper does MORE THAN HALF the effort. [place] lifts or holds trunk or limbs and provides more than half the effort. 8-Lcqipluwt-wsvdpy does ALL the effort. Patient does none of the effort to complete the activity. Or, the assistance of 2 or more helpers is required for the patient to complete the activity. If activity was not attempted, code reason: 7-Patient Refused. 9-Not Applicable-not attempted and the patient did not perform the activity before the current illness, exacerbation or injury. 10-Not Attempted due to Environmental Limitations-(lack of equipment, weather restraints, etc.). 88-Not Attempted due to Medical Conditions or Safety Concerns. Eating (QC): 6 Other Treatment Pt given medium resistance theraband with HEP. Skilled instruction for exercises for correct technique and modifications. Pt able to complete 1 set 10 reps of 6 exercises with vc/pc for correct technique. Pt terminated therapy session after 1 set of all exercises. After session, pt sitting in recliner with call light/phone in reach. All needs met in room. OT Slot Key Person Goals Retirement Goals Time Frame: Jun 14, 2022 Additional Goals: 1-Demonstrate ADL Tasks, 2-Verbalize Understanding, 3- ImproveStrength/Luis Antonio 1=Demonstrate adherence to instructed precautions during ADL tasks. 2=Patient will verbalize/demonstrate understanding of assistive devices/modifications for ADL. 3=Patient will improve strength/tolerance for activity to enable patient to perform ADL's. OT Education/Plan Problem List/Assessment Assessment: Decreased UE Strength Discharge Recommendations Plan/Recommendations: Continue POC Treatment Plan/Plan of Care Patient would benefit from OT for education, treatment and training to promote independence in ADL's, mobility, safety and/or upper extremity function for ADL's. Plan of Care: Functional Mobility, UE Funct Exercise/Act Treatment Duration: Jun 14, 2022 Frequency: 3 times per week (3-5x/week) Estimated Hrs Per Day: .25 hour per day Agreement: Yes Rehab Potential: Good Time Start Time: 07:30 Stop Time: 07:46 DATE: Jun 08, 2022 Total Time Billed (hr/min): 16 Billed Treatment Time 1 visit-EX 1 (16 min) ZACKERY STAPLES Jun 08, 2022 07:46
[2022-06-08] MEDS: FINASTERIDE (PROSCAR) 5 MG TAB PO SCH (08:43)
[2022-06-08] MEDS: DOCUSATE SODIUM 100 MG (COLACE) CAP PO SCH ×2 (08:43→20:06)
[2022-06-08] MEDS: ALLOPURINOL 300 MG (ZYLOPRIM) TAB PO SCH (08:43)
[2022-06-08] MEDS: meTOprolol TARTRATE 25 MG (LOPRESSOR) TABLET PO SCH (08:43)
[2022-06-08] MEDS: SENNOSIDES 8.6 MG (SENOKOT) TAB PO SCH ×2 (08:43→20:06)
[2022-06-08] MEDS: FUROSEMIDE 40 MG/4 ML INJ (LASIX) IVP SCH (08:43)
[2022-06-08] MEDS: PANTOPRAZOLE 40 MG (PROTONIX) TAB PO SCH (08:43)
[2022-06-08] MEDS: ALPRAZolam 0.5 MG (XANAX) TAB PO PRN ×2 (08:50→20:00)
--- NOTE | 2022-06-08 09:50 | Cardiology Progress Note ---
Subjective Date Seen by Provider: Jun 08, 2022 Time Seen by Provider: 09:50 Subjective/Events-last exam Patient was seen at bedside, sitting comfortably at bedside. Feeling better Review of Systems General: No Chills, No Night Sweats; Fatigue; No Malaise, No Appetite, No Other HEENT: No Head Aches, No Visual Changes, No Eye Pain, No Ear Pain, No Dysphasia, No Sinus Congestion, No Post Nasal Drip, No Sore Throat, No Other Pulmonary: Dyspnea; No Cough, No Pleuritic Chest Pain, No Other Cardiovascular: Edema; No: Chest Pain, Palpitations, Orthopnea, Paroxysmal Noc. Dyspnea, Lt Headedness, Other Objective-Cardiology Exam Last Set of Vital Signs Vital Signs 06/07/22 06/08/22 15:39 07:55 Temp 36.4 Pulse 60 Resp 18 B/P (MAP) 142/65 (90) Pulse Ox 99 O2 Delivery Nasal Cannula O2 Flow Rate 3.00 FiO2 32 I&O Intake and Output 06/08/22 00:00 Intake Total 2380 ml Output Total 625 ml Balance 1755 ml Intake Oral 2380 ml Output Urine Total 625 ml # Voids 9 # Bowel Movements 1 General: Alert, Oriented X3, Cooperative, No Acute Distress HEENT: Atraumatic Neck: Supple Lungs: Clear to Auscultation, Normal Air Movement Heart: Regular Rate, Normal S1, Normal S2, No Murmurs Extremities: No Clubbing Skin: No Rashes Neuro: Normal Gait, Normal Speech, Strength at 5/5 X4 Ext, Normal Tone Psych/Mental Status: Mental Status NL, Mood NL Results Lab Laboratory Tests 06/08/22 05:23 A/P-Cardiology Admission Diagnosis Acute respiratory failure Acute exacerbation of COPD Acute on chronic left ventricular diastolic dysfunction Hypertension Assessment/Plan Acute hypercapnic respiratory failure, obesity hypoventilation syndrome Acute exacerbation of COPD, started on BiPAP, receiving antibiotics and steroids Continue to monitor Congestive heart failure, acute on chronic left ventricular diastolic dysfunction, normal systolic function with ejection fraction 50 to 60% Still having significant peripheral edema, chronic venous stasis changes. Receiving IV Lasix and tolerating it well. Continue to monitor Acute on chronic renal insufficiency, chronic kidney disease stage III. Continue to monitor renal function closely Paroxysmal atrial fibrillation. Currently in sinus rhythm. Patient was on Xarelto in the past, currently not taking it. I will restart Xarelto and monitor closely Anemia, monitor H&H Morbid obesity, BMI 64. YANG AGUILAR MD Jun 08, 2022 09:50
--- NOTE | 2022-06-08 11:32 | Progress Note ---
CAPO FUCHS 06/08/22 1132: Subjective Date Seen by a Provider: Jun 08, 2022 Subjective/Events-last exam Subjective: 71 yo M admitted from [facility] on 06/04 on for acute respiratory failure with hypercapnia. Today he is feeling well and sitting upright at his bedside. He denies SOB, chest pain, fatigue or dizziness. He admits to a mild intermittent headache. He continues to require BiPAP at night (597 ml, 17 bmp, 8 cm, 35%). Objective Exam Last Set of Vital Signs Vital Signs Date Time Temp Pulse Resp B/P (MAP) Pulse Ox O2 Delivery O2 Flow Rate FiO2 06/08/22 10:01 99 Nasal Cannula 3.00 06/08/22 07:55 36.4 60 18 142/65 (90) 06/07/22 15:39 32 Capillary Refill : NONE I&O Intake and Output 06/08/22 00:00 Intake Total 2380 ml Output Total 625 ml Balance 1755 ml Intake Oral 2380 ml Output Urine Total 625 ml # Voids 9 # Bowel Movements 1 General: Alert, Oriented X3, No Acute Distress Lungs: Clear to Auscultation, Normal Air Movement Heart: Regular Rate, Normal S1, Normal S2 Abdomen: Normal Bowel Sounds Extremities: Other (lower extremity edema bilaterally) Psych/Mental Status: Mental Status NL, Mood NL Results Lab Laboratory Tests 06/07/22 17:10: Glucometer 133H 06/07/22 20:24: Glucometer 162H 06/08/22 04:53: Glucometer 156H 06/08/22 05:23: White Blood Count 9.2, Red Blood Count 3.51L, Hemoglobin 8.9L, Hematocrit 30L, Mean Corpuscular Volume 85, Mean Corpuscular Hemoglobin 25, Mean Corpuscular Hemoglobin Concent 30L, Red Cell Distribution Width 17.5H, Platelet Count 185, Mean Platelet Volume 9.1, Immature Granulocyte % (Auto) 3, Neutrophils (%) (Auto) 88H, Lymphocytes (%) (Auto) 6L, Monocytes (%) (Auto) 3, Eosinophils (%) (Auto) 0, Basophils (%) (Auto) 0, Neutrophils # (Auto) 8.1H, Lymphocytes # (Auto) 0.6L, Monocytes # (Auto) 0.2, Eosinophils # (Auto) 0.0, Basophils # (Auto) 0.0, Immature Granulocyte # (Auto) 0.3H, Sodium Level 139, Potassium Level 3.6, Chloride Level 97L, Carbon Dioxide Level 29, Anion Gap 13, Blood Urea Nitrogen 73H, Creatinine 1.76H, Estimat Glomerular Filtration Rate 40, BUN/C reatinine Ratio 41, Glucose Level 140H, Calcium Level 8.9, Corrected Calcium 9.3, Magnesium Level 2.8H, Total Bilirubin 0.5, Aspartate Amino Transf (AST/SGOT) 16, Alanine Aminotransferase (ALT/SGPT) 18, Alkaline Phosphatase 77, Total Protein 6.8, Albumin 3.5 06/08/22 10:09: Glucometer 158H Assessment/Plan Assessment/Plan Assess & Plan/Chief Complaint 1. Acute hypoxic and hypercapnic respiratory failure - resolution to baseline - on methylprednisolone IV with plans to switch to oral steroid - requires BiPAP at night 2. Pneumonia - continue Cefepime IV until resolution 3. 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 Acute on chronic diastolic heart failure - IV lasix per cardiology 5. Paroxsymal atrial fibrillation - Xarelto restarted by cardiology 6. Hematuria - resolved Stage 3a CKD - kidney function stabilizing, will continue to monitor 7. Hypertension 8. Morbid Obesity Diagnosis/Problems Diagnosis/Problems (1) RESPIRATORY FAILURE, UNSP, UNSP W HYPOXIA OR HYPERCAPNIA (2) Upper respiratory infection, viral Status: Acute (3) Acute on chronic heart failure with preserved ejection fraction (HFpEF) (4) Stage 3a chronic kidney disease (5) HTN (hypertension) Status: Acute (6) Morbid obesity Status: Chronic (7) Paroxysmal atrial fibrillation NIECY ORELLANA DO 06/09/22 0610: Subjective Time Seen by a Provider: 10:00 Review of Systems General: Fatigue, Malaise Pulmonary: Dyspnea Objective Exam General: Alert, Oriented X3, Cooperative, No Acute Distress Lungs: Clear to Auscultation, Normal Air Movement Heart: Regular Rate, Normal S1, Normal S2, No Murmurs Psych/Mental Status: Mental Status NL, Mood NL Supervisory-Addendum Brief Verification & Attestation Participated in pt care: history, MDM, physical Personally performed: exam, history, MDM, supervision of care Care discussed with: Medical Student Procedures: n/a Results interpretation: Verified all documentation Verification and Attestation of Medical Student E/M Service A medical student performed and documented this service in my presence. I reviewed and verified all information documented by the medical student and made modifications to such information, when appropriate. I personally performed the physical exam and medical decision making. Niecy Orellana, Jun 09, 2022,06:10 CAPO FUCHS Jun 08, 2022 11:32 NIECY ORELLANA DO Jun 09, 2022 06:10
[2022-06-08] MEDS ORDERED: CARV25TA PO (13:51)
[2022-06-08] MEDS: RIVAROXABAN 20 MG TABLET (XARELTO) PO SCH (17:02)
[2022-06-08] MEDS: TAMSULOSIN 0.4 MG (FLOMAX) CAP PO SCH (20:00)
[2022-06-09 03:19] VITALS: BP 116/53
[2022-06-09 05:26] LABS: BASOPHILS % (AUTO) 0 % (0-10); EOSINOPHILS % (AUTO) 0 % (0-10); HEMATOCRIT 28 % (40-54); HEMOGLOBIN 8.3 g/dL (13.3-17.7); LYMPHOCYTES % (AUTO) 11 % (12-44); MEAN CORPUSCULAR HEMOGLOBIN 26 pg (25-34); MEAN CORPUSCULAR HGB CONC 30 g/dL (32-36); MEAN CORPUSCULAR VOLUME 86 fL (80-99); MONOCYTES # (AUTO) 0.7 10^3/uL (0.0-1.0); MONOCYTES % (AUTO) 8 % (0-12); NEUTROPHILS # (AUTO) 7.1 10^3/uL (1.8-7.8); NEUTROPHILS % (AUTO) 79 % (42-75); PLATELET COUNT 152 10^3/uL (130-400)
[2022-06-09] MEDS: inSUlin ASPART (NovoLOG) 1 UNIT/0.01 ML (CHARGE PER UNIT) SC SCH ×2 (05:33→11:35)
[2022-06-09 05:40] LABS: ALBUMIN 3.1 GM/DL (3.2-4.5); POTASSIUM 3.6 MMOL/L (3.6-5.0)
[2022-06-09 05:41] LABS: CALCIUM 8.4 MG/DL (8.5-10.1)
[2022-06-09 05:42] LABS: TOTAL PROTEIN 5.9 GM/DL (6.4-8.2)
[2022-06-09 05:44] LABS: BILIRUBIN,TOTAL 0.6 MG/DL (0.1-1.0)
[2022-06-09 05:46] LABS: CREATININE SERUM 1.56 MG/DL (0.60-1.30)
[2022-06-09 05:49] LABS: MAGNESIUM 2.9 MG/DL (1.6-2.4)
[2022-06-09] MEDS: CEFEPIME 1,000 MG/NS 50 ML IVPB IV SCH ×6 (05:57→11:26)
[2022-06-09] MEDS ORDERED: predniSONE 20 MG TAB PO SCH (07:00)
[2022-06-09 08:22] VITALS: BP 141/70
--- NOTE | 2022-06-09 08:45 | Cardiology Progress Note ---
Progress Note-Cardiology Events since last exam Date Seen by Provider: Jun 09, 2022 Time Seen by Provider: 08:42 Events since last exam We are following him due to heart failure. His peripheral edema and dyspnea on exertion are both improving. He denies chest pain, palpitations, or syncope. He is concerned about whether or not he will be able to go back to work. 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 Certain portions of this document may have been dictated utilizing voice recognition technology. Inherent to this technology, typographical and grammatical errors may exist. As much as I am diligent to identify and correct these mistakes, some errors may remain in the document. Vitals Last set of Vitals Signs Vital Signs 06/07/22 06/09/22 15:39 08:22 Temp 36.2 Pulse 52 Resp 20 B/P (MAP) 141/70 (93) Pulse Ox 99 O2 Delivery Nasal Cannula O2 Flow Rate 3.50 FiO2 32 Labs Labs Laboratory Tests 06/09/22 05:12 Exam Vital Signs Vital Signs Date Time Temp Pulse Resp B/P (MAP) Pulse Ox O2 Delivery O2 Flow Rate FiO2 06/09/22 08:22 36.2 52 20 141/70 (93) 99 Nasal Cannula 3.50 06/07/22 15:39 32 Physical Exam General: Alert. No acute distress. He is morbidly obese. Eye: No xanthelasma. HENT: Normocephalic. Neck: Jugular venous pressure does not appear elevated. Respiratory: Lungs are clear to auscultation. Respirations are non-labored. Breath sounds are equal. Symmetrical chest wall expansion. Cardiovascular: Normal rate. Regular rhythm. Distant S1/S2. No murmur. No gallop. 2-3+ bilateral pretibial edema with venous stasis changes. Gastrointestinal: Soft. Normal bowel sounds. Skin: Warm. Dry. Neurologic: Alert and oriented to person, place, time. Cranial nerves 3-11 grossly intact. Psychiatric: Cooperative. Appropriate mood & affect. Labs Laboratory Tests Test 06/08/22 10:09 06/09/22 05:12 06/09/22 05:29 Range/Units Glucometer 158 H 93 70-110 MG/DL White Blood Count 9.0 4.3-11.0 10^3/uL Red Blood Count 3.24 L 4.30-5.52 10^6/uL Hemoglobin 8.3 L 13.3-17.7 g/dL Hematocrit 28 L 40-54 % Mean Corpuscular Volume 86 80-99 fL Mean Corpuscular Hemoglobin 26 25-34 pg Mean Corpuscular Hemoglobin Concent 30 L 32-36 g/dL Red Cell Distribution Width 17.2 H 10.0-14.5 % Platelet Count 152 130-400 10^3/uL Mean Platelet Volume 9.0 9.0-12.2 fL Immature Granulocyte % (Auto) 1 % Neutrophils (%) (Auto) 79 H 42-75 % Lymphocytes (%) (Auto) 11 L 12-44 % Monocytes (%) (Auto) 8 0-12 % Eosinophils (%) (Auto) 0 0-10 % Basophils (%) (Auto) 0 0-10 % Neutrophils # (Auto) 7.1 1.8-7.8 10^3/uL Lymphocytes # (Auto) 1.0 1.0-4.0 10^3/uL Monocytes # (Auto) 0.7 0.0-1.0 10^3/uL Eosinophils # (Auto) 0.0 0.0-0.3 10^3/uL Basophils # (Auto) 0.0 0.0-0.1 10^3/uL Immature Granulocyte # (Auto) 0.1 0.0-0.1 10^3/uL Sodium Level 137 135-145 MMOL/L Potassium Level 3.6 3.6-5.0 MMOL/L Chloride Level 97 L 98-107 MMOL/L Carbon Dioxide Level 29 21-32 MMOL/L Anion Gap 11 5-14 MMOL/L Blood Urea Nitrogen 68 H 7-18 MG/DL Creatinine 1.56 H 0.60-1.30 MG/DL Estimat Glomerular Filtration Rate 47 BUN/Creatinine Ratio 44 Glucose Level 89 70-105 MG/DL Calcium Level 8.4 L 8.5-10.1 MG/DL Corrected Calcium 9.1 8.5-10.1 MG/DL Magnesium Level 2.9 H 1.6-2.4 MG/DL Total Bilirubin 0.6 0.1-1.0 MG/DL Aspartate Amino Transf (AST/SGOT) 16 5-34 U/L Alanine Aminotransferase (ALT/SGPT) 21 0-55 U/L Alkaline Phosphatase 62 40-136 U/L Total Protein 5.9 L 6.4-8.2 GM/DL Albumin 3.1 L 3.2-4.5 GM/DL Diagnosis/Problems Diagnosis/Problems (1) Acute on chronic heart failure with preserved ejection fraction (HFpEF) Assessment & Plan: His intravenous furosemide has been increased from 40 mg daily to 80 mg daily. He has not been compliant with sodium restriction at home. He had also been on amlodipine which I previously recommended stopping since this can cause worsening peripheral edema. He is on half of his normal dose of carvedilol. I will try him on Entresto. We will need to watch his renal function closely. (2) Paroxysmal atrial fibrillation Assessment & Plan: He seems to be remaining in sinus rhythm. He has not had an electrocardiogram this admission. I did order an electrocardiogram. He is on carvedilol for rate control in the event he has recurrent atrial fibrillation. He is back on rivaroxaban for stroke prophylaxis. His weight adjusted creatinine clearance is above 50 and therefore, he should be on the normal dose of rivaroxaban at 20 mg daily. (3) Primary hypertension Assessment & Plan: Blood pressure is adequately controlled with half of his normal home dose of carvedilol. Amlodipine has been discontinued. I will start him on Entresto due to the heart failure. We will need to watch his blood pressure closely with the Entresto. (4) Stage 3a chronic kidney disease Assessment & Plan: This makes treatment of his heart failure somewhat difficult. Fortunately, his renal function has been reasonably stable. His dose of allopurinol should be lowered due to his chronic kidney disease. We will need to watch his creatinine closely with the initiation of Entresto. (5) Acute on chronic respiratory failure with hypoxemia Assessment & Plan: Most likely due to heart failure with some component of restrictive airways disease due to his morbid obesity. (6) Morbid obesity Status: Chronic Assessment & Plan: This is undoubtedly contributing to his peripheral edema and shortness of breath. He needs to work on weight loss. ADAMA QUEEN JR, MD Jun 09, 2022 08:45
[2022-06-09] MEDS ORDERED: ALLOPURINOL 300 MG (ZYLOPRIM) TAB PO SCH (09:00)
[2022-06-09] MEDS ORDERED: SACUBITRIL/VALSARTAN 24/26 MG (ENTRESTO) TABLET PO SCH (09:00)
[2022-06-09] MEDS ORDERED: FUROSEMIDE 40 MG/4 ML INJ (LASIX) IVP SCH (09:00)
[2022-06-09] MEDS ORDERED: ALLOPURINOL 100 MG (ZYLOPRIM) TAB PO SCH (09:00)
[2022-06-09] MEDS: FINASTERIDE (PROSCAR) 5 MG TAB PO SCH (09:44)
[2022-06-09] MEDS: PANTOPRAZOLE 40 MG (PROTONIX) TAB PO SCH (09:44)
[2022-06-09] MEDS: ALPRAZolam 0.5 MG (XANAX) TAB PO PRN (09:45)
[2022-06-09] MEDS: DOCUSATE SODIUM 100 MG (COLACE) CAP PO SCH (09:45)
[2022-06-09] MEDS: SENNOSIDES 8.6 MG (SENOKOT) TAB PO SCH (09:45)
[2022-06-09] MEDS: RT-ALBUTEROL/IPRATROPIUM 3 ML (DUONEB) VIAL INH SCH ×2 (10:15→16:00)
--- NOTE | 2022-06-09 10:27 | Occupational Ther Daily Note ---
OT Current Status-Daily Note Subjective Pt alert, sitting EOB. Pt is up ad david in room without AD to complete toileting and grooming. Pt agrees to therapy. Mental Status/Objective Patient Orientation: Person, Place, Time, Situation Attachments: IV, Oxygen ADL-Treatment Pt states that he uses toileting aide at home to cleanse after BM. BURCH brought pt toilet tongs for pt, pt looked at AE and stated that it would not work for him and had BURCH take it away. BURCH educated pt on AE and pt continued to refuse. Therapy Code Descriptions/Definitions Functional [place] Measure: 0=Not Assessed/NA 4=Minimal Assistance 1=Total Assistance 5=Supervision or Setup 2=Maximal Assistance 6=Modified [place] 3=Moderate Assistance 7=Complete IndependenceSCALE: Activities may be completed with or without assistive devices. 7-Bvudpchtul-hqfaeju completes the activity by him/herself with no assistance from a helper. 5-Set-up or Clean-up Assistance-helper sets up or cleans up; patient completes activity. [place] assists only prior to or following the activity. 4-Supervision or Touching Assistance-helper provides verbal cues and/or touching/steadying and/or contact guard assistance as patient completes activity. Assistance may be provided throughout the activity or intermittently. 3-Partial/Moderate Assistance-helper does LESS THAN HALF the effort. [place] lifts, holds or supports trunk or limbs, but provides less than half the effort. 2-Substantial/Maximal Assistance-helper does MORE THAN HALF the effort. [place] lifts or holds trunk or limbs and provides more than half the effort. 4-Sklkijmjk-thinkc does ALL the effort. Patient does none of the effort to complete the activity. Or, the assistance of 2 or more helpers is required for the patient to complete the activity. If activity was not attempted, code reason: 7-Patient Refused. 9-Not Applicable-not attempted and the patient did not perform the activity before the current illness, exacerbation or injury. 10-Not Attempted due to Environmental Limitations-(lack of equipment, weather restraints, etc.). 88-Not Attempted due to Medical Conditions or Safety Concerns. Other Treatment Pt would only complete 1 set of B UE theraband exercises. Skilled instruction for correct technique and modifications when needed. 1 set 10 reps of 5 medium resistance theraband exercises completed with minimal verbal cues to increase strength and activity tolerance for daily functional tasks. After session, pt sitting in recliner with call light/phone in reach. All needs met in room. OT Caustic Room Attendant Goals Caustic Room Attendant Goals Time Frame: Jun 14, 2022 Additional Goals: 1-Demonstrate ADL Tasks, 2-Verbalize Understanding, 3- ImproveStrength/Luis Antonio 1=Demonstrate adherence to instructed precautions during ADL tasks. 2=Patient will verbalize/demonstrate understanding of assistive devices/modifications for ADL. 3=Patient will improve strength/tolerance for activity to enable patient to perform ADL's. OT Education/Plan Problem List/Assessment Assessment: Decreased Activ Tolerance Discharge Recommendations Plan/Recommendations: Continue POC Treatment Plan/Plan of Care Patient would benefit from OT for education, treatment and training to promote independence in ADL's, mobility, safety and/or upper extremity function for ADL's. Plan of Care: Functional Mobility, UE Funct Exercise/Act Treatment Duration: Jun 14, 2022 Frequency: 3 times per week (3-5x/week) Estimated Hrs Per Day: .25 hour per day Agreement: Yes Rehab Potential: Good Time Start Time: 07:29 Stop Time: 07:42 DATE: Jun 09, 2022 Total Time Billed (hr/min): 13 Billed Treatment Time 1 visit-EX 1 (13 min) ZACKERY STAPLES Jun 09, 2022 10:27
[2022-06-09] MEDS ORDERED: RIVA20TA2 PO (11:15)
[2022-06-09] MEDS ORDERED: PANT40TA52 PO (11:15)
[2022-06-09] MEDS ORDERED: PRED10TA22 PO (11:15)
[2022-06-09] MEDS ORDERED: ALLO100T PO (11:15)
[2022-06-09] MEDS ORDERED: SACU1TAB2 PO (11:15)
[2022-06-09] MEDS ORDERED: FURO-124 PO (11:15)
--- NOTE | 2022-06-09 11:16 | D/C HH Face to Face Order ---
D/C HH Face to Face Orders Reconcile Patient Problems Problems Reviewed?: Yes Instructions for Patient HH Patient Instructions/FollowUp: PCP 1 week Physician to follow Patient: Deepak Garcia Diet for Home: Low Sodium Diet Patient Problems: Resp failure Patient Data-Allergies,Ht & Wt Patient Allergies: Coded Allergies: No Known Drug Allergies (Unverified , 08/24/18) Height (Feet): 5 Height (Inches): 6.00 Weight (Pounds): 340 Home Health Need/Face to Face Date of Face to Face: Jun 09, 2022 Clinical Findings: Generalized weakness and fatigue, Instability, Muscle weakness, Shortness of breath I have seen Pt [id number]: Yes Discharged To: Home Diagnosis/Conditions: Debility Patient is Homebound due to: Muscle weakness, Shortness of breath/distress Homebound Status Due to the above stated illness, injury or surgical procedure (medical condition or diagnosis) and associated clinical findings, the patient is homebound because of his/her inability to leave home except with aid of a supportive device and/or person AND leaving the home requires a considerable and taxing effort or is medically contraindicated. Pt req the following assistanc: [facility] Nursing Orders Home Health Services Order: Nursing Services, Hearing Aid Repairer-Evaluate & Treat, Physical Therapy-Evaluate & Treat Home Health Infusion Therapy Line Start Date: Jun 04, 2022 Certify Stmt I certify that this patient is under my care and that I, a nurse practitioner or a physician; a assistant corporate secretary working with me, had a face to face encounter that - meets the physician face to face encounter requirements with this patient as dated. LONNY ORELLANA DO Jun 09, 2022 11:16
--- NOTE | 2022-06-09 11:16 | Discharge Summary ---
Diagnosis/Chief Complaint Date of Admission Jun 04, 2022 at 11:22 Date of Discharge Discharge Date: Jun 09, 2022 Discharge Diagnosis 1. Acute hypoxic and hypercapnic respiratory failure - resolution to baseline - on methylprednisolone IV with plans to switch to oral steroid - requires BiPAP at night 2. Pneumonia - continue Cefepime IV until resolution 3. 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 Acute on chronic diastolic heart failure - IV lasix per cardiology 5. Paroxsymal atrial fibrillation - Xarelto restarted by cardiology 6. Hematuria - resolved Stage 3a CKD - kidney function stabilizing, will continue to monitor 7. Hypertension 8. Morbid Obesity Discharge Summary Discharge Physical Examination Allergies: Coded Allergies: No Known Drug Allergies (Unverified , 08/24/18) Vitals & I&Os Vital Signs Date Time Temp Pulse Resp B/P (MAP) Pulse Ox O2 Delivery O2 Flow Rate FiO2 06/09/22 16:39 36.4 72 20 136/65 93 Nasal Cannula 3.00 06/07/22 15:39 32 General Appearance: Alert, Oriented X3, Cooperative Respiratory: Clear to Auscultation Cardiovascular: Regular Rate Psych/Mental Status: Mental Status NL Hospital Course Was the Problem List Reviewed?: Yes 71 yo M with CHF, NGOZI, Stage 3a CKD, paroxysmal atrial fibrillation, and super morbid obesity amongst other chronic health conditions admitted from [facility] on 06/04 for acute hypoxic and hypercapnic respiratory failure, acute on chronic diastolic heart failure, and pneumonia. At this time he was weak, in moderate distress and using accessory respiratory muscles. Throughout his stay he received steroids (IV then oral) and completed a course of empiric antibiotics. A CXR done 06/05 showed cardiomegaly and mild central pulmonary venous congestion; he was placed on IV lasix with close monitoring of kidney fun ction. His xarelto (for atrial fibrillation) was held on 06/05 due to hematuria and restarted on 06/07. His respiratory function returned to baseline on 06/06, though he continued to require a BiPAP each night.His disposition improved through his stay, though he continued to demostrate accessory muscle use and complain of SOB on 05/09. He will be thus be discharged to home health with V entimask oxygen and follow up appointments with his PCP (1-week) and senior care assistant. RIETH,CAPO Labs (last 24 hrs) Laboratory Tests 06/04/22 11:55: White Blood Count 10.6, Red Blood Count 3.28L, Hemoglobin 8.5L, Hematocrit 28L, Mean Corpuscular Volume 86, Mean Corpuscular Hemoglobin 26, Mean Corpuscular Hemoglobin Concent 30L, Red Cell Distribution Width 17.4H, Platelet Count 211, Mean Platelet Volume 9.4, Immature Granulocyte % (Auto) 3, Neutrophils (%) (Auto) 89H, Lymphocytes (%) (Auto) 7L, Monocytes (%) (Auto) 1, Eosinophils (%) (Auto) 0, Basophils (%) (Auto) 0, Neutrophils # (Auto) 9.4H, Lymphocytes # (Auto) 0.8L, Monocytes # (Auto) 0.1, Eosinophils # (Auto) 0.0, Basophils # (Auto) 0.0, Immature Granulocyte # (Auto) 0.3H, Neutrophils % (Manual) 90, Lymphocytes % (Manual) 6, Monocytes % (Manual) 1, Eosinophils % (Manual) 0, Basophils % (Manual) 0, Band Neutrophils 3, Anisocytosis SLIGHT, Sodium Level 13 9, Potassium Level 4.7, Chloride Level 98, Carbon Dioxide Level 26, Anion Gap 15H, Blood Urea Nitrogen 55H, Creatinine 1.84H, Estimat Glomerular Filtration Rate 38, BUN/Creatinine Ratio 30, Glucose Level 143H, Calcium Level 9.1, Corrected Calcium 9.4, Total Bilirubin 0.5, Aspartate Amino Transf (AST/SGOT) 16, Alanine Aminotransferase (ALT/SGPT) 16, Alkaline Phosphatase 85, Total Protein 7.1, Albumin 3.6 06/04/22 12:24: Glucometer 130H 06/04/22 15:46: Glucometer 129H 06/05/22 06:15: White Blood Count 11.3H, Red Blood Count 3.10L, Hemoglobin 8.0L, Hematocrit 26L, Mean Corpuscular Volume 85, Mean Corpuscular Hemoglobin 26, Mean Corpuscular Hemoglobin Concent 30L, Red Cell Distribution Width 17.8H, Platelet Count 206, Mean Platelet Volume 9.2, Immature Granulocyte % (Auto) 2, Neutrophils (%) (Au to) 88H, Lymphocytes (%) (Auto) 8L, Monocytes (%) (Auto) 2, Eosinophils (%) (Auto) 0, Basophils (%) (Auto) 0, Neutrophils # (Auto) 10.0H, Lymphocytes # (Auto) 0.9L, Monocytes # (Auto) 0.2, Eosinophils # (Auto) 0.0, Basophils # (Auto) 0.0, Immature Granulocyte # (Auto) 0.2H, Sodium Level 138, Potassium Level 4.6, Chloride Level 100, Carbon Dioxide Level 26, Anion Gap 12, Blood Urea Nitrogen 61H, Creatinine 1.95H, Estimat Glomerular Filtration Rate 36, BUN/Creatinine Ratio 31, Glucose Level 138H, Calcium Level 8.8, Corrected Calcium 9.4, Total Bilirubin 0.5, Aspartate Amino Transf (AST/SGOT) 17, Alanine Aminotransferase (ALT/SGPT) 14, Alkaline Phosphatase 75, Total Protein 6.6, Albumin 3.3, Phosphorus Level 4.4, Magnesium Level 2.9H, Procalcitonin 0.11H 06/05/22 09:23: Blood Gas Puncture Site R BRACHIAL, Blood Gas Patient Temperature 36.8, Arterial Blood pH 7.42, Arterial Blood Partial Pressure CO2 51H, Arterial Blood Partial Pressure O2 88, Arterial Blood HCO3 33H, Arterial Blood Total CO2 34.3H, Arteri al Blood Oxygen Saturation 96, Arterial Blood Base Excess 8.1H, Miguel Angel Test YES- POS, Blood Gas Ventilator Setting NO, Blood Gas Inspired Oxygen 35% 06/05/22 10:55: Glucometer 141H 06/05/22 11:52: Urine Color YELLOW, Urine Clarity CLEAR, Urine pH 5.5, Urine Specific [place] 1.025H, Urine Protein TRACEH, Urine Glucose (UA) NEGATIVE, Urine Ketones NEGATIVE, Urine Nitrite NEGATIVE, Urine Bilirubin NEGATIVE, Urine Urobilinogen 0.2, Urine Leukocyte Esterase NEGATIVE, Urine RBC (Auto) 3+H, Urine RBC 10-25H, Urine WBC 0-2, Urine Squamous Epithelial Cells 2-5, Urine Crystals NONE, Urine Bacteria TRACE, Urine Casts NONE, Urine Mucus NEGATIVE, Urine Culture Indicated NO 06/05/22 15:50: Glucometer 140H 06/05/22 20:19: Glucometer 156H 06/06/22 04:10: White Blood Count 9.9, Red Blood Count 2.99L, Hemoglobin 7.6L, Hematocrit 25L, Mean Corpuscular Volume 84, Mean Corpuscular Hemoglobin 25, Mean Corpuscular Hemoglobin Concent 30L, Red Cell Distribution Width 17.7H, Platelet Count 189, Mean Platelet Volume 9.5, Immature Granulocyte % (Auto) 1, Neutrophils (%) (Auto) 90H, Lymphocytes (%) (Auto) 8L, Monocytes (%) (Auto) 1, Eosinophils (%) (Auto) 0, Basophils (%) (Auto) 0, Neutrophils # (Auto) 8.9H, Lymphocytes # (Auto) 0.7L, Monocytes # (Auto) 0.1, Eosinophils # (Auto) 0.0, Basophils # (Auto) 0.0, Immature Granulocyte # (Auto) 0.1, Sodium Level 139, Potassium Level 3.7, Chloride Level 100, Carbon Dioxide Level 28, Anion Gap 11, Blood Urea Nit rogen 72H, Creatinine 2.04H, Estimat Glomerular Filtration Rate 34, BUN/Creatinine Ratio 35, Glucose Level 140H, Calcium Level 8.6, Corrected Calcium 9.3, Phosphorus Level 5.0H, Magnesium Level 2.6H, Total Bilirubin 0.4, Aspartate Amino Transf (AST/SGOT) 14, Alanine Aminotransferase (ALT/SGPT) 12, Alkaline Phosphatase 65, Total Protein 6.1L, Albumin 3.1L 06/06/22 11:26: Glucometer 164H 06/06/22 15:51: Glucometer 135H 06/06/22 20:17: Glucometer 136H 06/07/22 04:56: Glucometer 146H 06/07/22 07:04: White Blood Count 9.6, Red Blood Count 3.22L, Hemoglobin 8.2L, Hematocrit 27L, Mean Corpuscular Volume 84, Mean Corpuscular Hemoglobin 26, Mean Corpuscular Hemoglobin Concent 30L, Red Cell Distribution Width 17.5H, Platelet Count 180, Mean Platelet Volume 8.9L, Immature Granulocyte % (Auto) 2, Neutrophils (%) (Auto) 89H, Lymphocytes (%) (Auto) 7L, Monocytes (%) (Auto) 2, Eosinophils (%) (Auto) 0, Basophils (%) (Auto) 0, Neutrophils # (Auto) 8.5H, Lymphocytes # (Auto) 0.7L, Monocytes # (Auto) 0.2, Eosinophils # (Auto) 0.0, Basophils # (Auto) 0.0, Immature Granulocyte # (Auto) 0.2H, Sodium Level 137, Potassium Level 3.7, Chloride Level 97L, Carbon Dioxide Level 31, Anion Gap 9, Blood Urea Nitrogen 71H, Creatinine 1.91H, Estimat Glomerular Filtration Rate 37, BUN/Creatinine Ratio 37, Glucose Level 142H, Calcium Level 8.7, Corrected Calcium 9.2, Magnesium Level 2.7H, Total Bilirubin 0.5, Aspartate Amino Transf (AST/SGOT) 15, Alanine Aminotransferase (ALT/SGPT) 13, Alkaline Phosphatase 67, Total Protein 6.4, Albumin 3.4 06/07/22 17:10: Glucometer 133H 06/07/22 20:24: Glucometer 162H 06/08/22 04:53: Glucometer 156H 06/08/22 05:23: White Blood Count 9.2, Red Blood Count 3.51L, Hemoglobin 8.9L, Hematocrit 30L, Mean Corpuscular Volume 85, Mean Corpuscular Hemoglobin 25, Mean Corpuscular Hemoglobin Concent 30L, Red Cell Distribution Width 17.5H, Platelet Count 185, Mean Platelet Volume 9.1, Immature Granulocyte % (Auto) 3, Neutrophils (%) (Auto) 88H, Lymphocytes (%) (Auto) 6L, Monocytes (%) (Auto) 3, Eosinophils (%) (Auto) 0, Basophils (%) (Auto) 0, Neutrophils # (Auto) 8.1H, Lymphocytes # (Auto) 0.6L, Monocytes # (Auto) 0.2, Eosinophils # (Auto) 0.0, Basophils # (Auto) 0.0, Immature Granulocyte # (Auto) 0.3H, Sodium Level 139, Potassium Level 3.6, Chloride Level 97L, Carbon Dioxide Level 29, Anion Gap 13, Blood Urea Nitrogen 73H, Creatinine 1.76H, Estimat Glomerular Filtration Rate 40, BUN/Creatinine Ratio 41, Glucose Level 140H, Calcium Level 8.9, Corrected Calcium 9.3, Magnesium Level 2.8H, Total Bilirubin 0.5, Aspartate Amino Transf (AST/SGOT) 16, Alanine Aminotransferase (ALT/SGPT) 18, Alkaline Phosphatase 77, Total Protein 6.8, Albumin 3.5 06/08/22 10:09: Glucometer 158H 06/09/22 05:12: White Blood Count 9.0, Red Blood Count 3.24L, Hemoglobin 8.3L, Hematocrit 28L, Mean Corpuscular Volume 86, Mean Corpuscular Hemoglobin 26, Mean Corpuscular Hemoglobin Concent 30L, Red Cell Distribution Width 17.2H, Platelet Count 152, Mean Platelet Volume 9.0, Immature Granulocyte % (Auto) 1, Neutrophils (%) (Auto) 79H, Lymphocytes (%) (Auto) 11L, Monocytes (%) (Auto) 8, Eosinophils (%) (Auto) 0, Basophils (%) (Auto) 0, Neutrophils # (Auto) 7.1, Lymphocytes # (Auto) 1.0, Monocytes # (Auto) 0.7, Eosinophils # (Auto) 0.0, Basophils # (Auto) 0.0, Immature Granulocyte # (Auto) 0.1, Sodium Level 137, Potassium Level 3.6, Chloride Level 97L, Carbon Dioxide Level 29, Anion Gap 11, Blood Urea Nitrogen 68H, Creatinine 1.56H, Estimat Glomerular Filtration Rate 47, BUN/Creatinine Ratio 44, Glucose Level 89, Calcium Level 8.4L, Corrected Calcium 9.1, Magnesium Level 2.9H, Total Bilirubin 0.6, Aspartate Amino Transf (AST/SGOT) 16, Alanine Aminotransferase (ALT/SGPT) 21, Alkaline Phosphatase 62, Total Protein 5.9L, Albumin 3.1L 06/09/22 05:29: Glucometer 93 06/09/22 11:31: Glucometer 120H Pending Labs Laboratory Tests 06/04/22 11:55: White Blood Count 10.6, Red Blood Count 3.28, Hemoglobin 8.5, Hematocrit 28, Mean Corpuscular Volume 86, Mean Corpuscular Hemoglobin 26, Mean Corpuscular Hemoglobin Concent 30, Red Cell Distribution Width 17.4, Platelet Count 211, Mean Platelet Volume 9.4, Immature Granulocyte % (Auto) 3, Neutrophils (%) (Auto) 89, Lymphocytes (%) (Auto) 7, Monocytes (%) (Auto) 1, Eosinophils (%) (Auto) 0, Basophils (%) (Auto) 0, Neutrophils # (Auto) 9.4, Lymphocytes # (Auto) 0.8, Monocytes # (Auto) 0.1, Eosinophils # (Auto) 0.0, Basophils # (Auto) 0.0, Immature Granulocyte # (Auto) 0.3, Neutrophils % (Manual) 90, Lymphocytes % (Manual) 6, Monocytes % (Manual) 1, Eosinophils % (Manual) 0, Basophils % (Manual) 0, Band Neutrophils 3, Anisocytosis SLIGHT, Sodium Level 139, Potassium Level 4.7, Chloride Level 98, Carbon Dioxide Level 26, Anion Gap 15, Blood Urea Nitrogen 55, Creatinine 1.84, Estimat Glomerular Filtration Rate 38, BUN/Creatinine Ratio 30, Glucose Level 143, Calcium Level 9.1, Corrected Calcium 9.4, Total Bilirubin 0.5, Aspartate Amino Transf (AST/SGOT) 16, Alanine Aminotransferase (ALT/SGPT) 16, Alkaline Phosphatase 85, Total Protein 7.1, Albumin 3.6 06/04/22 12:24: Glucometer 130 06/04/22 15:46: Glucometer 129 06/05/22 06:15: White Blood Count 11.3, Red Blood Count 3.10, Hemoglobin 8.0, Hematocrit 26, Mean Corpuscular Volume 85, Mean Corpuscular Hemoglobin 26, Mean Corpuscular Hemoglobin Concent 30, Red Cell Distribution Width 17.8, Platelet Count 206, Mean Platelet Volume 9.2, Immature Granulocyte % (Auto) 2, Neutrophils (%) (Auto) 88, Lymphocytes (%) (Auto) 8, Monocytes (%) (Auto) 2, Eosinophils (%) (Auto) 0, Basophils (%) (Auto) 0, Neutrophils # (Auto) 10.0, Lymphocytes # (Auto) 0.9, Monocytes # (Auto) 0.2, Eosinophils # (Auto) 0.0, Basophils # (Auto) 0.0, Immature Granulocyte # (Auto) 0.2, Sodium Level 138, Potassium Level 4.6, Chloride Level 100, Carbon Dioxide Level 26, Anion Gap 12, Blood Urea Nitrogen 61, Creatinine 1.95, Estimat Glomerular Filtration Rate 36, BUN/Creatinine Ratio 31, Glucose Level 138, Calcium Level 8.8, Corrected Calcium 9.4, Total Bilirubin 0.5, Aspartate Amino Transf (AST/SGOT) 17, Alanine Aminotransferase (ALT/SGPT) 14, Alkaline Phosphatase 75, Total Protein 6.6, Albumin 3.3, Phosphorus Level 4.4, Magnesium Level 2.9, Procalcitonin 0.11 06/05/22 09:23: Blood Gas Puncture Site R BRACHIAL, Blood Gas Patient Temperature 36.8, Arterial Blood pH 7.42, Arterial Blood Partial Pressure CO2 51, Arterial Blood Partial Pressure O2 88, Arterial Blood HCO3 33, Arterial Blood Total CO2 34.3, Arterial Blood Oxygen Saturation 96, Arterial Blood Base Excess 8.1, Miguel Agnel Test YES-POS, Blood Gas Ventilator Setting NO, Blood Gas Inspired Oxygen 35% 06/05/22 10:55: Glucometer 141 06/05/22 11:52: Urine Color YELLOW, Urine Clarity CLEAR, Urine pH 5.5, Urine Specific [place] 1.025, Urine Protein TRACE, Urine Glucose (UA) NEGATIVE, Urine Ketones NEGATIVE, Urine Nitrite NEGATIVE, Urine Bilirubin NEGATIVE, Urine Urobilinogen 0.2, Urine Leukocyte Esterase NEGATIVE, Urine RBC (Auto) 3+, Urine RBC 10-25, Urine WBC 0- 2, Urine Squamous Epithelial Cells 2-5, Urine Crystals NONE, Urine Bacteria TRACE, Urine Casts NONE, Urine Mucus NEGATIVE, Urine Culture Indicated NO 06/05/22 15:50: Glucometer 140 06/05/22 20:19: Glucometer 156 06/06/22 04:10: White Blood Count 9.9, Red Blood Count 2.99, Hemoglobin 7.6, Hematocrit 25, Mean Corpuscular Volume 84, Mean Corpuscular Hemoglobin 25, Mean Corpuscular Hemoglobin Concent 30, Red Cell Distribution Width 17.7, Platelet Count 189, Mean Platelet Volume 9.5, Immature Granulocyte % (Auto) 1, Neutrophils (%) (Auto) 90, Lymphocytes (%) (Auto) 8, Monocytes (%) (Auto) 1, Eosinophils (%) (Auto) 0, Basophils (%) (Auto) 0, Neutrophils # (Auto) 8.9, Lymphocytes # (Auto) 0.7, Monocytes # (Auto) 0.1, Eosinophils # (Auto) 0.0, Basophils # (Auto) 0.0, Immature Granulocyte # (Auto) 0.1, Sodium Level 139, Potassium Level 3.7, Chloride Level 100, Carbon Dioxide Level 28, Anion Gap 11, Blood Urea Nitrogen 72, Creatinine 2.04, Estimat Glomerular Filtration Rate 34, BUN/Creatinine Ratio 35, Glucose Level 140, Calcium Level 8.6, Corrected Calcium 9.3, Phosphorus Level 5.0, Magnesium Level 2.6, Total Bilirubin 0.4, Aspartate Amino Transf (AST/SGOT) 14, Alanine Aminotransferase (ALT/SGPT) 12, Alkaline Phosphatase 65, Total Protein 6.1, Albumin 3.1 06/06/22 11:26: Glucometer 164 06/06/22 15:51: Glucometer 135 06/06/22 20:17: Glucometer 136 06/07/22 04:56: Glucometer 146 06/07/22 07:04: White Blood Count 9.6, Red Blood Count 3.22, Hemoglobin 8.2, Hematocrit 27, Mean Corpuscular Volume 84, Mean Corpuscular Hemoglobin 26, Mean Corpuscular Hemoglobin Concent 30, Red Cell Distribution Width 17.5, Platelet Count 180, Mean Platelet Volume 8.9, Immature Granulocyte % (Auto) 2, Neutrophils (%) (Auto) 89, Lymphocytes (%) (Auto) 7, Monocytes (%) (Auto) 2, Eosinophils (%) (Auto) 0, Basophils (%) (Auto) 0, Neutrophils # (Auto) 8.5, Lymphocytes # (Auto) 0.7, Monocytes # (Auto) 0.2, Eosinophils # (Auto) 0.0, Basophils # (Auto) 0.0, Immature Granulocyte # (Auto) 0.2, Sodium Level 137, Potassium Level 3.7, Chloride Level 97, Carbon Dioxide Level 31, Anion Gap 9, Blood Urea Nitrogen 71, Creatinine 1.91, Estimat Glomerular Filtration Rate 37, BUN/Creatinine Ratio 37, Glucose Level 142, Calcium Level 8.7, Corrected Calcium 9.2, Magnesium Level 2.7, Total Bilirubin 0.5, Aspartate Amino Transf (AST/SGOT) 15, Alanine Aminotransferase (ALT/SGPT) 13, Alkaline Phosphatase 67, Total Protein 6.4, Albumin 3.4 06/07/22 17:10: Glucometer 133 06/07/22 20:24: Glucometer 162 06/08/22 04:53: Glucometer 156 06/08/22 05:23: White Blood Count 9.2, Red Blood Count 3.51, Hemoglobin 8.9, Hematocrit 30, Mean Corpuscular Volume 85, Mean Corpuscular Hemoglobin 25, Mean Corpuscular Hemoglobin Concent 30, Red Cell Distribution Width 17.5, Platelet Count 185, Mean Platelet Volume 9.1, Immature Granulocyte % (Auto) 3, Neutrophils (%) (Auto) 88, Lymphocytes (%) (Auto) 6, Monocytes (%) (Auto) 3, Eosinophils (%) (Auto) 0, Basophils (%) (Auto) 0, Neutrophils # (Auto) 8.1, Lymphocytes # (Auto) 0.6, Monocytes # (Auto) 0.2, Eosinophils # (Auto) 0.0, Basophils # (Auto) 0.0, Immature Granulocyte # (Auto) 0.3, Sodium Level 139, Potassium Level 3.6, Chloride Level 97, Carbon Dioxide Level 29, Anion Gap 13, Blood Urea Nitrogen 73, Creatinine 1.76, Estimat Glomerular Filtration Rate 40, BUN/Creatinine Ratio 41, Glucose Level 140, Calcium Level 8.9, Corrected Calcium 9.3, Magnesium Level 2.8, Total Bilirubin 0.5, Aspartate Amino Transf (AST/SGOT) 16, Alanine Aminotransferase (ALT/SGPT) 18, Alkaline Phosphatase 77, Total Protein 6.8, Albumin 3.5 06/08/22 10:09: Glucometer 158 06/09/22 05:12: White Blood Count 9.0, Red Blood Count 3.24, Hemoglobin 8.3, Hematocrit 28, Mean Corpuscular Volume 86, Mean Corpuscular Hemoglobin 26, Mean Corpuscular Hemoglobin Concent 30, Red Cell Distribution Width 17.2, Platelet Count 152, Mean Platelet Volume 9.0, Immature Granulocyte % (Auto) 1, Neutrophils (%) (Auto) 79, Lymphocytes (%) (Auto) 11, Monocytes (%) (Auto) 8, Eosinophils (%) (Auto) 0, Basophils (%) (Auto) 0, Neutrophils # (Auto) 7.1, Lymphocytes # (Auto) 1.0, Monocytes # (Auto) 0.7, Eosinophils # (Auto) 0.0, Basophils # (Auto) 0.0, Immature Granulocyte # (Auto) 0.1, Sodium Level 137, Potassium Level 3.6, Chloride Level 97, Carbon Dioxide Level 29, Anion Gap 11, Blood Urea Nitrogen 68, Creatinine 1.56, Estimat Glomerular Filtration Rate 47, BUN/Creatinine Ratio 44, Glucose Level 89, Calcium Level 8.4, Corrected Calcium 9.1, Magnesium Level 2.9, Total Bilirubin 0.6, Aspartate Amino Transf (AST/SGOT) 16, Alanine Aminotransferase (ALT/SGPT) 21, Alkaline Phosphatase 62, Total Protein 5.9, Albumin 3.1 06/09/22 05:29: Glucometer 93 06/09/22 11:31: Glucometer 120 Discharge Home Medications: Active Scripts Active Prednisone 10 Mg Tab.ds.pk 10 Mg PO DAILY Take 4 tabs(40mg)daily,decrease by 1 tab(10MG)daily. Lasix (Furosemide) 40 Mg Tablet 40 Mg PO DAILY Allopurinol 100 Mg Tablet 100 Mg PO DAILY Pantoprazole Sodium 40 Mg Tablet.dr 40 Mg PO DAILY Entresto 24 mg-26 mg Tablet (Sacubitril/Valsartan) 24 Mg-26 Mg Tablet 1 Tab PO BID Xarelto Tablet (Rivaroxaban) 20 Mg Tablet 20 Mg PO DAILY@1700 Reported Carvedilol 25 Mg Tablet 25 Mg PO BID Proventil Hfa (Albuterol Sulfate) 90 Mcg Hfa.aer.ad 2 Puff INH Q4H PRN Ondansetron Odt (Ondansetron) 4 Mg Tab.rapdis 4 Mg SL Q8H PRN Triamcinolone Acetonide 0.1% Cream (Triamcinolone Acet) 0.1 % Cr 1 Applic TP BID Metolazone 2.5 Mg Tablet 2.5 Mg PO Q48H Flomax (Tamsulosin HCl) 0.4 Mg Cap 0.4 Mg PO BID Tramadol HCl 50 Mg Tablet 100 Mg PO TID PRN TAKES 2 (50MG) TABS Meclizine HCl 25 Mg Tablet 25 Mg PO TID PRN Finasteride 5 Mg Tablet 5 Mg PO DAILY Alprazolam 0.5 Mg Tablet 0.5 Mg PO TID PRN Instructions to patient/family Please see electronic discharge instructions given to patient. Diagnosis/Problems Diagnosis/Problems (1) RESPIRATORY FAILURE, UNSP, UNSP W HYPOXIA OR HYPERCAPNIA (2) Acute on chronic heart failure with preserved ejection fraction (HFpEF) (3) Hypoxia Status: Acute (4) Acute kidney injury superimposed on chronic kidney disease (5) CHF exacerbation (6) Diastolic heart failure of unknown etiology Status: Acute (7) Stage 3a chronic kidney disease LONNY ORELLANA DO Jun 09, 2022 11:16
[2022-06-09 11:25] VITALS: BP 136/65
--- NOTE | 2022-06-09 13:04 | Progress Note ---
CAPO FUCHS 06/09/22 1304: Progress Note 71 yo M with CHF, NGOZI, Stage 3a CKD, paroxysmal atrial fibrillation, and super morbid obesity amongst other chronic health conditions admitted from [facility] on 06/04 for acute hypoxic and hypercapnic respiratory failure, acute on chronic diastolic heart failure, and pneumonia. At this time he was w eak, in moderate distress and using accessory respiratory muscles. Throughout his stay he received steroids (IV then oral) and completed a course of empiric antibiotics. A CXR done 06/05 showed cardiomegaly and mild central pulmonary venous congestion; he was placed on IV lasix with close monitoring of kidney function. His xarelto (for atrial fibrillation) was held on 06/05 due to hematuria and restarted on 06/07. His respiratory function returned to baseline on 06/06, though he continued to require a BiPAP each night.His disposition improved through his stay, though he continued to demostrate accessory muscle use and complain of SOB on 05/09. He will be thus be discharged to home health with Ventimask oxygen and follow up appointments with his PCP (1-week) and c ardiologist. NIECY ORELLANA DO 06/10/22 0453: Supervisory-Addendum Brief Verification & Attestation Participated in pt care: history, MDM, physical Personally performed: exam, history, MDM, supervision of care Care discussed with: Medical Student Procedures: n/a Results interpretation: Verified all documentation Verification and Attestation of Medical Student E/M Service A medical student performed and documented this service in my presence. I reviewed and verified all information documented by the medical student and made modifications to such information, when appropriate. I personally performed the physical exam and medical decision making. Niecy Orellana Jun 10, 2022,04:53 CAPO FUCHS Jun 09, 2022 13:04 NIECY ORELLANA DO Jun 10, 2022 04:53
[2022-06-09 16:39] VITALS: BP 136/65
== END 2022-06-09 16:30 | disposition home or self-care (01) | DRG 193 ==
LOC: ICU 11:22 → 4TH 06-06 08:42
PROVIDERS: ADMIT Internal Medicine; ATTEND Internal Medicine
PROC: 5A09357 Assistance with Respiratory Ventilation, Less than 24 Consecutive Hours, Continuous Positive Airway Pressure (ICD-10-PCS; principal; 2022-06-04)
DX: J18.9 Pneumonia, unspecified organism (principal); I50.33 Acute on chronic diastolic (congestive) heart failure; J96.02 Acute respiratory failure with hypercapnia; J96.01 Acute respiratory failure with hypoxia; N17.9 Acute kidney failure, unspecified; E66.2 Morbid (severe) obesity with alveolar hypoventilation; Z68.44 Body mass index [BMI] 60.0-69.9, adult; I13.0 Hypertensive heart and chronic kidney disease with heart failure and stage 1 through stage 4 chronic kidney disease, or unspecified chronic kidney disease; J98.11 Atelectasis; I48.0 Paroxysmal atrial fibrillation; E11.22 Type 2 diabetes mellitus with diabetic chronic kidney disease; N18.31 Chronic kidney disease, stage 3a; N40.0 Benign prostatic hyperplasia without lower urinary tract symptoms; K21.9 Gastro-esophageal reflux disease without esophagitis; D64.9 Anemia, unspecified; R31.9 Hematuria, unspecified; I87.8 Other specified disorders of veins; M19.91 Primary osteoarthritis, unspecified site; M10.9 Gout, unspecified; F41.9 Anxiety disorder, unspecified; E78.5 Hyperlipidemia, unspecified; E11.9 Type 2 diabetes mellitus without complications
CPT/HCPCS: 36415; 71045; 80053; 81000; 82805; 82947; 83735; 84100; 84145; 85007; 85025; 85027; 93005; 93306; 94640; 94660; 94760; 94761

== ENCOUNTER 2022-08-09 13:21 | Emergency (ER) | payer MEDICARE ==
[~2022-08-09] VITALS: Ht 162 cm; Wt 175.0 kg
[~2022-08-09 13:21] MED LIST changes: +ALBU6.7H13 INH; +ALLO100T PO; +FURO-124 PO; +ONDA4TAB11 SL; +PANT40TA52 PO; +PRED10TA22 PO; +SACU1TAB2 PO; +TR1C15 TP
--- NOTE | 2022-08-09 13:26 | ED Dyspnea ---
General Stated Complaint: SOB History of Present Illness Date Seen by Provider: Aug 09, 2022 Time Seen by Provider: 13:26 Initial Comments 72-year-old male presents with feeling of shortness of breath. Patient reports he has felt more short of breath for the last 4 days. He is normally on 3 L home oxygen. He is got some cough congestion stuffy nose. No reports of fevers chills weight gain or lower extremity edema. Allergies and Home Medications Allergies Coded Allergies: No Known Drug Allergies (Unverified , 08/24/18) Patient Home Medication List Home Medication List Reviewed: Yes Albuterol Sulfate (Proventil Hfa) 90 Mcg Hfa.aer.ad, 2 PUFF INH Q4H PRN for SHORTNESS OF BREATH, (Reported) Entered as Reported by: CHET STEARNS on 06/04/22 1632 Allopurinol (Allopurinol) 100 Mg Tablet, 100 MG PO DAILY Prescribed by: LONNY ORELLANA on 06/09/22 1115 Alprazolam (Alprazolam) 0.5 Mg Tablet, 0.5 MG PO TID PRN for ANXIETY, (Reported) Entered as Reported by: ANDRZEJ BENTLEY on 08/24/18 1120 Carvedilol (Carvedilol) 25 Mg Tablet, 25 MG PO BID, (Reported) Entered as Reported by: OSCAR TOBIAS on 06/08/22 1351 Doxycycline Hyclate (Doxycycline Hyclate) 100 Mg Tablet, 100 MG PO BID Prescribed by: TONI TEE on 08/09/22 1452 Finasteride (Finasteride) 5 Mg Tablet, 5 MG PO DAILY, (Reported) Entered as Reported by: ANDRZEJ BENTLEY on 08/24/18 1120 Furosemide (Lasix) 40 Mg Tablet, 40 MG PO DAILY Prescribed by: LONNY ORELLANA on 06/09/22 1115 Meclizine HCl (Meclizine HCl) 25 Mg Tablet, 25 MG PO TID PRN for DIZZINESS, (Reported) Entered as Reported by: GUERDA TAI on 04/27/21 1054 Metolazone (Metolazone) 2.5 Mg Tablet, 2.5 MG PO Q48H, (Reported) Entered as Reported by: GUERDA TAI on 12/30/21 1058 Ondansetron (Ondansetron Odt) 4 Mg Tab.rapdis, 4 MG SL Q8H PRN for NAUSEA/VOMITING, (Reported) Entered as Reported by: CHET STEARNS on 06/04/22 1614 Pantoprazole Sodium (Pantoprazole Sodium) 40 Mg Tablet.dr, 40 MG PO DAILY Prescribed by: LONNY ORELLANA on 06/09/22 1115 Prednisone (Prednisone) 10 Mg Tab.ds.pk, 10 MG PO DAILY Prescribed by: LONNY ORELLANA on 06/09/22 1115 Rivaroxaban (Xarelto Tablet) 20 Mg Tablet, 20 MG PO DAILY@1700 Prescribed by: LONNY ORELLANA on 06/09/22 1115 Sacubitril/Valsartan (Entresto 24 mg-26 mg Tablet) 24 Mg-26 Mg Tablet, 1 TAB PO BID Prescribed by: LONNY ORELLANA on 06/09/22 1115 Tamsulosin HCl (Flomax) 0.4 Mg Cap, 0.4 MG PO BID, (Reported) Entered as Reported by: GUERDA TAI on 04/27/21 1054 Tramadol HCl (Tramadol HCl) 50 Mg Tablet, 100 MG PO TID PRN for PAIN-MODERATE (5-7), (Reported) Entered as Reported by: GUERDA TAI on 04/27/21 1054 Triamcinolone Acet (Triamcinolone Acetonide 0.1% Cream) 0.1 % Cr, 1 APPLIC TP BID, (Reported) Entered as Reported by: CHET STEARNS on 06/04/22 1614 Review of Systems Review of Systems Constitutional: No chills, No fever EENTM: nose congestion Respiratory: cough, short of breath, wheezing Cardiovascular: No chest pain, No palpitations Gastrointestinal: no symptoms reported Genitourinary: no symptoms reported Musculoskeletal: no symptoms reported Skin: no symptoms reported Psychiatric/Neurological: No Symptoms Reported Endocrine: No Symptoms Reported Past Lzbpuzr-Alcwuz-Jddjds Hx Immunizations Up To Date First/Initial COVID19 Vaccinat: YES Seasonal Allergies Seasonal Allergies: No Past Medical History Surgery/Hospitalization HX: APPENDIX, COPD, CHF, Home O2 Surgeries: Yes Appendectomy Respiratory: Yes Sleep Apnea Cardiac: Yes Atrial Fibrillation, Chronic Edema/Swelling, Hypertension Neurological: No Genitourinary: Yes Benign Prostatic Hyperpl, Kidney Stones Gastrointestinal: No Gastroesophageal Reflux Musculoskeletal: Yes Arthritis, Gout Endocrine: No HEENT: No Cancer: No Psychosocial: Yes Anxiety Integumentary: No Blood Disorders: No Family Medical History No Pertinent Family Hx No none heart of premature cardiac disease or Physical Exam Vital Signs Vital Signs - First Documented Capillary Refill : Height, Weight, BMI Height: 5'6.00" Weight: 340lbs. oz. [id number]; 63.97 BMI Method:Stated General Appearance: No Apparent Distress, WD/WN, Obese Respiratory: No Accessory Muscle Use, No Respiratory Distress, Wheezing (Mild wheezing) Cardiovascular: Regular Rate, Rhythm, Normal Peripheral Pulses Gastrointestinal: Non Tender, Soft Neurologic/Psychiatric: Alert, Oriented x3, No Motor/Sensory Deficits Skin: Normal Color, Warm/Dry Progress/Results/Core Measures Results/Orders Lab Results Laboratory Tests Test 08/09/22 13:29 08/09/22 13:37 Range/Units White Blood Count 6.7 4.3-11.0 10^3/uL Red Blood Count 3.00 L 4.30-5.52 10^6/uL Hemoglobin 7.5 L 13.3-17.7 g/dL Hematocrit 25 L 40-54 % Mean Corpuscular Volume 84 80-99 fL Mean Corpuscular Hemoglobin 25 25-34 pg Mean Corpuscular Hemoglobin Concent 30 L 32-36 g/dL Red Cell Distribution Width 16.8 H 10.0-14.5 % Platelet Count 175 130-400 10^3/uL Mean Platelet Volume 8.8 L 9.0-12.2 fL Immature Granulocyte % (Auto) 1 % Neutrophils (%) (Auto) 62 42-75 % Lymphocytes (%) (Auto) 23 12-44 % Monocytes (%) (Auto) 9 0-12 % Eosinophils (%) (Auto) 6 0-10 % Basophils (%) (Auto) 0 0-10 % Neutrophils # (Auto) 4.2 1.8-7.8 10^3/uL Lymphocytes # (Auto) 1.5 1.0-4.0 10^3/uL Monocytes # (Auto) 0.6 0.0-1.0 10^3/uL Eosinophils # (Auto) 0.4 H 0.0-0.3 10^3/uL Basophils # (Auto) 0.0 0.0-0.1 10^3/uL Immature Granulocyte # (Auto) 0.1 0.0-0.1 10^3/uL Sodium Level 141 135-145 MMOL/L Potassium Level 3.4 L 3.6-5.0 MMOL/L Chloride Level 98 98-107 MMOL/L Carbon Dioxide Level 35 H 21-32 MMOL/L Anion Gap 8 5-14 MMOL/L Blood Urea Nitrogen 36 H 7-18 MG/DL Creatinine 1.59 H 0.60-1.30 MG/DL Estimat Glomerular Filtration Rate 45 BUN/Creatinine Ratio 23 Glucose Level 104 70-105 MG/DL Calcium Level 8.6 8.5-10.1 MG/DL Corrected Calcium 9.0 8.5-10.1 MG/DL Magnesium Level 2.2 1.6-2.4 MG/DL Total Bilirubin 0.4 0.1-1.0 MG/DL Aspartate Amino Transf (AST/SGOT) 15 5-34 U/L Alanine Aminotransferase (ALT/SGPT) 8 0-55 U/L Alkaline Phosphatase 106 40-136 U/L Pro-B-Type Natriuretic Peptide 1427.0 H <125.0 PG/ML Total Protein 6.3 L 6.4-8.2 GM/DL Albumin 3.5 3.2-4.5 GM/DL Influenza Type A (RT-PCR) Not Detected Not Detecte Influenza Type B (RT-PCR) Not Detected Not Detecte SARS-CoV-2 RNA (RT-PCR) Not Detected Not Detecte My Orders Orders - TEE,TONI L DO Cbc With Automated Diff (08/09/22 13:26) Comprehensive Metabolic Panel (08/09/22 13:26) Magnesium (08/09/22 13:26) Influenza A And B By Pcr (08/09/22 13:26) Probnp Fs (08/09/22 13:26) Covid 19 Inhouse Test (08/09/22 13:26) Chest Pa/Lat (2 View) (08/09/22 13:26) Albuterol/Ipra Inhalation Soln (Duoneb I (08/09/22 13:30) Dexamethasone Injection (Decadron Inje (08/09/22 13:30) Svn Small Volume Nebulizer (08/09/22 13:26) Medications Given in ED Current Medications Medications Dose Ordered Sig/Joseph Route Start Time Stop Time Status Last Admin Dose Admin Albuterol/ Ipratropium 3 ml ONCE ONCE INH 08/09/22 13:30 08/09/22 13:31 DC 08/09/22 13:47 3 ML Dexamethasone Sodium Phosphate 10 mg ONCE ONCE IV 08/09/22 13:30 08/09/22 13:31 DC 08/09/22 13:47 10 MG Vital Signs/I&O 08/09/22 08/09/22 08/09/22 13:21 13:21 14:53 Temp 36.9 36.9 Pulse 61 57 Resp 18 18 B/P (MAP) 151/62 (91) 179/74 Pulse Ox 91 96 O2 Delivery Nasal Cannula Nasal Cannula Nasal Cannula O2 Flow Rate 3.00 3.00 3.00 Progress Progress Note : Progress Note Patient's diagnostic tests were ordered reviewed and interpreted by me. Patient does have a hemoglobin of 7.5 however this peers to be near his baseline. Patient is negative for COVID and influenza. Patient's other labs appear to be at his baseline. Patient does have a questionable right lobe pneumonia on x- ray. X-ray was initially interpreted by me with final review per radiology note. Patient will be started on doxycycline for his pneumonia. Throughout his stay his oxygen was in 95 to 97% on his baseline 3 L. I did recommend he follow-up with his primary care provider towards the end of the week for recheck of his symptoms. Patient was stable and discharged home Diagnostic Imaging Diagonstic Imaging: Xray Plain Films/CT/US/NM/MRI: chest Comments Date of Exam:08/09/22 CHEST PA/LAT (2 VIEW) Indication: Cough and shortness of breath. PA and lateral chest obtained at 2:30 p.m. and compared to 06/05/2022. There is cardiomegaly. The central vascular congestion. There is some new infiltrate in the right midlung and base which may represent superimposed pneumonia. There is no pleural fluid. Impression: Cardiomegaly and central vascular congestion. There is some new infiltrate in the right midlung and base suspicious for superimposed pneumonia. Reviewed: Reviewed by Me, Reviewed/Discussed Departure Impression Primary Impression: Right middle lobe pneumonia Qualified Codes: J18.9 - Pneumonia, unspecified organism Additional Impression: Chronic anemia Disposition: HOME, SELF-CARE Condition: Stable Departure-Patient Inst. Referrals: CHRISTIANO VALENCIA MD (PCP/Family) Primary Care Physician Patient Instructions: Pneumonia, Adult ED, Anemia, Possibly From Low Iron, Adult ED Add. Discharge Instructions: Please follow-up with your primary care provider in 5 to 7 days for recheck of your symptoms and a recheck of your blood levels. Scripts Doxycycline Hyclate (Doxycycline Hyclate) 100 Mg Tablet 100 MG PO BID, #20 TAB 0 Refills Prov: TONI TEE DO 08/09/22 TONI TEE DO Aug 09, 2022 13:26
[2022-08-09] MEDS ORDERED: RT-ALBUTEROL/IPRATROPIUM 3 ML (DUONEB) VIAL INH ONE (13:30)
[2022-08-09 13:34] LABS: BASOPHILS % (AUTO) 0 % (0-10); EOSINOPHILS # (AUTO) 0.4 10^3/uL (0.0-0.3); EOSINOPHILS % (AUTO) 6 % (0-10); HEMATOCRIT 25 % (40-54); HEMOGLOBIN 7.5 g/dL (13.3-17.7); LYMPHOCYTES # (AUTO) 1.5 10^3/uL (1.0-4.0); LYMPHOCYTES % (AUTO) 23 % (12-44); MEAN CORPUSCULAR HEMOGLOBIN 25 pg (25-34); MEAN CORPUSCULAR HGB CONC 30 g/dL (32-36); MEAN CORPUSCULAR VOLUME 84 fL (80-99); MEAN PLATELET VOLUME 8.8 fL (9.0-12.2); MONOCYTES # (AUTO) 0.6 10^3/uL (0.0-1.0); MONOCYTES % (AUTO) 9 % (0-12); NEUTROPHILS # (AUTO) 4.2 10^3/uL (1.8-7.8); NEUTROPHILS % (AUTO) 62 % (42-75); PLATELET COUNT 175 10^3/uL (130-400); WHITE BLOOD COUNT 6.7 10^3/uL (4.3-11.0)
[2022-08-09 14:11] LABS: BILIRUBIN,TOTAL 0.4 MG/DL (0.1-1.0); CALCIUM 8.6 MG/DL (8.5-10.1); CREATININE SERUM 1.59 MG/DL (0.60-1.30); MAGNESIUM 2.2 MG/DL (1.6-2.4); POTASSIUM 3.4 MMOL/L (3.6-5.0)
[2022-08-09 14:12] LABS: ALBUMIN 3.5 GM/DL (3.2-4.5); TOTAL PROTEIN 6.3 GM/DL (6.4-8.2)
--- NOTE | 2022-08-09 14:43 | Diagnostic Imaging Report ---
Indication: Cough and shortness of breath. PA and lateral chest obtained at 2:30 p.m. and compared to 06/05/2022. There is cardiomegaly. The central vascular congestion. There is some new infiltrate in the right midlung and base which may represent superimposed pneumonia. There is no pleural fluid. Impression: Cardiomegaly and central vascular congestion. There is some new infiltrate in the right midlung and base suspicious for superimposed pneumonia. Dictated by: Dictated on workstation # [id number]
[2022-08-09] MEDS ORDERED: DOXY100T2 PO (14:52)
[2022-08-09 14:53] VITALS: BP 179/74
== END 2022-08-09 14:55 | disposition home or self-care (01) ==
LOC: EDUNIT# 13:21 → ER FS 13:22
DX: J18.9 Pneumonia, unspecified organism (principal); D64.9 Anemia, unspecified; J44.9 Chronic obstructive pulmonary disease, unspecified; Z99.81 Dependence on supplemental oxygen; Z20.822 Contact with and (suspected) exposure to COVID-19
CPT/HCPCS: 36415; 71046; 80053; 83735; 83880; 85025; 87636; 94640